=== PATIENT | female | born 1945 | race Hispanic/Latino ===

== ENCOUNTER → 2017-09-29 | Outpatient (CLI) | payer MEDICARE ==
[~2017-09-29] MED LIST: ADV500 IH; ALBU8.5H8 IH; ALEN70TA47 PO; AUD IH; ESOM40VI2 IV; FERROUS GLUCON325 M1 PO; HYDR12.530 PO; LEVO25TA54 PO; ROPI1TAB11 PO; SPIR25TA4 PO; TRAM50TA4 PO; [UNRECOGNIZED DRUG - OTHER]
== END ==
LOC: RAH 13:16
PROVIDERS: ATTEND Family Medicine
DX: Z12.31 Encounter for screening mammogram for malignant neoplasm of breast (principal)
CPT/HCPCS: 77067

== ENCOUNTER → 2022-07-23 | Outpatient (CLI) | payer MEDICARE ==
[~2022-07-23] MED LIST changes: -ALEN70TA47 PO; +ALEN70TA80 PO; +BUPIVACAINE/EPI/PF 0.25% 10ML VIAL IJ SCH; -ROPI1TAB11 PO; +ROPI1TAB13 PO; -SPIR25TA4 PO; +SPIR25TA6 PO
== END | disposition home or self-care (01) ==
LOC: RAH 08:35
PROVIDERS: ATTEND Family Medicine
DX: Z12.31 Encounter for screening mammogram for malignant neoplasm of breast (principal)
CPT/HCPCS: 77067; J3490

== ENCOUNTER 2024-10-16 17:05 | Inpatient (IN) | payer MEDICARE ==
[~2024-10-16] VITALS: Ht 172.7 cm; Wt 103.2 kg
[~2024-10-16 17:05] MED LIST changes: -BUPIVACAINE/EPI/PF 0.25% 10ML VIAL IJ SCH; -ROPI1TAB13 PO; +ROPI1TAB46 PO
[2024-10-16 18:22] LABS: BASOPHILS # (AUTO) 0.01 K/uL (0.00-0.20); BASOPHILS % (AUTO) 0.1 % (0.0-5.0); HEMATOCRIT 33.8 % (36-48); LYMPHOCYTES # (AUTO) 0.2 K/uL (1.0-4.8); LYMPHOCYTES % (AUTO) 2.3 % (21.0-51.0); MEAN CORPUSCULAR HEMOGLOBIN 22.9 pg (27.0-33.0); MEAN CORPUSCULAR HGB CONC 28.7 g/dL (32.0-36.0); MEAN CORPUSCULAR VOLUME 79.7 fL (79-99); MONOCYTES # (AUTO) 0.3 K/uL (0.1-1.0); MONOCYTES % (AUTO) 2.4 % (3.0-13.0); NEUTROPHILS # (AUTO) 9.9 K/uL (1.8-7.7); NEUTROPHILS % (AUTO) 93.3 % (40.0-77.0); NUCLEATED RED BLOOD CELLS 0.4 % (0.0-0.19); PLATELET COUNT (AUTO) 409 K/uL (130-400); RED BLOOD CELL COUNT(AUTO) 4.24 MIL/uL (4.00-5.50); RED CELL DISTRIBUTION WIDTH 19.9 % (11.0-15.5); WHITE BLOOD COUNT (AUTO) 10.6 K/uL (4.8-10.8)
[2024-10-16 18:36] LABS: CREATININE 1.3 mg/dL (0.5-1.0); POTASSIUM 4.1 mmol/L (3.5-5.1)
[2024-10-16 18:38] LABS: ALBUMIN 3.2 g/dL (3.5-5.0); BILIRUBIN,DIRECT 0.1 mg/dL (0.0-0.3); BILIRUBIN,TOTAL 0.3 mg/dL (0.2-1.0); TOTAL PROTEIN, SERUM 6.8 g/dL (6.0-8.3)
[2024-10-16] MEDS: IpraTROPium/alBUTERol SULFATE 3 ML SOLUTION IH ONE ×3 (18:38→23:39)
--- NOTE | 2024-10-16 18:41 | EKG ---
[facility] Test Date: 2024-10-16 Test Time: 18:39:53 Pat Name: MORRIS LANGSTON Department: [facility] Room: 426 Gender: F Visual Manager: [id number] : 1945 Requested By: KARLO LESLIE Order Number: [id number] Reading MD: Wilberto Self Measurements Intervals [place] Rate: 97 P: 55 MO: 130 QRS: 14 QRSD: 95 T: 59 QT: 335 QTc: 421 Interpretive Statements Sinus rhythm Atrial premature complexes Probable left atrial enlargement Compared to ECG 01/04/2016 06:05:59 Atrial premature complex(es) now present Electronically Signed On 10-17-2024 13:10:07 CDT by Wilberto Self Please click the below link to view image of tracing.
[2024-10-16 18:49] VITALS: PULSE 108; PULSE 89; RESP 22; RESP 24; O2SAT 99
--- NOTE | 2024-10-16 18:49 | ERN ---
ED Note History of Present Illness Stated Complaint: SOB,SHAKING Chief Complaint: Shortness of Breath Time Seen by MD: 17:06 Dictation: 79-year-old female presenting to the emergency department with shortness of breath over the past few weeks worsening today. Patient has a history of COPD and asthma has been seen multiple times in the clinic setting had subjective fever last week placed on steroids and nebulized treatments which have not been working. Allergies: Coded Allergies: No Known Drug Allergies (Unverified Allergy, Unknown, 07/24/22) Home Meds Reported Medications Prednisone (Prednisone) 20 Mg Tablet, 1 TAB PO DAILY for 5 Days, #5 TAB 0 Refills 10/17/24 Alendronate Sodium (Alendronate Sodium) 70 Mg Tablet, 1 TAB PO QWEEK for 28 Days, #4 TAB 0 Refills in the morning, at least 30 minutes before the first food, beverage, or medication of the day 10/16/24 Albuterol Sulfate (Ventolin Hfa) 90 Mcg Hfa.aer.ad, 2 PUFF IH Q4HPRN PRN for wheezing for 30 Days, #18 GM 0 Refills 10/16/24 Fluticasone/Umeclidin/Vilanter (Trelegy Ellipta 100-62.5-25) 100-62.5 Blst.w.dev, 1 PUFF IH DAILY for 30 Days, #1 EACH 0 Refills 10/16/24 Isosorbide Mononitrate (Isosorbide Mononitrate ER) 30 Mg Tab.er.24h, 1 TAB PO DAILY for 30 Days, #30 TAB 0 Refills 10/16/24 Losartan Potassium (Losartan Potassium) 25 Mg Tablet, 1 TAB PO DAILY for 30 Days, #30 TAB 0 Refills 10/16/24 Spironolactone (Spironolactone) 25 Mg Tablet, 1 TAB PO DAILY for 30 Days, #30 TAB 0 Refills 10/16/24 Fluticasone/Salmeterol (ADVAIR 500-50 DISKUS) 14 Inh/Disk Inh, 1 INH IH BID, INHALER 01/04/16 Albuterol Sulfate (Albuterol Sulfate) 2.5 Mg/0.5 Ml Vial.neb, 2.5 MG IH every 6 hours, INH 01/04/16 Hydrochlorothiazide (Hydrochlorothiazide) 12.5 Mg Capsule, 12.5 MG PO DAILY, CAP 01/04/16 Spironolactone (Spironolactone) 25 Mg Tablet, 12.5 MG PO DAILY, TAB 01/04/16 Tramadol Hcl (Tramadol HCl) 50 Mg Tablet, 50 MG PO every 8 hours, TAB 01/04/16 [methylp] No Conflict Check 01/04/16 Ferrous Gluconate (Ferrous Gluconate) 325 Mg Tablet, 325 MG PO TID, TAB 01/04/16 Esomeprazole Sodium (Esomeprazole Sodium) 40 Mg Vial, 40 MG IV DAILY, VIAL 01/04/16 Ropinirole HCl (Ropinirole HCl) 1 Mg Tablet, 1 MG PO as needed PRN for as instructed 01/04/16 Levothyroxine Sodium (Levothyroxine Sodium) 25 Mcg Tablet, 25 MCG PO DAILY, TAB 01/04/16 Alendronate Sodium (Alendronate Sodium) 70 Mg Tablet, 70 MG PO weekly, TAB 01/04/16 Albuterol Sulfate (Proair Hfa) 8.5 Gm Hfa.aer.ad, 8.5 GM IH every 6 hours 01/04/16 Past Medical History Past Medical History: Asthma, COPD, Hypertension, Hypothyroid, Renal Disese Surgical History: Other Surgical History Other: OVARIAN SX Review of System Dictation Constitutional: Per HPI Eyes: Negative for injury, pain,redness, and discharge ENT: Negative for injury,pain or swelling Cardiovascular: Negative for chest pain, palpitations, and edema Respiratory: Per HPI Abdomen/GI: Negative for abdominal pain, nausea, vomiting, diarrhea, and constipation Back: Negative for injury and pain : Negative for injury, bleeding and discharge MS/Extremity: Negative for injury and deformity Skin: Negative for rash, and discoloration Neuro: Negative for headache, weakness, numbness, tingling, and seizure Psych: Negative for suicide ideation, homicidal ideation, and hallucinations Initial Vital Sign VS Vital Signs Date Time Temp Pulse Resp B/P (MAP) Pulse Ox O2 Delivery O2 Flow Rate FiO2 10/16/24 17:52 98.4 95 24 147/70 95 Room Air 0 10/16/24 18:49 32 Physical Exam Dictation General: awake, alert, NAD Head/Face: Normocephalic, atraumatic Eyes: PERRL, EOMI, vision at baseline ENT: oral cavity clear, TMs clear, no signs of infection Neck: Trachea midline, supple, no nuchal rigidity Cardiovascular: RRR, normal S1/S2, No MRGs, no JVD Respiratory: Mild tachypnea with diminished bilateral breath sounds and expiratory wheezing scattered throughout lung mosley Abdomen: Soft, non-tender, non-distended, normal bowel sounds, no guarding or rebound. Skin: Warm, dry, normal turgor, no rash MS/Extremity: Pulses equal, no cyanosis, neurovascular intact, FROM Neuro: COAx4, GCS 15, strength 5/5, CN 2-12 intact, normal cerebellar exam, normal gait, Psych: Normal behavior, mood, and affect normal Results (Laboratory/Radiology) Laboratory/Radiology Laboratory Tests Test 10/16/24 18:14 10/16/24 19:42 10/16/24 21:21 10/16/24 21:54 White Blood Count 10.6 K/uL (4.8-10.8) Red Blood Count 4.24 MIL/uL (4.00-5.50) Hemoglobin 9.7 g/dL (12.0-16.0) L Hematocrit 33.8 % (36-48) L Mean Corpuscular Volume 79.7 fL (79-99) Mean Corpuscular Hemoglobin 22.9 pg (27.0-33.0) L Mean Corpuscular Hemoglobin Concent 28.7 g/dL (32.0-36.0) L Red Cell Distribution Width 19.9 % (11.0-15.5) H Platelet Count 409 K/uL (130-400) H Mean Platelet Volume 8.6 fL (7.5-10.5) Immature Granulocyte % (Auto) 1.9 % (0-1) H Neutrophils (%) (Auto) 93.3 % (40.0-77.0) H Lymphocytes (%) (Auto) 2.3 % (21.0-51.0) L Monocytes (%) (Auto) 2.4 % (3.0-13.0) L Eosinophils (%) (Auto) 0.0 % (0.0-8.0) Basophils (%) (Auto) 0.1 % (0.0-5.0) Neutrophils # (Auto) 9.9 K/uL (1.8-7.7) H Lymphocytes # (Auto) 0.2 K/uL (1.0-4.8) L Monocytes # (Auto) 0.3 K/uL (0.1-1.0) Eosinophils # (Auto) 0.00 K/uL (0.00-0.70) Basophils # (Auto) 0.01 K/uL (0.00-0.20) Absolute Immature Granulocyte (auto 0.20 K/uL (0-1) Nucleated Red Blood Cells 0.4 % (0.0-0.19) H White Cell Morphology Comment See comments Red Blood Cell Morphology See comments D-Dimer Quantitative (PE/DVT) 1403 ng/mL (0-500) *H Sodium Level 139 mmol/L (136-145) Potassium Level 4.1 mmol/L (3.5-5.1) Chloride Level 105 mmol/L (101-111) Carbon Dioxide Level 25 mmol/L (21-32) Blood Urea Nitrogen 29 mg/dL (7-18) H Creatinine 1.3 mg/dL (0.5-1.0) H Glomerular Filtration Rate Calc 42 mL/min (>90) Random Glucose 291 mg/dL (70-105) H Lactic Acid Level 3.4 mmol/L (0.8-2.5) H Total Calcium 8.2 mg/dL (8.5-10.1) L Total Bilirubin 0.3 mg/dL (0.2-1.0) Direct Bilirubin 0.1 mg/dL (0.0-0.3) Aspartate Amino Transf (AST/SGOT) 12 U/L (10-37) Alanine Aminotransferase (ALT/SGPT) 22 U/L (12-78) Alkaline Phosphatase 76 U/L (50-136) Total Creatine Kinase 37 U/L (21-232) Troponin I High Sensitivity 10 ng/L (4-50) B-Type Natriuretic Peptide 115 pg/mL (0-100) H Total Protein 6.8 g/dL (6.0-8.3) Albumin 3.2 g/dL (3.5-5.0) L Influenza Type A Antigen Negative For Type A Influenza Type B Antigen Negative For Type B SARS-CoV-2 Antigen (Rapid) PRESUMPTIVE NEGATIVE Whole Blood Glucose 149 MG/DL (70-110) H Blood Gas Specimen Type Arterial Arterial Blood pH 7.425 (7.350-7.450) Arterial Blood Partial Pressure CO2 35 mmHg (32-45) Arterial Blood Partial Pressure O2 107.0 mmHg (83.0-108.0) Arterial Blood HCO3 22.3 mmol/L (21.0-28.0) Arterial Blood Oxygen Saturation 98.0 % (94.0-98.0) Arterial Blood Base Excess -1.4 mmol/L (-2.0-3.0) Blood Gas Temperature 37.0 CELSIUS (35.5-37.0) Blood Gas Flow-by 3.00 L/min (0.00-15.00) Blood Gas Vent Mode 3L NC HF (ROOM AIR) FiO2 32.0 % Blood Gas Specimen Comment RR ZULEMARN Test 10/16/24 21:58 10/17/24 04:46 10/17/24 05:26 10/17/24 05:30 Lactic Acid Level 2.4 mmol/L (0.8-2.5) Urine Color LIGHT-YELLOW (YELLOW) Urine Appearance CLEAR (CLEAR) Urine pH 5.5 (5.0-8.0) Urine Specific [place] 1.026 (1.001-1.031) Urine Protein 20 mg/dL (NEGATIVE) H Urine Glucose (UA) 70 mg/dL (NEGATIVE) H Urine Ketones NEGATIVE mg/dL (NEGATIVE) Urine Occult Blood NEGATIVE (NEGATIVE) Urine Nitrate NEGATIVE (NEGATIVE) Urine Bilirubin NEGATIVE mg/dL (NEGATIVE) Urine Urobilinogen 0.2 mg/dL (0.2-1.0) Urine Leukocyte Esterase NEGATIVE [place]/uL Urine RBC 0-1 /HPF (0-1) Urine WBC 0-1 /HPF (0-1) Urine Squamous Epithelial Cells RARE /HPF (0-2) Urine Bacteria None /HPF (None Seen) White Blood Count 8.3 K/uL (4.8-10.8) Red Blood Count 3.81 MIL/uL (4.00-5.50) L Hemoglobin 8.5 g/dL (12.0-16.0) L Hematocrit 29.4 % (36-48) L Mean Corpuscular Volume 77.2 fL (79-99) L Mean Corpuscular Hemoglobin 22.3 pg (27.0-33.0) L Mean Corpuscular Hemoglobin Concent 28.9 g/dL (32.0-36.0) L Red Cell Distribution Width 19.5 % (11.0-15.5) H Platelet Count 387 K/uL (130-400) Mean Platelet Volume 9.3 fL (7.5-10.5) Nucleated Red Blood Cells 0.2 % (0.0-0.19) H Sodium Level 143 mmol/L (136-145) Potassium Level 4.4 mmol/L (3.5-5.1) Chloride Level 110 mmol/L (101-111) Carbon Dioxide Level 26 mmol/L (21-32) Blood Urea Nitrogen 26 mg/dL (7-18) H Creatinine 1.1 mg/dL (0.5-1.0) H Glomerular Filtration Rate Calc 52 mL/min (>90) Random Glucose 150 mg/dL (70-105) H Total Calcium 8.4 mg/dL (8.5-10.1) L Phosphorus Level 3.5 mg/dL (2.5-4.9) Magnesium Level 1.90 mg/dL (1.80-2.40) Thyroid Stimulating Hormone (TSH) 0.25 uIU/mL (0.36-3.74) L Whole Blood Glucose 136 MG/DL (70-110) H Test 10/17/24 11:39 Whole Blood Glucose 150 MG/DL (70-110) H Labs Reviewed?: Yes ED Course ED Course Orders Procedure Category Date Status Time 12 Lead Ekg Tracing- EKG 10/16/24 Resulted Technical 18:03 B-Type Natriuretic LAB 10/16/24 Complete Peptide 18:03 Basic Metabolic Panel LAB 10/16/24 Complete 18:03 Blood Cult CANDE 10/16/24 In Process 18:03 Cbc With Differential LAB 10/16/24 Complete 18:03 Creatine Kinase, Total LAB 10/16/24 Complete 18:03 Hepatic Function Panel LAB 10/16/24 Complete 18:03 Lactic Acid LAB 10/16/24 Complete 18:03 Troponin I High LAB 10/16/24 Complete Sensitivity 18:03 Chest 1vw RAD 10/16/24 Resulted 18:03 Influenza Type A & B, LAB 10/16/24 Complete Rapid 18:03 Covid19 (Sars Antigen LAB 10/16/24 Complete Rapid) 18:03 Ceftriaxone 2gm Vial PHA 10/16/24 Complete (Rocephin 2gm Inj) 18:30 Ipratropium/Albuterol PHA 10/16/24 Complete Neb (Duoneb) 18:30 Ipratropium/Albuterol PHA 10/16/24 Complete Neb (Duoneb) 18:30 Methylprednisolone PHA 10/16/24 Complete Succ 40mg (Solu-Medro 18:30 Insulin Regular, PHA 10/16/24 Complete Human 3ml (Humulin R 20:30 Admit Orders ADM 10/16/24 Transmitted 20:20 Doxycycline 100mg+Ns PHA 10/16/24 In Process 250ml (Doxycycline 20:30 Vital Signs Every 4 CPOE 10/16/24 Transmitted Hours 20:35 Activity: Br W/Brp CPOE 10/16/24 Transmitted With Assist 20:35 Heart Healthy Diet DIET 10/17/24 Transmitted Breakfast O2 Order RT 10/16/24 Transmitted 20:35 Ipratropium/Albuterol PHA 10/17/24 In Process Neb (Duoneb) 00:00 Cbc Without LAB 10/17/24 Complete Differential 04:00 Basic Metabolic Panel LAB 10/17/24 Complete 04:00 Magnesium LAB 10/17/24 Complete 04:00 Phosphorus LAB 10/17/24 Complete 04:00 Thyroid Stimulating LAB 10/17/24 Complete Hormone 04:00 Enoxaparin Sodium 40 PHA 10/17/24 In Process Mg/0.4 Ml (Lovenox) 09:00 Acetaminophen 325 Tab PHA 10/16/24 In Process (Tylenol 325mg Tab 21:00 Acetaminophen 650mg PHA 10/16/24 In Process Supp (Tylenol 650mg 21:00 Lactulose 20 Gm/30 Ml PHA 10/16/24 In Process Udcup (Constulose 21:00 Docusate Sodium 100 PHA 10/16/24 In Process Mg Cap (Colace 100mg 21:00 Temazepam 15 Mg Cap PHA 10/16/24 In Process (Restoril 15 Mg Cap) 21:00 Ondansetron 4mg Inj PHA 10/16/24 In Process (Zofran 4mg Inj) 21:00 Hydralazine 20mg Inj PHA 10/16/24 In Process (Apresoline 20mg In 21:00 Telemetry Monitoring CPOE 10/16/24 Transmitted 20:35 Initiate FRANCISCO 10/16/24 In Process Hyperglycemia Protoco 20:35 Insulin Regular, PHA 10/16/24 In Process Human 3ml (Humulin R 21:00 Arterial Blood Gas RT 10/16/24 Transmitted 21:21 D-Dimer LAB 10/16/24 Complete 21:21 Lactic Acid (Removed) LAB 10/16/24 Complete 21:30 Ct Chest W/O Contrast CT 10/16/24 Resulted 21:26 Arterial Blood Gas LAB 10/16/24 Complete 21:54 Nm Pulmonary/Lung Vq NM 10/16/24 Logged Scan 22:30 Us Venous Doppler US 10/16/24 Resulted Bilateral 22:30 Ipratropium/Albuterol PHA 10/16/24 Complete Neb (Duoneb) 22:43 Famotidine 20mg Vial PHA 10/17/24 In Process (Pepcid 20mg Vial) 09:00 Is Q1h; Deep Breathng CPOE 10/17/24 Transmitted Exerc.Q2 03:56 Is Initial RT 10/17/24 Transmitted 03:56 Methylprednisolone PHA 10/17/24 In Process Succ 125mg (Solu-Medr 04:00 Strict I&O CPOE 10/17/24 Transmitted 03:56 Daily Fluid Intake CPOE 10/17/24 Transmitted Restriction 03:56 Furosemide 40mg Vial PHA 10/17/24 In Process (Lasix 40mg Vial) 09:00 Respiratory Cult CANDE 10/17/24 Logged W/Gram Stain 03:56 Echo 2-D Complete ECHO 10/17/24 Resulted 03:56 Pulmonology Consult CONPHYSVC 10/17/24 Transmitted 08:00 Initiate Hypoglycemia FRANCISCO 10/17/24 In Process Protocol 03:56 Dextrose 50%-Water PHA 10/17/24 In Process (D50w) 04:00 Glucagon 1mg Kit PHA 10/17/24 In Process (Glucagon 1mg Kit) 04:00 Initiate Hypokalemia CPOE 10/17/24 Transmitted Po Half 03:56 Potassium Chloride PHA 10/17/24 In Process 10meq/100ml ([place] 04:00 Potassium Chl 10% PHA 10/17/24 In Process Elixir 20meq (Kcl 10% 04:00 Potassium Chloride PHA 10/17/24 In Process 20meq Er (K-Dur/Klor- 04:00 Notify Physician If CPOE 10/17/24 Transmitted There Is 03:56 Notify Md On The Next CPOE 10/17/24 Transmitted 03:56 Notify Md On The CPOE 10/17/24 Transmitted Next(Cont.) 03:56 Magnesium 2gm Premix PHA 10/17/24 In Process 50ml (Magnesium 2gm 04:00 Guaifenesin-Dm PHA 10/17/24 In Process 200/20mg 10ml 04:00 Ceftriaxone 2gm Vial PHA 10/17/24 In Process (Rocephin 2gm Inj) 09:00 Urinalysis Profile LAB 10/17/24 Complete 04:17 *Nursing CPOE 10/17/24 Transmitted Communication: 04:17 Isosorbide [place] 30mg PHA 10/17/24 In Process Sr Tab (Imdur 30mg 09:00 Losartan 25 Mg Tablet PHA 10/17/24 In Process (Cozaar 25mg Tab) 15:00 Spironolactone 25mg PHA 10/17/24 In Process (Aldactone 25mg) 15:00 Home Medication (Home PHA 10/17/24 In Process Medication) 09:00 Sodium Chloride 3% PHA 10/17/24 Complete Inh (Sodium Chloride 06:04 Sodium Chloride 3% PHA 10/17/24 Complete Inh (Sodium Chloride 10:18 Cbc With Differential LAB 10/18/24 Verified 04:00 Basic Metabolic Panel LAB 10/18/24 Verified 04:00 Iron Panel With %Sat LAB 10/18/24 Verified 04:00 Triiodothyronine Total LAB 10/18/24 Verified 04:00 Free T3 LAB 10/18/24 Verified 04:00 T4 Free LAB 10/18/24 Verified 04:00 T4 (Thyroxine) LAB 10/18/24 Verified 04:00 Current Medications Medications (Trade) Dose Ordered Sig/Tom Route PRN Reason Start Time Stop Time Status Last Admin Dose Admin Albuterol (DUOneb) 1 udvial ONCE ONCE IH 10/16/24 18:30 10/16/24 18:31 DC 10/16/24 18:39 Albuterol (DUOneb) 1 udvial STK-MED ONCE IH 10/16/24 18:30 10/16/24 18:30 DC Ceftriaxone Sodium (Rocephin 2gm Inj) 2 gm ONCE ONCE IVPB 10/16/24 18:30 10/16/24 18:31 DC 10/16/24 19:35 Methylprednisolone Sodium Succinate (Solu-medROL 40MG) 80 mg ONCE ONCE IVP 10/16/24 18:30 10/16/24 18:32 DC 10/16/24 19:35 Vital Signs Date Time Temp Pulse Resp B/P (MAP) Pulse Ox O2 Delivery O2 Flow Rate FiO2 10/17/24 12:14 72 16 N/Cannula Oximizer Hi LPM 1.0 24 10/17/24 12:09 72 18 10/17/24 11:59 97.9 64 18 149/66 97 Nasal Cannula 2.0 24 10/17/24 07:30 97.7 79 18 142/75 98 Nasal Cannula 2.0 24 10/17/24 06:27 67 18 N/Cannula Oximizer Hi LPM 1.0 24 10/17/24 06:24 67 18 10/17/24 04:00 97.5 59 20 146/75 100 Room Air 10/16/24 23:49 Nasal Cannula* 1 24 10/16/24 23:40 58 22 10/16/24 23:10 97.7 59 20 156/80 98 Nasal Cannula 1.0 10/16/24 22:19 98.1 81 18 158/72 100 Aerosol Mask+ 1 24 10/16/24 22:07 20 N/Cannula Oximizer Hi LPM 3.0 32 10/16/24 20:17 98.2 78 18 142/64 100 Nasal Cannula* 3.0 N/A 10/16/24 18:59 97.5 88 22 106/71 99 Room Air* 0 21 10/16/24 18:49 89 22 Nasal Cannula 3.0 32 10/16/24 18:49 108 24 10/16/24 17:52 98.4 95 24 147/70 95 Room Air 0 Despite aggressive therapy with steroids and more nebulizer treatments patient is still feels uncomfortable still needs a nasal cannula for oxygenation and still does not feel like she is at baseline. A repeat exam shows no air movement in her right lower lobe. Chest x-ray is positive for fluid in hyper vascularization. I discussed the patient with the hospitalist and they have agreed to admit her. Medical Decision Making MDM MDM: Differential diagnosis: Respiratory distress, COPD exacerbation Rationale: Tests considered and ordered secondary to shared decision making include: labs, ECG and radiology Risk of complication and/or morbidity or mortality of patient management: None Medications-Per medication reconciliation Need for hospitalization: Patient does meet criteria for hospitalization. Need for emergency major/minor surgery: No There are no social concerns with this patient. I independently interpreted the test that were performed, results were reviewed by me and considered findings on radiology if ordered. Medical management and examination interpretation discussions were had by me w ith other qualified healthcare professionals as indicated for the patient's care. Patient handed off at shift change pending re-evaluation of laboratory values will likely require admission. Critical Care Note Comment(s) Total critical care time was 33 minutes. Excluding time for procedures. Management of critically ill patient with concern for acute decompensation. Management included interpretation of laboratory values and imaging, hemodynamics, time for consultation with consultants and admitting physician. DX & DISP Disposition: Inpatient Departure Impression: Primary Impression: Acute respiratory distress Additional Impression: Acute exacerbation of COPD with asthma Condition: Stable Referrals: SUSAN LORENZO MD (PCP) KARLO LESLIE MD Oct 16, 2024 18:49 KITTY CAMACHO MD Oct 16, 2024 20:20
[2024-10-16 19:04] LABS: B-TYPE NATRIURETIC PEPTIDE 115 pg/mL (0-100)
--- NOTE | 2024-10-16 19:06 | HMCIMG ---
INDICATION: sob TECHNIQUE: CHEST 1VW COMPARISON: 11/10/2012 FINDINGS AND IMPRESSION: Mild bilateral airspace consolidation suggesting vascular congestion/edema versus pneumonia. Mild cardiomegaly Degenerative changes of the spine. The visualized upper abdomen appears unremarkable.
[2024-10-16] MEDS: Solu-medROL 40MG VIAL IVP ONE (19:35)
[2024-10-16] MEDS: CEFTRIAXONE 2GM VIAL IVPB ONE (19:35)
[2024-10-16 20:14] LABS: COVID19 (SARS ANTIGEN RAPID) PRESUMPTIVE NEGATIVE (NEGATIVE)
[2024-10-16 20:15] LABS: INFLUENZA TYPE A Negative For Type A (NEGATIVE); INFLUENZA TYPE B Negative For Type B (NEGATIVE)
--- NOTE | 2024-10-16 20:23 | HP ---
[facility] HISTORY AND PHYSICAL Date of Service: Oct 16, 2024 Time of Service: 20:23 PCP: Sy Castillo Attending/supervising physicians: Dr. Sauer and Dr. Hsieh HISTORY OF PRESENT ILLNESS: Ms. Palafox is a 79-year-old female with a history of tobacco dependent, COPD, asthma, hypertension, hypothyroidism, and renal disease who presented to [facility] for evaluation of shortness of breath over the past few weeks worsening today. The patient reported that she has been seen multiple times in the clinic setting for subjective fever last week. The patient was placed on steroids and nebulized treatments with no improvement which prompted the ED visit. In ED the patient was administered Solu-Medrol 80 mg IV, DuoNeb treatments, and Rocephin2 g. ED provider requested patient be admitted to the [facility] hospitalist team with the diagnosis of acute respiratory distress and acute exacerbation of COPD with asthma. Labs reviewed. Troponin negative. ABGs WNL, PO2 107, on 3 L. influenza and COVID are negative. BNP 115. D-dimer a 1403. CT chest without contrast: There are mild interstitial fibrosis. Bilateral renal cysts with the largest on the right measuring 9.8 cm. No evidence of pulmonary nodules or effusions. I went to assess the patient at bedside. Breathing was even, unlabored, in no distress. RN reports that patient is very exacerbated with exertion. Son at bedside reports that the patient takes trilogy in a.m. and was started on nebulizer treatments also. The son at bedside reported that the patient's PCP started her on spironolactone daily after an x-ray results, then increased spironolactone to b.i.d. after the 2nd x-ray was done. The son at bedside reports that patient has never been referred to a complex case manager. The son reports that the patient snores but has not noticed any sleep apnea. I informed the son and patient of labs, diagnostics, and plan of care. They verbalized understanding and are in agreement with the plan. Plan and assessment are listed below. REVIEW OF SYSTEMS 12-ROS reviewed with patient. All pertinent positives are mentioned above. Otherwise negative, noncontributory, or non-pertinent. PAST MEDICAL HISTORY: As mentioned above PAST SURGICAL HISTORY: Ovarian surgery PAST SOCIAL HISTORY: + Tobacco abuse. Denied alcohol, illicit drug use FAMILY HISTORY: Obesity Coded Allergies: No Known Drug Allergies (Unverified Allergy, Unknown, 07/24/22) PHYSICAL EXAM GENERAL APPEARANCE: The patient is awake, alert, and oriented, in no acute cardiopulmonary distress. NEUROLOGICAL: Cranial nerves II-XII grossly intact. Motor is 5/5 in bilateral upper and lower extremities proximal to distal. No sensory deficits. HEENT: Face is symmetric. Pupils are equal and reactive. Extraocular movements are intact. NECK: Supple. No JVD. No thyromegaly. No submental, submandibular, pre-/postauricular, occipital or supraclavicular lymphadenopathy. CHEST: Normal chest expansion. No Telemetry. LUNGS: Absence of any rales or wheezing. + Crackles. CARDIOVASCULAR: Regular. S1 and S2 normal. No appreciable rubs, murmurs or gallops. Crackles. ABDOMEN: Obese. Obese. Soft, nontender, and nondistended. There is no rebound, voluntary guarding, or rigidity. : Deferred. No Hendrix. EXTREMITIES: Non-edematous and not cyanotic. No clubbing. Good capillary refill. SKIN: No skin breakdown. Vital Sign (Last 24 Hours) 10/16/24 20:17 Temp 98.2 Pulse 78 Resp 18 B/P (MAP) 142/64 Pulse Ox 100 O2 Delivery Nasal Cannula* O2 Flow Rate 3.0 FiO2 N/A LABS: Laboratory: Test 10/16/24 19:42 10/16/24 18:14 Range/Units Influenza Type A Antigen Negative For Type A NEGATIVE Influenza Type B Antigen Negative For Type B NEGATIVE SARS-CoV-2 Antigen (Rapid) PRESUMPTIVE NEGATIVE NEGATIVE White Blood Count 10.6 4.8-10.8 K/uL Red Blood Count 4.24 4.00-5.50 MIL/uL Hemoglobin 9.7 L 12.0-16.0 g/dL Hematocrit 33.8 L 36-48 % Mean Corpuscular Volume 79.7 79-99 fL Mean Corpuscular Hemoglobin 22.9 L 27.0-33.0 pg Mean Corpuscular Hemoglobin Concent 28.7 L 32.0-36.0 g/dL Red Cell Distribution Width 19.9 H 11.0-15.5 % Platelet Count 409 H 130-400 K/uL Mean Platelet Volume 8.6 7.5-10.5 fL Immature Granulocyte % (Auto) 1.9 H 0-1 % Neutrophils (%) (Auto) 93.3 H 40.0-77.0 % Lymphocytes (%) (Auto) 2.3 L 21.0-51.0 % Monocytes (%) (Auto) 2.4 L 3.0-13.0 % Eosinophils (%) (Auto) 0.0 0.0-8.0 % Basophils (%) (Auto) 0.1 0.0-5.0 % Neutrophils # (Auto) 9.9 H 1.8-7.7 K/uL Lymphocytes # (Auto) 0.2 L 1.0-4.8 K/uL Monocytes # (Auto) 0.3 0.1-1.0 K/uL Eosinophils # (Auto) 0.00 0.00-0.70 K/uL Basophils # (Auto) 0.01 0.00-0.20 K/uL Absolute Immature Granulocyte (auto 0.20 0-1 K/uL Nucleated Red Blood Cells 0.4 H 0.0-0.19 % White Cell Morphology Comment See comments Red Blood Cell Morphology See comments Sodium Level 139 136-145 mmol/L Potassium Level 4.1 3.5-5.1 mmol/L Chloride Level 105 101-111 mmol/L Carbon Dioxide Level 25 21-32 mmol/L Blood Urea Nitrogen 29 H 7-18 mg/dL Creatinine 1.3 H 0.5-1.0 mg/dL Glomerular Filtration Rate Calc 42 >90 mL/min Random Glucose 291 H 70-105 mg/dL Lactic Acid Level 3.4 H 0.8-2.5 mmol/L Total Calcium 8.2 L 8.5-10.1 mg/dL Total Bilirubin 0.3 0.2-1.0 mg/dL Direct Bilirubin 0.1 0.0-0.3 mg/dL Aspartate Amino Transf (AST/SGOT) 12 10-37 U/L Alanine Aminotransferase (ALT/SGPT) 22 12-78 U/L Alkaline Phosphatase 76 50-136 U/L Total Creatine Kinase 37 21-232 U/L Troponin I High Sensitivity 10 4-50 ng/L B-Type Natriuretic Peptide 115 H 0-100 pg/mL Total Protein 6.8 6.0-8.3 g/dL Albumin 3.2 L 3.5-5.0 g/dL DIAGNOSTICS / RADIOLOGY: [ ] ASSESSMENT: Acute respiratory distress, POA, requiring oxygen supplementation Mild interstitial fibrosis, per CT on 10/16/2024 COPD exacerbation, POA Fluid overload, POA Bilateral renal cysts with the largest on the right measuring 9.8 cm. Lactic acidosis Anemia of chronic disease Thrombocytosis Acute on chronic renal failure, GFR 42 Diabetes mellitus with hyperglycemia Hypoalbuminemia Morbid obesity, BMI 42 Chronic problem list: Asthma, COPD, hypertension, hypothyroidism, renal insufficiency, ovarian surgery PLAN: -Admit to Medical floor with continuous telemetry monitoring -Monitor respiratory status closely. -Continue oxygen therapy as needed. Titrate oxygen prn to keep Spo2>/+=92%. -Albuterol and Atrovent scheduled. -RT to provide IS and education on use. -Robitussin DM as needed cough. -Solu-Medrol IV daily. -Start antibiotic therapy: Rocephin IV and doxycycline IV -obtain UA. -Consult pulmonology. Please refer patient to complex case manager for follow up up after discharge. -Pending V/Q scan and bilateral venous Doppler. -Obtain sputum culture. -Lasix 40 mg IV daily. -Fluid restrictions a 1200 mL. -Strict I&Os. -Echo in a.m.. -PRN medications for: Pain management, fever, hypertension, N/V, constipation. -Glucometer checks AC & HS needed with insulin regular sliding scale coverage as needed. -Blood pressure checks every 4 hours and as needed. -Reconcile home medication: Trilogy Ellipta, isosorbide mononitrate, losartan, spironolactone. - Monitor renal and liver function. -Monitor electrolytes and replace PRN -AM labs: CBC, BMP, mag, phos, TSH, A1C. -GI and DVT prophylaxis: Pepcid and Lovenox ADVANCED CARE PLANNING 1. Which of the following were discussed? Hospice Care - No Therapeutic options - Yes Advance Directives - Yes Other discussions - 2. Discussed with who? Patient 3. Voluntary nature of this service was explained to the patient? Yes 4. Amount of time spent - ___ over 35 minute ____ 5. Reviewed by Physician? (if this service was performed by NPP) Yes ATTESTATION BY PHYSICIAN I have seen and examined the patient. I reviewed the documentation, medical decision making, and treatment plan as noted by the mid-level provider above. I agree with the findings and plan of care. JARRED PATTERSON [employer] Oct 16, 2024 20:23
[2024-10-16] MEDS ORDERED: acetaMINOPHEN 650 MG SUPPOSITORY RC PRN (21:00)
[2024-10-16] MEDS: INSULIN humuLIN R 100 UNIT/ML 3ML SQ SCH (21:00)
[2024-10-16] MEDS ORDERED: TEMAZepam 15 MG CAPSULE PO PRN (21:00)
[2024-10-16] MEDS ORDERED: doCUSate SODIUM 100 MG CAP PO PRN (21:00)
[2024-10-16] MEDS ORDERED: ondanSETRON 4MG INJ IVP PRN (21:00)
[2024-10-16] MEDS ORDERED: LACTULOSE 20 GM/30 ML UDCUP PO PRN (21:00)
[2024-10-16] MEDS: INSULIN humuLIN R 100 UNIT/ML 3ML SQ ONE (21:22)
--- NOTE | 2024-10-16 21:27 | NUR ---
LEONARDO EXPERIMENTAL WELDER AT BEDSIDE
[2024-10-16] MEDS: DOXYCYCLINE 100MG+NS 250ML 250 ML IV SCH (21:41)
[2024-10-16 21:56] LABS: ABG BASE EXCESS -1.4 mmol/L (-2.0-3.0); ABG HCO3 22.3 mmol/L (21.0-28.0); ABG PCO2 35 mmHg (32-45); ABG PH 7.425 (7.350-7.450); DEVICE COMMENT RR ZULEMARN; VENT MODE, BG 3L NC HF (ROOM AIR)
[2024-10-16 22:07] VITALS: RESP 20; O2SAT 100
[2024-10-16] MEDS ORDERED: LOSA25TA41 PO (22:07)
[2024-10-16] MEDS ORDERED: ALBU18HF7 IH (22:07)
[2024-10-16] MEDS ORDERED: ALEN70TA80 PO (22:07)
[2024-10-16] MEDS ORDERED: ISOS30TA92 PO (22:07)
[2024-10-16] MEDS ORDERED: FLUT1BLS3 IH (22:07)
[2024-10-16] MEDS ORDERED: SPIR25TA6 PO (22:07)
--- NOTE | 2024-10-16 22:18 | HMCIMG ---
CT CHEST W/O CONTRAST HISTORY: Acute respiratory distress COMPARISON: None TECHNIQUE: Multiple sequential axial images of the chest were obtained from the thoracic inlet through upper abdomen. Patient was not given contrast through intravenous route. FINDINGS: There are mild interstitial fibrosis. There is no evidence of pulmonary nodule or parenchymal disease. No pleural effusion or pericardial effusion is seen. There is no evidence of pneumothorax. There are normal size mediastinal and hilar lymph nodes. The heart is not enlarged. Degenerative changes of the thoracolumbar spine are present. There is no evidence of adrenal nodule. There are bilateral renal cysts with the largest on the right measuring 9.8 cm. IMPRESSION: 1. No evidence of pulmonary nodule or effusion is seen. CT was performed with one or more following dose reduction techniques: automated exposure control, adjustment of the mA and kv according to patient's size, or use of a iterative reconstruction technique.
--- NOTE | 2024-10-16 22:59 | NUR ---
REPORT GIVEN TO NURSE MARTINEZ
[2024-10-16 23:10] VITALS: BP 156/80; PULSE 59; RESP 20; TEMP 97.7
[2024-10-16] MEDS: IpraTROPium/alBUTERol SULFATE 3 ML SOLUTION IH SCH (23:39)
[2024-10-16 23:40] VITALS: PULSE 58; RESP 22
[2024-10-17] VITALS (13 sets, daily range): BP systolic 123–149; BP diastolic 65–84; PULSE 54–95; RESP 16–20; TEMP 97.5–98.6; O2SAT 95–100
[2024-10-17] MEDS ORDERED: PoTASSium chloRIDE 20MEQ ER 20 MEQ ERTAB PO PRN (04:00)
[2024-10-17] MEDS ORDERED: PoTASSium chloRIDE 10MEQ/100ML 100 ML IV PRN (04:00)
[2024-10-17] MEDS ORDERED: guaiFENesin-DM 200/20MG 10ML PO PRN (04:00)
[2024-10-17] MEDS ORDERED: MAGNESIUM 2GM PREMIX 50ML 50 ML IV PRN (04:00)
[2024-10-17] MEDS ORDERED: DEXTROSE 50%-WATER 50 ML DISP.SYRIN IV PRN (04:00)
[2024-10-17] MEDS ORDERED: GLUCAGON 1MG KIT 1 MG ML IM PRN (04:00)
[2024-10-17] MEDS: Solu-medROL 125MG VIAL IVP SCH (04:41)
[2024-10-17 05:55] LABS: HEMATOCRIT 29.4 % (36-48); MEAN CORPUSCULAR HEMOGLOBIN 22.3 pg (27.0-33.0); MEAN CORPUSCULAR HGB CONC 28.9 g/dL (32.0-36.0); MEAN CORPUSCULAR VOLUME 77.2 fL (79-99); NUCLEATED RED BLOOD CELLS 0.2 % (0.0-0.19); RED BLOOD CELL COUNT(AUTO) 3.81 MIL/uL (4.00-5.50); RED CELL DISTRIBUTION WIDTH 19.5 % (11.0-15.5); WHITE BLOOD COUNT (AUTO) 8.3 K/uL (4.8-10.8)
[2024-10-17] MEDS: SODIUM CHLORIDE 3% FOR INHALATION 4 ML/AMP VIAL.NEB IH ONE ×3 (06:24→18:28)
[2024-10-17 07:11] LABS: CREATININE 1.1 mg/dL (0.5-1.0); MAGNESIUM 1.9 mg/dL (1.80-2.40); PHOSPHORUS 3.5 mg/dL (2.5-4.9); POTASSIUM 4.4 mmol/L (3.5-5.1); THYROID STIMULATING HORMONE 0.25 uIU/mL (0.36-3.74)
[2024-10-17 08:30] LABS: ADD UA MICROSCOPIC YES; APPEARANCE,URINE CLEAR (CLEAR); BILIRUBIN,URINE NEGATIVE (NEGATIVE); COLOR,URINE LIGHT-YELLOW (YELLOW); GLUCOSE, URINE (UA) 70 mg/dL (NEGATIVE); KETONES,URINE NEGATIVE (NEGATIVE); LEUKOCYTE ESTERASE ,URINE NEGATIVE Leu/uL (NEGATIVE); NITRATE,URINE NEGATIVE (NEGATIVE); OCCULT BLOOD,URINE NEGATIVE (NEGATIVE); PH,URINE 5.5 (5.0-8.0); PROTEIN,URINE 20 mg/dL (NEGATIVE); UROBILINOGEN,URINE 0.2 mg/dL (0.2-1.0)
[2024-10-17 08:33] LABS: MUCUS,URINE RARE LPF (None Seen); RBC,URINE 0-1 /HPF (0-1); SQUAMOUS EPITHELIAL CELL,UR RARE /HPF (0-2); WBC,URINE 0-1 /HPF (0-1)
[2024-10-17] MEDS: Fluticasone/Umeclidin/Vilanter (Trelegy Ellipta 100-62.5-25MCG) IH SCH (09:00)
--- NOTE | 2024-10-17 09:11 | HMCIMG ---
US VENOUS DOPPLER BILATERAL INDICATION: Swelling. ELEVATED D-DIMER TECHNIQUE: US VENOUS DOPPLER BILATERAL Real-time venous Doppler ultrasound was performed using B mode, color flow and spectral analysis. FINDINGS: The visualized greater saphenous junction, common femoral, deep femoral, superficial femoral, popliteal and posterior tibial veins demonstrate normal compressibility and flow. No DVT is identified. IMPRESSION: No evidence of DVT in the visualized bilateral extremities.
[2024-10-17] MEDS: FAMOTIDINE 20MG VIAL IV SCH (10:29)
[2024-10-17] MEDS: ISOSORBIDE MONO 30MG SR TAB PO SCH (10:29)
[2024-10-17] MEDS: furoSEMIDE 40MG VIAL IV SCH (10:30)
[2024-10-17] MEDS ORDERED: PRED20TA3 PO (12:38)
[2024-10-17] MEDS: ENOXAPARIN SODIUM 40 MG/0.4 ML SYRINGE SQ SCH (12:38)
--- NOTE | 2024-10-17 13:02 | HMCSR ---
APPROVED REPORT EXAM: Two-dimensional and M-mode echocardiogram with Doppler and color Doppler. INDICATION ICD: Fluid overload, SOB 2D Dimensions RVDd3.0 cmLVEF(%)63.0 (>50%)LVED Vol(simp.)126.0 mL IVSd0.9 (0.7-1.1cm)FS(%)34 %LVES Vol(simp.)39.0 mL LVDd4.3 (3.8-5.6cm)Ao Root(2D)3.0 (2.0-3.7cm)LVEF(%, simp.)69 % PWd0.9 (0.7-1.1cm)LVOT diam2.0 (1.8-2.4cm)LA ESV INDEX (BP)37.44 mL/m2 LVDs2.9 (2.5-4.0cm)IVC diam1.8 cm Deformation Strain Apical 4-17.9 % Apical 2-21.4 % Apical 3-17.8 % Global Strain-19.0 % M-Mode Dimensions EPSS0.8 cm LA (MM)3.8 (1.6-4.0cm) Ao Root(MM)3.4 (2.0-3.7cm) Aortic Valve AoV Vmax1.7 m/Brittni Peak GR12.2 mmHgLVOT Vmax1.7 m/s AoV VTI0.4 mAo Mean GR6.0 mmHgLVOT VTI0.32 m JAHAIRA (VMAX)2.75 cm2AVA (VTI) 2.7 cm2 Mitral Valve MV E Vmax77.8 cm/sDECEL Ysab996 ms MV A Vmax91.8 cm/sP 1/2 T62 ms E/A ratio0.8MVA (PHT)3.5 cm2 TDI E/E' Raugkz35.3E/E' [id number] Medial E' Peak V5.87 cm/sLateral E' Peak V7.70 cm/s Left Ventricle The left ventricle is normal size. There is normal LV segmental wall motion. There is normal left segun tricular wall thickness. LVEF is 60-65%. Indeterminate diastolic dysfunction. Right Ventricle The right ventricle is normal size. The right ventricular systolic function is normal. Atria The left atrium is mildly dilated. The right atrium size is normal. Aortic Valve Aortic valve is not well visualized but no significant valvular abnormalities noted. No aortic regurg itation is present. There is no aortic valvular stenosis. Mitral Valve The mitral valve is normal in structure. There is trace mitral regurgitation. There is no mitral valv e stenosis. Tricuspid Valve The tricuspid valve is normal in structure. There is trivial tricuspid valve regurgitation noted. Pulmonic Valve Pulmonic valve is not well visualized. There is no pulmonic valvular regurgitation. Great Vessels The aortic root is normal in size. The IVC is normal in size and collapses >50% with inspiration. Pericardium There is no pericardial effusion. Other Information Quality : Fair Technically limited study due to body habitus. Conclusion The left ventricle is normal size. LVEF is 60-65% with normal LV segmental wall motion. Indeterminate diastolic dysfunction. The right ventricular systolic function is normal. The left atrium is mildly dilated. No hemodynamically significant valvular abnormalities. There is no pericardial effusion.
--- NOTE | 2024-10-17 13:10 | PN ---
[facility] PROGRESS NOTE Date of Service: Oct 17, 2024 Time of Service: 12:54 SUBJECTIVE: Ms. Palafox is a 79-year-old female with a history of tobacco dependent, COPD, asthma, hypertension, hypothyroidism, and renal disease who [place] [facility] [place] evaluation of shortness of breath over the past few weeks worsening today. The patient reported that she has been seen multiple times in the clinic setting for subjective fever last week. The patient was placed on steroids and nebulized treatments with no improvement which prompted the ED visit. In ED the patient was administered Solu-Medrol 80 mg IV, DuoNeb treatments, and Rocephin2 g. ED provider requested patient be admitted to the [facility] hospitalist team with the diagnosis of acute respiratory distress and acute exacerbation of COPD with asthma. Labs reviewed. Troponin negative. ABGs WNL, PO2 107, on 3 L. influenza and COVID are negative. BNP 115. D-dimer a 1403. CT chest without contrast: There are mild interstitial fibrosis. Bilateral renal cysts with the largest on the right measuring 9.8 cm. No evidence of pulmonary nodules or effusions. 10/17/24 the patient is seen and examined today morning, with her family at the bedside. She stated that her breathing is better today she and she saturating 98% on1 L of oxygen via nasal cannula. We will try to wean her off. Vitals are stable. She is complaining of productive cough and we will get the sputum culture. Pulmonology consult pending. V/Q scan pending. 2D echo results pending. Her WBC went down. Her hemoglobin dropped down to 8.5 from 9.7, MCV 77.2. We will order iron panel studies. TSH 0.25 And we will hold her antithyroid medications at the moment. We will get T3 and T4 levels. Chest x- ray showed vascular congestion, edema versus pneumonia, mild cardiomegaly. Venous Doppler negative for DVT. REVIEW OF SYSTEMS CONSTITUTIONAL: Denies fevers, chills, or night sweats. No unintentional weight loss reported. NEUROLOGICAL: Denies headache, amaurosis fugax, motor weakness, sensory deficit, vertigo/spinning sensation, gait abnormalities, or tremors. ENT: No hearing loss, otalgia, otorrhea, rhinitis, rhinorrhea, hoarseness, or sore throat. CARDIOVASCULAR: Denies any exertional angina, dyspnea on exertion, orthopnea, paroxysmal nocturnal dyspnea, palpitations, life-threatening arrhythmias, claudication. Complains of chest discomfort PULMONARY: Positive for shortness of breath, cough, phlegm/sputum. Denies hemoptysis, pleuritic chest pain. SLEEP: Denies morning headaches, daytime somnolence or napping. Denies difficulty falling asleep, staying asleep, waking from sleep. Denies knowledge of snoring. GASTROINTESTINAL: Denies any type of dysphagia to either liquids or solids. Denies nausea, vomiting, pyrosis, early satiety, abdominal pain, diarrhea, constipation, or changes in stool consistency or caliber. Denies coffee-ground emesis, hematemesis, hematochezia, or melanotic stools. GENITOURINARY: Denies frequency, urgency, nocturia, hematuria or incontinence (Storage/Irritative symptoms.) Low urinary stream, straining to void, urinary intermittency or hesitancy, splitting of the voiding stream, terminal dribbling. ENDOCRINOLOGIC: Denies polyuria, polydipsia, polyphagia or heat/cold intolerances. HEMATOLOGIC: Denies thrombophilia/previous clots, or coagulopathy/bleeding disorders. ONCOLOGIC: Denies personal history of malignancy. DERMATOLOGIC: Denies rashes or pruritus. PSYCHIATRIC: Denies any suicidal or homicidal ideation. Denies hallucinations. PHYSICAL EXAM GENERAL APPEARANCE: The patient is awake, alert, and oriented, in no acute cardiopulmonary distress. NEUROLOGICAL: Cranial nerves II-XII grossly intact. Motor is 5/5 in bilateral upper and lower extremities proximal to distal. No sensory deficits. HEENT: Face is symmetric. Pupils are equal and reactive. Extraocular movements are intact. NECK: Supple. No JVD. No thyromegaly. No submental, submandibular, pre- /postauricular, occipital or supraclavicular lymphadenopathy. CHEST: Normal chest expansion. No Telemetry. LUNGS: Absence of any rales or wheezing. + Crackles. CARDIOVASCULAR: Regular. S1 and S2 normal. No appreciable rubs, murmurs or gallops. Crackles. ABDOMEN: Obese. Obese. Soft, nontender, and nondistended. There is no rebound, voluntary guarding, or rigidity. : Deferred. No Hendrix. EXTREMITIES: Positive for bilateral pitting pedal edema. not cyanotic. No clubbing. Good capillary refill. SKIN: No skin breakdown. Vital Signs (last 8hr) Date Time Temp Pulse Resp B/P (MAP) Pulse Ox O2 Delivery O2 Flow Rate FiO2 10/17/24 12:14 72 16 N/Cannula Oximizer Hi LPM 1.0 10/17/24 12:09 72 18 10/17/24 11:59 97.9 64 18 149/66 97 Nasal Cannula 2.0 10/17/24 07:30 97.7 79 18 142/75 98 Nasal Cannula 2.0 10/17/24 06:27 67 18 N/Cannula Oximizer Hi LPM 1.0 24 10/17/24 06:24 67 18 LABS: Laboratory: Test 10/17/24 11:39 10/17/24 05:26 10/17/24 04:46 10/16/24 21:58 Range/Units Whole Blood Glucose 150 H 70-110 MG/DL White Blood Count 8.3 4.8-10.8 K/uL Red Blood Count 3.81 L 4.00-5.50 MIL/uL Hemoglobin 8.5 L 12.0-16.0 g/dL Hematocrit 29.4 L 36-48 % Mean Corpuscular Volume 77.2 L 79-99 fL Mean Corpuscular Hemoglobin 22.3 L 27.0-33.0 pg Mean Corpuscular Hemoglobin Concent 28.9 L 32.0-36.0 g/dL Red Cell Distribution Width 19.5 H 11.0-15.5 % Platelet Count 387 130-400 K/uL Mean Platelet Volume 9.3 7.5-10.5 fL Nucleated Red Blood Cells 0.2 H 0.0-0.19 % Sodium Level 143 136-145 mmol/L Potassium Level 4.4 3.5-5.1 mmol/L Chloride Level 110 101-111 mmol/L Carbon Dioxide Level 26 21-32 mmol/L Blood Urea Nitrogen 26 H 7-18 mg/dL Creatinine 1.1 H 0.5-1.0 mg/dL Glomerular Filtration Rate Calc 52 >90 mL/min Random Glucose 150 H 70-105 mg/dL Total Calcium 8.4 L 8.5-10.1 mg/dL Phosphorus Level 3.5 2.5-4.9 mg/dL Magnesium Level 1.90 1.80-2.40 mg/dL Thyroid Stimulating Hormone (TSH) 0.25 L 0.36-3.74 uIU/mL Urine Color LIGHT-YELLOW YELLOW Urine Appearance CLEAR CLEAR Urine pH 5.5 5.0-8.0 Urine Specific [place] 1.026 1.001-1.031 Urine Protein 20 H NEGATIVE mg/dL Urine Glucose (UA) 70 H NEGATIVE mg/dL Urine Ketones NEGATIVE NEGATIVE mg/dL Urine Occult Blood NEGATIVE NEGATIVE Urine Nitrate NEGATIVE NEGATIVE Urine Bilirubin NEGATIVE NEGATIVE mg/dL Urine Urobilinogen 0.2 0.2-1.0 mg/dL Urine Leukocyte Esterase NEGATIVE NEGATIVE Adrian/uL Urine RBC 0-1 0-1 /HPF Urine WBC 0-1 0-1 /HPF Urine Squamous Epithelial Cells RARE 0-2 /HPF Urine Bacteria None None Seen /HPF Lactic Acid Level 2.4 0.8-2.5 mmol/L Test 10/16/24 21:54 10/16/24 19:42 10/16/24 18:14 Range/Units Blood Gas Specimen Type Arterial Arterial Blood pH 7.425 7.350-7.450 Arterial Blood Partial Pressure CO2 35 32-45 mmHg Arterial Blood Partial Pressure O2 107.0 83.0-108.0 mmHg Arterial Blood HCO3 22.3 21.0-28.0 mmol/L Arterial Blood Oxygen Saturation 98.0 94.0-98.0 % Arterial Blood Base Excess -1.4 -2.0-3.0 mmol/L Blood Gas Temperature 37.0 35.5-37.0 CELSIUS Blood Gas Flow-by 3.00 0.00-15.00 L/min Blood Gas Vent Mode 3L NC HF ROOM AIR FiO2 32.0 % Blood Gas Specimen Comment [facility] Influ[facility] Type A Antigen Negative For Type A NEGATIVE Influenza Type B Antigen Negative For Type B NEGATIVE SARS-CoV-2 Antigen (Rapid) PRESUMPTIVE NEGATIVE NEGATIVE Immature Granulocyte % (Auto) 1.9 H 0-1 % Neutrophils (%) (Auto) 93.3 H 40.0-77.0 % Lymphocytes (%) (Auto) 2.3 L 21.0-51.0 % Monocytes (%) (Auto) 2.4 L 3.0-13.0 % Eosinophils (%) (Auto) 0.0 0.0-8.0 % Basophils (%) (Auto) 0.1 0.0-5.0 % Neutrophils # (Auto) 9.9 H 1.8-7.7 K/uL Lymphocytes # (Auto) 0.2 L 1.0-4.8 K/uL Monocytes # (Auto) 0.3 0.1-1.0 K/uL Eosinophils # (Auto) 0.00 0.00-0.70 K/uL Basophils # (Auto) 0.01 0.00-0.20 K/uL Absolute Immature Granulocyte (auto 0.20 0-1 K/uL White Cell Morphology Comment See comments Red Blood Cell Morphology See comments D-Dimer Quantitative (PE/DVT) 1403 *H 0-500 ng/mL Total Bilirubin 0.3 0.2-1.0 mg/dL Direct Bilirubin 0.1 0.0-0.3 mg/dL Aspartate Amino Transf (AST/SGOT) 12 10-37 U/L Alanine Aminotransferase (ALT/SGPT) 22 12-78 U/L Alkaline Phosphatase 76 50-136 U/L Total Creatine Kinase 37 21-232 U/L Troponin I High Sensitivity 10 4-50 ng/L B-Type Natriuretic Peptide 115 H 0-100 pg/mL Total Protein 6.8 6.0-8.3 g/dL Albumin 3.2 L 3.5-5.0 g/dL Current Medications Medications (Trade) Dose Ordered Sig/Tom Route PRN Reason Start Time Stop Time Status Last Admin Dose Admin Acetaminophen (TYLenol 325MG TAB) 650 mg Q6H PRN PO FEVER/MILD PAIN LEVEL 1-3 10/16/24 21:00 11/15/24 20:59 Acetaminophen (TYLenol 650MG SUPPOSITORY) 650 mg Q6H PRN RC FEVER / MILD PAIN 1-3 IF NPO 10/16/24 21:00 11/15/24 20:59 Albuterol (DUOneb) 1 udvial [id number] IH 10/17/24 00:00 11/16/24 00:00 10/17/24 12:08 1 UDVIAL Ceftriaxone Sodium (Rocephin 2gm Inj) 2 gm Q24H IVPB 10/17/24 09:00 10/27/24 08:59 Dextrose (D50w) 50 ml AD PRN IV HYPOGLYCEMIA PROTOCOL 10/17/24 04:00 11/16/24 03:59 Docusate Sodium (COLace 100MG CAP) 100 mg BID PRN PO c 10/16/24 21:00 11/15/24 20:59 Doxycycline Hyclate 250 ml @ 125 mls/hr Q12H IV 10/16/24 20:30 10/26/24 20:29 10/17/24 10:29 125 MLS/HR Enoxaparin Sodium (Lovenox) 40 mg DAILY SQ 10/17/24 09:00 11/16/24 08:59 10/17/24 12:38 40 MG Famotidine (Pepcid 20mg Vial) 20 mg DAILY IV 10/17/24 09:00 11/16/24 08:59 10/17/24 10:29 20 MG Furosemide (LASix 40MG VIAL) 40 mg DAILY IV 10/17/24 09:00 11/16/24 08:59 10/17/24 10:30 40 MG Glucagon (Glucagon 1mg Kit) 1 mg AD PRN IM HYPOGLYCEMIA PROTOCOL 10/17/24 04:00 11/16/24 03:59 Guaifenesin/ Dextromethorphan (RobiTUSSin DM 200/20MG 10ML) 15 ml Q6H PRN PO COUGH 10/17/24 04:00 11/16/24 03:59 Home Med (Home Medication) DAILY IH 10/17/24 09:00 11/16/24 08:59 Hydralazine HCl (APRESOLine 20MG INJ) 10 mg Q6H PRN IV SBP GREATER THAN 160 10/16/24 21:00 11/15/24 20:59 Insulin Human Regular (humuLIN R 100 UNIT/ML 3ML) INSULIN SLIDING SCAL... ACHS SQ 10/16/24 21:00 11/15/24 20:59 Isosorbide Mononitrate (Imdur 30mg Sr) 30 mg DAILY PO 10/17/24 09:00 11/16/24 08:59 10/17/24 10:29 30 MG Lactulose (Constulose 20gm/ 30ml Udcup) 20 gm Q6H PRN PO CONSTIPATION 10/16/24 21:00 11/15/24 20:59 Losartan Potassium (CozAAR 25MG TAB) 25 mg DAILY15 PO 10/17/24 15:00 11/16/24 14:59 Magnesium Sulfate 50 ml @ 0 mls/hr PROTOCOL PRN IV MAGNESIUM PROTOCOL 10/17/24 04:00 11/16/24 03:59 Methylprednisolone Sodium Succinate (Solu-medROL 125MG) 60 mg Q6H IVP 10/17/24 04:00 11/16/24 03:59 10/17/24 12:38 60 MG Ondansetron HCl (zoFRAN 4MG INJ) 4 mg Q6H PRN IVP NAUSEA/VOMITING 10/16/24 21:00 11/15/24 20:59 Potassium Chloride 100 ml @ 100 mls/hr AD PRN IV POTASSIUM PROTOCOL 10/17/24 04:00 11/16/24 03:59 Potassium Chloride (K-Dur/Klor-Con 20meq) 10 meq AD PRN PO POTASSIUM PROTOCOL 10/17/24 04:00 11/16/24 03:59 Potassium Chloride (KCl 10% Elixir 20meq/15ml) 10 meq AD PRN PO POTASSIUM PROTOCOL 10/17/24 04:00 11/16/24 03:59 Spironolactone (Aldactone 25mg) 25 mg DAILY15 PO 10/17/24 15:00 11/16/24 14:59 Temazepam (restORIL 15 MG CAP) 15 mg HS PRN PO INSOMNIA/SLEEP 10/16/24 21:00 11/15/24 20:59 DIAGNOSTICS / RADIOLOGY: [address] [address] IMAGING REPORT Signed PATIENT: MORRIS PALAFOX MR#: [id number] : 1945 SEX: F AGE: 79 LOCATION: 4DH ORDER 31 STATUS: ADM IN [facility] REPORT#: [id number] SERVICE 29 REASON: ELEVATED D-DIMER ORDERING PHYSICIAN: JARRED PATTERSON PROCEDURE: VENOUS BRITTNI - US VENOUS DOPPLER BILATERAL US VENOUS DOPPLER BILATERAL INDICATION: Swelling. ELEVATED D-DIMER TECHNIQUE: US VENOUS DOPPLER BILATERAL Real-time venous Doppler ultrasound was performed using B mode, color flow and spectral analysis. FINDINGS: The visualized greater saphenous junction, common femoral, deep femoral, superficial femoral, popliteal and posterior tibial veins demonstrate normal compressibility and flow. No DVT is identified. IMPRESSION: No evidence of DVT in the visualized bilateral extremities. DICTATED BY: LUIS F PASCAL MD DATE: 10/17/24907 ELECTRONICALLY SIGNED BY: LUIS F PASCAL MD DATE: 10/17/2462 [facility] [address] [place] [address] IMAGING REPORT Signed PATIENT: MORRIS PALAFOX MR#: [id number] : 1945 SEX: F AGE: 79 LOCATION: EDHIP ORDER 35 STATUS: ADM IN REPORT#: [id number] SERVICE 25 REASON: acute respiratory distress ORDERING PHYSICIAN: JARRED PATTERSON PROCEDURE: CHEST WO - CT CHEST W/O CONTRAST CT CHEST W/O CONTRAST HISTORY: Acute respiratory distress COMPARISON: None TECHNIQUE: Multiple sequential axial images of the chest were obtained from the thoracic inlet through upper abdomen. Patient was not given contrast through intravenous route. FINDINGS: There are mild interstitial fibrosis. There is no evidence of pulmonary nodule or parenchymal disease. No pleural effusion or pericardial effusion is seen. There is no evidence of pneumothorax. There are normal size mediastinal and hilar lymph nodes. The heart is not enlarged. Degenerative changes of the thoracolumbar spine are present. There is no evidence of adrenal nodule. There are bilateral renal cysts with the largest on the right measuring 9.8 cm. IMPRESSION: 1. No evidence of pulmonary nodule or effusion is seen. CT was performed with one or more following dose reduction techniques: automated exposure control, adjustment of the mA and kv according to patient's size, or use of a iterative reconstruction technique. DICTATED BY: YONI HERNANDEZ MD DATE: 10/16/242211 ELECTRONICALLY SIGNED BY: YONI HERNANDEZ MD DATE: 10/16/24 7336 [facility] [address] [place] [address] IMAGING REPORT Signed PATIENT: MORRIS PALAFOX MR#: [id number] : 1945 SEX: F AGE: 79 LOCATION: ED ORDER 03 STATUS: REG ER REPORT#: [id number] SERVICE 02 REASON: sob ORDERING PHYSICIAN: KARLO LESLIE MD PROCEDURE: CXR1VW - CHEST 1VW INDICATION: sob TECHNIQUE: CHEST 1VW COMPARISON: 11/10/2012 FINDINGS AND IMPRESSION: Mild bilateral airspace consolidation suggesting vascular congestion/edema versus pneumonia. Mild cardiomegaly Degenerative changes of the spine. The visualized upper abdomen appears unremarkable. DICTATED BY: LUIS F PASCAL MD DATE: 10/16/241902 ELECTRONICALLY SIGNED BY: LUIS F PASCAL MD DATE: 10/16/241905 ASSESSMENT: Acute respiratory distress, POA, requiring oxygen supplementation Mild interstitial fibrosis, per CT on 10/16/2024 COPD exacerbation, POA Fluid overload, POA Bilateral renal cysts with the largest on the right measuring 9.8 cm. Lactic acidosis Anemia of chronic disease Thrombocytosis Acute on chronic renal failure, GFR 42 Diabetes mellitus with hyperglycemia Hypoalbuminemia Morbid obesity, BMI 42 Chronic problem list: Asthma, COPD, hypertension, hypothyroidism, renal insufficiency, ovarian surgery PLAN: Continue to monitor the patient on Medical floor with continuous telemetry monitoring Acute respiratory distress, POA, requiring oxygen supplementation Mild interstitial fibrosis, per CT on 10/16/2024 COPD exacerbation, POA Continue Monitor respiratory status closely. Continue oxygen therapy as needed. Titrate oxygen prn to keep Spo2>/+=92%. Continue Albuterol and Atrovent scheduled. -RT to provide IS and education on use. Pending sputum culture Continue Robitussin DM as needed cough. Continue Solu-Medrol IV q.6 H daily. Continue Rocephin IV and doxycycline IV Urine analysis is negative for UTI and shows elevated urine protein 20 and urine glucose 70 Pulmonology consult pending Fluid overload, POA Continue Lasix 40 mg IV daily. 2D echo results pending Acute on chronic renal failure, GFR 42 BUN went down from 29 to 26 and creatinine down from 1.3 to 1.1 Pending V/Q scan. Fluid restrictions a 1200 mL. Strict I&Os. Anemia of chronic disease POA Her hemoglobin dropped down to 8.5 from 9.7 We will obtain iron panel studies Diabetes mellitus with hyperglycemia Glucometer checks AC & HS needed with insulin regular sliding scale coverage as needed. Hypothyroidism TSH level is 0.25 And we will obtain T3-T4 levels Hold levothyroxine -Reconcile home medication: Trilogy Ellipta, isosorbide mononitrate, losartan, spironolactone. -GI and DVT prophylaxis: Pepcid and Lovenox -PRN medications for: Pain management, fever, hypertension, N/V, constipation. ATTESTATION BY PHYSICIAN I have seen and examined the patient. I reviewed the documentation, medical decision making, and treatment plan as noted by the resident provider above. I agree with the findings and plan of care. Eddi Hsieh MD, KRUPALI P MD Oct 17, 2024 13:10
--- NOTE | 2024-10-17 14:25 | CONS ---
[facility] CONSULTATION NOTE Date Patient Seen: Oct 17, 2024 Time of Visit: 14:24 Supervising Physician: Dr. Brea Estes Reason for Consultation: COPD Exacerbation Primary Care Physician: [ ] Outpatient Specialists: [ ] Inpatient Consults: [ ] PROBLEM LIST: Acute respiratory distress, POA, requiring oxygen supplementation Mild interstitial fibrosis, per CT on 10/16/2024 COPD exacerbation, POA Fluid overload, POA Bilateral renal cysts with the largest on the right measuring 9.8 cm. Lactic acidosis Anemia of chronic disease Thrombocytosis Acute on chronic renal failure, GFR 42 Diabetes mellitus with hyperglycemia Hypoalbuminemia Morbid obesity, BMI 42 Chronic problem list: Asthma, COPD, hypertension, hypothyroidism, renal insufficiency, ovarian surgery HPI: Patient was a 79-year-old female with a past medical history significant for Chronic obstructive pulmonary disease, asthma, hypertension, who was admitted at [facility] with the hospitalist team for shortness of breath worsening over the past few weeks. On evaluation patient appears to be having an exacerbation of Chronic obstructive pulmonary disease, she has not extensive history of tobacco use. Patient currently on Rocephin and doxycycline, on approximately 2 L nasal cannula at the time of my visit, patient does not use home O2. Patient also states that she does not have a eyeglass assembler either. She continues on nebulizer treatments and at this time Solu-Medrol 60 q.6 hours. Patient appears to be doing well overall, we will decrease Solu-Medrol dose to 40 mg b.i.d. at this time, continue with supplemental O2 and antibiotic treatment. Discussion was held with the patient regarding a visit at [facility] following discharge to establish as a patient with a eyeglass assembler as well as the possibility of a 6 minute walk upon discharge for evaluation of home O2. PAST MEDICAL HX: see above PAST SURGICAL HX: noncontributory SOCIAL HISTORY: No tobacco, ETOH, or illicit drug use Coded Allergies: No Known Drug Allergies (Unverified Allergy, Unknown, 07/24/22) REVIEW OF SYSTEMS: 12 point ROS reviewed with patient. Pertinent positives mentioned above. Otherwise negative. PHYSICAL EXAM: GENERAL: alert, weak, awake oriented x 3 HEENT: EOMI, Sclera non icteric, moist mucosa NECK: Supple, no JVD, trachea midline LUNGS: Clear breath sounds bilaterally. No wheezes HEART: Regular rate and rhythm. Normal S1 and S2, without murmurs ABD: Abdomen soft, nontender. Bowel sounds present EXT: No clubbing cyanosis or edema NEURO: Alert and oriented to person, follows commands Vital Signs (last 8hr) Date Time Temp Pulse Resp B/P (MAP) Pulse Ox O2 Delivery O2 Flow Rate FiO2 10/17/24 12:14 72 16 N/Cannula Oximizer Hi LPM 1.0 24 10/17/24 12:09 72 18 10/17/24 11:59 97.9 64 18 149/66 97 Nasal Cannula 2.0 10/17/24 07:30 97.7 79 18 142/75 98 Nasal Cannula 2.0 10/17/24 06:27 67 18 N/Cannula Oximizer Hi LPM 1.0 24 LABS: Hematology Labs: Test 10/17/24 05:26 10/16/24 18:14 Range/Units White Blood Count 8.3 4.8-10.8 K/uL Red Blood Count 3.81 L 4.00-5.50 MIL/uL Hemoglobin 8.5 L 12.0-16.0 g/dL Hematocrit 29.4 L 36-48 % Mean Corpuscular Volume 77.2 L 79-99 fL Mean Corpuscular Hemoglobin 22.3 L 27.0-33.0 pg Mean Corpuscular Hemoglobin Concent 28.9 L 32.0-36.0 g/dL Red Cell Distribution Width 19.5 H 11.0-15.5 % Platelet Count 387 130-400 K/uL Mean Platelet Volume 9.3 7.5-10.5 fL Nucleated Red Blood Cells 0.2 H 0.0-0.19 % Immature Granulocyte % (Auto) 1.9 H 0-1 % Neutrophils (%) (Auto) 93.3 H 40.0-77.0 % Lymphocytes (%) (Auto) 2.3 L 21.0-51.0 % Monocytes (%) (Auto) 2.4 L 3.0-13.0 % Eosinophils (%) (Auto) 0.0 0.0-8.0 % Basophils (%) (Auto) 0.1 0.0-5.0 % Neutrophils # (Auto) 9.9 H 1.8-7.7 K/uL Lymphocytes # (Auto) 0.2 L 1.0-4.8 K/uL Monocytes # (Auto) 0.3 0.1-1.0 K/uL Eosinophils # (Auto) 0.00 0.00-0.70 K/uL Basophils # (Auto) 0.01 0.00-0.20 K/uL Absolute Immature Granulocyte (auto 0.20 0-1 K/uL White Cell Morphology Comment See comments Red Blood Cell Morphology See comments Chemistry Labs: Test 10/17/24 11:39 10/17/24 05:26 10/16/24 21:58 10/16/24 18:14 Range/Units Whole Blood Glucose 150 H 70-110 MG/DL Sodium Level 143 136-145 mmol/L Potassium Level 4.4 3.5-5.1 mmol/L Chloride Level 110 101-111 mmol/L Carbon Dioxide Level 26 21-32 mmol/L Blood Urea Nitrogen 26 H 7-18 mg/dL Creatinine 1.1 H 0.5-1.0 mg/dL Glomerular Filtration Rate Calc 52 >90 mL/min Random Glucose 150 H 70-105 mg/dL Total Calcium 8.4 L 8.5-10.1 mg/dL Phosphorus Level 3.5 2.5-4.9 mg/dL Magnesium Level 1.90 1.80-2.40 mg/dL Thyroid Stimulating Hormone (TSH) 0.25 L 0.36-3.74 uIU/mL Lactic Acid Level 2.4 0.8-2.5 mmol/L Total Bilirubin 0.3 0.2-1.0 mg/dL Direct Bilirubin 0.1 0.0-0.3 mg/dL Aspartate Amino Transf (AST/SGOT) 12 10-37 U/L Alanine Aminotransferase (ALT/SGPT) 22 12-78 U/L Alkaline Phosphatase 76 50-136 U/L Total Creatine Kinase 37 21-232 U/L Troponin I High Sensitivity 10 4-50 ng/L B-Type Natriuretic Peptide 115 H 0-100 pg/mL Total Protein 6.8 6.0-8.3 g/dL Albumin 3.2 L 3.5-5.0 g/dL Coagulation Labs: Test 10/16/24 18:14 Range/Units D-Dimer Quantitative (PE/DVT) 1403 *H 0-500 ng/mL DIAGNOSTICS / RADIOLOGY RESULTS: [ ] PLAN NEURO: Minimize central acting medications as possible. Maintain fall precautions, adequate lighting during the day PULMONARY: Supplemental 02 as needed. Maintain aspiration precautions at all times CARDIOVASCULAR: Follow hemodynamics. Vital signs per facility protocol GI & NUTRITION: Continue with nutritional support. Continue stool softeners and laxatives as needed. KIDNEYS & ELECTROLYTES: Strict monitoring of intake, output and overall fluid balance. Avoid nephrotoxic medications to the extent possible. Medications to be dosed according to renal function. Monitor electrolytes and replace as needed ENDOCRINE: Maintain blood glucose between 100-180 at all times. Hypoglycemia protocol in place INFECTIOUS DISEASE: Trend temperature, WBC and procalcitonin level Follow cultures, deescalate antibiotics as soon as possible. Panculture if new onset fever ONCOLOGY/HEMATOLOGY/COAGULATION: Monitor for s/s of bleeding Monitor hemoglobin, coagulation studies as needed SKIN: Pressure ulcer prevention per facility protocol Specialty mattress ORTHO/REHAB: Continue PT/OT Prophylaxis: Continue GI and DVT prophylaxis Code Status: Full Resuscitation Disposition: TBD Other: Total patient care time exceeds 35 minutes excluding all procedures. ADRIENNE DRAKE Oct 17, 2024 14:25
[2024-10-17] MEDS: CEFTRIAXONE 2GM VIAL IVPB SCH (14:44)
[2024-10-17] MEDS: SPIRONOLACTONE 25 MG TAB PO SCH (14:44)
[2024-10-17] MEDS: LoSARTan 25 MG TABLET PO SCH (14:44)
--- NOTE | 2024-10-17 16:02 | NUR ---
RAD NUCLEAR MEDICINE PATIENT WAS ASSESSED AND PATIENT IN UNABLE TO LAY FLAT FOR AN HOUR FOR VQ SCAN.
--- NOTE | 2024-10-17 17:23 | NUR ---
REFUSING INSULIN PT STATES THAT SHE IS NOT DIABETIC AND IS REFUSING INSULIN SLIDING SCALE AT THIS TIME. PT STATES THAT SHE WILL NOT TAKE INSULIN UNLESS SHE IS DIABETIC. AT [address] DIALLO OF THE PATIENT'S NONCOMPLIANCE. I RECEIVED AN ORDER TO CHECK A1C TOMMOROW AM.
--- NOTE | 2024-10-17 21:14 | NUR ---
NOTE Patient blood glucose 222. Refused insulin states she follows up with primary Dr. Castillo and she is not diabetic. Educated on side effects of solumedrol medication and dangers of hyperglycemia, verbalized understanding and continued to refuse insulin. Call light within reach. Denies shortness of breath.
[2024-10-18] VITALS (13 sets, daily range): BP systolic 113–154; BP diastolic 51–80; PULSE 62–106; RESP 16–22; TEMP 97.6–98.4; O2SAT 95–99
[2024-10-18 08:18] LABS: BASOPHILS # (AUTO) 0.01 K/uL (0.00-0.20); BASOPHILS % (AUTO) 0.1 % (0.0-5.0); HEMATOCRIT 30.2 % (36-48); LYMPHOCYTES # (AUTO) 0.2 K/uL (1.0-4.8); LYMPHOCYTES % (AUTO) 2.4 % (21.0-51.0); MEAN CORPUSCULAR HEMOGLOBIN 22.6 pg (27.0-33.0); MEAN CORPUSCULAR HGB CONC 29.5 g/dL (32.0-36.0); MEAN CORPUSCULAR VOLUME 76.6 fL (79-99); MONOCYTES # (AUTO) 0.5 K/uL (0.1-1.0); MONOCYTES % (AUTO) 4.4 % (3.0-13.0); NEUTROPHILS # (AUTO) 9.2 K/uL (1.8-7.7); NEUTROPHILS % (AUTO) 91.1 % (40.0-77.0); NUCLEATED RED BLOOD CELLS 0.6 % (0.0-0.19); PLATELET COUNT (AUTO) 366 K/uL (130-400); RED BLOOD CELL COUNT(AUTO) 3.94 MIL/uL (4.00-5.50); RED CELL DISTRIBUTION WIDTH 19.9 % (11.0-15.5); WHITE BLOOD COUNT (AUTO) 10.1 K/uL (4.8-10.8)
[2024-10-18 08:27] LABS: HEMOGLOBIN A1C 5.9 % (4.0-6.0)
[2024-10-18 08:36] LABS: % IRON SATURATION 3.8 % (22-44)
[2024-10-18 08:45] LABS: CREATININE 1.3 mg/dL (0.5-1.0); POTASSIUM 3.4 mmol/L (3.5-5.1); T4 (THYROXINE) 8.2 ug/dL (4.7-13.3)
[2024-10-18] MEDS: Solu-medROL 40MG VIAL IVP SCH (08:59)
--- NOTE | 2024-10-18 10:03 | NUR ---
DCP: Home met with pt and son Júnior Palafox [phone] at bedside. Pt currently lives on her own and her sons come in to check in on her. Pt does not report any home health, or provider services. Pt has a walker and cane at home to help her move around. Pt states that she is able to complete ADLs independently. PCP is Dr. Sy Castillo and uses [facility] on [place] for any RX needs. At [place] pt will return home and son will assist with transportation. Addendum: 10/18/24 at 1007 by ADORE CALHOUN SS Amended: Links added.
[2024-10-18] MEDS: PoTASSium chloRIDE 10MEQ SR 10 MEQ/TAB TAB.SR.24H PO PRN (11:13)
--- NOTE | 2024-10-18 13:06 | PN ---
[facility] PROGRESS NOTE Date Patient Seen: Oct 18, 2024 Time of Visit: 13:04 Supervising Physician: Dr. John Sellers Primary Care Physician: [ ] Outpatient Specialists: [ ] Inpatient Consults: [ ] PROBLEM LIST: Acute respiratory distress, POA, requiring oxygen supplementation Mild interstitial fibrosis, per CT on 10/16/2024 COPD exacerbation, POA Fluid overload, POA Bilateral renal cysts with the largest on the right measuring 9.8 cm. Lactic acidosis Anemia of chronic disease Thrombocytosis Acute on chronic renal failure, GFR 42 Diabetes mellitus with hyperglycemia Hypoalbuminemia Morbid obesity, BMI 42 Chronic problem list: Asthma, COPD, hypertension, hypothyroidism, renal insufficiency, ovarian surgery INTERVAL HISTORY: Patient evaluated at bedside today, she is currently on room air, family was present for the evaluation. She continues on Rocephin and doxycycline, white count today is 10.1. Patient continues on a decreased dose of Solu-Medrol at 40 mg b.i.d.. I have advised nursing staff that we would like to see a 6 minute walk performed today to determine the patient's home O2 requirements. She is likely to require home O2 even if she fails the 6 minute walk, advised that if she fails family can seek home O2 evaluation as outpatient with the PCP or pulmonology clinic. Patient advised to follow up with [facility] following discharge. Disposition per primary. REVIEW OF SYSTEMS: 12 point ROS reviewed with patient. Pertinent positives mentioned above. Otherwise negative. PHYSICAL EXAM: GENERAL: alert, weak, awake oriented x 3 HEENT: EOMI, Sclera non icteric, moist mucosa NECK: Supple, no JVD, trachea midline LUNGS: Clear breath sounds bilaterally. No wheezes HEART: Regular rate and rhythm. Normal S1 and S2, without murmurs ABD: Abdomen soft, nontender. Bowel sounds present EXT: No clubbing cyanosis or edema NEURO: Alert and oriented to person, follows commands Vital Signs (last 8hr) Date Time Temp Pulse Resp B/P (MAP) Pulse Ox O2 Delivery O2 Flow Rate FiO2 10/18/24 11:35 97.9 86 20 154/80 96 Room Air 21 10/18/24 11:10 62 18 10/18/24 07:35 97.9 84 20 131/55 96 Room Air 21 10/18/24 07:01 84 18 N/A Room Air 21 10/18/24 06:32 83 16 N/Cannula Oximizer Hi LPM 1.0 24 10/18/24 06:31 83 18 LABS: Hematology Labs: Test 10/18/24 08:10 10/16/24 18:14 Range/Units White Blood Count 10.1 4.8-10.8 K/uL Red Blood Count 3.94 L 4.00-5.50 MIL/uL Hemoglobin 8.9 L 12.0-16.0 g/dL Hematocrit 30.2 L 36-48 % Mean Corpuscular Volume 76.6 L 79-99 fL Mean Corpuscular Hemoglobin 22.6 L 27.0-33.0 pg Mean Corpuscular Hemoglobin Concent 29.5 L 32.0-36.0 g/dL Red Cell Distribution Width 19.9 H 11.0-15.5 % Platelet Count 366 130-400 K/uL Mean Platelet Volume 8.9 7.5-10.5 fL Immature Granulocyte % (Auto) 2.0 H 0-1 % Neutrophils (%) (Auto) 91.1 H 40.0-77.0 % Lymphocytes (%) (Auto) 2.4 L 21.0-51.0 % Monocytes (%) (Auto) 4.4 3.0-13.0 % Eosinophils (%) (Auto) 0.0 0.0-8.0 % Basophils (%) (Auto) 0.1 0.0-5.0 % Neutrophils # (Auto) 9.2 H 1.8-7.7 K/uL Lymphocytes # (Auto) 0.2 L 1.0-4.8 K/uL Monocytes # (Auto) 0.5 0.1-1.0 K/uL Eosinophils # (Auto) 0.00 0.00-0.70 K/uL Basophils # (Auto) 0.01 0.00-0.20 K/uL Absolute Immature Granulocyte (auto 0.20 0-1 K/uL Nucleated Red Blood Cells 0.6 H 0.0-0.19 % White Cell Morphology Comment See comments Red Blood Cell Morphology See comments Chemistry Labs: Test 10/18/24 11:44 10/18/24 08:10 10/17/24 05:26 10/16/24 21:58 Range/Units Whole Blood Glucose 183 H 70-110 MG/DL Sodium Level 143 136-145 mmol/L Potassium Level 3.4 L 3.5-5.1 mmol/L Chloride Level 107 101-111 mmol/L Carbon Dioxide Level 25 21-32 mmol/L Blood Urea Nitrogen 33 H 7-18 mg/dL Creatinine 1.3 H 0.5-1.0 mg/dL Glomerular Filtration Rate Calc 42 >90 mL/min Random Glucose 172 H 70-105 mg/dL Hemoglobin A1c 5.9 4.0-6.0 % Estimated Average Glucose (eAG) 123 70-126 mg/dL Total Calcium 8.4 L 8.5-10.1 mg/dL Iron Level 14 L 50-170 mcg/dL Total Iron Binding Capacity 362 250-450 mcg/dL Percent Iron Saturation 3.8 L 22-44 % Free Thyroxine (T4) Direct 1.21 0.76-1.46 ng/dL Thyroxine (T4) 8.2 4.7-13.3 ug/dL Free Triiodothyronine (T3) pg/mL 1.15 L 2.18-3.98 pg/mL Phosphorus Level 3.5 2.5-4.9 mg/dL Magnesium Level 1.90 1.80-2.40 mg/dL Thyroid Stimulating Hormone (TSH) 0.25 L 0.36-3.74 uIU/mL Lactic Acid Level 2.4 0.8-2.5 mmol/L Test 10/16/24 18:14 Range/Units Total Bilirubin 0.3 0.2-1.0 mg/dL Direct Bilirubin 0.1 0.0-0.3 mg/dL Aspartate Amino Transf (AST/SGOT) 12 10-37 U/L Alanine Aminotransferase (ALT/SGPT) 22 12-78 U/L Alkaline Phosphatase 76 50-136 U/L Total Creatine Kinase 37 21-232 U/L Troponin I High Sensitivity 10 4-50 ng/L B-Type Natriuretic Peptide 115 H 0-100 pg/mL Total Protein 6.8 6.0-8.3 g/dL Albumin 3.2 L 3.5-5.0 g/dL Coagulation Labs: Test 10/16/24 18:14 Range/Units D-Dimer Quantitative (PE/DVT) 1403 *H 0-500 ng/mL DIAGNOSTICS / RADIOLOGY RESULTS: [ ] PLAN NEURO: Minimize central acting medications as possible. Maintain fall precautions, adequate lighting during the day PULMONARY: Supplemental 02 as needed. Maintain aspiration precautions at all times CARDIOVASCULAR: Follow hemodynamics. Vital signs per facility protocol GI & NUTRITION: Continue with nutritional support. Continue stool softeners and laxatives as needed. KIDNEYS & ELECTROLYTES: Strict monitoring of intake, output and overall fluid balance. Avoid nephrotoxic medications to the extent possible. Medications to be dosed according to renal function. Monitor electrolytes and replace as needed ENDOCRINE: Maintain blood glucose between 100-180 at all times. Hypoglycemia protocol in place INFECTIOUS DISEASE: Trend temperature, WBC and procalcitonin level Follow cultures, deescalate antibiotics as soon as possible. Panculture if new onset fever ONCOLOGY/HEMATOLOGY/COAGULATION: Monitor for s/s of bleeding Monitor hemoglobin, coagulation studies as needed SKIN: Pressure ulcer prevention per facility protocol Specialty mattress ORTHO/REHAB: Continue PT/OT Prophylaxis: Continue GI and DVT prophylaxis Code Status: Full Resuscitation Disposition: TBD Other: Total patient care time exceeds 35 minutes excluding all procedures. ADRIENNE DRAKE Oct 18, 2024 13:06
--- NOTE | 2024-10-18 13:36 | PN ---
[facility] PROGRESS NOTE Date of Service: Oct 18, 2024 Time of Service: 13:24 SUBJECTIVE: Ms. Palafox is a 79-year-old female with a history of tobacco dependent, COPD, asthma, hypertension, hypothyroidism, and renal disease who presented to [facility] ED for evaluation of shortness of breath over the past few weeks worsening today. The patient reported that she has been seen multiple times in the clinic setting for subjective fever last week. The patient was placed on steroids and nebulized treatments with no improvement which prompted the ED visit. In ED the patient was administered Solu-Medrol 80 mg IV, DuoNeb treatments, and Rocephin2 g. ED provider requested patient be admitted to the [facility] hospitalist team with the diagnosis of acute respiratory distress and acute exacerbation of COPD with asthma. Labs reviewed. Troponin negative. ABGs WNL, PO2 107, on 3 L. influenza and COVID are negative. BNP 115. D-dimer a 1403. CT chest without contrast: There are mild interstitial fibrosis. Bilateral renal cysts with the largest on the right measuring 9.8 cm. No evidence of pulmonary nodules or effusions. 10/17/24 the patient is seen and examined today morning, with her family at the bedside. She stated that her breathing is better today she and she saturating 98% on1 L of oxygen via nasal cannula. We will try to wean her off. Vitals are stable. She is complaining of productive cough and we will get the sputum culture. Pulmonology consult pending. V/Q scan pending. 2D echo results pending. Her WBC went down. Her hemoglobin dropped down to 8.5 from 9.7, MCV 77.2. We will order iron panel studies. TSH 0.25 And we will hold her antithyroid medications at the moment. We will get T3 and T4 levels. Chest x- ray showed vascular congestion, edema versus pneumonia, mild cardiomegaly. Venous Doppler negative for DVT. 10/18/24 patient seen and examined today. Her vitals are stable. She is saturating well with 96% on room air. She denies shortness of breath at the moment. Sputum Gram stain showed 2+ Gram-negative rods and pending culture results. Continue Rocephin and Solu-Medrol 40. Potassium is 3.4 And replaced with p.o. potassium chloride. BUN went up 26 to 33and creatinine went up from 1.1 to 1.3 today. Iron panel studies show iron 14, TIBC 362 and % saturation 3.8% she has suggestive of iron deficiency anemia. Check stool occult blood and we will order IV iron sucrose. Free T3 1.15. 2D echo showed EF 60-65% and indeterminate diastolic dysfunction. Consult PT OT for ambulation REVIEW OF SYSTEMS CONSTITUTIONAL: Denies fevers, chills, or night sweats. No unintentional weight loss reported. NEUROLOGICAL: Denies headache, amaurosis fugax, motor weakness, sensory deficit , vertigo/spinning sensation, gait abnormalities, or tremors. ENT: No hearing loss, otalgia, otorrhea, rhinitis, rhinorrhea, hoarseness, or sore throat. CARDIOVASCULAR: Denies any exertional angina, dyspnea on exertion, orthopnea, paroxysmal nocturnal dyspnea, palpitations, life-threatening arrhythmias, claudication. Complains of chest discomfort PULMONARY: Improving shortness of breath, cough, phlegm/sputum. Denies hemoptysis, pleuritic chest pain. SLEEP: Denies morning headaches, daytime somnolence or napping. Denies difficulty falling asleep, staying asleep, waking from sleep. Denies knowledge of snoring. GASTROINTESTINAL: Denies any type of dysphagia to either liquids or solids. Denies nausea, vomiting, pyrosis, early satiety, abdominal pain, diarrhea, constipation, or changes in stool consistency or caliber. Denies coffee-ground emesis, hematemesis, hematochezia, or melanotic stools. GENITOURINARY: Denies frequency, urgency, nocturia, hematuria or incontinence (Storage/Irritative symptoms.) Low urinary stream, straining to void, urinary intermittency or hesitancy, splitting of the voiding stream, terminal dribbling. ENDOCRINOLOGIC: Denies polyuria, polydipsia, polyphagia or heat/cold intolerances. HEMATOLOGIC: Denies thrombophilia/previous clots, or coagulopathy/bleeding disorders. ONCOLOGIC: Denies personal history of malignancy. DERMATOLOGIC: Denies rashes or pruritus. PSYCHIATRIC: Denies any suicidal or homicidal ideation. Denies hallucinations. PHYSICAL EXAM GENERAL APPEARANCE: The patient is awake, alert, and oriented, in no acute cardiopulmonary distress. NEUROLOGICAL: Cranial nerves II-XII grossly intact. Motor is 5/5 in bilateral upper and lower extremities proximal to distal. No sensory deficits. HEENT: Face is symmetric. Pupils are equal and reactive. Extraocular movements are intact. NECK: Supple. No JVD. No thyromegaly. No submental, submandibular, pre- /postauricular, occipital or supraclavicular lymphadenopathy. CHEST: Normal chest expansion. No Telemetry. LUNGS: Positive for bilateral wheezing. CARDIOVASCULAR: Regular. S1 and S2 normal. No appreciable rubs, murmurs or g allops. Crackles. ABDOMEN: Obese. Obese. Soft, nontender, and nondistended. There is no rebound, voluntary guarding, or rigidity. : Deferred. No Hendrix. EXTREMITIES: Improving bilateral pitting pedal edema. not cyanotic. No clubbing. Good capillary refill. SKIN: No skin breakdown. Vital Signs (last 8hr) Date Time Temp Pulse Resp B/P (MAP) Pulse Ox O2 Delivery O2 Flow Rate FiO2 10/18/24 11:35 97.9 86 20 154/80 96 Room Air 21 10/18/24 11:10 62 18 10/18/24 07:35 97.9 84 20 131/55 96 Room Air 21 10/18/24 07:01 84 18 N/A Room Air 21 10/18/24 06:32 83 16 N/Cannula Oximizer Hi LPM 1.0 24 10/18/24 06:31 83 18 LABS: Laboratory: Test 10/18/24 11:44 10/18/24 08:10 10/17/24 05:26 10/17/24 04:46 Range/Units Whole Blood Glucose 183 H 70-110 MG/DL White Blood Count 10.1 4.8-10.8 K/uL Red Blood Count 3.94 L 4.00-5.50 MIL/uL Hemoglobin 8.9 L 12.0-16.0 g/dL Hematocrit 30.2 L 36-48 % Mean Corpuscular Volume 76.6 L 79-99 fL Mean Corpuscular Hemoglobin 22.6 L 27.0-33.0 pg Mean Corpuscular Hemoglobin Concent 29.5 L 32.0-36.0 g/dL Red Cell Distribution Width 19.9 H 11.0-15.5 % Platelet Count 366 130-400 K/uL Mean Platelet Volume 8.9 7.5-10.5 fL Immature Granulocyte % (Auto) 2.0 H 0-1 % Neutrophils (%) (Auto) 91.1 H 40.0-77.0 % Lymphocytes (%) (Auto) 2.4 L 21.0-51.0 % Monocytes (%) (Auto) 4.4 3.0-13.0 % Eosinophils (%) (Auto) 0.0 0.0-8.0 % Basophils (%) (Auto) 0.1 0.0-5.0 % Neutrophils # (Auto) 9.2 H 1.8-7.7 K/uL Lymphocytes # (Auto) 0.2 L 1.0-4.8 K/uL Monocytes # (Auto) 0.5 0.1-1.0 K/uL Eosinophils # (Auto) 0.00 0.00-0.70 K/uL Basophils # (Auto) 0.01 0.00-0.20 K/uL Absolute Immature Granulocyte (auto 0.20 0-1 K/uL Nucleated Red Blood Cells 0.6 H 0.0-0.19 % Sodium Level 143 136-145 mmol/L Potassium Level 3.4 L 3.5-5.1 mmol/L Chloride Level 107 101-111 mmol/L Carbon Dioxide Level 25 21-32 mmol/L Blood Urea Nitrogen 33 H 7-18 mg/dL Creatinine 1.3 H 0.5-1.0 mg/dL Glomerular Filtration Rate Calc 42 >90 mL/min Random Glucose 172 H 70-105 mg/dL Hemoglobin A1c 5.9 4.0-6.0 % Estimated Average Glucose (eAG) 123 70-126 mg/dL Total Calcium 8.4 L 8.5-10.1 mg/dL Iron Level 14 L 50-170 mcg/dL Total Iron Binding Capacity 362 250-450 mcg/dL Percent Iron Saturation 3.8 L 22-44 % Free Thyroxine (T4) Direct 1.21 0.76-1.46 ng/dL Thyroxine (T4) 8.2 4.7-13.3 ug/dL Free Triiodothyronine (T3) pg/mL 1.15 L 2.18-3.98 pg/mL Phosphorus Level 3.5 2.5-4.9 mg/dL Magnesium Level 1.90 1.80-2.40 mg/dL Thyroid Stimulating Hormone (TSH) 0.25 L 0.36-3.74 uIU/mL Urine Color LIGHT-YELLOW YELLOW Urine Appearance CLEAR CLEAR Urine pH 5.5 5.0-8.0 Urine Specific [place] 1.026 1.001-1.031 Urine Protein 20 H NEGATIVE mg/dL Urine Glucose (UA) 70 H NEGATIVE mg/dL Urine Ketones NEGATIVE NEGATIVE mg/dL Urine Occult Blood NEGATIVE NEGATIVE Urine Nitrate NEGATIVE NEGATIVE Urine Bilirubin NEGATIVE NEGATIVE mg/dL Urine Urobilinogen 0.2 0.2-1.0 mg/dL Urine Leukocyte Esterase NEGATIVE NEGATIVE Adrian/uL Urine RBC 0-1 0-1 /HPF Urine WBC 0-1 0-1 /HPF Urine Squamous Epithelial Cells RARE 0-2 /HPF Urine Bacteria None None Seen /HPF Test 10/16/24 21:58 10/16/24 21:54 10/16/24 19:42 10/16/24 18:14 Range/Units Lactic Acid Level 2.4 0.8-2.5 mmol/L Blood Gas Specimen Type Arterial Arterial Blood pH 7.425 7.350-7.450 Arterial Blood Partial Pressure CO2 35 32-45 mmHg Arterial Blood Partial Pressure O2 107.0 83.0-108.0 mmHg Arterial Blood HCO3 22.3 21.0-28.0 mmol/L Arterial Blood Oxygen Saturation 98.0 94.0-98.0 % Arterial Blood Base Excess -1.4 -2.0-3.0 mmol/L Blood Gas Temperature 37.0 35.5-37.0 CELSIUS Blood Gas Flow-by 3.00 0.00-15.00 L/min Blood Gas Vent Mode 3L NC HF ROOM AIR FiO2 32.0 % Blood Gas Specimen Comment RR ZULEMARN Influenza Type A Antigen Negative For Type A NEGATIVE Influenza Type B Antigen Negative For Type B NEGATIVE SARS-CoV-2 Antigen (Rapid) PRESUMPTIVE NEGATIVE NEGATIVE White Cell Morphology Comment See comments Red Blood Cell Morphology See comments D-Dimer Quantitative (PE/DVT) 1403 *H 0-500 ng/mL Total Bilirubin 0.3 0.2-1.0 mg/dL Direct Bilirubin 0.1 0.0-0.3 mg/dL Aspartate Amino Transf (AST/SGOT) 12 10-37 U/L Alanine Aminotransferase (ALT/SGPT) 22 12-78 U/L Alkaline Phosphatase 76 50-136 U/L Total Creatine Kinase 37 21-232 U/L Troponin I High Sensitivity 10 4-50 ng/L B-Type Natriuretic Peptide 115 H 0-100 pg/mL Total Protein 6.8 6.0-8.3 g/dL Albumin 3.2 L 3.5-5.0 g/dL Current Medications Medications (Trade) Dose Ordered Sig/Tom Route PRN Reason Start Time Stop Time Status Last Admin Dose Admin Acetaminophen (TYLenol 325MG TAB) 650 mg Q6H PRN PO FEVER/MILD PAIN LEVEL 1-3 10/16/24 21:00 11/15/24 20:59 Acetaminophen (TYLenol 650MG SUPPOSITORY) 650 mg Q6H PRN RC FEVER / MILD PAIN 1-3 IF NPO 10/16/24 21:00 11/15/24 20:59 Albuterol (DUOneb) 1 udvial [id number] IH 10/17/24 00:00 11/16/24 00:00 10/18/24 11:10 1 UDVIAL Ceftriaxone Sodium (Rocephin 2gm Inj) 2 gm Q24H IVPB 10/17/24 09:00 10/27/24 08:59 10/18/24 09:00 2 GM Dextrose (D50w) 50 ml AD PRN IV HYPOGLYCEMIA PROTOCOL 10/17/24 04:00 11/16/24 03:59 Docusate Sodium (COLace 100MG CAP) 100 mg BID PRN PO c 10/16/24 21:00 11/15/24 20:59 Doxycycline Hyclate 250 ml @ 125 mls/hr Q12H IV 10/16/24 20:30 10/26/24 20:29 10/18/24 08:57 125 MLS/HR Enoxaparin Sodium (Lovenox) 40 mg DAILY SQ 10/17/24 09:00 11/16/24 08:59 10/18/24 09:00 40 MG Famotidine (Pepcid 20mg Vial) 20 mg DAILY IV 10/17/24 09:00 11/16/24 08:59 10/18/24 08:58 20 MG Furosemide (LASix 40MG VIAL) 40 mg DAILY IV 10/17/24 09:00 11/16/24 08:59 10/18/24 08:59 40 MG Glucagon (Glucagon 1mg Kit) 1 mg AD PRN IM HYPOGLYCEMIA PROTOCOL 10/17/24 04:00 11/16/24 03:59 Guaifenesin/ Dextromethorphan (RobiTUSSin DM 200/20MG 10ML) 15 ml Q6H PRN PO COUGH 10/17/24 04:00 11/16/24 03:59 Home Med (Home Medication) DAILY IH 10/17/24 09:00 11/16/24 08:59 10/18/24 08:58 1 EACH Hydralazine HCl (APRESOLine 20MG INJ) 10 mg Q6H PRN IV SBP GREATER THAN 160 10/16/24 21:00 11/15/24 20:59 Insulin Human Regular (humuLIN R 100 UNIT/ML 3ML) INSULIN SLIDING SCAL... ACHS SQ 10/16/24 21:00 11/15/24 20:59 Isosorbide Mononitrate (Imdur 30mg Sr) 30 mg DAILY PO 10/17/24 09:00 11/16/24 08:59 10/18/24 08:59 30 MG Lactulose (Constulose 20gm/ 30ml Udcup) 20 gm Q6H PRN PO CONSTIPATION 10/16/24 21:00 11/15/24 20:59 Losartan Potassium (CozAAR 25MG TAB) 25 mg DAILY15 PO 10/17/24 15:00 11/16/24 14:59 10/17/24 14:44 25 MG Magnesium Sulfate 50 ml @ 0 mls/hr PROTOCOL PRN IV MAGNESIUM PROTOCOL 10/17/24 04:00 11/16/24 03:59 Methylprednisolone Sodium Succinate (Solu-medROL 40MG) 40 mg BID IVP 10/18/24 09:00 11/17/24 08:59 10/18/24 08:59 40 MG Methylprednisolone Sodium Succinate (Solu-medROL 125MG) 60 mg Q6H IVP 10/17/24 04:00 10/17/24 23:51 DC 10/17/24 21:03 60 MG Ondansetron HCl (zoFRAN 4MG INJ) 4 mg Q6H PRN IVP NAUSEA/VOMITING 10/16/24 21:00 11/15/24 20:59 Potassium Chloride 100 ml @ 100 mls/hr AD PRN IV POTASSIUM PROTOCOL 10/17/24 04:00 11/16/24 03:59 Potassium Chloride (K-Dur 10meq Sr Tab) 10 meq AD PRN PO POTASSIUM PROTOCOL 10/18/24 08:30 11/16/24 03:59 10/18/24 11:13 10 MEQ Potassium Chloride (K-Dur/Klor-Con 20meq) 10 meq AD PRN PO POTASSIUM PROTOCOL 10/17/24 04:00 10/18/24 08:13 DC Potassium Chloride (KCl 10% Elixir 20meq/15ml) 10 meq AD PRN PO POTASSIUM PROTOCOL 10/17/24 04:00 11/16/24 03:59 Spironolactone (Aldactone 25mg) 25 mg DAILY15 PO 10/17/24 15:00 11/16/24 14:59 10/17/24 14:44 25 MG Temazepam (restORIL 15 MG CAP) 15 mg HS PRN PO INSOMNIA/SLEEP 10/16/24 21:00 11/15/24 20:59 DIAGNOSTICS / RADIOLOGY: [address] [address] IMAGING REPORT Signed PATIENT: MORRIS PALAFOX MR#: [id number] : 1945 SEX: F AGE: 79 LOCATION: 4D ORDER 0 STATUS: ADM IN REPORT#: [id number] SERVICE REASON: fluid overload, sob ORDERING PHYSICIAN: JARRED PATTERSON PROCEDURE: ECHO CMP - ECHO 2-D COMPLETE APPROVED REPORT EXAM: Two-dimensional and M-mode echocardiogram with Doppler and color Doppler. INDICATION ICD: Fluid overload, SOB 2D Dimensions RVDd 3.0 cm LVEF(%) 63.0 (>50%) LVED Vol(simp.) 126.0 mL IVSd 0.9 (0.7-1.1cm) FS(%) 34 % LVES Vol(simp.) 39.0 mL LVDd 4.3 (3.8-5.6cm) Ao Root(2D) 3.0 (2.0-3.7cm) LVEF(%, simp.) 69 % PWd 0.9 (0.7-1.1cm) LVOT diam 2.0 (1.8-2.4cm) LA ESV INDEX (BP) 37.44 mL/m2 LVDs 2.9 (2.5-4.0cm) IVC diam 1.8 cm Deformation Strain Apical 4 -17.9 % Apical 2 -21.4 % Apical 3 -17.8 % Global Strain -19.0 % M-Mode Dimensions EPSS 0.8 cm LA (MM) 3.8 (1.6-4.0cm) Ao Root(MM) 3.4 (2.0-3.7cm) Aortic Valve AoV Vmax 1.7 m/s Ao Peak GR 12.2 mmHg LVOT Vmax 1.7 m/s AoV VTI 0.4 m Ao Mean GR 6.0 mmHg LVOT VTI 0.32 m JAHAIRA (VMAX) 2.75 cm2 JAHAIRA (VTI) 2.7 cm2 Mitral Valve MV E Vmax 77.8 cm/s DECEL Time 320 ms MV A Vmax 91.8 cm/s P 1/2 T 62 ms E/A ratio 0.8 MVA (PHT) 3.5 cm2 TDI E/E' Medial 13.3 E/E' Lateral 10.1 Medial E' Peak V 5.87 cm/s Lateral E' Peak V 7.70 cm/s Left Ventricle The left ventricle is normal size. There is normal LV segmental wall motion. There is normal left ventricular wall thickness. LVEF is 60-65%. Indeterminate diastolic dysfunction. Right Ventricle The right ventricle is normal size. The right ventricular systolic function is normal. Atria The left atrium is mildly dilated. The right atrium size is normal. Aortic Valve Aortic valve is not well visualized but no significant valvular abnormalities noted. No aortic regurgitation is present. There is no aortic valvular stenosis. Mitral Valve The mitral valve is normal in structure. There is trace mitral regurgitation. There is no mitral valve stenosis. Tricuspid Valve The tricuspid valve is normal in structure. There is trivial tricuspid valve regurgitation noted. Pulmonic Valve Pulmonic valve is not well visualized. There is no pulmonic valvular regurgitation. Great Vessels The aortic root is normal in size. The IVC is normal in size and collapses >50% with inspiration. Pericardium There is no pericardial effusion. Other Information Quality : Fair Technically limited study due to body habitus. Conclusion The left ventricle is normal size. LVEF is 60-65% with normal LV segmental wall motion. Indeterminate diastolic dysfunction. The right ventricular systolic function is normal. The left atrium is mildly dilated. No hemodynamically significant valvular abnormalities. There is no pericardial effusion. DICTATED BY: CATHERINE RIOS MD DATE: 10/17/24930 ELECTRONICALLY SIGNED BY: CATHERINE RIOS MD DATE: 10/17/[address] [facility] [address] [place] [address] [id number] IMAGING REPORT Signed PATIENT: MORRIS PALAFOX MR#: [id number] : 1945 SEX: F AGE: 79 LOCATION: EDHIP ORDER 35 STATUS: ADM IN REPORT#: [id number] SERVICE 25 REASON: acute respiratory distress ORDERING PHYSICIAN: JARRED PATTERSON CLERICAL OFFICE WORKER PROCEDURE: CHEST WO - CT CHEST W/O CONTRAST CT CHEST W/O CONTRAST HISTORY: Acute respiratory distress COMPARISON: None TECHNIQUE: Multiple sequential axial images of the chest were obtained from the thoracic inlet through upper abdomen. Patient was not given contrast through intravenous route. FINDINGS: There are mild interstitial fibrosis. There is no evidence of pulmonary nodule or parenchymal disease. No pleural effusion or pericardial effusion is seen. There is no evidence of pneumothorax. There are normal size mediastinal and hilar lymph nodes. The heart is not enlarged. Degenerative changes of the thoracolumbar spine are present. There is no evidence of adrenal nodule. There are bilateral renal cysts with the largest on the right measuring 9.8 cm. IMPRESSION: 1. No evidence of pulmonary nodule or effusion is seen. CT was performed with one or more following dose reduction techniques: automated exposure control, adjustment of the mA and kv according to patient's size, or use of a iterative reconstruction technique. DICTATED BY: YONI HERNANDEZ MD DATE: 10/16/242211 ELECTRONICALLY SIGNED BY: YONI HERNANDEZ MD DATE: 10/16/244 [facility] [address] [place] [address] [id number] IMAGING REPORT Signed PATIENT: MORRIS PALAFOX MR#: [id number] : 1945 SEX: F AGE: 79 LOCATION: EDH ORDER 03 STATUS: REG ER REPORT#: [id number] SERVICE 02 REASON: sob ORDERING PHYSICIAN: KARLO LESLIE MD PROCEDURE: CXR1VW - CHEST 1VW INDICATION: sob TECHNIQUE: CHEST 1VW COMPARISON: 11/10/2012 FINDINGS AND IMPRESSION: Mild bilateral airspace consolidation suggesting vascular congestion/edema versus pneumonia. Mild cardiomegaly Degenerative changes of the spine. The visualized upper abdomen appears unremarkable. DICTATED BY: LUIS F PASCAL MD DATE: 10/16/241902 ELECTRONICALLY SIGNED BY: LUIS F PASCAL MD DATE: 10/16/241905 ASSESSMENT: Acute respiratory distress, POA, requiring oxygen supplementation Mild interstitial fibrosis, per CT on 10/16/2024 COPD exacerbation, POA Fluid overload, POA Bilateral renal cysts with the largest on the right measuring 9.8 cm. Lactic acidosis Anemia of chronic disease Thrombocytosis Acute on chronic renal failure, GFR 42 Diabetes mellitus with hyperglycemia Hypoalbuminemia Morbid obesity, BMI 42 Chronic problem list: Asthma, COPD, hypertension, hypothyroidism, renal insufficiency, ovarian surgery PLAN: Continue to monitor the patient on Medical floor with continuous telemetry monitoring Acute respiratory distress, POA, requiring oxygen supplementation Mild interstitial fibrosis, per CT on 10/16/2024 COPD exacerbation, POA Continue Monitor respiratory status closely. Continue oxygen therapy as needed. Titrate oxygen prn to keep Spo2>/+=92%. Continue Albuterol and Atrovent scheduled. -RT to provide IS and education on use. Sputum g stain showed 2+ g negative rods. Pending sputum culture Continue Robitussin DM as needed cough. Solu-Medrol IV switched from 60 q.6 H to 40 mg b.i.d. Continue Rocephin IV and doxycycline IV Urine analysis is negative for UTI and shows elevated urine protein 20 and urine glucose 70 Pulmonology consult appreciated and recommended 6 minute walk evaluate requirement of home O2 before discharge. Fluid overload, POA Continue Lasix 40 mg IV daily. 2D echo showed EF 60-65% and indeterminate diastolic dysfunction Acute on chronic renal failure, GFR 42 BUN went up from 26 to 33 and creatinine up from 1.1 to 1.3 Fluid restrictions a 1200 mL. Strict I&Os. Anemia of chronic disease POA Her hemoglobin up from 8.5 to 8.9 Iron studies showed iron 14, TIBC 362, saturation 3.8%. We will obtain occult stool test. We will start her on IV iron sucrose Diabetes mellitus with hyperglycemia Glucometer checks AC & HS needed with insulin regular sliding scale coverage as needed. Hypothyroidism TSH level is 0.25 And free T3 1.15, free T4 1.21 Hold levothyroxine -GI and DVT prophylaxis: Pepcid and Lovenox -PRN medications for: Pain management, fever, hypertension, N/V, constipation. ATTESTATION BY PHYSICIAN I have seen and examined the patient. I reviewed the documentation, medical decision making, and treatment plan as noted by the resident provider above. I agree with the findings and plan of care. Eddi Hsieh MD, KRUPALI P MD Oct 18, 2024 13:36
[2024-10-18] MEDS ORDERED: LACTULOSE 20 GM/30 ML UDCUP PO PRN (14:00)
[2024-10-18] MEDS ORDERED: IRON sUCROse COMPLEX 100 MG/5 ML VIAL IV SCH (14:00)
[2024-10-18] MEDS ORDERED: LACTULOSE 20 GM/30 ML UDCUP PO SCH (14:00)
[2024-10-18] MEDS: IRON sUCROse COMPLEX 100 MG/5 ML VIAL IV ONE (14:50)
[2024-10-18] MEDS: LACTULOSE 20 GM/30 ML UDCUP PO ONE (14:50)
--- NOTE | 2024-10-18 15:45 | NUR ---
Order received and patient seen. Patient noted with drop in oxygen to 86% and HR up to the 120's with ambulation. Patient was visibly SOB after ambulation. Informed jamaica Davis's nurse. Patient may benefit from 6MWT. PT team to follow. Addendum: 10/18/24 at 1617 by CHRIS HUMPHREY PT Amended: Links added.
--- NOTE | 2024-10-18 16:00 | NUR ---
SPEECH TRIGGER COMPLETED / ACUTE RESPIRATORY DISTRESS Pt IS A 79 Y.O. FEMALE ADMITTED SECONDARY TO ACUTE RESPIRATORY DISTRESS. Pt HAS A PAST MEDICAL HISTORY SIGNIFICANT FOR TOBACCO DEPENDENT, COPD, ASTHMA, HTN, HYPOTHYROIDISM, AND RENAL DISEASE. Pt CURRENTLY ON HEART HEALTHY DIET (REGULAR TEXTURE AND THIN LIQUIDS). PER NURSE TREADWELL, Pt TOLERATING DIET WITH NO OVERT S/S OF ASPIRATION. PLEASE REQUEST SPEECH THERAPY SERVICES FOR SKILLED BEDSIDE SWALLOW EVALUATION IF Pt PRESENTS WITH +S/S OF ASPIRATION SUCH COUGH RESPONSE, THROAT CLEAR, OR WET VOCAL QUALITY DURING ORAL INTAKE. ALL QUESTIONS ANSWERED AT THIS TIME. Addendum: 10/18/[address] CLARENCE ANDRADE Amended: Links added.
[2024-10-19] VITALS (16 sets, daily range): BP systolic 120–164; BP diastolic 62–80; PULSE 50–152; RESP 18–24; TEMP 97.8–98.7; O2SAT 87–99
[2024-10-19 06:23] LABS: BASOPHILS # (AUTO) 0.01 K/uL (0.00-0.20); BASOPHILS % (AUTO) 0.1 % (0.0-5.0); IMMATURE GRANULOCYTE ABSOLUTE 0.44 K/uL (0-1); LYMPHOCYTES # (AUTO) 0.2 K/uL (1.0-4.8); LYMPHOCYTES % (AUTO) 2.4 % (21.0-51.0); MEAN CORPUSCULAR HEMOGLOBIN 22.9 pg (27.0-33.0); MONOCYTES # (AUTO) 0.4 K/uL (0.1-1.0); MONOCYTES % (AUTO) 4.3 % (3.0-13.0); NEUTROPHILS # (AUTO) 8.7 K/uL (1.8-7.7); NEUTROPHILS % (AUTO) 88.7 % (40.0-77.0); NUCLEATED RED BLOOD CELLS 0.9 % (0.0-0.19); PLATELET COUNT (AUTO) 385 K/uL (130-400); RED BLOOD CELL COUNT(AUTO) 3.67 MIL/uL (4.00-5.50); RED CELL DISTRIBUTION WIDTH 20.3 % (11.0-15.5); WHITE BLOOD COUNT (AUTO) 9.8 K/uL (4.8-10.8)
[2024-10-19 06:35] LABS: CREATININE 1.3 mg/dL (0.5-1.0); POTASSIUM 4.1 mmol/L (3.5-5.1)
[2024-10-19 07:17] LABS: B-TYPE NATRIURETIC PEPTIDE 53 pg/mL (0-100)
--- NOTE | 2024-10-19 08:42 | NUR ---
DCP: home with [facility] [phone] Per Amarilis [phone] at [facility] has been ordered to be delivered this morning. OOH DNR pending hospice MD lopez. Pt will need ambulance transport home at [place]. DC Pending DME delivery. Addendum: 10/19/24 at 1101 by ADORE CALHOUN SS PLEASE DISREGARD NOTE. WRONG PT
[2024-10-19] MEDS: IRON sUCROse COMPLEX 100 MG/5 ML VIAL IV ONE (11:42)
--- NOTE | 2024-10-19 14:09 | PN ---
[facility] PROGRESS NOTE Date of Service: Oct 19, 2024 Time of Service: 13:58 SUBJECTIVE: Ms. Palafox is a 79-year-old female with a history of tobacco dependent, COPD, asthma, hypertension, hypothyroidism, and renal disease who presented to [facility] ED for evaluation of shortness of breath over the past few weeks worsening today. The patient reported that she has been seen multiple times in the clinic setting for subjective fever last week. The patient was placed on steroids and nebulized treatments with no improvement which prompted the ED visit. In ED the patient was administered Solu-Medrol 80 mg IV, DuoNeb treatments, and Rocephin2 g. ED provider requested patient be admitted to the [facility] hospitalist team with the diagnosis of acute respiratory distress and acute exacerbation of COPD with asthma. Labs reviewed. Troponin negative. ABGs WNL, PO2 107, on 3 L. influenza and COVID are negative. BNP 115. D-dimer a 1403. CT chest without contrast: There are mild interstitial fibrosis. Bilateral renal cysts with the largest on the right measuring 9.8 cm. No evidence of pulmonary nodules or effusions. 10/17/24 the patient is seen and examined today morning, with her family at the bedside. She stated that her breathing is better today she and she saturating 98% on1 L of oxygen via nasal cannula. We will try to wean her off. Vitals are stable. She is complaining of productive cough and we will get the sputum culture. Pulmonology consult pending. V/Q scan pending. 2D echo results pending. Her WBC went down. Her hemoglobin dropped down to 8.5 from 9.7, MCV 77.2. We will order iron panel studies. TSH 0.25 And we will hold her antithyroid medications at the moment. We will get T3 and T4 levels. Chest x- ray showed vascular congestion, edema versus pneumonia, mild cardiomegaly. Venous Doppler negative for DVT. 10/18/24 patient seen and examined today. Her vitals are stable. She is saturating well with 96% on room air. She denies shortness of breath at the moment. Sputum Gram stain showed 2+ Gram-negative rods and pending culture results. Continue Rocephin and Solu-Medrol 40. Potassium is 3.4 And replaced with p.o. potassium chloride. BUN went up 26 to 33and creatinine went up from 1.1 to 1.3 today. Iron panel studies show iron 14, TIBC 362 and % saturation 3.8% she has suggestive of iron deficiency anemia. Check stool occult blood and we will order IV iron sucrose. Free T3 1.15. 2D echo showed EF 60-65% and indeterminate diastolic dysfunction. Consult PT OT for ambulation 10/19/24 patient is seen and evaluated today. She is seen sitting comfortably in chair with ongoing nebulizer treatment. Patient had a failed 6 minute walk today, her oxygen saturation dropped down to 85% and her heart rate went up to 150s. She will require home oxygen on discharge. We will consult case management for arranging home O2 requirement. Continue Rocephin and doxycycline IV. On examination bilateral wheezing are present. Respiratory culture showed 3+ Gram-negative rods and identification and sensitivity to follow. Hemoglobin 8.4 and we will continue with IV Venofer. BUN went up 33 to 42and creatinine stable at 1.3. REVIEW OF SYSTEMS CONSTITUTIONAL: Denies fevers, chills, or night sweats. No unintentional weight loss reported. NEUROLOGICAL: Denies headache, amaurosis fugax, motor weakness, sensory deficit, vertigo/spinning sensation, gait abnormalities, or tremors. ENT: No hearing loss, otalgia, otorrhea, rhinitis, rhinorrhea, hoarseness, or sore throat. CARDIOVASCULAR: Denies any exertional angina, dyspnea on exertion, orthopnea, paroxysmal nocturnal dyspnea, palpitations, life-threatening arrhythmias, claudication. Complains of chest discomfort PULMONARY: Improving shortness of breath, cough, phlegm/sputum. Denies hemoptysis, pleuritic chest pain. SLEEP: Denies morning headaches, daytime somnolence or napping. Denies difficulty falling asleep, staying asleep, waking from sleep. Denies knowledge of snoring. GASTROINTESTINAL: Denies any type of dysphagia to either liquids or solids. Denies nausea, vomiting, pyrosis, early satiety, abdominal pain, diarrhea, constipation, or changes in stool consistency or caliber. Denies coffee-ground emesis, hematemesis, hematochezia, or melanotic stools. GENITOURINARY: Denies frequency, urgency, nocturia, hematuria or incontinence (Storage/Irritative symptoms.) Low urinary stream, straining to void, urinary intermittency or hesitancy, splitting of the voiding stream, terminal dribbling. ENDOCRINOLOGIC: Denies polyuria, polydipsia, polyphagia or heat/cold into lerances. HEMATOLOGIC: Denies thrombophilia/previous clots, or coagulopathy/bleeding disorders. ONCOLOGIC: Denies personal history of malignancy. DERMATOLOGIC: Denies rashes or pruritus. PSYCHIATRIC: Denies any suicidal or homicidal ideation. Denies hallucinations. PHYSICAL EXAM GENERAL APPEARANCE: The patient is awake, alert, and oriented, in no acute cardiopulmonary distress. NEUROLOGICAL: Cranial nerves II-XII grossly intact. Motor is 5/5 in bilateral upper and lower extremities proximal to distal. No sensory deficits. HEENT: Face is symmetric. Pupils are equal and reactive. Extraocular movements are intact. NECK: Supple. No JVD. No thyromegaly. No submental, submandibular, pre- /postauricular, occipital or supraclavicular lymphadenopathy. CHEST: Normal chest expansion. No Telemetry. LUNGS: Positive for bilateral wheezing. CARDIOVASCULAR: Regular. S1 and S2 normal. No appreciable rubs, murmurs or gallops. Crackles. ABDOMEN: Obese. Obese. Soft, nontender, and nondistended. There is no rebound, voluntary guarding, or rigidity. : Deferred. No Hendrix. EXTREMITIES: Improving bilateral pitting pedal edema. not cyanotic. No clubbing. Good capillary refill. SKIN: No skin breakdown. Vital Signs (last 8hr) Date Time Temp Pulse Resp B/P (MAP) Pulse Ox O2 Delivery O2 Flow Rate FiO2 10/19/24 11:40 98.1 50 20 133/80 96 Nasal Cannula 2.0 24 10/19/24 11:01 91 18 10/19/24 10:20 88 18 21 152 24 21 135 22 28 10/19/24 09:00 96 Nasal Cannula* 1 24 10/19/24 07:40 97.9 82 18 128/74 95 Nasal Cannula 1.0 10/19/24 06:43 79 18 N/Cannula Low lpm 1.0 10/19/24 06:40 79 18 LABS: Laboratory: Test 10/19/24 11:17 10/19/24 05:49 10/18/24 08:10 Range/Units Whole Blood Glucose 151 H 70-110 MG/DL White Blood Count 9.8 4.8-10.8 K/uL Red Blood Count 3.67 L 4.00-5.50 MIL/uL Hemoglobin 8.4 L 12.0-16.0 g/dL Hematocrit 29.0 L 36-48 % Mean Corpuscular Volume 79.0 79-99 fL Mean Corpuscular Hemoglobin 22.9 L 27.0-33.0 pg Mean Corpuscular Hemoglobin Concent 29.0 L 32.0-36.0 g/dL Red Cell Distribution Width 20.3 H 11.0-15.5 % Platelet Count 385 130-400 K/uL Mean Platelet Volume 9.4 7.5-10.5 fL Immature Granulocyte % (Auto) 4.5 H 0-1 % Neutrophils (%) (Auto) 88.7 H 40.0-77.0 % Lymphocytes (%) (Auto) 2.4 L 21.0-51.0 % Monocytes (%) (Auto) 4.3 3.0-13.0 % Eosinophils (%) (Auto) 0.0 0.0-8.0 % Basophils (%) (Auto) 0.1 0.0-5.0 % Neutrophils # (Auto) 8.7 H 1.8-7.7 K/uL Lymphocytes # (Auto) 0.2 L 1.0-4.8 K/uL Monocytes # (Auto) 0.4 0.1-1.0 K/uL Eosinophils # (Auto) 0.00 0.00-0.70 K/uL Basophils # (Auto) 0.01 0.00-0.20 K/uL Absolute Immature Granulocyte (auto 0.44 0-1 K/uL Nucleated Red Blood Cells 0.9 H 0.0-0.19 % Sodium Level 147 H 136-145 mmol/L Potassium Level 4.1 3.5-5.1 mmol/L Chloride Level 111 101-111 mmol/L Carbon Dioxide Level 28 21-32 mmol/L Blood Urea Nitrogen 42 H 7-18 mg/dL Creatinine 1.3 H 0.5-1.0 mg/dL Glomerular Filtration Rate Calc 42 >90 mL/min Random Glucose 162 H 70-105 mg/dL Total Calcium 8.1 L 8.5-10.1 mg/dL B-Type Natriuretic Peptide 53 0-100 pg/mL Hemoglobin A1c 5.9 4.0-6.0 % Estimated Average Glucose (eAG) 123 70-126 mg/dL Iron Level 14 L 50-170 mcg/dL Total Iron Binding Capacity 362 250-450 mcg/dL Percent Iron Saturation 3.8 L 22-44 % Free Thyroxine (T4) Direct 1.21 0.76-1.46 ng/dL Thyroxine (T4) 8.2 4.7-13.3 ug/dL Free Triiodothyronine (T3) pg/mL 1.15 L 2.18-3.98 pg/mL Total Triiodothyronine 45 L 71-180 ng/dL Current Medications Medications (Trade) Dose Ordered Sig/Tom Route PRN Reason Start Time Stop Time Status Last Admin Dose Admin Acetaminophen (TYLenol 325MG TAB) 650 mg Q6H PRN PO FEVER/MILD PAIN LEVEL 1-3 10/16/24 21:00 11/15/24 20:59 Acetaminophen (TYLenol 650MG SUPPOSITORY) 650 mg Q6H PRN RC FEVER / MILD PAIN 1-3 IF NPO 10/16/24 21:00 11/15/24 20:59 Albuterol (DUOneb) 1 udvial [id number] IH 10/17/24 00:00 11/16/24 00:00 10/19/24 11:01 1 UDVIAL Ceftriaxone Sodium (Rocephin 2gm Inj) 2 gm Q24H IVPB 10/17/24 09:00 10/27/24 08:59 10/19/24 10:14 2 GM Dextrose (D50w) 50 ml AD PRN IV HYPOGLYCEMIA PROTOCOL 10/17/24 04:00 11/16/24 03:59 Docusate Sodium (COLace 100MG CAP) 100 mg BID PRN PO c 10/16/24 21:00 11/15/24 20:59 Doxycycline Hyclate 250 ml @ 125 mls/hr Q12H IV 10/16/24 20:30 10/26/24 20:29 10/19/24 10:14 125 MLS/HR Enoxaparin Sodium (Lovenox) 40 mg DAILY SQ 10/17/24 09:00 11/16/24 08:59 10/19/24 10:15 40 MG Famotidine (Pepcid 20mg Vial) 20 mg DAILY IV 10/17/24 09:00 11/16/24 08:59 10/19/24 10:15 20 MG Furosemide (LASix 40MG VIAL) 40 mg DAILY IV 10/17/24 09:00 11/16/24 08:59 10/19/24 10:15 40 MG Glucagon (Glucagon 1mg Kit) 1 mg AD PRN IM HYPOGLYCEMIA PROTOCOL 10/17/24 04:00 11/16/24 03:59 Guaifenesin/ Dextromethorphan (RobiTUSSin DM 200/20MG 10ML) 15 ml Q6H PRN PO COUGH 10/17/24 04:00 11/16/24 03:59 Home Med (Home Medication) DAILY IH 10/17/24 09:00 11/16/24 08:59 10/19/24 10:16 1 EACH Hydralazine HCl (APRESOLine 20MG INJ) 10 mg Q6H PRN IV SBP GREATER THAN 160 10/16/24 21:00 11/15/24 20:59 Insulin Human Regular (humuLIN R 100 UNIT/ML 3ML) INSULIN SLIDING SCAL... ACHS SQ 10/16/24 21:00 11/15/24 20:59 Iron Sucrose (VenoFER) 200 mg ONCE IV 10/18/24 14:00 10/18/24 13:43 DC Isosorbide Mononitrate (Imdur 30mg Sr) 30 mg DAILY PO 10/17/24 09:00 11/16/24 08:59 10/19/24 10:14 30 MG Lactulose (Constulose 20gm/ 30ml Udcup) 20 gm BID PRN PO CONSTIPATION 10/18/24 14:00 11/17/24 13:59 Lactulose (Constulose 20gm/ 30ml Udcup) 20 gm ONCE PO 10/18/24 14:00 10/18/24 13:43 DC Lactulose (Constulose 20gm/ 30ml Udcup) 20 gm Q6H PRN PO CONSTIPATION 10/16/24 21:00 10/18/24 13:44 DC Losartan Potassium (CozAAR 25MG TAB) 25 mg DAILY15 PO 10/17/24 15:00 11/16/24 14:59 10/18/24 14:50 25 MG Magnesium Sulfate 50 ml @ 0 mls/hr PROTOCOL PRN IV MAGNESIUM PROTOCOL 10/17/24 04:00 11/16/24 03:59 Methylprednisolone Sodium Succinate (Solu-medROL 40MG) 40 mg BID IVP 4/21/25 09:00 11/17/24 08:59 10/19/24 10:15 40 MG Methylprednisolone Sodium Succinate (Solu-medROL 125MG) 60 mg Q6H IVP 10/17/24 04:00 10/17/24 23:51 DC 10/17/24 21:03 60 MG Ondansetron HCl (zoFRAN 4MG INJ) 4 mg Q6H PRN IVP NAUSEA/VOMITING 10/16/24 21:00 11/15/24 20:59 Potassium Chloride 100 ml @ 100 mls/hr AD PRN IV POTASSIUM PROTOCOL 10/17/24 04:00 11/16/24 03:59 Potassium Chloride (K-Dur 10meq Sr Tab) 10 meq AD PRN PO POTASSIUM PROTOCOL 10/18/24 08:30 11/16/24 03:59 10/18/24 11:13 10 MEQ Potassium Chloride (K-Dur/Klor-Con 20meq) 10 meq AD PRN PO POTASSIUM PROTOCOL 10/17/24 04:00 10/18/24 08:13 DC Potassium Chloride (KCl 10% Elixir 20meq/15ml) 10 meq AD PRN PO POTASSIUM PROTOCOL 10/17/24 04:00 11/16/24 03:59 Spironolactone (Aldactone 25mg) 25 mg DAILY15 PO 10/17/24 15:00 11/16/24 14:59 10/18/24 14:50 25 MG Temazepam (restORIL 15 MG CAP) 15 mg HS PRN PO INSOMNIA/SLEEP 10/16/24 21:00 11/15/24 20:59 DIAGNOSTICS / RADIOLOGY: [place] [address] IMAGING REPORT Signed PATIENT: MORRIS PALAFOX MR#: [id number] : 1945 SEX: F AGE: 79 LOCATION: 4DH ORDER 0 STATUS: ADM IN REPORT#: [id number] SERVICE 5 REASON: fluid overload, sob ORDERING PHYSICIAN: JARRED PATTERSON PROCEDURE: ECHO CMP - ECHO 2-D COMPLETE APPROVED REPORT EXAM: Two-dimensional and M-mode echocardiogram with Doppler and color Doppler. INDICATION ICD: Fluid overload, SOB 2D Dimensions RVDd 3.0 cm LVEF(%) 63.0 (>50%) LVED Vol(simp.) 126.0 mL IVSd 0.9 (0.7-1.1cm) FS(%) 34 % LVES Vol(simp.) 39.0 mL LVDd 4.3 (3.8-5.6cm) Ao Root(2D) 3.0 (2.0-3.7cm) LVEF(%, simp.) 69 % PWd 0.9 (0.7-1.1cm) LVOT diam 2.0 (1.8-2.4cm) LA ESV INDEX (BP) 37.44 mL/m2 LVDs 2.9 (2.5-4.0cm) IVC diam 1.8 cm Deformation Strain Apical 4 -17.9 % Apical 2 -21.4 % Apical 3 -17.8 % Global Strain -19.0 % M-Mode Dimensions EPSS 0.8 cm LA (MM) 3.8 (1.6-4.0cm) Ao Root(MM) 3.4 (2.0-3.7cm) Aortic Valve AoV Vmax 1.7 m/s Ao Peak GR 12.2 mmHg LVOT Vmax 1.7 m/s AoV VTI 0.4 m Ao Mean GR 6.0 mmHg LVOT VTI 0.32 m JAHAIRA (VMAX) 2.75 cm2 JAHAIRA (VTI) 2.7 cm2 Mitral Valve MV E Vmax 77.8 cm/s DECEL Time 320 ms MV A Vmax 91.8 cm/s P 1/2 T 62 ms E/A ratio 0.8 MVA (PHT) 3.5 cm2 TDI E/E' Medial 13.3 E/E' Lateral 10.1 Medial E' Peak V 5.87 cm/s Lateral E' Peak V 7.70 cm/s Left Ventricle The left ventricle is normal size. There is normal LV segmental wall motion. There is normal left ventricular wall thickness. LVEF is 60-65%. Indeterminate diastolic dysfunction. Right Ventricle The right ventricle is normal size. The right ventricular systolic function is normal. Atria The left atrium is mildly dilated. The right atrium size is normal. Aortic Valve Aortic valve is not well visualized but no significant valvular abnormalities noted. No aortic regurgitation is present. There is no aortic valvular stenosis. Mitral Valve The mitral valve is normal in structure. There is trace mitral regurgitation. There is no mitral valve stenosis. Tricuspid Valve The tricuspid valve is normal in structure. There is trivial tricuspid valve regurgitation noted. Pulmonic Valve Pulmonic valve is not well visualized. There is no pulmonic valvular regurgitation. Great Vessels The aortic root is normal in size. The IVC is normal in size and collapses >50% with inspiration. Pericardium There is no pericardial effusion. Other Information Quality : Fair Technically limited study due to body habitus. Conclusion The left ventricle is normal size. LVEF is 60-65% with normal LV segmental wall motion. Indeterminate diastolic dysfunction. The right ventricular systolic function is normal. The left atrium is mildly dilated. No hemodynamically significant valvular abnormalities. There is no pericardial effusion. DICTATED BY: CATHERINE RIOS MD DATE: 10/17/24930 ELECTRONICALLY SIGNED BY: CATHERINE RIOS MD DATE: 10/17/[address] [address] IMAGING REPORT Signed PATIENT: MORRIS PALAFOX MR#: [id number] : 1945 SEX: F AGE: 79 LOCATION: [facility] ORDER 31 [facility]: [facility]#: [id number] SERVICE 29 REASON: ELEVATED D-DIMER ORDERING PHYSICIAN: JARRED PATTERSON PROCEDURE: VENOUS BRITTNI - US VENOUS DOPPLER BILATERAL US VENOUS DOPPLER BILATERAL INDICATION: Swelling. ELEVATED D-DIMER TECHNIQUE: US VENOUS DOPPLER BILATERAL Real-time venous Doppler ultrasound was performed using B mode, color flow and spectral analysis. FINDINGS: The visualized greater saphenous junction, common femoral, deep femoral, superficial femoral, popliteal and posterior tibial veins demonstrate normal compressibility and flow. No DVT is identified. IMPRESSION: No evidence of DVT in the visualized bilateral extremities. DICTATED BY: LUIS F PASCAL MD DATE: 04/20/25 0908 ELECTRONICALLY SIGNED BY: LUIS F PASCAL MD DATE: 10/17/24 09 [facility] [address] [place] [id number] IMAGING REPORT Signed PATIENT: MORRIS PALAFOX MR#: [id number] : 1945 SEX: F AGE: 79 [facility] STATUS: ADM IN REPORT#: [id number] SERVICE 25 REASON: acute respiratory distress ORDERING PHYSICIAN: JARRED PATTERSON PROCEDURE: CHEST WO - CT CHEST W/O CONTRAST CT CHEST W/O CONTRAST HISTORY: Acute respiratory distress COMPARISON: None TECHNIQUE: Multiple sequential axial images of the chest were obtained from the thoracic inlet through upper abdomen. Patient was not given contrast through intravenous route. FINDINGS: There are mild interstitial fibrosis. There is no evidence of pulmonary nodule or parenchymal disease. No pleural effusion or pericardial effusion is seen. There is no evidence of pneumothorax. There are normal size mediastinal and hilar lymph nodes. The heart is not enlarged. Degenerative changes of the thoracolumbar spine are present. There is no evidence of adrenal nodule. There are bilateral renal cysts with the largest on the right measuring 9.8 cm. IMPRESSION: 1. No evidence of pulmonary nodule or effusion is seen. CT was performed with one or more following dose reduction techniques: automated exposure control, adjustment of the mA and kv according to patient's size, or use of a iterative reconstruction technique. DICTATED BY: YONI HERNANDEZ MD DATE: 10/16/242211 ELECTRONICALLY SIGNED BY: YONI HERNANDEZ MD DATE: 10/16/245 [facility] [address] [place] [id number] IMAGING REPORT Signed PATIENT: MORRIS PALAFOX MR#: [id number] : 1945 SEX: F AGE: 79 LOCATION: ED ORDER 1801 STATUS: REG ER REPORT#: [id number] SERVICE 02 REASON: sob ORDERING PHYSICIAN: KARLO LESLIE MD PROCEDURE: CXR1VW - CHEST 1VW INDICATION: sob TECHNIQUE: CHEST 1VW COMPARISON: 11/10/2012 FINDINGS AND IMPRESSION: Mild bilateral airspace consolidation suggesting vascular congestion/edema versus pneumonia. Mild cardiomegaly Degenerative changes of the spine. The visualized upper abdomen appears unremarkable. DICTATED BY: LUIS F PASCAL MD DATE: 10/16/241902 ELECTRONICALLY SIGNED BY: LUIS F PASCAL MD DATE: 10/16/241905 ASSESSMENT: Acute respiratory failure POA, requiring oxygen supplementation Possible gram negative pneumonia POA Mild interstitial fibrosis, per CT on 10/16/2024 COPD exacerbation, POA Fluid overload, POA Bilateral renal cysts with the largest on the right measuring 9.8 cm. Lactic acidosis Anemia of chronic disease Thrombocytosis Acute on chronic renal failure, GFR 42 Diabetes mellitus with hyperglycemia Hypoalbuminemia Morbid obesity, BMI 42 Chronic problem list: Asthma, COPD, hypertension, hypothyroidism, renal insufficiency, ovarian surgery PLAN: Continue to monitor the patient on Medical floor with continuous telemetry monitoring Acute respiratory failure POA, requiring oxygen supplementation Mild interstitial fibrosis, per CT on 10/16/2024 COPD exacerbation, POA Possible gram negative pneumonia POA Continue Monitor respiratory status closely. Continue oxygen therapy as needed. Titrate oxygen prn to keep Spo2>/+=92%. Continue Albuterol and Atrovent scheduled. -RT to provide IS and education on use. Sputum g stain showed 2+ g negative rods. Respiratory culture showed 3+ Gram- negative rods and identification and sensitivity to follow Continue Robitussin DM as needed cough. We will switch her Solu-Medrol 40 mg b.i.d. to prednisone 40 mg once a day Continue Rocephin IV and doxycycline IV Urine analysis is negative for UTI and shows elevated urine protein 20 and urine glucose 70 Pulmonology consult appreciated and recommended outpatient follow up after1 week of discharge She failed 6 minute walk test and her saturation dropped down to 86% and heart rate went up to 150s. She will require home O2 on discharge. Case management consulted for arranging home O2 requirement Fluid overload, POA Continue Lasix 40 mg IV daily. 2D echo showed EF 60-65% and indeterminate diastolic dysfunction Acute on chronic renal failure, GFR 42 BUN went up from 33 to 42 and creatinine stable at 1.3 Fluid restrictions a 1200 mL. Strict I&Os. Anemia of chronic disease POA Her hemoglobin down from 8.9 to 8.4 Iron studies showed iron 14, TIBC 362, saturation 3.8%. We will obtain occult stool test. We will give her 2nd dose of IV iron sucrose today Diabetes mellitus with hyperglycemia Glucometer checks AC & HS needed with insulin regular sliding scale coverage as needed. Hypothyroidism TSH level is 0.25 And free T3 1.15, free T4 1.21 Hold levothyroxine -GI and DVT prophylaxis: Pepcid and Lovenox -PRN medications for: Pain management, fever, hypertension, N/V, constipation. ATTESTATION BY PHYSICIAN I have seen and examined the patient. I reviewed the documentation, medical decision making, and treatment plan as noted by the resident provider above. I agree with the findings and plan of care. Ata Navarrete MD, KRUPALI P MD Oct 19, 2024 14:08
--- NOTE | 2024-10-19 15:17 | PN ---
[facility] PROGRESS NOTE Date Patient Seen: Oct 19, 2024 Time of Visit: 15:17 Supervising Physician: Dr. John Sellers Primary Care Physician: [ ] Outpatient Specialists: [ ] Inpatient Consults: [ ] PROBLEM LIST: Acute respiratory distress, POA, requiring oxygen supplementation CAP, gram negative rods on culture Mild interstitial fibrosis, per CT on 10/16/2024 COPD exacerbation, POA Fluid overload, POA Bilateral renal cysts with the largest on the right measuring 9.8 cm. Lactic acidosis Anemia of chronic disease Thrombocytosis Acute on chronic renal failure, GFR 42 Diabetes mellitus with hyperglycemia Hypoalbuminemia Morbid obesity, BMI 42 Chronic problem list: Asthma, COPD, hypertension, hypothyroidism, renal insufficiency, ovarian surgery INTERVAL HISTORY: Patient evaluated at bedside today, currently on 1 L nasal cannula. She continues on Rocephin and doxycycline for community-acquired pneumonia Chronic obstructive pulmonary disease exacerbation, cultures are pending final susceptibilities at this time. Patient currently on Solu-Medrol 40 b.i.d., white count today is nine point date. Patient has home hospice arranged with pending O2 delivery at this time. Once final cultures are resulted patient was cleared from a pulmonary perspective to discharge with the appropriate p.o. medication to complete antibiotic regimen. Follow up with [facility] in 3-4 weeks for chest x-ray to ensure resolution. Disposition per primary. We will continue to follow the patient while she was admitted on the med floor. REVIEW OF SYSTEMS: 12 point ROS reviewed with patient. Pertinent positives mentioned above. Otherwise negative. PHYSICAL EXAM: GENERAL: alert, weak, awake oriented x 3 HEENT: EOMI, Sclera non icteric, moist mucosa NECK: Supple, no JVD, trachea midline LUNGS: Clear breath sounds bilaterally. No wheezes HEART: Regular rate and rhythm. Normal S1 and S2, without murmurs ABD: Abdomen soft, nontender. Bowel sounds present EXT: No clubbing cyanosis or edema NEURO: Alert and oriented to person, follows commands Vital Signs (last 8hr) Date Time Temp Pulse Resp B/P (MAP) Pulse Ox O2 Delivery O2 Flow Rate FiO2 10/19/24 11:40 98.1 50 20 133/80 96 Nasal Cannula 2.0 24 10/19/24 11:01 91 18 10/19/24 10:20 88 18 21 152 24 21 135 22 28 10/19/24 09:00 96 Nasal Cannula* 1 24 10/19/24 07:40 97.9 82 18 128/74 95 Nasal Cannula 1.0 22 LABS: Hematology Labs: Test 10/19/24 05:49 Range/Units White Blood Count 9.8 4.8-10.8 K/uL Red Blood Count 3.67 L 4.00-5.50 MIL/uL Hemoglobin 8.4 L 12.0-16.0 g/dL Hematocrit 29.0 L 36-48 % Mean Corpuscular Volume 79.0 79-99 fL Mean Corpuscular Hemoglobin 22.9 L 27.0-33.0 pg Mean Corpuscular Hemoglobin Concent 29.0 L 32.0-36.0 g/dL Red Cell Distribution Width 20.3 H 11.0-15.5 % Platelet Count 385 130-400 K/uL Mean Platelet Volume 9.4 7.5-10.5 fL Immature Granulocyte % (Auto) 4.5 H 0-1 % Neutrophils (%) (Auto) 88.7 H 40.0-77.0 % Lymphocytes (%) (Auto) 2.4 L 21.0-51.0 % Monocytes (%) (Auto) 4.3 3.0-13.0 % Eosinophils (%) (Auto) 0.0 0.0-8.0 % Basophils (%) (Auto) 0.1 0.0-5.0 % Neutrophils # (Auto) 8.7 H 1.8-7.7 K/uL Lymphocytes # (Auto) 0.2 L 1.0-4.8 K/uL Monocytes # (Auto) 0.4 0.1-1.0 K/uL Eosinophils # (Auto) 0.00 0.00-0.70 K/uL Basophils # (Auto) 0.01 0.00-0.20 K/uL Absolute Immature Granulocyte (auto 0.44 0-1 K/uL Nucleated Red Blood Cells 0.9 H 0.0-0.19 % Chemistry Labs: Test 10/19/24 11:17 10/19/24 05:49 10/18/24 08:10 Range/Units Whole Blood Glucose 151 H 70-110 MG/DL Sodium Level 147 H 136-145 mmol/L Potassium Level 4.1 3.5-5.1 mmol/L Chloride Level 111 101-111 mmol/L Carbon Dioxide Level 28 21-32 mmol/L Blood Urea Nitrogen 42 H 7-18 mg/dL Creatinine 1.3 H 0.5-1.0 mg/dL Glomerular Filtration Rate Calc 42 >90 mL/min Random Glucose 162 H 70-105 mg/dL Total Calcium 8.1 L 8.5-10.1 mg/dL B-Type Natriuretic Peptide 53 0-100 pg/mL Hemoglobin A1c 5.9 4.0-6.0 % Estimated Average Glucose (eAG) 123 70-126 mg/dL Iron Level 14 L 50-170 mcg/dL Total Iron Binding Capacity 362 250-450 mcg/dL Percent Iron Saturation 3.8 L 22-44 % Free Thyroxine (T4) Direct 1.21 0.76-1.46 ng/dL Thyroxine (T4) 8.2 4.7-13.3 ug/dL Free Triiodothyronine (T3) pg/mL 1.15 L 2.18-3.98 pg/mL Total Triiodothyronine 45 L 71-180 ng/dL DIAGNOSTICS / RADIOLOGY RESULTS: [ ] PLAN NEURO: Minimize central acting medications as possible. Maintain fall precautions, adequate lighting during the day PULMONARY: Supplemental 02 as needed. Maintain aspiration precautions at all times CARDIOVASCULAR: Follow hemodynamics. Vital signs per facility protocol GI & NUTRITION: Continue with nutritional support. Continue stool softeners and laxatives as needed. KIDNEYS & ELECTROLYTES: Strict monitoring of intake, output and overall fluid balance. Avoid nephrotoxic medications to the extent possible. Medications to be dosed according to renal function. Monitor electrolytes and replace as needed ENDOCRINE: Maintain blood glucose between 100-180 at all times. Hypoglycemia protocol in place INFECTIOUS DISEASE: Trend temperature, WBC and procalcitonin level Follow cultures, deescalate antibiotics as soon as possible. Panculture if new onset fever ONCOLOGY/HEMATOLOGY/COAGULATION: Monitor for s/s of bleeding Monitor hemoglobin, coagulation studies as needed SKIN: Pressure ulcer prevention per facility protocol Specialty mattress ORTHO/REHAB: Continue PT/OT Prophylaxis: Continue GI and DVT prophylaxis Code Status: Full Resuscitation Disposition: TBD Other: Total patient care time exceeds 35 minutes excluding all procedures. ADRIENNE DRAKE Oct 19, 2024 15:17
--- NOTE | 2024-10-19 16:29 | NUR ---
DC PLAN VISITED WITH PATIENT. WENT OVER DC PLAN WITH PATIENT AND SON. OFFERED SNF DECLINED SAID WOULD PREFER TO GO HOME FAMILY WILL BE HELPING PATIENT ON DC. [place] SIGNED FOR ANY IN NETWORK 02 [employer]ME COMPANY CONFIRMED ADDRESS AND GOOD NUMBER FOR DELIVERY OF DME. Addendum: 10/19/24 at 1635 by FAB DELUNA RN CM Amended: Links added.
[2024-10-20] VITALS (31 sets, daily range): BP systolic 76–160; BP diastolic 41–92; PULSE 60–129; RESP 20–42; TEMP 97.5–98.4; O2SAT 91–100
[2024-10-20] MEDS: hydrALAZine 20MG/ML VIAL IV PRN (00:26)
[2024-10-20 05:04] LABS: BASOPHILS # (AUTO) 0.02 K/uL (0.00-0.20); BASOPHILS % (AUTO) 0.2 % (0.0-5.0); HEMATOCRIT 29.1 % (36-48); IMMATURE GRANULOCYTE ABSOLUTE 0.76 K/uL (0-1); LYMPHOCYTES # (AUTO) 0.3 K/uL (1.0-4.8); LYMPHOCYTES % (AUTO) 2.6 % (21.0-51.0); MEAN CORPUSCULAR HEMOGLOBIN 22.6 pg (27.0-33.0); MEAN CORPUSCULAR HGB CONC 28.9 g/dL (32.0-36.0); MEAN CORPUSCULAR VOLUME 78.4 fL (79-99); MONOCYTES # (AUTO) 0.5 K/uL (0.1-1.0); MONOCYTES % (AUTO) 4.2 % (3.0-13.0); NEUTROPHILS % (AUTO) 86.4 % (40.0-77.0); NUCLEATED RED BLOOD CELLS 1.3 % (0.0-0.19); PLATELET COUNT (AUTO) 361 K/uL (130-400); RED BLOOD CELL COUNT(AUTO) 3.71 MIL/uL (4.00-5.50); WHITE BLOOD COUNT (AUTO) 11.6 K/uL (4.8-10.8)
[2024-10-20 05:15] LABS: CREATININE 1.4 mg/dL (0.5-1.0); POTASSIUM 4.1 mmol/L (3.5-5.1)
[2024-10-20] MEDS: predniSONE 20 MG TABLET PO SCH (08:43)
--- NOTE | 2024-10-20 09:32 | NUR ---
DC PLAN VISITED WITH PATIENT. PATIENT HAVING LOW 02 AND HIGH HEART RATE. MED ADJ BEING DONE. CM DID OFFER SNF FOR 02, MED ADJ, AND THERAPY. PATIENT DECLINED SAID WANTS TO GO HOME. SON SAID THEY HAVE HELP FOR HER ON DC. [employer] SIGNED FOR ANY IN NETWORK. PACKET SENT TO [facility]. PENDING SCRIPT FOR ADRIENNE TO SIGN. Addendum: 10/20/24 at 0936 by FAB DELUNA RN CM Amended: Links added.
[2024-10-20] MEDS: IRON sUCROse COMPLEX 100 MG/5 ML VIAL IV ONE (13:25)
--- NOTE | 2024-10-20 14:40 | PN ---
[facility] PROGRESS NOTE Date of Service: Oct 20, 2024 Time of Service: 14:30 SUBJECTIVE: Ms. Palafox is a 79-year-old female with a history of tobacco dependent, COPD, asthma, hypertension, hypothyroidism, and renal disease who presented to [facility] ED for evaluation of shortness of breath over the past few weeks worsening today. The patient reported that she has been seen multiple times in the clinic setting for subjective fever last week. The patient was placed on steroids and nebulized treatments with no improvement which prompted the ED visit. In ED the patient was administered Solu-Medrol 80 mg IV, DuoNeb treatments, and Rocephin2 g. ED provider requested patient be admitted to the [facility] hospitalist team with the diagnosis of acute respiratory distress and acute exacerbation of COPD with asthma. Labs reviewed. Troponin negative. ABGs WNL, PO2 107, on 3 L. influenza and COVID are negative. BNP 115. D-dimer a 1403. CT chest without contrast: There are mild interstitial fibrosis. Bilateral renal cysts with the largest on the right measuring 9.8 cm. No evidence of pulmonary nodules or effusions. 10/17/24 the patient is seen and examined today morning, with her family at the bedside. She stated that her breathing is better today she and she saturating 98% on1 L of oxygen via nasal cannula. We will try to wean her off. Vitals are stable. She is complaining of productive cough and we will get the sputum culture. Pulmonology consult pending. V/Q scan pending. 2D echo results pending. Her WBC went down. Her hemoglobin dropped down to 8.5 from 9.7, MCV 77.2. We will order iron panel studies. TSH 0.25 And we will hold her antithyroid medications at the moment. We will get T3 and T4 levels. Chest x- ray showed vascular congestion, edema versus pneumonia, mild cardiomegaly. Venous Doppler negative for DVT. 10/18/24 patient seen and examined today. Her vitals are stable. She is saturating well with 96% on room air. She denies shortness of breath at the moment. Sputum Gram stain showed 2+ Gram-negative rods and pending culture results. Continue Rocephin and Solu-Medrol 40. Potassium is 3.4 And replaced with p.o. potassium chloride. BUN went up 26 to 33and creatinine went up from 1.1 to 1.3 today. Iron panel studies show iron 14, TIBC 362 and % saturation 3.8% she has suggestive of iron deficiency anemia. Check stool occult blood and we will order IV iron sucrose. Free T3 1.15. 2D echo showed EF 60-65% and indeterminate diastolic dysfunction. Consult PT OT for ambulation 10/19/24 patient is seen and evaluated today. She is seen sitting comfortably in chair with ongoing nebulizer treatment. Patient had a failed 6 minute walk today, her oxygen saturation dropped down to 85% and her heart rate went up to 150s. She will require home oxygen on discharge. We will consult case management for arranging home O2 requirement. Continue Rocephin and doxycycline IV. On examination bilateral wheezing are present. Respiratory culture showed 3+ Gram-negative rods and identification and sensitivity to follow. Hemoglobin 8.4 and we will continue with IV Venofer. BUN went up 33 to 42and creatinine stable at 1.3. 10/20/24 the patient is seen and examined today with her son at the bedside. She states her breathing is better, bilateral lower extremity edema has improved today. However her respiratory culture is positive for ESBL which is sensitive to IV Zosyn and meropenem. Infectious Disease consulted and recommended IV Zosyn for 10 days at [facility]. We will let the case management know regarding the plan. Her WBC went up from 9.8 to 11.6 today REVIEW OF SYSTEMS CONSTITUTIONAL: Denies fevers, chills, or night sweats. No unintentional weight loss reported. NEUROLOGICAL: Denies headache, amaurosis fugax, motor weakness, sensory deficit, vertigo/spinning sensation, gait abnormalities, or tremors. ENT: No hearing loss, otalgia, otorrhea, rhinitis, rhinorrhea, hoarseness, or sore throat. CARDIOVASCULAR: Denies any exertional angina, dyspnea on exertion, orthopnea, paroxysmal nocturnal dyspnea, palpitations, life-threatening arrhythmias, claudication. Complains of chest discomfort PULMONARY: Improving shortness of breath, cough, phlegm/sputum. Denies hemoptysis, pleuritic chest pain. SLEEP: Denies morning headaches, daytime somnolence or napping. Denies difficulty falling asleep, staying asleep, waking from sleep. Denies knowledge of snoring. GASTROINTESTINAL: Denies any type of dysphagia to either liquids or solids. Denies nausea, vomiting, pyrosis, early satiety, abdominal pain, diarrhea, constipation, or changes in stool consistency or caliber. Denies coffee-ground emesis, hematemesis, hematochezia, or melanotic stools. GENITOURINARY: Denies frequency, urgency, nocturia, hematuria or incontinence (Storage/Irritative symptoms.) Low urinary stream, straining to void, urinary intermittency or hesitancy, splitting of the voiding stream, terminal dribbling. ENDOCRINOLOGIC: Denies polyuria, polydipsia, polyphagia or heat/cold intolerances. HEMATOLOGIC: Denies thrombophilia/previous clots, or coagulopathy/bleeding disorders. ONCOLOGIC: Denies personal history of malignancy. DERMATOLOGIC: Denies rashes or pruritus. PSYCHIATRIC: Denies any suicidal or homicidal ideation. Denies hallucinations. PHYSICAL EXAM GENERAL APPEARANCE: The patient is awake, alert, and oriented, in no acute c ardiopulmonary distress. NEUROLOGICAL: Cranial nerves II-XII grossly intact. Motor is 5/5 in bilateral upper and lower extremities proximal to distal. No sensory deficits. HEENT: Face is symmetric. Pupils are equal and reactive. Extraocular movements are intact. NECK: Supple. No JVD. No thyromegaly. No submental, submandibular, pre- /postauricular, occipital or supraclavicular lymphadenopathy. CHEST: Normal chest expansion. No Telemetry. LUNGS: No wheezing no crackles or rales CARDIOVASCULAR: Regular. S1 and S2 normal. No appreciable rubs, murmurs or gallops. Crackles. ABDOMEN: Obese. Obese. Soft, nontender, and nondistended. There is no rebound, voluntary guarding, or rigidity. : Deferred. No Hendrix. EXTREMITIES: Improving bilateral pitting pedal edema. not cyanotic. No clubbing. Good capillary refill. SKIN: No skin breakdown. Vital Signs (last 8hr) Date Time Temp Pulse Resp B/P (MAP) Pulse Ox O2 Delivery O2 Flow Rate FiO2 10/20/24 11:21 98.1 60 20 118/59 97 Nasal Cannula 2.0 24 10/20/24 11:10 85 20 10/20/24 08:10 97.9 84 20 121/76 99 Room Air 21 10/20/24 06:36 80 20 N/Cannula Low lpm 2.0 28 10/20/24 06:34 80 20 LABS: Laboratory: Test 10/20/24 10:44 10/20/24 04:22 10/19/24 05:49 Range/Units Whole Blood Glucose 170 H 70-110 MG/DL Bedside Glucose Comment Notified Nurse White Blood Count 11.6 H 4.8-10.8 K/uL Red Blood Count 3.71 L 4.00-5.50 MIL/uL Hemoglobin 8.4 L 12.0-16.0 g/dL Hematocrit 29.1 L 36-48 % Mean Corpuscular Volume 78.4 L 79-99 fL Mean Corpuscular Hemoglobin 22.6 L 27.0-33.0 pg Mean Corpuscular Hemoglobin Concent 28.9 L 32.0-36.0 g/dL Red Cell Distribution Width 20.0 H 11.0-15.5 % Platelet Count 361 130-400 K/uL Mean Platelet Volume 9.4 7.5-10.5 fL Immature Granulocyte % (Auto) 6.6 H 0-1 % Neutrophils (%) (Auto) 86.4 H 40.0-77.0 % Lymphocytes (%) (Auto) 2.6 L 21.0-51.0 % Monocytes (%) (Auto) 4.2 3.0-13.0 % Eosinophils (%) (Auto) 0.0 0.0-8.0 % Basophils (%) (Auto) 0.2 0.0-5.0 % Neutrophils # (Auto) 10.0 H 1.8-7.7 K/uL Lymphocytes # (Auto) 0.3 L 1.0-4.8 K/uL Monocytes # (Auto) 0.5 0.1-1.0 K/uL Eosinophils # (Auto) 0.00 0.00-0.70 K/uL Basophils # (Auto) 0.02 0.00-0.20 K/uL Absolute Immature Granulocyte (auto 0.76 0-1 K/uL Nucleated Red Blood Cells 1.3 H 0.0-0.19 % Sodium Level 143 136-145 mmol/L Potassium Level 4.1 3.5-5.1 mmol/L Chloride Level 110 101-111 mmol/L Carbon Dioxide Level 27 21-32 mmol/L Blood Urea Nitrogen 43 H 7-18 mg/dL Creatinine 1.4 H 0.5-1.0 mg/dL Glomerular Filtration Rate Calc 39 >90 mL/min Random Glucose 164 H 70-105 mg/dL Total Calcium 8.3 L 8.5-10.1 mg/dL B-Type Natriuretic Peptide 53 0-100 pg/mL Current Medications Medications (Trade) Dose Ordered Sig/Tom Route PRN Reason Start Time Stop Time Status Last Admin Dose Admin Acetaminophen (TYLenol 325MG TAB) 650 mg Q6H PRN PO FEVER/MILD PAIN LEVEL 1-3 10/16/24 21:00 11/15/24 20:59 Acetaminophen (TYLenol 650MG SUPPOSITORY) 650 mg Q6H PRN RC FEVER / MILD PAIN 1-3 IF NPO 10/16/24 21:00 11/15/24 20:59 Albuterol (DUOneb) 1 udvial [id number] IH 10/17/24 00:00 11/16/24 00:00 10/20/24 11:10 1 UDVIAL Ceftriaxone Sodium (Rocephin 2gm Inj) 2 gm Q24H IVPB 10/17/24 09:00 10/20/24 12:28 DC 10/20/24 08:44 2 GM Dextrose (D50w) 50 ml AD PRN IV HYPOGLYCEMIA PROTOCOL 10/17/24 04:00 11/16/24 03:59 Docusate Sodium (COLace 100MG CAP) 100 mg BID PRN PO c 10/16/24 21:00 11/15/24 20:59 Doxycycline Hyclate 250 ml @ 125 mls/hr Q12H IV 10/16/24 20:30 10/20/24 12:28 DC 10/20/24 08:44 125 MLS/HR Enoxaparin Sodium (Lovenox) 40 mg DAILY SQ 10/17/24 09:00 11/16/24 08:59 10/20/24 08:44 40 MG Famotidine (Pepcid 20mg Vial) 20 mg DAILY IV 10/17/24 09:00 11/16/24 08:59 10/20/24 08:43 20 MG Furosemide (LASix 40MG VIAL) 40 mg DAILY IV 10/17/24 09:00 11/16/24 08:59 10/20/24 08:43 40 MG Glucagon (Glucagon 1mg Kit) 1 mg AD PRN IM HYPOGLYCEMIA PROTOCOL 10/17/24 04:00 11/16/24 03:59 Guaifenesin/ Dextromethorphan (RobiTUSSin DM 200/20MG 10ML) 15 ml Q6H PRN PO COUGH 10/17/24 04:00 11/16/24 03:59 Home Med (Home Medication) DAILY IH 10/17/24 09:00 11/16/24 08:59 10/20/24 08:49 1 EACH Hydralazine HCl (APRESOLine 20MG INJ) 10 mg Q6H PRN IV SBP GREATER THAN 160 10/16/24 21:00 11/15/24 20:59 10/20/24 00:26 10 MG Insulin Human Regular (humuLIN R 100 UNIT/ML 3ML) INSULIN SLIDING SCAL... ACHS SQ 10/16/24 21:00 11/15/24 20:59 Iron Sucrose (VenoFER) 200 mg ONCE IV 10/18/24 14:00 10/18/24 13:43 DC Isosorbide Mononitrate (Imdur 30mg Sr) 30 mg DAILY PO 10/17/24 09:00 11/16/24 08:59 10/20/24 08:42 30 MG Lactulose (Constulose 20gm/ 30ml Udcup) 20 gm BID PRN PO CONSTIPATION 10/18/24 14:00 11/17/24 13:59 Lactulose (Constulose 20gm/ 30ml Udcup) 20 gm ONCE PO 10/18/24 14:00 10/18/24 13:43 DC Lactulose (Constulose 20gm/ 30ml Udcup) 20 gm Q6H PRN PO CONSTIPATION 10/16/24 21:00 10/18/24 13:44 DC Losartan Potassium (CozAAR 25MG TAB) 25 mg DAILY15 PO 10/17/24 15:00 11/16/24 14:59 10/19/24 15:52 25 MG Magnesium Sulfate 50 ml @ 0 mls/hr PROTOCOL PRN IV MAGNESIUM PROTOCOL 10/17/24 04:00 11/16/24 03:59 Methylprednisolone Sodium Succinate (Solu-medROL 40MG) 40 mg BID IVP 10/18/24 09:00 10/19/24 23:00 DC 10/19/24 21:05 40 MG Methylprednisolone Sodium Succinate (Solu-medROL 125MG) 60 mg Q6H IVP 10/17/24 04:00 10/17/24 23:51 DC 10/17/24 21:03 60 MG Ondansetron HCl (zoFRAN 4MG INJ) 4 mg Q6H PRN IVP NAUSEA/VOMITING 10/16/24 21:00 11/15/24 20:59 Piperacillin Sod/ Tazobactam Sod (Zosyn 3.375gm+NS 50ml) 3.375 gm Q8H IV 10/20/24 12:30 10/30/24 12:29 Potassium Chloride 100 ml @ 100 mls/hr AD PRN IV POTASSIUM PROTOCOL 10/17/24 04:00 11/16/24 03:59 Potassium Chloride (K-Dur 10meq Sr Tab) 10 meq AD PRN PO POTASSIUM PROTOCOL 10/18/24 08:30 11/16/24 03:59 10/18/24 11:13 10 MEQ Potassium Chloride (K-Dur/Klor-Con 20meq) 10 meq AD PRN PO POTASSIUM PROTOCOL 10/17/24 04:00 10/18/24 08:13 DC Potassium Chloride (KCl 10% Elixir 20meq/15ml) 10 meq AD PRN PO POTASSIUM PROTOCOL 10/17/24 04:00 11/16/24 03:59 Prednisone (deltaSONE/ oraSONE 20MG TAB) 40 mg DAILY PO 10/20/24 09:00 11/19/24 08:59 10/20/24 08:43 40 MG Spironolactone (Aldactone 25mg) 25 mg DAILY15 PO 10/17/24 15:00 11/16/24 14:59 10/19/24 15:52 25 MG Temazepam (restORIL 15 MG CAP) 15 mg HS PRN PO INSOMNIA/SLEEP 10/16/24 21:00 11/15/24 20:59 DIAGNOSTICS / RADIOLOGY: [place] [address] [address] IMAGING REPORT Signed PATIENT: MORRIS PALAFOX MR#: [id number] : 1945 SEX: F AGE: 79 LOCATION: 4DH ORDER 042 STATUS: ADM IN REPORT#: [id number] SERVICE 0356 REASON: fluid overload, sob ORDERING PHYSICIAN: JARRED PATTERSON PROCEDURE: ECHO CMP - ECHO 2-D COMPLETE APPROVED REPORT EXAM: Two-dimensional and M-mode echocardiogram with Doppler and color Doppler. INDICATION ICD: Fluid overload, SOB 2D Dimensions RVDd 3.0 cm LVEF(%) 63.0 (>50%) LVED Vol(simp.) 126.0 mL IVSd 0.9 (0.7-1.1cm) FS(%) 34 % LVES Vol(simp.) 39.0 mL LVDd 4.3 (3.8-5.6cm) Ao Root(2D) 3.0 (2.0-3.7cm) LVEF(%, simp.) 69 % PWd 0.9 (0.7-1.1cm) LVOT diam 2.0 (1.8-2.4cm) LA ESV INDEX (BP) 37.44 mL/m2 LVDs 2.9 (2.5-4.0cm) IVC diam 1.8 cm Deformation Strain Apical 4 -17.9 % Apical 2 -21.4 % Apical 3 -17.8 % Global Strain -19.0 % M-Mode Dimensions EPSS 0.8 cm LA (MM) 3.8 (1.6-4.0cm) Ao Root(MM) 3.4 (2.0-3.7cm) Aortic Valve AoV Vmax 1.7 m/s Ao Peak GR 12.2 mmHg LVOT Vmax 1.7 m/s AoV VTI 0.4 m Ao Mean GR 6.0 mmHg LVOT VTI 0.32 m JAHAIRA (VMAX) 2.75 cm2 JAHAIRA (VTI) 2.7 cm2 Mitral Valve MV E Vmax 77.8 cm/s DECEL Time 320 ms MV A Vmax 91.8 cm/s P 1/2 T 62 ms E/A ratio 0.8 MVA (PHT) 3.5 cm2 TDI E/E' Medial 13.3 E/E' Lateral 10.1 Medial E' Peak V 5.87 cm/s Lateral E' Peak V 7.70 cm/s Left Ventricle The left ventricle is normal size. There is normal LV segmental wall motion. There is normal left ventricular wall thickness. LVEF is 60-65%. Indeterminate diastolic dysfunction. Right Ventricle The right ventricle is normal size. The right ventricular systolic function is normal. Atria The left atrium is mildly dilated. The right atrium size is normal. Aortic Valve Aortic valve is not well visualized but no significant valvular abnormalities noted. No aortic regurgitation is present. There is no aortic valvular stenosis. Mitral Valve The mitral valve is normal in structure. There is trace mitral regurgitation. There is no mitral valve stenosis. Tricuspid Valve The tricuspid valve is normal in structure. There is trivial tricuspid valve regurgitation noted. Pulmonic Valve Pulmonic valve is not well visualized. There is no pulmonic valvular regurgitation. Great Vessels The aortic root is normal in size. The IVC is normal in size and collapses >50% with inspiration. Pericardium There is no pericardial effusion. Other Information Quality : Fair Technically limited study due to body habitus. Conclusion The left ventricle is normal size. LVEF is 60-65% with normal LV segmental wall motion. Indeterminate diastolic dysfunction. The right ventricular systolic function is normal. The left atrium is mildly dilated. No hemodynamically significant valvular abnormalities. There is no pericardial effusion. DICTATED BY: CATHERINE RIOS MD DATE: 10/17/24 0931 ELECTRONICALLY SIGNED BY: CATHERINE RIOS MD DATE: 10/17/24 1302 [place] [id number] [address] IMAGING REPORT Signed PATIENT: MORRIS PALAFOX MR#: [id number] : 1945 SEX: F AGE: 79 LOCATION: EDH ORDER 03 STATUS: REG ER REPORT#: [id number] SERVICE 02 REASON: sob ORDERING PHYSICIAN: KARLO LESLIE MD PROCEDURE: CXR1VW - CHEST 1VW INDICATION: sob TECHNIQUE: CHEST 1VW COMPARISON: 11/10/2012 FINDINGS AND IMPRESSION: Mild bilateral airspace consolidation suggesting vascular congestion/edema versus pneumonia. Mild cardiomegaly Degenerative changes of the spine. The visualized upper abdomen appears unremarkable. DICTATED BY: LUIS F PASCAL MD DATE: 10/16/241902 ELECTRONICALLY SIGNED BY: LUIS F PASCAL MD DATE: 10/16/241905 [place] [address] [place] [id number] IMAGING REPORT Signed PATIENT: MORRIS PALAFOX MR#: [id number] : 1945 SEX: F AGE: 79 LOCATION: EDHIP ORDER 35 STATUS: ADM IN REPORT#: [id number] SERVICE 25 REASON: acute respiratory distress ORDERING PHYSICIAN: JARRED PATTERSON PROCEDURE: CHEST WO - CT CHEST W/O CONTRAST CT CHEST W/O CONTRAST HISTORY: Acute respiratory distress COMPARISON: None TECHNIQUE: Multiple sequential axial images of the chest were obtained from the thoracic inlet through upper abdomen. Patient was not given contrast through intravenous route. FINDINGS: There are mild interstitial fibrosis. There is no evidence of pulmonary nodule or parenchymal disease. No pleural effusion or pericardial effusion is seen. There is no evidence of pneumothorax. There are normal size mediastinal and hilar lymph nodes. The heart is not enlarged. Degenerative changes of the thoracolumbar spine are present. There is no evidence of adrenal nodule. There are bilateral renal cysts with the largest on the right measuring 9.8 cm. IMPRESSION: 1. No evidence of pulmonary nodule or effusion is seen. CT was performed with one or more following dose reduction techniques: automated exposure control, adjustment of the mA and kv according to patient's size, or use of a iterative reconstruction technique. DICTATED BY: YONI HERNANDEZ MD DATE: 10/16/242211 ELECTRONICALLY SIGNED BY: YONI HERNANDEZ MD DATE: 10/16/242217 ASSESSMENT: Acute respiratory failure POA, requiring oxygen supplementation Pneumonia due to ESBL producing organism POA Mild interstitial fibrosis, per CT on 10/16/2024 COPD exacerbation, POA Fluid overload, POA Bilateral renal cysts with the largest on the right measuring 9.8 cm. Lactic acidosis Anemia of chronic disease Thrombocytosis Acute on chronic renal failure, GFR 42 Diabetes mellitus with hyperglycemia Hypoalbuminemia Morbid obesity, BMI 42 Chronic problem list: Asthma, COPD, hypertension, hypothyroidism, renal insufficiency, ovarian surgery PLAN: Continue to monitor the patient on Medical floor with continuous telemetry monitoring Acute respiratory failure POA, requiring oxygen supplementation Mild interstitial fibrosis, per CT on 10/16/2024 COPD exacerbation, POA Pneumonia due to ESBL producing organism POA Continue Monitor respiratory status closely. Continue oxygen therapy as needed. Titrate oxygen prn to keep Spo2>/+=92%. Continue Albuterol and Atrovent scheduled. -RT to provide IS and education on use. Sputum g stain showed 2+ g negative rods. Respiratory culture showed 3+ Gram- negative rods, ESBL sensitive to IV Zosyn and meropenem ID consult appreciated and recommended IV Zosyn for 10 days add [facility]. Case management will work on insurance approval. Continue Robitussin DM as needed cough. Continue prednisone 40 mg once a day Disontinue Rocephin IV and doxycycline IV Urine analysis is negative for UTI and shows elevated urine protein 20 and urine glucose 70 Pulmonology consult appreciated and recommended outpatient follow up after 1 week of discharge Patient we will get home oxygen on discharge Fluid overload, POA Continue Lasix 40 mg IV daily. 2D echo showed EF 60-65% and indeterminate diastolic dysfunction Acute on chronic renal failure, GFR 42 BUN went up from 42 to 43 and creatinine went up from 1.3 To 1.4 Fluid restrictions a 1200 mL. Strict I&Os. Anemia of chronic disease POA Her hemoglobin stable at 8.4 Iron studies showed iron 14, TIBC 362, saturation 3.8%. We will obtain occult stool test. We will give her 3rd dose of IV iron sucrose today Diabetes mellitus with hyperglycemia Glucometer checks AC & HS needed with insulin regular sliding scale coverage as needed. Hypothyroidism TSH level is 0.25 And free T3 1.15, free T4 1.21 Hold levothyroxine -GI and DVT prophylaxis: Pepcid and Lovenox -PRN medications for: Pain management, fever, hypertension, N/V, constipation. ATTESTATION BY PHYSICIAN I have seen and examined the patient. I reviewed the documentation, medical decision making, and treatment plan as noted by the resident provider above. I agree with the findings and plan of care. Ata Navarrete MD, KRUPALI P MD Oct 20, 2024 14:39
[2024-10-20 15:19] LABS: INR 1.08 (0.85-1.15); PROTHROMBIN TIME 11.4 SEC (9.6-11.6)
[2024-10-20 15:20] LABS: PARTIAL THROMBOPLASTIN TIME 43.9 SEC (26.3-35.5)
[2024-10-20] MEDS: ZOSYN 3.375GM +NS 50ML IV SCH (16:19)
[2024-10-20] MEDS: acetaMINOPHEN 325 MG TAB PO PRN (16:23)
--- NOTE | 2024-10-20 19:31 | NUR ---
PAged hospitalists, pending call back. patient hr sustaining in 120's 130's per telemetry. Denies chest pain, complains of shortness of breath
[2024-10-20 20:05] LABS: ABG BASE EXCESS -3.6 mmol/L (-2.0-3.0); ABG HCO3 21.5 mmol/L (21.0-28.0); ABG OXYGEN SATURATION 99.2 % (94.0-98.0); ABG PCO2 39 mmHg (32-45); ABG PH 7.358 (7.350-7.450); CARBON MONOXIDE 0.3 % (0.5-1.5); DEVICE COMMENT NRB; HHb 0.8; PO2, ARTERIAL BG 240.4 mmHg (83.0-108.0); VENT MODE, BG LR (ROOM AIR)
[2024-10-20] MEDS: 0.9% NACL 500ML IV.SOLN 500 ML IV ONE (20:13)
--- NOTE | 2024-10-20 20:30 | HMCIMG ---
CHEST 1VW HISTORY: Shortness of breath COMPARISON: 10/16/2024 FINDINGS: A frontal projection of the chest was obtained. Mild bilateral pulmonary infiltrates are seen may be related to mild pulmonary vascular congestion with possible superimposed pneumonitis. The heart is borderline enlarged. Degenerative changes are seen. No evidence of aortic calcification is seen. IMPRESSION: 1. Mild bilateral pulmonary infiltrates are seen may be related to mild pulmonary vascular congestion with possible superimposed pneumonitis.
[2024-10-20 20:45] LABS: BASOPHILS # (AUTO) 0.04 K/uL (0.00-0.20); BASOPHILS % (AUTO) 0.2 % (0.0-5.0); EOSINOPHILS # (AUTO) 0.23 K/uL (0.00-0.70); EOSINOPHILS % (AUTO) 1.2 % (0.0-8.0); HEMATOCRIT 36.6 % (36-48); IMMATURE GRANULOCYTE ABSOLUTE 0.49 K/uL (0-1); LYMPHOCYTES # (AUTO) 0.3 K/uL (1.0-4.8); LYMPHOCYTES % (AUTO) 1.6 % (21.0-51.0); MEAN CORPUSCULAR HEMOGLOBIN 23.1 pg (27.0-33.0); MEAN CORPUSCULAR HGB CONC 29.2 g/dL (32.0-36.0); MEAN CORPUSCULAR VOLUME 78.9 fL (79-99); MONOCYTES # (AUTO) 0.5 K/uL (0.1-1.0); MONOCYTES % (AUTO) 2.5 % (3.0-13.0); NEUTROPHILS # (AUTO) 17.2 K/uL (1.8-7.7); NEUTROPHILS % (AUTO) 91.9 % (40.0-77.0); PLATELET COUNT (AUTO) 387 K/uL (130-400); RED BLOOD CELL COUNT(AUTO) 4.64 MIL/uL (4.00-5.50); RED CELL DISTRIBUTION WIDTH 20.8 % (11.0-15.5); WHITE BLOOD COUNT (AUTO) 18.7 K/uL (4.8-10.8)
[2024-10-20 20:55] LABS: CREATININE 1.9 mg/dL (0.5-1.0); POTASSIUM 3.7 mmol/L (3.5-5.1)
[2024-10-20 21:00] LABS: ALBUMIN 3.4 g/dL (3.5-5.0); BILIRUBIN,TOTAL 0.5 mg/dL (0.2-1.0); TOTAL PROTEIN, SERUM 6.8 g/dL (6.0-8.3)
--- NOTE | 2024-10-20 21:00 | NUR ---
at 1915 tele called for patient that she is sinus tachycardia sustaining in the 130's. Went to assess patient, and she was sitting on the chair tachypneic with the use of abdominal muscle. VS was checked she was hyoptensive 90/57.Hospitalists [facility] [employer] motel manager was notified and came and assess patient. She then decided to upgrade patient to icu. Son on the bedside was informed about situation and agreed to transfer patient to icu. Maribeth HANNAH from ICU was given report and all questions were answered. Patient was then transferred to ICU in room 208.
[2024-10-20 21:03] LABS: B-TYPE NATRIURETIC PEPTIDE 118 pg/mL (0-100)
--- NOTE | 2024-10-20 22:03 | CONS ---
INFECTIOUS DISEASE CONSULTATION NOTE DATE OF SERVICE: 10/20/2024 REQUESTING PHYSICIAN: Ata Navarrete MD REASON FOR CONSULTATION: Pneumonia and antibiotic management. HISTORY OF PRESENT ILLNESS: A 79-year-old female with history of chronic tobacco use, COPD, obesity, and hypertension, presented to the hospital with cough, shortness of breath, and subjective fever. The patient was found to have hypoxic respiratory failure and pneumonia and was admitted. The patient's sputum culture came back positive for E. coli (ESBL). The patient was initially started on ceftriaxone. The patient has been placed on oxygen. The patient also on bronchodilator. The patient has a history of chronic tobacco use up until the day she was admitted. No dysuria, hematuria, or increased urinary frequency. PAST MEDICAL HISTORY: * COPD. * Obesity. * Hypertension. * Chronic tobacco use. * Hypothyroidism. * Chronic kidney disease. PAST SURGICAL HISTORY: ____. ALLERGIES: No known drug allergies. CURRENT MEDICATIONS: Reviewed. SOCIAL HISTORY: Lives alone, . The patient smokes. FAMILY HISTORY: Noncontributory. REVIEW OF SYSTEMS: CONSTITUTIONAL: No fever or chills. No weight loss or night sweat. EYES: No eye pain. No photophobia or diplopia. HENT: No sore throat. No rhinorrhea or earache. NECK: No neck pain or neck swelling. RESPIRATORY: Positive for cough and shortness of breath. CARDIOVASCULAR: No chest pain, palpitation, or orthopnea. GASTROINTESTINAL: Denied nausea, vomiting or abdominal pain. GENITOURINARY: No dysuria, urgency or urinary frequency. CENTRAL NERVOUS SYSTEM: No headache, dyspnea or slurred speech. PSYCHIATRIC: No depression. No suicidal ideation. MUSCULOSKELETAL: No joint pain or joint swelling. PHYSICAL EXAMINATION: GENERAL: Elderly female, awake. VITAL SIGNS: Temperature 98.1, pulse 60, respiratory rate 20, BP 118/59. EYES: No icterus. Pupils equal and reactive. HENT: No oral thrush seen. Moist oral mucosa. NECK: Supple. No JVD or thyromegaly. LUNGS: No crackles. No rhonchi. CARDIOVASCULAR: S1 and S2, regular. No murmur heard. ABDOMEN: Obese, soft, nontender. Bowel sound is present. CENTRAL NERVOUS SYSTEM: Awake, alert, oriented x 3. No focal deficits. SKIN: No rashes, no itchiness. LYMPHATIC: No peripheral lymphadenopathy. BACK: No deformity. No pressure ulcer. MUSCULOSKELETAL: No joint swelling, erythema or tenderness. LABORATORY DATA: Sodium 143, potassium 4.1, BUN 43, creatinine 1.4. WBC 11.6, hemoglobin 8.4, platelet 361. Urinalysis negative. Influenza antigen negative. Sputum culture positive for E. coli (ESBL). Blood culture negative for 3 days. RADIOLOGY: A 2D echocardiogram shows EF of 60-65%. CT chest shows no evidence of pulmonary nodules. ASSESSMENT: A 79-year-old female admitted with cough and shortness of breath. Current problems include: * Pneumonia with E. coli. * COPD exacerbation. * Infection with multidrug resistant organism. * Hypothyroidism. * Obesity. * Chronic tobacco use. PLAN: * Discontinue ceftriaxone. * Discontinue doxycycline. * Continue bronchodilator. * We will start the patient on Zosyn. * Continue Synthroid. * Continue antiemetics. * Continue nutritional support. * Continue oxygen. * The patient will be followed up closely. Thank you for allowing me to participate in the care of this patient. TID: [id number] RECEIPT: [id number]
--- NOTE | 2024-10-20 22:39 | PN ---
[facility] PROGRESS NOTE Date Patient Seen: Oct 20, 2024 Time of Visit: 22:37 Supervising Physician: MANUEL SOLANO MD Primary Care Physician: [ ] Outpatient Specialists: [ ] Inpatient Consults: [ ] PROBLEM LIST: Acute respiratory distress, POA, requiring oxygen supplementation CAP, gram negative rods on culture Mild interstitial fibrosis, per CT on 10/16/2024 COPD exacerbation, POA Fluid overload, POA Bilateral renal cysts with the largest on the right measuring 9.8 cm. Lactic acidosis Anemia of chronic disease Thrombocytosis Acute on chronic renal failure, GFR 42 Diabetes mellitus with hyperglycemia Hypoalbuminemia Morbid obesity, BMI 42 Chronic problem list: Asthma, COPD, hypertension, hypothyroidism, renal insufficiency, ovarian surgery INTERVAL HISTORY: 10/20/2024 Failed 6 minute walk Remains on O2 Still has cough and congestion complains of fatigue and weakness has positive ESBL in the sputum cultures no fevers, no nausea and no vomiting good appetite REVIEW OF SYSTEMS: 12 point ROS reviewed with patient. Pertinent positives mentioned above. Otherwise negative. PHYSICAL EXAM: GENERAL: alert, weak, awake oriented x 3 HEENT: EOMI, Sclera non icteric, moist mucosa NECK: Supple, no JVD, trachea midline LUNGS: Clear breath sounds bilaterally. No wheezes HEART: Regular rate and rhythm. Normal S1 and S2, without murmurs ABD: Abdomen soft, nontender. Bowel sounds present EXT: No clubbing cyanosis or edema NEURO: Alert and oriented to person, follows commands Vital Signs (last 8hr) Date Time Temp Pulse Resp B/P (MAP) Pulse Ox O2 Delivery O2 Flow Rate FiO2 10/20/24 21:24 129 32 40 10/20/24 19:55 104/67 10/20/24 19:30 98.2 126 28 90/57 98 Nasal Cannula 3.0 10/20/24 18:45 83 21 N/Cannula Low lpm 2.0 28 10/20/24 18:43 83 21 10/20/24 16:00 97.5 102 20 160/82 95 Nasal Cannula 2.0 24 LABS: Hematology Labs: Test 10/20/24 20:22 Range/Units White Blood Count 18.7 #H 4.8-10.8 K/uL Red Blood Count 4.64 # 4.00-5.50 MIL/uL Hemoglobin 10.7 #L 12.0-16.0 g/dL Hematocrit 36.6 # 36-48 % Mean Corpuscular Volume 78.9 L 79-99 fL Mean Corpuscular Hemoglobin 23.1 L 27.0-33.0 pg Mean Corpuscular Hemoglobin Concent 29.2 L 32.0-36.0 g/dL Red Cell Distribution Width 20.8 H 11.0-15.5 % Platelet Count 387 130-400 K/uL Mean Platelet Volume 9.3 7.5-10.5 fL Immature Granulocyte % (Auto) 2.6 H 0-1 % Neutrophils (%) (Auto) 91.9 H 40.0-77.0 % Lymphocytes (%) (Auto) 1.6 L 21.0-51.0 % Monocytes (%) (Auto) 2.5 L 3.0-13.0 % Eosinophils (%) (Auto) 1.2 0.0-8.0 % Basophils (%) (Auto) 0.2 0.0-5.0 % Neutrophils # (Auto) 17.2 H 1.8-7.7 K/uL Lymphocytes # (Auto) 0.3 L 1.0-4.8 K/uL Monocytes # (Auto) 0.5 0.1-1.0 K/uL Eosinophils # (Auto) 0.23 0.00-0.70 K/uL Basophils # (Auto) 0.04 0.00-0.20 K/uL Absolute Immature Granulocyte (auto 0.49 0-1 K/uL Nucleated Red Blood Cells 2.0 H 0.0-0.19 % Chemistry Labs: Test 10/20/24 22:31 10/20/24 20:22 10/20/24 15:59 Range/Units Whole Blood Glucose 137 H 70-110 MG/DL Sodium Level 142 136-145 mmol/L Potassium Level 3.7 3.5-5.1 mmol/L Chloride Level 106 101-111 mmol/L Carbon Dioxide Level 25 21-32 mmol/L Blood Urea Nitrogen 50 H 7-18 mg/dL Creatinine 1.9 H 0.5-1.0 mg/dL Glomerular Filtration Rate Calc 27 >90 mL/min Random Glucose 136 H 70-105 mg/dL Total Calcium 9.0 8.5-10.1 mg/dL Total Bilirubin 0.5 0.2-1.0 mg/dL Aspartate Amino Transf (AST/SGOT) 59 H 10-37 U/L Alanine Aminotransferase (ALT/SGPT) 44 12-78 U/L Alkaline Phosphatase 76 50-136 U/L B-Type Natriuretic Peptide 118 H 0-100 pg/mL Total Protein 6.8 6.0-8.3 g/dL Albumin 3.4 L 3.5-5.0 g/dL Bedside Glucose Comment Notified Nurse Coagulation Labs: Test 10/20/24 15:00 Range/Units Prothrombin Time 11.4 9.6-11.6 SEC Prothromb Time International Ratio 1.08 0.85-1.15 Activated Partial Thromboplast Time 43.9 H 26.3-35.5 SEC DIAGNOSTICS / RADIOLOGY RESULTS: [ ] PLAN continue IS consult I&D for antibiotics case management for home O2 IV antibiotics NEURO: Minimize central acting medications as possible. Maintain fall precautions, adequate lighting during the day PULMONARY: Supplemental 02 as needed. Maintain aspiration precautions at all times CARDIOVASCULAR: Follow hemodynamics. Vital signs per facility protocol GI & NUTRITION: Continue with nutritional support. Continue stool softeners and laxatives as needed. KIDNEYS & ELECTROLYTES: Strict monitoring of intake, output and overall fluid balance. Avoid nephrotoxic medications to the extent possible. Medications to be dosed according to renal function. Monitor electrolytes and replace as needed ENDOCRINE: Maintain blood glucose between 100-180 at all times. Hypoglycemia protocol in place INFECTIOUS DISEASE: Trend temperature, WBC and procalcitonin level Follow cultures, deescalate antibiotics as soon as possible. Panculture if new onset fever ONCOLOGY/HEMATOLOGY/COAGULATION: Monitor for s/s of bleeding Monitor hemoglobin, coagulation studies as needed SKIN: Pressure ulcer prevention per facility protocol Specialty mattress ORTHO/REHAB: Continue PT/OT Prophylaxis: Continue GI and DVT prophylaxis Code Status: Full Resuscitation Disposition: TBD Other: Total patient care time exceeds 35 minutes excluding all procedures. I personally scribed for MANUEL SOLANO MD ([email or web address]) on 10/20/24 at 22:39. Electronically submitted by Curt Rivas ([email or web address]). MANUEL SOLANO MD Oct 20, 2024 22:39
--- NOTE | 2024-10-20 23:16 | NUR ---
Spoke to Malissa CHRISTY from critical care. Provider stated to place patient on bipap and titrate based on ABG results. Provider wants first abg right now. Addendum: 10/20/24 at 2334 by CATHERINE WONG RN RN Spoke to Malissa again and informed her of patient being hypotensive. Provider ordered levophed drip, 500 ns bolus. Informed provider of patient ddimer levels and patient not tolerating v/q scan due to her not being able to lie flat. No heparin on board. Provider ordered 5000 units subq BID. Addendum: 10/20/24 at 2343 by CATHERINE WONG RN RN Correction no heparin since patient is on lovenox as per provider.
[2024-10-20 23:43] LABS: ABG BASE EXCESS -1.7 mmol/L (-2.0-3.0); ABG HCO3 23.5 mmol/L (21.0-28.0); ABG OXYGEN SATURATION 96.9 % (94.0-98.0); ABG PCO2 42 mmHg (32-45); ABG PH 7.369 (7.350-7.450); CARBON MONOXIDE 0.2 % (0.5-1.5); DEVICE COMMENT LR; HHb 3.1; PO2, ARTERIAL BG 99.9 mmHg (83.0-108.0); VENT MODE, BG BIPAP14-5 (ROOM AIR)
[2024-10-21] VITALS (111 sets, daily range): BP systolic 104–153; BP diastolic 32–105; PULSE 75–114; RESP 14–70; TEMP 98–98.9; O2SAT 95–99
[2024-10-21] MEDS: NOREPINEPHRIN 4MG/NS 250ML 250 ML IV PRN (00:16)
[2024-10-21 04:21] LABS: BASOPHILS # (AUTO) 0.06 K/uL (0.00-0.20); BASOPHILS % (AUTO) 0.2 % (0.0-5.0); EOSINOPHILS # (AUTO) 0.01 K/uL (0.00-0.70); IMMATURE GRANULOCYTE ABSOLUTE 1.23 K/uL (0-1); LYMPHOCYTES # (AUTO) 1.2 K/uL (1.0-4.8); LYMPHOCYTES % (AUTO) 4.3 % (21.0-51.0); MEAN CORPUSCULAR HEMOGLOBIN 23.2 pg (27.0-33.0); MEAN CORPUSCULAR HGB CONC 29.7 g/dL (32.0-36.0); MEAN CORPUSCULAR VOLUME 78.1 fL (79-99); MONOCYTES # (AUTO) 0.8 K/uL (0.1-1.0); MONOCYTES % (AUTO) 2.7 % (3.0-13.0); NEUTROPHILS # (AUTO) 24.8 K/uL (1.8-7.7); NEUTROPHILS % (AUTO) 88.4 % (40.0-77.0); NUCLEATED RED BLOOD CELLS 2.6 % (0.0-0.19); PLATELET COUNT (AUTO) 327 K/uL (130-400); RED BLOOD CELL COUNT(AUTO) 3.97 MIL/uL (4.00-5.50); RED CELL DISTRIBUTION WIDTH 20.6 % (11.0-15.5); WHITE BLOOD COUNT (AUTO) 28.1 K/uL (4.8-10.8)
[2024-10-21 04:35] LABS: CREATININE 2.1 mg/dL (0.5-1.0); POTASSIUM 4.8 mmol/L (3.5-5.1)
[2024-10-21 05:03] LABS: B-TYPE NATRIURETIC PEPTIDE 110 pg/mL (0-100)
--- NOTE | 2024-10-21 07:47 | NUR ---
DC PLAN CM RECEIVED TRIGGER FOR [facility]. ATTEMPTED TO GET CONSENT PATIENT DECLINED WANTED SON IN ROOM TO DISCUSS. CM FOLLOWED UP SEVERAL TIMES. SON IN ROOM AFTER 5PM. CM RECEIVED CONSENT. PATIENT PENDING MID LINE. CM LET NURSE KNOW THAT WILL SEND REFERRAL IN THE MORNING TO HAVE COMPLETE PACKET. CM ARRIVED THIS MORNING BEFORE [facility] WOULD OPEN TO SEND PACKET. PATIENT MOVED TO 208 DUE TO HEART RATE AND SOB. Addendum: 10/21/24 at 0801 by FAB DELUNA RN CM Amended: Links added.
--- NOTE | 2024-10-21 11:45 | PN ---
INFECTIOUS DISEASE PROGRESS NOTE Date of Service: Oct 21, 2024 SUBJECTIVE: This is a 79-year-old female patient who was transferred to the ICU last night for acute hypoxic respiratory distress requiring BiPAP support. During visit this morning patient had just been switched to a non-rebreather mask. Patient is awake, alert and oriented x3. Patient is also started on vasopressor support. No reports of nausea or vomiting. The sputum culture results is positive for ESBL, E coli and patient has been started on Zosyn IV every 8 hours. WBC elevated at 28.1 but remains afebrile with a temperature of 99.0 and the steroids has been changed to p.o.. PHYSICAL EXAM EYES: Anicteric. Pupils equal and reactive. HENT: No oral thrush seen, moist Oral mucosa. NECK: Supple, no JVD or thyromegaly. LUNGS: Good air entry. Diminished breath sounds. Oxygen support. CARDIOVASCULAR: S1, S2 regular. No murmur heard. ABDOMEN: Soft, non tender, bowel sounds present, no organomegaly CENTRAL NERVOUS SYSTEM: Awake, alert, oriented x 3. SKIN: No rashes, no swelling. LYMPHATICS: No peripheral lymphadenopathy. MUSCULOSKELETAL: No joint swelling, erythema or tenderness. EXTREMITIES: No cyanosis or clubbing. BACK: No deformity, no pressure ulcer. GENITOURINARY: No dysuria or hematuria. Vital Sign (Last 12 Hours) 10/20/24 10/20/24 10/20/24 10/21/24 23:29 23:45 23:59 00:14 Pulse 110 102 100 111 Resp 23 35 35 21 B/P (MAP) 91/42 (58) 137/74 (95) 149/92 (111) 145/52 (83) Pulse Ox 95 98 93 94 10/21/24 10/21/24 10/21/24 10/21/24 00:29 00:44 00:59 01:14 Pulse 97 101 97 105 Resp 19 23 20 22 B/P (MAP) 124/65 (84) 138/62 (87) 127/65 (85) 124/57 (79) Pulse Ox 97 96 96 96 10/21/24 10/21/24 10/21/24 10/21/24 01:29 01:44 01:59 02:03 Pulse 104 101 95 101 Resp 29 18 18 18 B/P (MAP) 126/60 (82) 126/58 (80) 127/61 (83) Pulse Ox 97 97 96 FiO2 40 10/21/2425 10/21/24 10/21/24 02:14 02:29 02:44 02:59 Pulse 102 94 99 95 Resp 18 17 16 14 B/P (MAP) 128/55 (79) 122/75 (91) 137/62 (87) 135/65 (88) Pulse Ox 97 96 97 91 10/21/24 10/21/24 10/21/24 10/21/24 03:14 03:29 03:44 03:59 Pulse 93 90 96 87 Resp 23 17 24 28 B/P (MAP) 119/59 (79) 135/72 (93) 124/58 (80) 117/46 (69) Pulse Ox 94 95 98 91 10/21/24 10/21/24 10/21/24 10/21/24 04:00 04:14 04:29 04:44 Temp 98.1 Pulse 86 88 82 Resp 20 17 18 B/P (MAP) 118/49 (72) 127/72 (90) 122/55 (77) Pulse Ox 96 100 91 25 25 10/21/25 10/21/24 04:59 05:14 05:29 05:44 Pulse 81 82 78 81 Resp 18 23 22 20 B/P (MAP) 124/75 (91) 114/67 (83) 112/54 (73) 106/63 (77) Pulse Ox 100 99 92 97 10/21/24 10/21/24 10/21/24 10/21/24 05:59 06:14 06:22 06:24 Pulse 79 79 87 82 Resp 20 22 18 21 B/P (MAP) 121/56 (77) 120/76 (91) Pulse Ox 90 96 FiO2 40 10/21/24 10/21/24 10/21/24 10/21/24 06:29 06:45 06:59 07:00 Pulse 75 80 79 76 Resp 17 22 20 23 B/P (MAP) 115/58 (77) 125/58 Pulse Ox 100 91 90 87 O2 Delivery BIPAP BIPAP BIPAP FiO2 40 40 40 10/21/24 10/21/2425 10/21/24 07:14 07:15 07:29 07:30 Pulse 77 79 77 81 Resp 33 24 B/P (MAP) 127/65 123/57 Pulse Ox 92 86 85 93 O2 Delivery BIPAP BIPAP BIPAP BIPAP FiO2 40 40 40 40 10/21/24 10/21/24 10/21/24 10/21/24 07:44 07:45 07:59 08:00 Temp 99.0 Pulse 75 78 82 82 Resp 33 34 21 19 B/P (MAP) 130/60 109/66 Pulse Ox 88 86 99 98 O2 Delivery BIPAP BIPAP BIPAP BIPAP FiO2 40 40 40 40 10/21/24 10/21/24 10/21/24 10/21/24 08:14 08:15 08:29 08:30 Pulse 79 79 82 79 Resp 23 22 22 B/P (MAP) 118/63 121/62 Pulse Ox 92 93 95 98 O2 Delivery BIPAP BIPAP BIPAP BIPAP FiO2 40 40 40 40 10/21/24 10/21/24 10/21/24 10/21/24 08:44 08:45 08:59 09:00 Pulse 88 86 85 79 Resp 19 23 30 19 B/P (MAP) 124/66 121/58 Pulse Ox 96 94 96 97 O2 Delivery BIPAP BIPAP Nonrebreathing Mask O2 Flow Rate 15.0 FiO2 40 40 Intake & Output (last 24hrs) 10/20/24 10/20/24 10/21/24 15:00 23:00 07:00 Intake Total 535.0 ml 131.6 ml Balance 535.0 ml 131.6 ml LABS: Laboratory: Test 10/21/24 03:50 10/20/24 23:41 10/20/24 22:31 10/20/24 20:22 Range/Units White Blood Count 28.1 #H 4.8-10.8 K/uL Red Blood Count 3.97 L 4.00-5.50 MIL/uL Hemoglobin 9.2 L 12.0-16.0 g/dL Hematocrit 31.0 L 36-48 % Mean Corpuscular Volume 78.1 L 79-99 fL Mean Corpuscular Hemoglobin 23.2 L 27.0-33.0 pg Mean Corpuscular Hemoglobin Concent 29.7 L 32.0-36.0 g/dL Red Cell Distribution Width 20.6 H 11.0-15.5 % Platelet Count 327 130-400 K/uL Mean Platelet Volume 9.5 7.5-10.5 fL Immature Granulocyte % (Auto) 4.4 H 0-1 % Neutrophils (%) (Auto) 88.4 H 40.0-77.0 % Lymphocytes (%) (Auto) 4.3 L 21.0-51.0 % Monocytes (%) (Auto) 2.7 L 3.0-13.0 % Eosinophils (%) (Auto) 0.0 0.0-8.0 % Basophils (%) (Auto) 0.2 0.0-5.0 % Neutrophils # (Auto) 24.8 H 1.8-7.7 K/uL Lymphocytes # (Auto) 1.2 1.0-4.8 K/uL Monocytes # (Auto) 0.8 0.1-1.0 K/uL Eosinophils # (Auto) 0.01 0.00-0.70 K/uL Basophils # (Auto) 0.06 0.00-0.20 K/uL Absolute Immature Granulocyte (auto 1.23 H 0-1 K/uL Nucleated Red Blood Cells 2.6 H 0.0-0.19 % Sodium Level 140 136-145 mmol/L Potassium Level 4.8 3.5-5.1 mmol/L Chloride Level 106 101-111 mmol/L Carbon Dioxide Level 24 21-32 mmol/L Blood Urea Nitrogen 52 H 7-18 mg/dL Creatinine 2.1 H 0.5-1.0 mg/dL Glomerular Filtration Rate Calc 24 >90 mL/min Random Glucose 166 H 70-105 mg/dL Total Calcium 8.7 8.5-10.1 mg/dL B-Type Natriuretic Peptide 110 H 0-100 pg/mL Blood Gas Specimen Type Arterial Arterial Blood pH 7.369 7.350-7.450 Arterial Blood Partial Pressure CO2 42 32-45 mmHg Arterial Blood Partial Pressure O2 99.9 83.0-108.0 mmHg Arterial Blood HCO3 23.5 21.0-28.0 mmol/L Arterial Blood Oxygen Saturation 96.9 94.0-98.0 % Arterial Blood Base Excess -1.7 -2.0-3.0 mmol/L Hemoglobin (Blood Gas) 10.8 L 12.0-16.0 g/dL Sodium (Blood Gas) 143 136-145 MMOL/L Bedside Potassium (Blood Gas) 3.7 3.4-4.5 MMOL/L Bedside Chloride (Blood Gas) 107 98-107 MMOL/L Bedside Glucose (Blood Gas) 164 H 65-95 MG/DL Bedside Ionized Calcium (Blood Gas) 1.26 1.15-1.33 MMOL/L Bedside Lactic Acid (Blood Gas) 2.56 H 0.36-0.75 MMOL/L Blood Gas Temperature 37.0 35.5-37.0 CELSIUS Blood Gas Respiration Rate 20.0 min. Blood Gas Vent Mode [id number] ROOM AIR FiO2 40.0 % Blood Gas Specimen Comment LR Whole Blood Glucose 137 H 70-110 MG/DL Total Bilirubin 0.5 0.2-1.0 mg/dL Aspartate Amino Transf (AST/SGOT) 59 H 10-37 U/L Alanine Aminotransferase (ALT/SGPT) 44 12-78 U/L Alkaline Phosphatase 76 50-136 U/L Total Protein 6.8 6.0-8.3 g/dL Albumin 3.4 L 3.5-5.0 g/dL Test 10/20/24 20:04 10/20/24 15:59 10/20/24 15:00 Range/Units Blood Gas Flow-by 15.00 0.00-15.00 L/min Bedside Glucose Comment Notified Nurse Prothrombin Time 11.4 9.6-11.6 SEC Prothromb Time International Ratio 1.08 0.85-1.15 Activated Partial Thromboplast Time 43.9 H 26.3-35.5 SEC DIAGNOSTICS / RADIOLOGY: PATIENT: MORRIS LANGSTON ACCT: [id number] LOC: [facility] U: [id number] AGE/SX: 79/F ROOM: 42 RE10/16/[address]: ERICKSON HUITRON MD : 1945 BED: 1 DIS: STATUS: ADM IN TLOC: SPEC: [id number] WALLY: 10/17/24 STATUS: RES REQ: [id number] RECD: 10/17/[address] [facility] [address]: JARRED PATTERSON SOURCE: SPUTUM ENTR: 10/17/24-[address] [facility] [address]: ERICKSON HUITRON [facility] SUSAN PRESSLEY MD,PATI Haas MD ORDERED: RESP CULTURE --- --------- Procedure Result Freddy Date-Time GRAM STAIN Final 10/18/24-1141 [facility] GRAM STAIN RESULT: MODERATELY FAIR SPECIMEN [ >10SEC's/LPF AND >25 PMN's/LPF ] 2+ GRAM NEGATIVE RODS RESPIRATORY CULTURE Preliminary 10/20/24-0701 MRL EXTENDED SPECTRUM BETA-LACTAMASE ORGANISM IDENTIFIED. CRITICAL RESULT WAS CALLED BY MEERA ROSE ON 10/20/24 AT 0652. CRITICAL VALUES WERE READ BACK AND ACKNOWLEDGED BY DONALD DE LA ROSA ([facility] [place]) COLONY DESCRIPTION: REPORT 1: 3+ GRAM NEGATIVE RODS IDENTIFICATION AND SENSITIVITY TO FOLLOW REPORT 2: STUDIES TO CONTINUE COMMENTS(R): ESBL ESCHERICHIA COLI E COLI M.I.C. RX --------- ---- AMPICILLIN >16 R* AZTREONAM >16 ESBL CEFAZOLIN >16 R* CEFTAZIDIME 16 ESBL CEFTAZIDIME/AVIBACTAM <=8 S CEFTRIAXONE >2 ESBL CIPROFLOXACIN >2 R GENTAMICIN >8 R LEVOFLOXACIN >4 R TOBRAMYCIN 8 R AMPICILLIN/SULBACTAM 16/8 I MEROPENEM <=1 S PIPERACILLIN/TAZOBACTAM <=8 S TRIMETHOPRIM/SUFLAMETHOXAZOLE > R ASSESSMENT: Acute hypoxic respiratory failure requiring BiPAP support. Pneumoniae with E coli infection. Infection with multidrug resistant organism. Leukocytosis. COPD exacerbation. Chronic tobacco use. PLAN: Continue Zosyn. Continue oxygen support. Continue GI prophylaxis. Continue bronchodilators. Place Midline and case management to evaluate for referral to [facility] for outpatient IV antibiotics. Prescription was written. This case was reviewed and discussed with my supervising physician and the above assessment and plan was formulated and agreed upon.. ATTESTATION BY PHYSICIAN I have seen and examined the patient. I reviewed the documentation, medical decision making, and treatment plan as noted by the mid-level provider above. I agree with the findings and plan of care. ATA CARSON MD, [facility] Oct 21, 2024 11:45
--- NOTE | 2024-10-21 14:01 | PN ---
[facility] PROGRESS NOTE Date Patient Seen: Oct 21, 2024 Time of Visit: 14:01 Supervising Physician: Stan Bravo MD Primary Care Physician: Sy Castillo MD Outpatient Specialists: Inpatient Consults:EARL, DR Lopez, DR Cevallos. Attending Dr Sauer PROBLEM LIST: Acute respiratory distress, POA, NIV Bipap Health care associated pneumonia with ESBL Ecoli Mild interstitial fibrosis, per CT on 10/16/2024 COPD exacerbation, POA Fluid overload, POA Bilateral renal cysts with the largest on the right measuring 9.8 cm. Lactic acidosis Anemia of chronic disease Thrombocytosis Acute on chronic renal failure, GFR 42 Diabetes mellitus with hyperglycemia Hypoalbuminemia Morbid obesity, BMI 42 Chronic problem list: Asthma, COPD, hypertension, hypothyroidism, renal insufficiency, ovarian surgery INTERVAL HISTORY: Overnight pt became hypotensive and was given 500 m of ns bolus and started in levophed gtt. Pt now weaning off the levophed at 0.1mcg/kg/min . Blood pressure improving 119/86 and MAP of 97, informed primary nurse to wean levophed for MAP of 65. Pt was placed on bipap and we will try to remove it this PM to see how she tolerates. White count increased to 28. HH stable 9.2/. Platelet 327K. Neutrophils trending down to 88.4, Kidneys took a hit from hypotension and increased XR to 2.1. Holding lasix and Losartan discontinued. We will repeat chest XR im am. REVIEW OF SYSTEMS: 12 point ROS reviewed with patient. Pertinent positives mentioned above. Otherwise negative. PHYSICAL EXAM: GENERAL: alert, weak, awake oriented x 3 HEENT: EOMI, Sclera non icteric, moist mucosa NECK: Supple, no JVD, trachea midline LUNGS: coarse ronchi breath sounds bilaterally. No wheezes HEART: Regular rate and rhythm. Normal S1 and S2, without murmurs ABD: Abdomen soft, nontender. Bowel sounds present EXT: No clubbing cyanosis or edema NEURO: Alert and oriented to person, follows commands Vital Signs (last 8hr) Date Time Temp Pulse Resp B/P (MAP) Pulse Ox O2 Delivery O2 Flow Rate FiO2 10/21/24 12:48 10/21/24 12:20 92 18 100 10/21/24 12:15 99 18 100 10/21/24 12:14 97 21 121/53 (75) 100 10/21/24 12:10 97 20 100 10/21/24 12:05 98 20 100 10/21/24 12:00 102 20 100 10/21/24 12:00 98 Non-Rebreather+ 15 100 10/21/24 11:59 100 20 119/86 (97) 100 10/21/24 11:55 98 22 100 10/21/24 11:50 110 20 100 10/21/24 11:45 108 20 100 10/21/24 11:44 97 21 104/60 (75) 100 10/21/24 11:40 94 20 100 10/21/24 11:35 94 20 100 10/21/24 11:30 111 20 100 10/21/24 11:29 106 20 123/61 (81) 100 10/21/24 11:25 94 20 100 10/21/24 11:20 99 18 100 10/21/24 11:15 114 18 100 10/21/24 11:15 95 21 10/21/24 11:14 109 23 126/48 100 Nonrebreathing Mask 15.0 10/21/24 11:14 109 18 126/48 (74) 100 10/21/24 11:10 101 26 97 10/21/24 11:10 101 19 97 10/21/24 11:00 106 23 100 Nonrebreathing Mask 15.0 10/21/24 10:59 96 19 122/32 (62) 100 10/21/24 10:59 96 23 122/32 100 Nonrebreathing Mask 15.0 10/21/24 10:55 96 17 100 10/21/24 10:45 88 23 100 Nonrebreathing Mask 15.0 10/21/24 10:44 94 23 120/62 (81) 96 10/21/24 10:44 94 23 120/62 96 Nonrebreathing Mask 15.0 10/21/24 10:40 105 17 100 10/21/24 10:30 97 22 100 Nonrebreathing Mask 15.0 10/21/24 10:29 91 20 126/75 (92) 94 10/21/24 10:29 91 24 126/75 94 Nonrebreathing Mask 15.0 10/21/24 10:25 102 20 100 10/21/24 10:15 99 23 100 Nonrebreathing Mask 15.0 10/21/24 10:14 104 23 142/53 (82) 97 10/21/24 10:14 104 20 142/53 97 Nonrebreathing Mask 15.0 10/21/24 10:10 109 20 100 10/21/24 10:00 98 20 100 Nonrebreathing Mask 15.0 10/21/24 09:59 101 22 131/63 (85) 100 10/21/24 09:59 101 25 131/63 100 Nonrebreathing Mask 15.0 10/21/24 09:55 96 22 100 10/21/24 09:45 108 20 100 Nonrebreathing Mask 15.0 10/21/24 09:44 94 16 153/105 99 Nonrebreathing Mask 15.0 10/21/24 09:44 94 16 153/105 (121) 99 10/21/24 09:40 97 22 100 10/21/24 09:30 99 20 100 Nonrebreathing Mask 15.0 10/21/24 09:29 104 22 130/79 (96) 100 10/21/24 09:29 104 20 130/79 100 Nonrebreathing Mask 15.0 10/21/24 09:25 87 22 100 10/21/24 09:15 90 18 100 Nonrebreathing Mask 15.0 10/21/24 09:14 81 22 148/58 (88) 100 10/21/24 09:14 81 20 148/58 100 Nonrebreathing Mask 15.0 10/21/24 09:10 90 22 100 10/21/24 09:00 79 19 97 Nonrebreathing Mask 15.0 10/21/24 09:00 79 19 97 10/21/24 09:00 79 19 97 10/21/24 09:00 79 20 97 Nonrebreathing Mask 15.0 10/21/24 08:59 85 30 121/58 (79) 96 10/21/24 08:59 85 30 121/58 96 Nonrebreathing Mask 15.0 10/21/24 08:59 85 30 121/58 96 10/21/24 08:59 85 18 121/58 (79) 96 10/21/24 08:59 85 30 121/58 96 Nonrebreathing Mask 15.0 10/21/24 08:55 76 24 94 10/21/24 08:45 86 18 94 4/24/25 08:45 86 23 94 BIPAP 40 10/21/24 08:45 86 23 94 10/21/24 08:45 86 23 94 10/21/24 08:44 88 18 124/66 (85) 96 10/21/24 08:44 88 19 124/66 96 BIPAP 40 10/21/24 08:44 88 19 124/66 96 10/21/24 08:30 79 22 98 BIPAP 40 10/21/24 08:30 79 23 98 10/21/24 08:30 79 32 98 10/21/24 08:29 82 23 121/62 (81) 91 10/21/24 08:29 82 34 121/62 91 10/21/24 08:29 82 22 121/62 95 BIPAP 40 10/21/24 08:15 79 23 93 BIPAP 40 10/21/24 08:15 79 23 93 10/21/24 08:15 79 23 93 10/21/24 08:14 79 27 118/63 92 10/21/24 08:14 79 27 118/63 92 BIPAP 40 10/21/24 08:14 79 23 118/63 (81) 92 10/21/24 08:00 82 19 98 10/21/24 08:00 99.0 82 19 98 BIPAP 40 10/21/24 08:00 98 Non-Rebreather+ 15 100 10/21/24 08:00 82 19 98 10/21/24 07:59 82 21 109/66 (80) 99 10/21/24 07:59 82 21 109/66 99 10/21/24 07:59 82 21 109/66 99 BIPAP 40 10/21/24 07:45 78 34 86 BIPAP 40 10/21/24 07:45 78 23 86 10/21/24 07:45 78 34 86 10/21/24 07:44 75 33 130/60 88 10/21/24 07:44 75 23 130/60 (83) 88 10/21/24 07:44 75 33 130/60 88 BIPAP 40 10/21/24 07:30 81 23 93 10/21/24 07:30 81 24 93 BIPAP 40 10/21/24 07:30 81 24 93 10/21/24 07:29 77 33 123/57 85 10/21/24 07:29 77 23 123/57 (79) 92 10/21/24 07:29 77 33 123/57 85 BIPAP 40 10/21/24 07:15 79 23 86 BIPAP 40 10/21/24 07:15 79 23 92 10/21/24 07:15 79 23 86 10/21/24 07:14 77 22 127/65 92 BIPAP 40 10/21/24 07:14 77 22 127/65 92 10/21/24 07:14 77 22 127/65 (85) 92 10/21/24 07:00 76 23 87 10/21/24 07:00 76 23 87 10/21/24 07:00 76 23 87 BIPAP 40 10/21/24 06:59 79 20 125/58 90 10/21/24 06:59 79 20 125/58 90 BIPAP 40 10/21/24 06:59 79 20 125/58 (80) 90 10/21/24 06:45 80 22 91 BIPAP 40 10/21/24 06:45 80 22 91 10/21/24 06:45 80 22 91 10/21/24 06:29 75 17 115/58 (77) 100 10/21/24 06:24 82 21 10/21/24 06:22 87 18 40 10/21/24 06:14 79 22 120/76 (91) 96 LABS: Hematology Labs: Test 10/21/24 03:50 Range/Units White Blood Count 28.1 #H 4.8-10.8 K/uL Red Blood Count 3.97 L 4.00-5.50 MIL/uL Hemoglobin 9.2 L 12.0-16.0 g/dL Hematocrit 31.0 L 36-48 % Mean Corpuscular Volume 78.1 L 79-99 fL Mean Corpuscular Hemoglobin 23.2 L 27.0-33.0 pg Mean Corpuscular Hemoglobin Concent 29.7 L 32.0-36.0 g/dL Red Cell Distribution Width 20.6 H 11.0-15.5 % Platelet Count 327 130-400 K/uL Mean Platelet Volume 9.5 7.5-10.5 fL Immature Granulocyte % (Auto) 4.4 H 0-1 % Neutrophils (%) (Auto) 88.4 H 40.0-77.0 % Lymphocytes (%) (Auto) 4.3 L 21.0-51.0 % Monocytes (%) (Auto) 2.7 L 3.0-13.0 % Eosinophils (%) (Auto) 0.0 0.0-8.0 % Basophils (%) (Auto) 0.2 0.0-5.0 % Neutrophils # (Auto) 24.8 H 1.8-7.7 K/uL Lymphocytes # (Auto) 1.2 1.0-4.8 K/uL Monocytes # (Auto) 0.8 0.1-1.0 K/uL Eosinophils # (Auto) 0.01 0.00-0.70 K/uL Basophils # (Auto) 0.06 0.00-0.20 K/uL Absolute Immature Granulocyte (auto 1.23 H 0-1 K/uL Nucleated Red Blood Cells 2.6 H 0.0-0.19 % Chemistry Labs: Test 10/21/24 03:50 10/20/24 22:31 10/20/24 20:22 10/20/24 15:59 Range/Units Sodium Level 140 136-145 mmol/L Potassium Level 4.8 3.5-5.1 mmol/L Chloride Level 106 101-111 mmol/L Carbon Dioxide Level 24 21-32 mmol/L Blood Urea Nitrogen 52 H 7-18 mg/dL Creatinine 2.1 H 0.5-1.0 mg/dL Glomerular Filtration Rate Calc 24 >90 mL/min Random Glucose 166 H 70-105 mg/dL Total Calcium 8.7 8.5-10.1 mg/dL B-Type Natriuretic Peptide 110 H 0-100 pg/mL Whole Blood Glucose 137 H 70-110 MG/DL Total Bilirubin 0.5 0.2-1.0 mg/dL Aspartate Amino Transf (AST/SGOT) 59 H 10-37 U/L Alanine Aminotransferase (ALT/SGPT) 44 12-78 U/L Alkaline Phosphatase 76 50-136 U/L Total Protein 6.8 6.0-8.3 g/dL Albumin 3.4 L 3.5-5.0 g/dL Bedside Glucose Comment Notified Nurse Coagulation Labs: Test 10/20/24 15:00 Range/Units Prothrombin Time 11.4 9.6-11.6 SEC Prothromb Time International Ratio 1.08 0.85-1.15 Activated Partial Thromboplast Time 43.9 H 26.3-35.5 SEC DIAGNOSTICS / RADIOLOGY RESULTS: [ ]IMAGING REPORT Signed PATIENT: MORRIS LANGSTON MR#: [id number] : 1945 SEX: F AGE: 79 LOCATION: 4DH ORDER 03 STATUS: ADM IN REPORT#: [id number] SERVICE 01 REASON: shortness of breath ORDERING PHYSICIAN: LESA JAIN B[employer]ING CLE[employer]ER PROCEDURE: CXR1VW - CHEST 1VW CHEST 1VW HISTORY: Shortness of breath COMPARISON: 10/16/2024 FINDINGS: A frontal projection of the chest was obtained. Mild bilateral pulmonary infiltrates are seen may be related to mild pulmonary vascular congestion with possible superimposed pneumonitis. The heart is borderline enlarged. Degenerative changes are seen. No evidence of aortic calcification is seen. IMPRESSION: 1. Mild bilateral pulmonary infiltrates are seen may be related to mild pulmonary vascular congestion with possible superimposed pneumonitis. DICTATED BY: YONI HERNANDEZ MD DATE: 10/20/242025 ELECTRONICALLY SIGNED BY: YONI HERNANDEZ MD DATE: 10/20/242029 PLAN renally adjust medication hold lasix hold ARB NEURO: Minimize central acting medications as possible. Fall Precautions. Well lighted room through the day and minimize interruptions through the night to prevent acute delirium. PULMONARY: Supplemental 02 as needed Titrate Fio2 to keep Spo2 > or = 90% DuoNebs and CPT as needed IS hourly while awake for pulmonary hygiene Out of bed to chair as tolerated CARDIOVASCULAR: Follow hemodynamics. Titrate vasopressor to keep MAP >65 or systolic blood pressure >95mmHg DIPS: levophed weaning LINES: piv GI & NUTRITION: Continue nutritional support Aspirations precautions Prokinetic agents and laxatives as needed KIDNEYS & ELECTROLYTES: Strict monitoring of intake and output Daily weights Avoid nephrotoxic agents Monitor electrolytes and replace as needed Goal urine output of 30mL/hr or 0.5mL/kg/hr Urine output: [ ] Fluid Balance: [ ] ENDOCRINE: Maintain blood glucose between 100-180 at all times. Insulin sliding scale for blood glucose management INFECTIOUS DISEASE: Trend temperature. Lowe-culture if febrile. ABX per ID Micro: [ ] E Coli ESBL in the sputum Antibiotics: [ ] Zosyn HEMATOLOGY & COAGULATION: Monitor H&H. Keep Hgb > 7 Transfuse 1 unit of PRBC for Hgb < 7 Transfuse 1 pack of platelets of platelets < 20, 000 Watch for any signs and symptoms of bleeding SKIN: Pressure ulcer prevention per facility protocol Rehab: PT/OT Prophylaxis: GI: Famotidine DVT: Lovenox Code Status: Full Resuscitation Disposition:ICU Other: Total patient care time exceeds 35 minutes excluding all procedures. Case was discussed and seen with my supervising physician. The above plan was formulated and agreed upon. ATTESTATION BY PHYSICIAN I attest that I reviewed and discussed the case with the Physician Box Toe Cutter as well as agree with the Physician Box Toe Cutter's findings, plans of care, and documentation above. Stan Pearson MD, NELLY [facility] Oct 21, 2024 14:01
--- NOTE | 2024-10-21 15:10 | PN ---
[facility] PROGRESS NOTE Date of Service: Oct 21, 2024 Time of Service: 15:03 SUBJECTIVE: Ms. Palafox is a 79-year-old female with a history of tobacco dependent, COPD, asthma, hypertension, hypothyroidism, and renal disease who presented to [facility] for evaluation of shortness of breath over the past few weeks worsening today. The patient reported that she has been seen multiple times in the clinic setting for subjective fever last week. The patient was placed on steroids and nebulized treatments with no improvement which prompted the ED visit. In ED the patient was administered Solu-Medrol 80 mg IV, DuoNeb treatments, and Rocephin2 g. ED provider requested patient be admitted to the [facility] hospitalist team with the diagnosis of acute respiratory distress and acute exacerbation of COPD with asthma. Labs reviewed. Troponin negative. ABGs WNL, PO2 107, on 3 L. influenza and COVID are negative. BNP 115. D-dimer a 1403. CT chest without contrast: There are mild interstitial fibrosis. Bilateral renal cysts with the largest on the right measuring 9.8 cm. No evidence of pulmonary nodules or effusions. 10/17/24 the patient is seen and examined today morning, with her family at the bedside. She stated that her breathing is better today she and she saturating 98% on1 L of oxygen via nasal cannula. We will try to wean her off. Vitals are stable. She is complaining of productive cough and we will get the sputum culture. Pulmonology consult pending. V/Q scan pending. 2D echo results pending. Her WBC went down. Her hemoglobin dropped down to 8.5 from 9.7, MCV 77.2. We will order iron panel studies. TSH 0.25 And we will hold her antithyroid medications at the moment. We will get T3 and T4 levels. Chest x- ray showed vascular congestion, edema versus pneumonia, mild cardiomegaly. Venous Doppler negative for DVT. 10/18/24 patient seen and examined today. Her vitals are stable. She is saturating well with 96% on room air. She denies shortness of breath at the moment. Sputum Gram stain showed 2+ Gram-negative rods and pending culture results. Continue Rocephin and Solu-Medrol 40. Potassium is 3.4 And replaced with p.o. potassium chloride. BUN went up 26 to 33and creatinine went up from 1.1 to 1.3 today. Iron panel studies show iron 14, TIBC 362 and % saturation 3.8% she has suggestive of iron deficiency anemia. Check stool occult blood and we will order IV iron sucrose. Free T3 1.15. 2D echo showed EF 60-65% and indeterminate diastolic dysfunction. Consult PT OT for ambulation 10/19/24 patient is seen and evaluated today. She is seen sitting comfortably in chair with ongoing nebulizer treatment. Patient had a failed 6 minute walk today, her oxygen saturation dropped down to 85% and her heart rate went up to 150s. She will require home oxygen on discharge. We will consult case management for arranging home O2 requirement. Continue Rocephin and doxycycline IV. On examination bilateral wheezing are present. Respiratory culture showed 3+ Gram-negative rods and identification and sensitivity to follow. Hemoglobin 8.4 and we will continue with IV Venofer. BUN went up 33 to 42and creatinine stable at 1.3. 10/20/24 the patient is seen and examined today with her son at the bedside. She states her breathing is better, bilateral lower extremity edema has improved today. However her respiratory culture is positive for ESBL which is sensitive to IV Zosyn and meropenem. Infectious Disease consulted and recommended IV Zosyn for 10 [facility] at [facility]. We will let the case management know regarding the plan. Her WBC went up from 9.8 to 11.6 today 10/21/24 patient is seen and examined today morning. She was transferred to ICU last night because of respiratory failure with hypotension blood pressure of 77/41, tachycardia heart rate in 130s and tachypnea in 30s. She was put on BiPAP last night and today morning she is saturating 96% on15 L non-rebreather mask. Her blood pressure is 121/58. Her WBC went up from 18.7 to 28.1. BUN went up 50 to 52. Creatinine went up from 1.9 to 2.1. I will decrease the dose of Lasix to 20 mg daily. Bedside swallow study ordered. We will consult Nephrology for WIC[facility]. We will continue to monitor the patient closely REVIEW OF SYSTEMS CONSTITUTIONAL: Denies fevers, chills, or night sweats. No unintentional weight loss reported. NEUROLOGICAL: Denies headache, amaurosis fugax, motor weakness, sensory deficit, vertigo/spinning sensation, gait abnormalities, or tremors. ENT: No hearing loss, otalgia, otorrhea, rhinitis, rhinorrhea, hoarseness, or sore throat. CARDIOVASCULAR: Denies any exertional angina, dyspnea on exertion, orthopnea, paroxysmal nocturnal dyspnea, palpitations, life-threatening arrhythmias, claudication. Complains of chest discomfort PULMONARY: shortness of breath, cough, phlegm/sputum. Denies hemoptysis, pleuritic chest pain. SLEEP: Denies morning headaches, daytime somnolence or napping. Denies difficulty falling asleep, staying asleep, waking from sleep. Denies knowledge of snoring. GASTROINTESTINAL: Denies any type of dysphagia to either liquids or solids. Denies nausea, vomiting, pyrosis, early satiety, abdominal pain, diarrhea, constipation, or changes in stool consistency or caliber. Denies coffee-ground emesis, hematemesis, hematochezia, or melanotic stools. GENITOURINARY: Denies frequency, urgency, nocturia, hematuria or incontinence (Storage/Irritative symptoms.) Low urinary stream, straining to void, urinary intermittency or hesitancy, splitting of the voiding stream, terminal dribbling. ENDOCRINOLOGIC: Denies polyuria, polydipsia, polyphagia or heat/cold intolerances. HEMATOLOGIC: Denies thrombophilia/previous clots, or coagulopathy/bleeding disorders. ONCOLOGIC: Denies personal history of malignancy. DERMATOLOGIC: Denies rashes or pruritus. PSYCHIATRIC: Denies any suicidal or homicidal ideation. Denies hallucinations. PHYSICAL EXAM GENERAL APPEARANCE: The patient is awake, alert, and oriented, in no acute cardiopulmonary distress. NEUROLOGICAL: Cranial nerves II-XII grossly intact. Motor is 5/5 in bilateral upper and lower extremities proximal to distal. No sensory deficits. HEENT: Face is symmetric. Pupils are equal and reactive. Extraocular movements are intact. NECK: Supple. No JVD. No thyromegaly. No submental, submandibular, pre- /postauricular, occipital or supraclavicular lymphadenopathy. CHEST: Normal chest expansion. No Telemetry. LUNGS: Bilateral crackles are present CARDIOVASCULAR: Regular. S1 and S2 normal. No appreciable rubs, murmurs or gallops. Crackles. ABDOMEN: Obese. Obese. Soft, nontender, and nondistended. There is no rebound, voluntary guarding, or rigidity. : Deferred. No Hendrix. EXTREMITIES: Improving bilateral pitting pedal edema. not cyanotic. No clubbing. Good capillary refill. SKIN: No skin breakdown. Vital Signs (last 8hr) Date Time Temp Pulse Resp B/P (MAP) Pulse Ox O2 Delivery O2 Flow Rate FiO2 10/21/24 13:30 102 19 100 Nonrebreathing Mask 15.0 10/21/24 13:29 94 21 108/54 100 Nonrebreathing Mask 15.0 10/21/24 13:15 93 18 130/54 100 Nonrebreathing Mask 15.0 10/21/24 13:00 103 23 100 Nonrebreathing Mask 15.0 10/21/24 12:59 104 22 117/60 100 Nonrebreathing Mask 15.0 10/21/24 12:48 10/21/24 12:45 113 28 100 Nonrebreathing Mask 15.0 10/21/24 12:44 104 22 114/55 100 Nonrebreathing Mask 15.0 10/21/24 12:30 100 17 125/68 100 Nonrebreathing Mask 15.0 10/21/24 12:20 92 18 100 10/21/24 12:15 99 18 100 Nonrebreathing Mask 15.0 10/21/24 12:15 99 18 100 10/21/24 12:14 97 22 121/53 100 Nonrebreathing Mask 15.0 10/21/24 12:14 97 21 121/53 (75) 100 10/21/24 12:10 97 20 100 10/21/24 12:05 98 20 100 10/21/24 12:00 102 20 100 10/21/24 12:00 102 22 100 Nonrebreathing Mask 15.0 10/21/24 12:00 98 Non-Rebreather+ 15 100 10/21/24 11:59 100 24 119/86 100 Nonrebreathing Mask 15.0 10/21/24 11:59 100 20 119/86 (97) 100 10/21/24 11:55 98 22 100 10/21/24 11:50 110 20 100 10/21/24 11:45 108 20 100 10/21/24 11:45 108 22 100 Nonrebreathing Mask 15.0 10/21/24 11:44 97 21 104/60 (75) 100 10/21/24 11:44 97 21 104/60 100 Nonrebreathing Mask 15.0 10/21/24 11:40 94 20 100 10/21/24 11:35 94 20 100 10/21/24 11:30 111 22 100 Nonrebreathing Mask 15.0 10/21/24 11:30 111 20 100 10/21/24 11:29 106 20 123/61 (81) 100 10/21/24 11:29 106 22 123/61 100 Nonrebreathing Mask 15.0 10/21/24 11:25 94 20 100 10/21/24 11:20 99 18 100 10/21/24 11:15 114 18 100 10/21/24 11:15 95 21 10/21/24 11:15 114 18 100 Nonrebreathing Mask 15.0 10/21/24 11:14 109 23 126/48 100 Nonrebreathing Mask 15.0 10/21/24 11:14 109 18 126/48 (74) 100 10/21/24 11:14 109 36 126/48 100 Nonrebreathing Mask 15.0 10/21/24 11:10 101 26 97 10/21/24 11:10 101 19 97 10/21/24 11:00 106 23 100 Nonrebreathing Mask 15.0 10/21/24 11:00 106 29 100 Nonrebreathing Mask 15.0 10/21/24 10:59 96 19 122/32 (62) 100 10/21/24 10:59 96 23 122/32 100 Nonrebreathing Mask 15.0 10/21/24 10:55 96 17 100 10/21/24 10:45 88 23 100 Nonrebreathing Mask 15.0 10/21/24 10:44 94 23 120/62 (81) 96 10/21/24 10:44 94 23 120/62 96 Nonrebreathing Mask 15.0 10/21/24 10:40 105 17 100 10/21/24 10:30 97 22 100 Nonrebreathing Mask 15.0 10/21/24 10:29 91 20 126/75 (92) 94 10/21/24 10:29 91 24 126/75 94 Nonrebreathing Mask 15.0 10/21/24 10:25 102 20 100 10/21/24 10:15 99 23 100 Nonrebreathing Mask 15.0 10/21/24 10:14 104 23 142/53 (82) 97 10/21/24 10:14 104 20 142/53 97 Nonrebreathing Mask 15.0 10/21/24 10:10 109 20 100 10/21/24 10:00 98 20 100 Nonrebreathing Mask 15.0 10/21/24 09:59 101 22 131/63 (85) 100 10/21/24 09:59 101 25 131/63 100 Nonrebreathing Mask 15.0 10/21/24 09:55 96 22 100 10/21/24 09:45 108 20 100 Nonrebreathing Mask 15.0 10/21/24 09:44 94 16 153/105 99 Nonrebreathing Mask 15.0 10/21/24 09:44 94 16 153/105 (121) 99 10/21/24 09:40 97 22 100 10/21/24 09:30 99 20 100 Nonrebreathing Mask 15.0 10/21/24 09:29 104 22 130/79 (96) 100 10/21/24 09:29 104 20 130/79 100 Nonrebreathing Mask 15.0 10/21/24 09:25 87 22 100 10/21/24 09:15 90 18 100 Nonrebreathing Mask 15.0 10/21/24 09:14 81 22 148/58 (88) 100 10/21/24 09:14 81 20 148/58 100 Nonrebreathing Mask 15.0 10/21/24 09:10 90 22 100 10/21/24 09:00 79 19 97 Nonrebreathing Mask 15.0 10/21/24 09:00 79 19 97 10/21/24 09:00 79 19 97 10/21/24 09:00 79 20 97 Nonrebreathing Mask 15.0 10/21/24 08:59 85 30 121/58 (79) 96 10/21/24 08:59 85 30 121/58 96 Nonrebreathing Mask 15.0 10/21/24 08:59 85 30 121/58 96 10/21/24 08:59 85 18 121/58 (79) 96 10/21/24 08:59 85 30 121/58 96 Nonrebreathing Mask 15.0 10/21/24 08:55 76 24 94 10/21/24 08:45 86 18 94 10/21/24 08:45 86 23 94 BIPAP 40 10/21/24 08:45 86 23 94 10/21/24 08:45 86 23 94 10/21/24 08:44 88 18 124/66 (85) 96 10/21/24 08:44 88 19 124/66 96 BIPAP 40 10/21/24 08:44 88 19 124/66 96 10/21/24 08:30 79 22 98 BIPAP 40 10/21/24 08:30 79 23 98 10/21/24 08:30 79 32 98 10/21/24 08:29 82 23 121/62 (81) 91 10/21/24 08:29 82 34 121/62 91 10/21/24 08:29 82 22 121/62 95 BIPAP 40 10/21/24 08:15 79 23 93 BIPAP 40 10/21/24 08:15 79 23 93 10/21/24 08:15 79 23 93 10/21/24 08:14 79 27 118/63 92 10/21/24 08:14 79 27 118/63 92 BIPAP 40 10/21/24 08:14 79 23 118/63 (81) 92 10/21/24 08:00 82 19 98 10/21/24 08:00 99.0 82 19 98 BIPAP 40 10/21/24 08:00 98 Non-Rebreather+ 15 100 10/21/24 08:00 82 19 98 10/21/24 07:59 82 21 109/66 (80) 99 10/21/24 07:59 82 21 109/66 99 10/21/24 07:59 82 21 109/66 99 BIPAP 40 10/21/24 07:45 78 34 86 BIPAP 40 10/21/24 07:45 78 23 86 10/21/24 07:45 78 34 86 10/21/24 07:44 75 33 130/60 88 10/21/24 07:44 75 23 130/60 (83) 88 10/21/24 07:44 75 33 130/60 88 BIPAP 40 10/21/24 07:30 81 23 93 10/21/24 07:30 81 24 93 BIPAP 40 10/21/24 07:30 81 24 93 10/21/24 07:29 77 33 123/57 85 10/21/24 07:29 77 23 123/57 (79) 92 10/21/24 07:29 77 33 123/57 85 BIPAP 40 10/21/24 07:15 79 23 86 BIPAP 40 10/21/24 07:15 79 23 92 10/21/24 07:15 79 23 86 10/21/24 07:14 77 22 127/65 92 BIPAP 40 10/21/24 07:14 77 22 127/65 92 10/21/24 07:14 77 22 127/65 (85) 92 LABS: Laboratory: Test 10/21/24 14:55 10/21/24 03:50 10/20/24 23:41 10/20/24 20:22 Range/Units Whole Blood Glucose 130 H 70-110 MG/DL White Blood Count 28.1 #H 4.8-10.8 K/uL Red Blood Count 3.97 L 4.00-5.50 MIL/uL Hemoglobin 9.2 L 12.0-16.0 g/dL Hematocrit 31.0 L 36-48 % Mean Corpuscular Volume 78.1 L 79-99 fL Mean Corpuscular Hemoglobin 23.2 L 27.0-33.0 pg Mean Corpuscular Hemoglobin Concent 29.7 L 32.0-36.0 g/dL Red Cell Distribution Width 20.6 H 11.0-15.5 % Platelet Count 327 130-400 K/uL Mean Platelet Volume 9.5 7.5-10.5 fL Immature Granulocyte % (Auto) 4.4 H 0-1 % Neutrophils (%) (Auto) 88.4 H 40.0-77.0 % Lymphocytes (%) (Auto) 4.3 L 21.0-51.0 % Monocytes (%) (Auto) 2.7 L 3.0-13.0 % Eosinophils (%) (Auto) 0.0 0.0-8.0 % Basophils (%) (Auto) 0.2 0.0-5.0 % Neutrophils # (Auto) 24.8 H 1.8-7.7 K/uL Lymphocytes # (Auto) 1.2 1.0-4.8 K/uL Monocytes # (Auto) 0.8 0.1-1.0 K/uL Eosinophils # (Auto) 0.01 0.00-0.70 K/uL Basophils # (Auto) 0.06 0.00-0.20 K/uL Absolute Immature Granulocyte (auto 1.23 H 0-1 K/uL Nucleated Red Blood Cells 2.6 H 0.0-0.19 % Sodium Level 140 136-145 mmol/L Potassium Level 4.8 3.5-5.1 mmol/L Chloride Level 106 101-111 mmol/L Carbon Dioxide Level 24 21-32 mmol/L Blood Urea Nitrogen 52 H 7-18 mg/dL Creatinine 2.1 H 0.5-1.0 mg/dL Glomerular Filtration Rate Calc 24 >90 mL/min Random Glucose 166 H 70-105 mg/dL Total Calcium 8.7 8.5-10.1 mg/dL B-Type Natriuretic Peptide 110 H 0-100 pg/mL Blood Gas Specimen Type Arterial Arterial Blood pH 7.369 7.350-7.450 Arterial Blood Partial Pressure CO2 42 32-45 mmHg Arterial Blood Partial Pressure O2 99.9 83.0-108.0 mmHg Arterial Blood HCO3 23.5 21.0-28.0 mmol/L Arterial Blood Oxygen Saturation 96.9 94.0-98.0 % Arterial Blood Base Excess -1.7 -2.0-3.0 mmol/L Hemoglobin (Blood Gas) 10.8 L 12.0-16.0 g/dL Sodium (Blood Gas) 143 136-145 MMOL/L Bedside Potassium (Blood Gas) 3.7 3.4-4.5 MMOL/L Bedside Chloride (Blood Gas) 107 98-107 MMOL/L Bedside Glucose (Blood Gas) 164 H 65-95 MG/DL Bedside Ionized Calcium (Blood Gas) 1.26 1.15-1.33 MMOL/L Bedside Lactic Acid (Blood Gas) 2.56 H 0.36-0.75 MMOL/L Blood Gas Temperature 37.0 35.5-37.0 CELSIUS Blood Gas Respiration Rate 20.0 min. Blood Gas Vent Mode [id number] ROOM AIR FiO2 40.0 % Blood Gas Specimen Comment LR Total Bilirubin 0.5 0.2-1.0 mg/dL Aspartate Amino Transf (AST/SGOT) 59 H 10-37 U/L Alanine Aminotransferase (ALT/SGPT) 44 12-78 U/L Alkaline Phosphatase 76 50-136 U/L Total Protein 6.8 6.0-8.3 g/dL Albumin 3.4 L 3.5-5.0 g/dL Test 10/20/24 20:04 10/20/24 15:59 10/20/24 15:00 Range/Units Blood Gas Flow-by 15.00 0.00-15.00 L/min Bedside Glucose Comment Notified Nurse Prothrombin Time 11.4 9.6-11.6 SEC Prothromb Time International Ratio 1.08 0.85-1.15 Activated Partial Thromboplast Time 43.9 H 26.3-35.5 SEC Current Medications Medications (Trade) Dose Ordered Sig/Tom Route PRN Reason Start Time Stop Time Status Last Admin Dose Admin Acetaminophen (TYLenol 325MG TAB) 650 mg Q6H PRN PO FEVER/MILD PAIN LEVEL 1-3 10/16/24 21:00 11/15/24 20:59 10/20/24 16:23 650 MG Acetaminophen (TYLenol 650MG SUPPOSITORY) 650 mg Q6H PRN RC FEVER / MILD PAIN 1-3 IF NPO 10/16/24 21:00 11/15/24 20:59 Albuterol (DUOneb) 1 udvial [id number] IH 10/17/24 00:00 11/16/24 00:00 10/21/24 11:15 1 UDVIAL Ceftriaxone Sodium (Rocephin 2gm Inj) 2 gm Q24H IVPB 10/17/24 09:00 10/20/24 12:28 DC 10/20/24 08:44 2 GM Dextrose (D50w) 50 ml AD PRN IV HYPOGLYCEMIA PROTOCOL 10/17/24 04:00 11/16/24 03:59 Docusate Sodium (COLace 100MG CAP) 100 mg BID PRN PO c 10/16/24 21:00 11/15/24 20:59 Doxycycline Hyclate 250 ml @ 125 mls/hr Q12H IV 10/16/24 20:30 10/20/24 12:28 DC 10/20/24 08:44 125 MLS/HR Enoxaparin Sodium (Lovenox) 40 mg DAILY SQ 10/17/24 09:00 11/16/24 08:59 10/21/24 09:18 40 MG Famotidine (Pepcid 20mg Vial) 20 mg DAILY IV 10/17/24 09:00 11/16/24 08:59 10/21/24 09:17 20 MG Furosemide (LASix 40MG VIAL) 40 mg DAILY IV 10/17/24 09:00 11/16/24 08:59 10/21/24 09:17 40 MG Glucagon (Glucagon 1mg Kit) 1 mg AD PRN IM HYPOGLYCEMIA PROTOCOL 10/17/24 04:00 11/16/24 03:59 Guaifenesin/ Dextromethorphan (RobiTUSSin DM 200/20MG 10ML) 15 ml Q6H PRN PO COUGH 10/17/24 04:00 11/16/24 03:59 Home Med (Home Medication) DAILY IH 10/17/24 09:00 11/16/24 08:59 10/20/24 08:49 1 EACH Hydralazine HCl (APRESOLine 20MG INJ) 10 mg Q6H PRN IV SBP GREATER THAN 160 10/16/24 21:00 11/15/24 20:59 10/20/24 00:26 10 MG Insulin Human Regular (humuLIN R 100 UNIT/ML 3ML) INSULIN SLIDING SCAL... ACHS SQ 10/16/24 21:00 11/15/24 20:59 Iron Sucrose (VenoFER) 200 mg ONCE IV 10/18/24 14:00 10/18/24 13:43 DC Isosorbide Mononitrate (Imdur 30mg Sr) 30 mg DAILY PO 10/17/24 09:00 11/16/24 08:59 10/20/24 08:42 30 MG Lactulose (Constulose 20gm/ 30ml Udcup) 20 gm BID PRN PO CONSTIPATION 10/18/24 14:00 11/17/24 13:59 Lactulose (Constulose 20gm/ 30ml Udcup) 20 gm ONCE PO 10/18/24 14:00 10/18/24 13:43 DC Lactulose (Constulose 20gm/ 30ml Udcup) 20 gm Q6H PRN PO CONSTIPATION 10/16/24 21:00 10/18/24 13:44 DC Losartan Potassium (CozAAR 25MG TAB) 25 mg DAILY15 PO 10/17/24 15:00 10/21/24 14:02 DC 10/20/24 16:19 25 MG Magnesium Sulfate 50 ml @ 0 mls/hr PROTOCOL PRN IV MAGNESIUM PROTOCOL 10/17/24 04:00 11/16/24 03:59 Methylprednisolone Sodium Succinate (Solu-medROL 40MG) 40 mg BID IVP 10/18/24 09:00 10/19/24 23:00 DC 10/19/24 21:05 40 MG Methylprednisolone Sodium Succinate (Solu-medROL 125MG) 60 mg Q6H IVP 10/17/24 04:00 10/17/24 23:51 DC 10/17/24 21:03 60 MG Norepinephrine 250 ml @ 0 mls/hr AD PRN IV DIRECTED 10/21/24 00:00 11/20/24 00:00 10/21/24 00:16 30 MLS/HR Ondansetron HCl (zoFRAN 4MG INJ) 4 mg Q6H PRN IVP NAUSEA/VOMITING 10/16/24 21:00 11/15/24 20:59 Piperacillin Sod/ Tazobactam Sod (Zosyn 3.375gm+NS 50ml) 3.375 gm Q12H IV 10/22/24 00:30 10/30/24 12:29 Piperacillin Sod/ Tazobactam Sod (Zosyn 3.375gm+NS 50ml) 3.375 gm Q8H IV 10/20/24 12:30 10/21/24 14:02 DC 10/21/24 04:56 3.375 GM Potassium Chloride 100 ml @ 100 mls/hr AD PRN IV POTASSIUM PROTOCOL 10/17/24 04:00 11/16/24 03:59 Potassium Chloride (K-Dur 10meq Sr Tab) 10 meq AD PRN PO POTASSIUM PROTOCOL 10/18/24 08:30 11/16/24 03:59 10/18/24 11:13 10 MEQ Potassium Chloride (K-Dur/Klor-Con 20meq) 10 meq AD PRN PO POTASSIUM PROTOCOL 10/17/24 04:00 10/18/24 08:13 DC Potassium Chloride (KCl 10% Elixir 20meq/15ml) 10 meq AD PRN PO POTASSIUM PROTOCOL 10/17/24 04:00 11/16/24 03:59 Prednisone (deltaSONE/ oraSONE 20MG TAB) 40 mg DAILY PO 10/20/24 09:00 11/19/24 08:59 10/20/24 08:43 40 MG Spironolactone (Aldactone 25mg) 25 mg DAILY15 PO 10/17/24 15:00 10/21/24 14:02 DC 10/20/24 16:19 25 MG Temazepam (restORIL 15 MG CAP) 15 mg HS PRN PO INSOMNIA/SLEEP 10/16/24 21:00 11/15/24 20:59 DIAGNOSTICS / RADIOLOGY: [facility] [address] [place] [address] IMAGING REPORT Signed PATIENT: MORRIS PALAOFX MR#: [id number] : 1945 SEX: F AGE: 79 LOCATION: 4DH ORDER 03 STATUS: ADM IN REPORT#: [id number] SERVICE 01 REASON: shortness of breath ORDERING PHYSICIAN: LESA [employer] FINANCE MANAGER PROCEDURE: CXR1VW - CHEST 1VW CHEST 1VW HISTORY: Shortness of breath COMPARISON: 10/16/2024 FINDINGS: A frontal projection of the chest was obtained. Mild bilateral pulmonary infiltrates are seen may be related to mild pulmonary vascular congestion with possible superimposed pneumonitis. The heart is borderline enlarged. Degenerative changes are seen. No evidence of aortic calcification is seen. IMPRESSION: 1. Mild bilateral pulmonary infiltrates are seen may be related to mild pulmonary vascular congestion with possible superimposed pneumonitis. DICTATED BY: YONI HERNANDEZ MD DATE: 10/20/242025 ELECTRONICALLY SIGNED BY: YONI HERNANDEZ MD DATE: 10/20/242029 ASSESSMENT: Sepsis secondary to pneumonia Acute respiratory failure POA, requiring oxygen supplementation Pneumonia due to ESBL producing organism POA Mild interstitial fibrosis, per CT on 10/16/2024 COPD exacerbation, POA Fluid overload, POA Bilateral renal cysts with the largest on the right measuring 9.8 cm. Lactic acidosis Anemia of chronic disease Thrombocytosis Acute on chronic renal failure, GFR 42 Diabetes mellitus with hyperglycemia Hypoalbuminemia Morbid obesity, BMI 42 Chronic problem list: Asthma, COPD, hypertension, hypothyroidism, renal insufficiency, ovarian surgery PLAN: Continue to monitor the patient on Medical floor with continuous telemetry monitoring Sepsis secondary to pneumonia Acute respiratory failure POA, requiring oxygen supplementation Mild interstitial fibrosis, per CT on 10/16/2024 COPD exacerbation, POA Pneumonia due to ESBL producing organism POA We will obtain blood culture. Continue Monitor respiratory status closely. Continue oxygen therapy as needed. Titrate oxygen prn to keep Spo2>/+=92%. Continue Albuterol and Atrovent scheduled. -RT to provide IS and education on use. Sputum g stain showed 2+ g negative rods. Respiratory culture showed 3+ Gram- negative rods, ESBL sensitive to IV Zosyn and meropenem ID consult appreciated and recommended IV Zosyn for 10 [facility]. Case management will work on insurance approval. Continue Robitussin DM as needed cough. Continue prednisone 40 mg once a day Urine analysis is negative for UTI and shows elevated urine protein 20 and urine glucose 70 Pulmonology consult appreciated and recommended outpatient follow up after 1 week of discharge Patient will get home oxygen on discharge We will obtain bedside swallow study. Fluid overload, POA Decrease the dose of Lasix to 20 mg IV daily 2D echo showed EF 60-65% and indeterminate diastolic dysfunction Acute on chronic renal failure, GFR 42 BUN went up from 50 to 52 and creatinine went up from 1.9 To 2.1 Fluid restrictions a 1200 mL. Strict I&Os. We will consult Nephrology for further evaluation Anemia of chronic disease POA Her hemoglobin stable at 8.4 Iron studies showed iron 14, TIBC 362, saturation 3.8%. We will obtain occult stool test. We will give her 3rd dose of IV iron sucrose today Diabetes mellitus with hyperglycemia Glucometer checks AC & HS needed with insulin regular sliding scale coverage as needed. Hypothyroidism TSH level is 0.25 And free T3 1.15, free T4 1.21 Hold levothyroxine -GI and DVT prophylaxis: Pepcid and Lovenox -PRN medications for: Pain management, fever, hypertension, N/V, constipation. ATTESTATION BY PHYSICIAN I have seen and examined the patient. I reviewed the documentation, medical decision making, and treatment plan as noted by the resident provider above. I agree with the findings and plan of care. Ata Navarrete MD, KRUPALI P MD Oct 21, 2024 15:10
--- NOTE | 2024-10-21 15:24 | NUR ---
SPEECH NOTE: COVER SEAMER coordinated with nurse Darrell and Delaney. Orders to evaluate patient's swallowing received; however, will be placed on hold until patient is no longer on nonrebreather (15LO2) and tolerating regular nasal cannula or room air. All questions answered. Addendum: 10/21/[address] [facility] ANDR[facility] Amended: Links added.
[2024-10-21 23:17] LABS: APPEARANCE,URINE CLEAR (CLEAR); BILIRUBIN,URINE NEGATIVE (NEGATIVE); COLOR,URINE LIGHT-YELLOW (YELLOW); GLUCOSE, URINE (UA) NEGATIVE (NEGATIVE); KETONES,URINE NEGATIVE (NEGATIVE); LEUKOCYTE ESTERASE ,URINE NEGATIVE Leu/uL (NEGATIVE); NITRATE,URINE NEGATIVE (NEGATIVE); OCCULT BLOOD,URINE SMALL (NEGATIVE); PROTEIN,URINE NEGATIVE (NEGATIVE); UROBILINOGEN,URINE 0.2 mg/dL (0.2-1.0)
[2024-10-21 23:19] LABS: CHLORIDE,URINE RANDOM 115 mmol/L (110-250); POTASSIUM,URINE RANDOM 19 mmol/L (25-125); SODIUM,URINE RANDOM 113 mmol/l (40-220)
[2024-10-21 23:23] LABS: ADD UA MICROSCOPIC YES
[2024-10-21 23:33] LABS: BACTERIA,URINE RARE /HPF (None Seen); MUCUS,URINE RARE LPF (None Seen); RBC,URINE 0-1 /HPF (0-1); SQUAMOUS EPITHELIAL CELL,UR RARE /HPF (0-2); WBC,URINE 0-1 /HPF (0-1)
[2024-10-21] MEDS: ZOSYN 3.375GM +NS 50ML IV SCH (23:55)
[2024-10-22] VITALS (28 sets, daily range): BP systolic 106–138; BP diastolic 45–78; PULSE 68–108; RESP 17–33; TEMP 97.6–98.7; O2SAT 98–99
--- NOTE | 2024-10-22 00:45 | CONS ---
REASON FOR CONSULTATION: Renal failure. HISTORY OF PRESENT ILLNESS: This lady has multiple medical problems, underlying COPD, asthma, hypertension, hypothyroidism, and underlying CKD. The patient is admitted for shortness of breath. The patient has interstitial fibrosis detected by CT scan, as well as bilateral renal cysts, which are quite large. The patient now is admitted and found to have a rising BUN and creatinine. The patient also has underlying leukocytosis, which is worsening. The patient is on broad-spectrum antibiotics. The patient has multiple other comorbidities. PAST MEDICAL HISTORY: As above with significant for underlying COPD, asthma, hypertension, hypothyroidism, CKD, previous smoking and now renal cyst detected. PAST SURGICAL HISTORY: Ovarian surgery. SOCIAL HISTORY: Smoking present. No alcohol or drug abuse. FAMILY HISTORY: Unremarkable for present contacts. ALLERGIES: No allergies reported. REVIEW OF SYSTEMS: CONSTITUTIONAL: The patient has subjective fever. No chills or rigors. HEENT: With no headache, oral ulcer, sore throat, or difficulty swallowing. RESPIRATORY: Has shortness of breath. The patient has cough and has interstitial fibrosis on CT scan. CARDIOVASCULAR: Has shortness of breath. No chest pain. GASTROINTESTINAL: Negative for nausea, vomiting, or diarrhea. GENITOURINARY: Negative for dysuria or hematuria. ENDOCRINE: No polyuria, polydipsia, polyphagia. PSYCHIATRIC: Review is negative for anxiety, depression, or hallucinations. MUSCULOSKELETAL: With no joint swelling, redness, or inflammation. DERMATOLOGIC: No rashes, pruritus, or skin lesion. NEUROLOGIC: No seizures or syncope. Other systemic review is unchanged and unremarkable. PHYSICAL EXAMINATION: GENERAL: Pale, no other distress or deformities, lying in bed, obese. VITAL SIGNS: Blood pressure is 108/54, pulse 94, respiratory rate 21. HEENT: Head is atraumatic, normocephalic. Pupils are round and active. Sclerae are anicteric. Conjunctivae not pale. Oral mucosa is not dry. NECK: Supple. No masses or bruits. Thyroid is palpable. Neck has no bruits. CHEST: Shows equal thoracic movement. Percussion note being resonant in all areas. CARDIAC: Regular rhythm. No rub, no S3 or S4. No parasternal heave. Apical breath is not localized. ABDOMEN: With no guarding, tenderness. Bowel sounds are normoactive. No free fluid. EXTREMITIES: With edema and no cyanosis, clubbing. BACK: No tenderness or back deformities. LYMPHATIC: With no lymph node swelling in the neck or axillary area. NEUROLOGIC: The patient is awake, alert, nonfocal. No cranial nerve palsies. LABORATORY DATA: Labs have been reviewed. White cell count worsened to 28,000, hemoglobin 9.2. Creatinine worsened ____, BUN of 42. The electrolytes are reviewed and the patient has urine showing mild proteinuria. Serologies including influenza and COVID were negative initially. The patient has shown sputum culture positive for ESBL. DIAGNOSTIC STUDIES: We have reviewed the imaging studies personally with x-ray chest showing bilateral pulmonary infiltrates with echocardiogram showing ejection fraction is 60-65%. Labs, x-rays were personally reviewed and interpreted. All the imaging studies are reviewed. A 2D echo has been reviewed and CT chest was reviewed with ____ fibrosis. PROBLEMS: This patient has, * Acute renal failure. * Underlying chronic kidney disease, possible. * Sepsis. * Pneumonia. * Underlying obesity, COPD, hypertension, smoking before, hypothyroidism, and other comorbidities. The patient is critically ill. The patient is quite sick, obese. Multiple other comorbidities are present. PLAN: At this time, * The patient is started on Zosyn. * Doses to be adjusted. * Urinalysis. * Renal ultrasound to see the kidney size. * Urine electrolytes. * Intake, output, weight, and overall status to be monitored. * IV Dilaudid can be used for pain 0.5 q.6 h. * CBC and CMP again. * We have discussed with other team physicians. * We have reviewed the previous x-rays, labs, and imaging studies personally. * We had reviewed the previous record, external records in detail. * Contrast should be avoided. Intake, output, weight will be monitored. Overall, condition remained guarded. Blood pressure to be monitored. The patient's condition is guarded and critical in ICU with respiratory distress with hypoxemic respiratory failure. Thank you for this patient. TID: [id number] RECEIPT: [id number]
[2024-10-22 04:11] LABS: BASOPHILS # (AUTO) 0.03 K/uL (0.00-0.20); BASOPHILS % (AUTO) 0.2 % (0.0-5.0); EOSINOPHILS # (AUTO) 0.08 K/uL (0.00-0.70); EOSINOPHILS % (AUTO) 0.4 % (0.0-8.0); HEMATOCRIT 29.5 % (36-48); IMMATURE GRANULOCYTE ABSOLUTE 0.47 K/uL (0-1); LYMPHOCYTES # (AUTO) 0.6 K/uL (1.0-4.8); LYMPHOCYTES % (AUTO) 3.1 % (21.0-51.0); MEAN CORPUSCULAR HEMOGLOBIN 22.9 pg (27.0-33.0); MEAN CORPUSCULAR HGB CONC 29.8 g/dL (32.0-36.0); MEAN CORPUSCULAR VOLUME 76.6 fL (79-99); MONOCYTES # (AUTO) 0.4 K/uL (0.1-1.0); MONOCYTES % (AUTO) 2.1 % (3.0-13.0); NEUTROPHILS # (AUTO) 18.2 K/uL (1.8-7.7); NEUTROPHILS % (AUTO) 91.8 % (40.0-77.0); NUCLEATED RED BLOOD CELLS 0.3 % (0.0-0.19); PLATELET COUNT (AUTO) 251 K/uL (130-400); RED BLOOD CELL COUNT(AUTO) 3.85 MIL/uL (4.00-5.50); RED CELL DISTRIBUTION WIDTH 21.2 % (11.0-15.5); WHITE BLOOD COUNT (AUTO) 19.8 K/uL (4.8-10.8)
[2024-10-22 04:38] LABS: % IRON SATURATION 12.5 % (22-44); ALBUMIN 2.3 g/dL (3.5-5.0); BILIRUBIN,TOTAL 0.7 mg/dL (0.2-1.0); CREATININE 1.8 mg/dL (0.5-1.0); MAGNESIUM 1.9 mg/dL (1.80-2.40); PHOSPHORUS 4.2 mg/dL (2.5-4.9); POTASSIUM 3.8 mmol/L (3.5-5.1); THYROID STIMULATING HORMONE 0.4 uIU/mL (0.36-3.74); TOTAL PROTEIN, SERUM 5.6 g/dL (6.0-8.3); URIC ACID 7.7 mg/dL (2.6-7.2)
--- NOTE | 2024-10-22 07:23 | EKG ---
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
[2024-10-22] MEDS ORDERED: furoSEMIDE 20MG VIAL IV SCH (09:00)
[2024-10-22] MEDS: miDODRine HCL 5 MG TABLET PO SCH (09:20)
[2024-10-22] MEDS: Vitamin B Complex/Vit C/Folic Acid PO SCH (09:20)
--- NOTE | 2024-10-22 09:39 | PN ---
[facility] PROGRESS NOTE Date Patient Seen: Oct 22, 2024 Time of Visit: 09:39 Supervising Physician:Stan Bravo MD Primary Care Physician: Sy Castillo MD Outpatient Specialists: Inpatient Consults:EARL, DR Lopez, DR Cevallos. Attending Dr Sauer PROBLEM LIST: Acute hypoxic respiratory failure POA, resolving Health care associated pneumonia with ESBL Ecoli Mild interstitial fibrosis, per CT on 10/16/2024 COPD exacerbation, POA Fluid overload, POA Bilateral renal cysts with the largest on the right measuring 9.8 cm. Lactic acidosis Anemia of chronic disease Thrombocytosis Acute on chronic renal failure, GFR 42 Diabetes mellitus with hyperglycemia Hypoalbuminemia Morbid obesity, BMI 42 Chronic problem list: Asthma, COPD, hypertension, hypothyroidism, renal insufficiency, ovarian surgery INTERVAL HISTORY: No major overnight events. Patient is off Levophed. She is hemodynamically stable with a blood pressure of 127/78 heart rate in the 80s saturating 99% with 3 L via nasal cannula and afebrile. Daily weight 100.7 kg same as yesterday. WBCs trending down 19.8 today down from 28.1. H&H is stable 8.8/29.5 decreasing slightly. Platelet count is normal. WBCs sodium 147 carbon dioxide 28 BUN 52 creatinine 1.8 GFR of 29 improving. Iron panel low. Lactic acid normalized 1.4. CRP 214.40. On Solu-Medrol 40 mg IV push daily. Chest x-ray with improvement from yesterday stable exam, consistent with a ammonia no pneumothorax. REVIEW OF SYSTEMS: General: No malaise or fever. Neurological: No fainting episodes or seizures. HEENT: No nasal congestion or nasal secretion. Respiratory: No cough, shortness of breath, or wheezing Cardiac: No chest pain or palpitations. Gastrointestinal: No vomiting or diarrhea. Genitourinary: No dysuria hematuria. Skin: No rashes or lesions. Hematological: No bruises or bleeding. Musculoskeletal: No joint pains or arthralgias. Psychiatric: No depression or panic attacks. PHYSICAL EXAM: GENERAL: alert, weak, awake oriented x 3 HEENT: EOMI, Sclera non icteric, moist mucosa NECK: Supple, no JVD, trachea midline LUNGS: Decreased breath sounds bilaterally. No wheezes HEART: Regular rate and rhythm. Normal S1 and S2, without murmurs ABD: Abdomen soft, nontender. Bowel sounds present EXT: No clubbing cyanosis or edema NEURO: Alert and oriented to person, follows commands Vital Signs (last 8hr) Date Time Temp Pulse Resp B/P (MAP) Pulse Ox O2 Delivery O2 Flow Rate FiO2 10/22/24 07:15 86 21 N/Cannula Low lpm 2.0 28 10/22/24 06:54 83 21 10/22/24 05:00 88 21 106/57 99 10/22/24 04:00 98 Nasal Cannula* 4 36 10/22/24 04:00 98.8 96 24 118/48 100 10/22/24 03:10 103 21 40 10/22/24 03:00 96 17 118/48 98 10/22/24 02:00 102 21 126/56 98 LABS: Hematology Labs: Test 10/22/24 03:50 Range/Units White Blood Count 19.8 #H 4.8-10.8 K/uL Red Blood Count 3.85 L 4.00-5.50 MIL/uL Hemoglobin 8.8 L 12.0-16.0 g/dL Hematocrit 29.5 L 36-48 % Mean Corpuscular Volume 76.6 L 79-99 fL Mean Corpuscular Hemoglobin 22.9 L 27.0-33.0 pg Mean Corpuscular Hemoglobin Concent 29.8 L 32.0-36.0 g/dL Red Cell Distribution Width 21.2 H 11.0-15.5 % Platelet Count 251 130-400 K/uL Mean Platelet Volume 9.2 7.5-10.5 fL Immature Granulocyte % (Auto) 2.4 H 0-1 % Neutrophils (%) (Auto) 91.8 H 40.0-77.0 % Lymphocytes (%) (Auto) 3.1 L 21.0-51.0 % Monocytes (%) (Auto) 2.1 L 3.0-13.0 % Eosinophils (%) (Auto) 0.4 0.0-8.0 % Basophils (%) (Auto) 0.2 0.0-5.0 % Neutrophils # (Auto) 18.2 H 1.8-7.7 K/uL Lymphocytes # (Auto) 0.6 L 1.0-4.8 K/uL Monocytes # (Auto) 0.4 0.1-1.0 K/uL Eosinophils # (Auto) 0.08 0.00-0.70 K/uL Basophils # (Auto) 0.03 0.00-0.20 K/uL Absolute Immature Granulocyte (auto 0.47 0-1 K/uL Nucleated Red Blood Cells 0.3 H 0.0-0.19 % Chemistry Labs: Test 10/22/24 03:50 10/21/24 21:11 10/21/24 03:50 10/20/24 15:59 Range/Units Sodium Level 147 H 136-145 mmol/L Potassium Level 3.8 3.5-5.1 mmol/L Chloride Level 110 101-111 mmol/L Carbon Dioxide Level 28 21-32 mmol/L Blood Urea Nitrogen 52 H 7-18 mg/dL Creatinine 1.8 H 0.5-1.0 mg/dL Glomerular Filtration Rate Calc 29 >90 mL/min Random Glucose 123 H 70-105 mg/dL Uric Acid 7.7 H 2.6-7.2 mg/dL Total Calcium 8.9 8.5-10.1 mg/dL Phosphorus Level 4.2 2.5-4.9 mg/dL Magnesium Level 1.90 1.80-2.40 mg/dL Iron Level 27 #L 50-170 mcg/dL Total Iron Binding Capacity 215 L 250-450 mcg/dL Percent Iron Saturation 12.5 L 22-44 % Ferritin 875 H 15-150 ng/mL Total Bilirubin 0.7 0.2-1.0 mg/dL Aspartate Amino Transf (AST/SGOT) 26 10-37 U/L Alanine Aminotransferase (ALT/SGPT) 32 12-78 U/L Alkaline Phosphatase 61 50-136 U/L Total Protein 5.6 L 6.0-8.3 g/dL Albumin 2.3 L 3.5-5.0 g/dL Thyroid Stimulating Hormone (TSH) 0.40 # 0.36-3.74 uIU/mL Whole Blood Glucose 131 H 70-110 MG/DL B-Type Natriuretic Peptide 110 H 0-100 pg/mL Bedside Glucose Comment Notified Nurse Coagulation Labs: Test 10/20/24 15:00 Range/Units Prothrombin Time 11.4 9.6-11.6 SEC Prothromb Time International Ratio 1.08 0.85-1.15 Activated Partial Thromboplast Time 43.9 H 26.3-35.5 SEC DIAGNOSTICS / RADIOLOGY RESULTS: [ ] Signed PATIENT: MORRIS LANGSTON MR#: [id number] : 1945 SEX: F AGE: 79 LOCATION: 2BH ORDER 2300 STATUS: ADM IN REPORT#: [id number] SERVICE 0600 REASON: to r/o aspiration pneumonia ORDERING PHYSICIAN: IMANI ALDRIDGE MD PROCEDURE: CXR1VW - CHEST 1VW Exam Type: CHEST 1VW Clinical Information: to r/o aspiration pneumonia Comparison: None Findings: Pulmonary pattern is as before. No worrisome interval changes have taken place. Impression: Stable exam. DICTATED BY: CARLA GONZALEZ MD DATE: 10/22/24939 ELECTRONICALLY SIGNED BY: CARLA GONZALEZ MD DATE: 10/22/24941 PLAN renally adjust medication hold ARB continue steroids and wean as tolerated. Continue Abx per ID continue bronchodilators Monitor Procalcitonin monitor daily weights, conside diuretics if s/s of hypervolemia for now we can hold due to WICHO NEURO: Minimize central acting medications as possible. Fall Precautions. Well lighted room through the day and minimize interruptions through the night to prevent acute delirium. PULMONARY: Supplemental 02 as needed Titrate Fio2 to keep Spo2 > or = 90% DuoNebs and CPT as needed IS hourly while awake for pulmonary hygiene Out of bed to chair as tolerated CARDIOVASCULAR: Follow hemodynamics. Titrate vasopressor to keep MAP >65 or systolic blood pressure >95mmHg DIPS: levophed off LINES: piv GI & NUTRITION: Continue nutritional support Aspirations precautions Prokinetic agents and laxatives as needed KIDNEYS & ELECTROLYTES: Strict monitoring of intake and output Daily weights Avoid nephrotoxic agents Monitor electrolytes and replace as needed Goal urine output of 30mL/hr or 0.5mL/kg/hr Urine output: [ ] Fluid Balance: [ ] ENDOCRINE: Maintain blood glucose between 100-180 at all times. Insulin sliding scale for blood glucose management INFECTIOUS DISEASE: Trend temperature. Lowe-culture if febrile. ABX per ID Micro: [ ] E Coli ESBL in the sputum Antibiotics: [ ] Zosyn HEMATOLOGY & COAGULATION: Monitor H&H. Keep Hgb > 7 Transfuse 1 unit of PRBC for Hgb < 7 Transfuse 1 pack of platelets of platelets < 20, 000 Watch for any signs and symptoms of bleeding SKIN: Pressure ulcer prevention per facility protocol Rehab: PT/OT Prophylaxis: GI: Famotidine DVT: Lovenox Code Status: Full Resuscitation Disposition: stable to downgrade to medical surgical Other: Total patient care time exceeds 35 minutes excluding all procedures. Case was discussed and seen with my supervising physician. The above plan was formulated and agreed upon. ATTESTATION BY PHYSICIAN I attest that I reviewed and discussed the case with the Physician [employer] Production Team Member as well as agree with the Physician [employer] Production Team Member's findings, plans of care, and documentation above. Stan Pearson MD, [facility] Oct 22, 2024 09:39
--- NOTE | 2024-10-22 09:42 | HMCIMG ---
Exam Type: CHEST 1VW Clinical Information: to r/o aspiration pneumonia Comparison: None Findings: Pulmonary pattern is as before. No worrisome interval changes have taken place. Impression: Stable exam.
[2024-10-22] MEDS: SPIRONOLACTONE 25 MG TAB PO SCH (11:35)
--- NOTE | 2024-10-22 12:49 | NUR ---
cm note spoke to Kim at [facility] and states pt is approved for iv antibiotics. apppt: 10/23/24 at 10am. pt can keep appointment for 10am if discharges over the weekend.
--- NOTE | 2024-10-22 13:41 | PN ---
INFECTIOUS DISEASE PROGRESS NOTE Date of Service: Oct 22, 2024 SUBJECTIVE: This is a 79-year-old female patient who was seen and examined at bedside in room 208. Patient is awake, alert and oriented x3. Patient is sitting up on the recliner and is now on oxygen via nasal cannula at 3 L/min. Patient has been downgraded to medical-surgical and pending bed availability. No fever, temperature is 97.5 and a WBC of 19.8 which trended down from 28.1 yesterday. We will continue on Zosyn IV. No other issues reported by nursing. PHYSICAL EXAM EYES: Anicteric. Pupils equal and reactive. HENT: No oral thrush seen, moist Oral mucosa. NECK: Supple, no JVD or thyromegaly. LUNGS: Good air entry. Shortness of breaths. Diminished breath sounds. Oxygen support. CARDIOVASCULAR: S1, S2 regular. No murmur heard. ABDOMEN: Soft, non tender, bowel sounds present, no organomegaly. CENTRAL NERVOUS SYSTEM: Awake, alert, oriented x 3. SKIN: No rashes, no swelling. LYMPHATICS: No peripheral lymphadenopathy. MUSCULOSKELETAL: No joint swelling, erythema or tenderness. EXTREMITIES: No cyanosis or clubbing. BACK: No deformity, no pressure ulcer. GENITOURINARY: No dysuria or hematuria. Vital Sign (Last 12 Hours) 10/22/24 10/22/24 10/22/24 10/22/24 02:00 03:00 03:10 04:00 Temp 98.8 Pulse 102 96 103 96 Resp 21 17 21 24 B/P (MAP) 126/56 118/48 118/48 Pulse Ox 98 98 100 FiO2 40 10/22/24 10/22/24 10/22/24 10/22/24 04:00 05:00 06:54 07:04 Temp 98.1 Pulse 88 83 83 Resp 21 21 27 B/P (MAP) 106/57 118/51 Pulse Ox 98 99 96 O2 Delivery Nasal Cannula* Nasal Cannula O2 Flow Rate 4 3.0 FiO2 36 10/22/24 10/22/24 10/22/24 10/22/24 07:15 07:30 07:45 08:45 Pulse 86 87 86 Resp 21 19 21 B/P (MAP) 118/58 121/46 Pulse Ox 98 95 97 O2 Delivery N/Cannula Low lpm Nasal Cannula* Nasal Cannula Nasal Cannula O2 Flow Rate 2.0 3 3.0 3.0 FiO2 28 32 10/22/24 10/22/24 10/22/24 10/22/24 09:44 10:44 11:00 11:15 Temp 97.5 Pulse 91 80 83 88 Resp 33 27 21 22 B/P (MAP) 138/67 132/70 Pulse Ox 92 95 95 94 O2 Delivery Nasal Cannula Nasal Cannula Nasal Cannula Nasal Cannula O2 Flow Rate 3.0 3.0 3.0 3.0 10/22/24 10/22/24 11:44 11:54 Pulse 83 80 Resp 26 21 B/P (MAP) 127/78 Pulse Ox 99 O2 Delivery Nasal Cannula O2 Flow Rate 3.0 LABS: Laboratory: Test 10/22/24 09:35 10/22/24 03:50 10/21/24 23:01 10/21/24 21:11 Range/Units Erythrocyte Sedimentation Rate 37 H 0-30 MM/HR Lactic Acid Level 1.4 0.8-2.5 mmol/L Phosphorus Level 4.0 2.5-4.9 mg/dL C-Reactive Protein, Quantitative 214.40 H 0.5-3.0 mg/L Procalcitonin 20.87 H 0.05-0.5 ng/mL White Blood Count 19.8 #H 4.8-10.8 K/uL Red Blood Count 3.85 L 4.00-5.50 MIL/uL Hemoglobin 8.8 L 12.0-16.0 g/dL Hematocrit 29.5 L 36-48 % Mean Corpuscular Volume 76.6 L 79-99 fL Mean Corpuscular Hemoglobin 22.9 L 27.0-33.0 pg Mean Corpuscular Hemoglobin Concent 29.8 L 32.0-36.0 g/dL Red Cell Distribution Width 21.2 H 11.0-15.5 % Platelet Count 251 130-400 K/uL Mean Platelet Volume 9.2 7.5-10.5 fL Immature Granulocyte % (Auto) 2.4 H 0-1 % Neutrophils (%) (Auto) 91.8 H 40.0-77.0 % Lymphocytes (%) (Auto) 3.1 L 21.0-51.0 % Monocytes (%) (Auto) 2.1 L 3.0-13.0 % Eosinophils (%) (Auto) 0.4 0.0-8.0 % Basophils (%) (Auto) 0.2 0.0-5.0 % Neutrophils # (Auto) 18.2 H 1.8-7.7 K/uL Lymphocytes # (Auto) 0.6 L 1.0-4.8 K/uL Monocytes # (Auto) 0.4 0.1-1.0 K/uL Eosinophils # (Auto) 0.08 0.00-0.70 K/uL Basophils # (Auto) 0.03 0.00-0.20 K/uL Absolute Immature Granulocyte (auto 0.47 0-1 K/uL Nucleated Red Blood Cells 0.3 H 0.0-0.19 % Sodium Level 147 H 136-145 mmol/L Potassium Level 3.8 3.5-5.1 mmol/L Chloride Level 110 101-111 mmol/L Carbon Dioxide Level 28 21-32 mmol/L Blood Urea Nitrogen 52 H 7-18 mg/dL Creatinine 1.8 H 0.5-1.0 mg/dL Glomerular Filtration Rate Calc 29 >90 mL/min Random Glucose 123 H 70-105 mg/dL Uric Acid 7.7 H 2.6-7.2 mg/dL Total Calcium 8.9 8.5-10.1 mg/dL Magnesium Level 1.90 1.80-2.40 mg/dL Iron Level 27 #L 50-170 mcg/dL Total Iron Binding Capacity 215 L 250-450 mcg/dL Percent Iron Saturation 12.5 L 22-44 % Ferritin 875 H 15-150 ng/mL Total Bilirubin 0.7 0.2-1.0 mg/dL Aspartate Amino Transf (AST/SGOT) 26 10-37 U/L Alanine Aminotransferase (ALT/SGPT) 32 12-78 U/L Alkaline Phosphatase 61 50-136 U/L Total Protein 5.6 L 6.0-8.3 g/dL Albumin 2.3 L 3.5-5.0 g/dL Thyroid Stimulating Hormone (TSH) 0.40 # 0.36-3.74 uIU/mL Urine Color LIGHT-YELLOW YELLOW Urine Appearance CLEAR CLEAR Urine pH 5.0 5.0-8.0 Urine Specific [place] 1.012 1.001-1.031 Urine Protein NEGATIVE NEGATIVE mg/dL Urine Glucose (UA) NEGATIVE NEGATIVE mg/dL Urine Ketones NEGATIVE NEGATIVE mg/dL Urine Occult Blood SMALL H NEGATIVE Urine Nitrate NEGATIVE NEGATIVE Urine Bilirubin NEGATIVE NEGATIVE mg/dL Urine Urobilinogen 0.2 0.2-1.0 mg/dL Urine Leukocyte Esterase NEGATIVE NEGATIVE Adrian/uL Urine RBC 0-1 0-1 /HPF Urine WBC 0-1 0-1 /HPF Urine Squamous Epithelial Cells RARE 0-2 /HPF Urine Bacteria RARE None Seen /HPF Urine Random Creatinine 43.60 30-135 mg/dL Urine Random Sodium 113 40-220 mmol/l Urine Random Potassium 19 L 25-125 mmol/L Urine Random Chloride 115 110-250 mmol/L Whole Blood Glucose 131 H 70-110 MG/DL Test 10/21/24 03:50 10/20/24 23:41 10/20/24 20:04 10/20/24 15:59 Range/Units B-Type Natriuretic Peptide 110 H 0-100 pg/mL Blood Gas Specimen Type Arterial Arterial Blood pH 7.369 7.350-7.450 Arterial Blood Partial Pressure CO2 42 32-45 mmHg Arterial Blood Partial Pressure O2 99.9 83.0-108.0 mmHg Arterial Blood HCO3 23.5 21.0-28.0 mmol/L Arterial Blood Oxygen Saturation 96.9 94.0-98.0 % Arterial Blood Base Excess -1.7 -2.0-3.0 mmol/L Hemoglobin (Blood Gas) 10.8 L 12.0-16.0 g/dL Sodium (Blood Gas) 143 136-145 MMOL/L Bedside Potassium (Blood Gas) 3.7 3.4-4.5 MMOL/L Bedside Chloride (Blood Gas) 107 98-107 MMOL/L Bedside Glucose (Blood Gas) 164 H 65-95 MG/DL Bedside Ionized Calcium (Blood Gas) 1.26 1.15-1.33 MMOL/L Bedside Lactic Acid (Blood Gas) 2.56 H 0.36-0.75 MMOL/L Blood Gas Temperature 37.0 35.5-37.0 CELSIUS Blood Gas Respiration Rate 20.0 min. Blood Gas Vent Mode [id number] ROOM AIR FiO2 40.0 % Blood Gas Specimen Comment LR Blood Gas Flow-by 15.00 0.00-15.00 L/min Bedside Glucose Comment Notified Nurse Test 10/20/24 15:00 Range/Units Prothrombin Time 11.4 9.6-11.6 SEC Prothromb Time International Ratio 1.08 0.85-1.15 Activated Partial Thromboplast Time 43.9 H 26.3-35.5 SEC ASSESSMENT: Acute hypoxic respiratory failure requiring oxygen support. Pneumonia with E coli infection. Infection with multidrug resistant organism. Leukocytosis. COPD exacerbation. Chronic tobacco use. PLAN: Continue Zosyn. Continue oxygen support. Continue GI prophylaxis. Continue bronchodilators. Patient has been referred to [facility] for outpatient IV antibiotics. Prescription was written. This case was reviewed and discussed with my supervising physician and the above assessment and plan was formulated and agreed upon.. ATTESTATION BY PHYSICIAN I have seen and examined the patient. I reviewed the documentation, medical decision making, and treatment plan as noted by the mid-level provider above. I agree with the findings and plan of care. ATA CARSON MD, [facility]TA [facility] Oct 22, 2024 13:41
--- NOTE | 2024-10-22 14:30 | NUR ---
BEDSIDE SWALLOW EVAL COMPLETED. No s/s of aspiration. Recommend regular solids, thin liquids and pills whole with liquids as tolerated. TREATING ENGINEER reviewed results and recommendations with patient and nurse Marylou. TREATING ENGINEER educated patient/family on risks and consequences of aspiration. Speech therapy not warranted at this time. All questions answered. Addendum: 10/22/[address] [facility]ARENCE ANDRADE Amended: Links added.
--- NOTE | 2024-10-22 16:03 | PN ---
[facility] PROGRESS NOTE Date of Service: Oct 22, 2024 Time of Service: 15:56 SUBJECTIVE: Ms. Palafox is a 79-year-old female with a history of tobacco dependent, COPD, asthma, hypertension, hypothyroidism, and renal disease who presented to [facility] for evaluation of shortness of breath over the past few weeks worsening today. The patient reported that she has been seen multiple times in the clinic setting for subjective fever last week. The patient was placed on steroids and nebulized treatments with no improvement which prompted the ED visit. In ED the patient was administered Solu-Medrol 80 mg IV, DuoNeb treatments, and Rocephin2 g. ED provider requested patient be admitted to the [facility] hospitalist team with the diagnosis of acute respiratory distress and acute exacerbation of COPD with asthma. Labs reviewed. Troponin negative. ABGs WNL, PO2 107, on 3 L. influenza and COVID are negative. BNP 115. D-dimer a 1403. CT chest without contrast: There are mild interstitial fibrosis. Bilateral renal cysts with the largest on the right measuring 9.8 cm. No evidence of pulmonary nodules or effusions. 10/17/24 the patient is seen and examined today morning, with her family at the bedside. She stated that her breathing is better today she and she saturating 98% on1 L of oxygen via nasal cannula. We will try to wean her off. Vitals are stable. She is complaining of productive cough and we will get the sputum culture. Pulmonology consult pending. V/Q scan pending. 2D echo results pending. Her WBC went down. Her hemoglobin dropped down to 8.5 from 9.7, MCV 77.2. We will order iron panel studies. TSH 0.25 And we will hold her antithyroid medications at the moment. We will get T3 and T4 levels. Chest x- ray showed vascular congestion, edema versus pneumonia, mild cardiomegaly. Venous Doppler negative for DVT. 10/18/24 patient seen and examined today. Her vitals are stable. She is saturating well with 96% on room air. She denies shortness of breath at the moment. Sputum Gram stain showed 2+ Gram-negative rods and pending culture results. Continue Rocephin and Solu-Medrol 40. Potassium is 3.4 And replaced with p.o. potassium chloride. BUN went up 26 to 33and creatinine went up from 1.1 to 1.3 today. Iron panel studies show iron 14, TIBC 362 and % saturation 3.8% she has suggestive of iron deficiency anemia. Check stool occult blood and we will order IV iron sucrose. Free T3 1.15. 2D echo showed EF 60-65% and indeterminate diastolic dysfunction. Consult PT OT for ambulation 10/19/24 patient is seen and evaluated today. She is seen sitting comfortably in chair with ongoing nebulizer treatment. Patient had a failed 6 minute walk today, her oxygen saturation dropped down to 85% and her heart rate went up to 150s. She will require home oxygen on discharge. We will consult case management for arranging home O2 requirement. Continue Rocephin and doxycycline IV. On examination bilateral wheezing are present. Respiratory culture showed 3+ Gram-negative rods and identification and sensitivity to follow. Hemoglobin 8.4 and we will continue with IV Venofer. BUN went up 33 to 42and creatinine stable at 1.3. 10/20/24 the patient is seen and examined today with her son at the bedside. She states her breathing is better, bilateral lower extremity edema has improved today. However her respiratory culture is positive for ESBL which is sensitive to IV Zosyn and meropenem. Infectious Disease consulted and recommended IV Zosyn for 10 days at [facility]. We will let the case management know regarding the plan. Her WBC went up from 9.8 to 11.6 today 10/21/24 patient is seen and examined today morning. She was transferred to ICU last night because of respiratory failure with hypotension blood pressure of 77/41, tachycardia heart rate in 130s and tachypnea in 30s. She was put on BiPAP last night and today morning she is saturating 96% on15 L non-rebreather mask. Her blood pressure is 121/58. Her WBC went up from 18.7 to 28.1. BUN went up 50 to 52. Creatinine went up from 1.9 to 2.1. I will decrease the dose of Lasix to 20 mg daily. Bedside swallow study ordered. We will consult Nephrology for [facility]. We will continue to monitor the patient closely 10/22/24 patient seen and examined today morning. She says her breathing is better and she is saturating 99% on2 L O2 via nasal cannula. Blood pressure 106/57. WBC came down to 19.8 from 28.1. FENA is 3.2%. Nephrology is already on the board and we will follow their recommendations. We will switch her p.o. steroids to IV steroids. We will repeat blood culture. REVIEW OF SYSTEMS CONSTITUTIONAL: Denies fevers, chills, or night sweats. No unintentional weight loss reported. NEUROLOGICAL: Denies headache, amaurosis fugax, motor weakness, sensory deficit, vertigo/spinning sensation, gait abnormalities, or tremors. ENT: No hearing loss, otalgia, otorrhea, rhinitis, rhinorrhea, hoarseness, or sore throat. PULMONARY: shortness of breath, cough, phlegm/sputum. Denies hemoptysis, pleuritic chest pain. SLEEP: Denies morning headaches, daytime somnolence or napping. Denies difficulty falling asleep, staying asleep, waking from sleep. Denies knowledge of snoring. GASTROINTESTINAL: Denies any type of dysphagia to either liquids or solids. Denies nausea, vomiting, pyrosis, early satiety, abdominal pain, diarrhea, constipation, or changes in stool consistency or caliber. Denies coffee-ground emesis, hematemesis, hematochezia, or melanotic stools. GENITOURINARY: Denies frequency, urgency, nocturia, hematuria or incontinence (Storage/Irritative symptoms.) Low urinary stream, straining to void, urinary i ntermittency or hesitancy, splitting of the voiding stream, terminal dribbling. ENDOCRINOLOGIC: Denies polyuria, polydipsia, polyphagia or heat/cold intolerances. HEMATOLOGIC: Denies thrombophilia/previous clots, or coagulopathy/bleeding disorders. ONCOLOGIC: Denies personal history of malignancy. DERMATOLOGIC: Denies rashes or pruritus. PSYCHIATRIC: Denies any suicidal or homicidal ideation. Denies hallucinations. PHYSICAL EXAM GENERAL APPEARANCE: The patient is awake, alert, and oriented, in no acute cardiopulmonary distress. HEENT: Face is symmetric. Pupils are equal and reactive. Extraocular movements are intact. NECK: Supple. No JVD. No thyromegaly. No submental, submandibular, pre- /postauricular, occipital or supraclavicular lymphadenopathy. CHEST: Normal chest expansion. No Telemetry. LUNGS: Bilateral crackles are present CARDIOVASCULAR: Regular. S1 and S2 normal. No appreciable rubs, murmurs or gallops. Crackles. ABDOMEN: Obese. Obese. Soft, nontender, and nondistended. There is no rebound, voluntary guarding, or rigidity. EXTREMITIES: Improving bilateral pitting pedal edema. not cyanotic. No clubbing. Good capillary refill. SKIN: No skin breakdown. Vital Signs (last 8hr) Date Time Temp Pulse Resp B/P (MAP) Pulse Ox O2 Delivery O2 Flow Rate FiO2 10/22/24 14:30 98.1 82 18 121/45 99 Nasal Cannula 3.0 10/22/24 12:00 98 Nasal Cannula* 3 32 10/22/24 11:54 80 21 10/22/24 11:44 83 26 127/78 99 Nasal Cannula 3.0 10/22/24 11:15 97.5 88 22 94 Nasal Cannula 3.0 10/22/24 11:00 83 21 95 Nasal Cannula 3.0 10/22/24 10:44 80 27 132/70 95 Nasal Cannula 3.0 10/22/24 09:44 91 33 138/67 92 Nasal Cannula 3.0 10/22/24 08:45 86 21 121/46 97 Nasal Cannula 3.0 LABS: Laboratory: Test 10/22/24 15:42 10/22/24 09:35 10/22/24 03:50 10/21/24 23:01 Range/Units Whole Blood Glucose 201 #H 70-110 MG/DL Erythrocyte Sedimentation Rate 37 H 0-30 MM/HR Lactic Acid Level 1.4 0.8-2.5 mmol/L Phosphorus Level 4.0 2.5-4.9 mg/dL C-Reactive Protein, Quantitative 214.40 H 0.5-3.0 mg/L Procalcitonin 20.87 H 0.05-0.5 ng/mL White Blood Count 19.8 #H 4.8-10.8 K/uL Red Blood Count 3.85 L 4.00-5.50 MIL/uL Hemoglobin 8.8 L 12.0-16.0 g/dL Hematocrit 29.5 L 36-48 % Mean Corpuscular Volume 76.6 L 79-99 fL Mean Corpuscular Hemoglobin 22.9 L 27.0-33.0 pg Mean Corpuscular Hemoglobin Concent 29.8 L 32.0-36.0 g/dL Red Cell Distribution Width 21.2 H 11.0-15.5 % Platelet Count 251 130-400 K/uL Mean Platelet Volume 9.2 7.5-10.5 fL Immature Granulocyte % (Auto) 2.4 H 0-1 % Neutrophils (%) (Auto) 91.8 H 40.0-77.0 % Lymphocytes (%) (Auto) 3.1 L 21.0-51.0 % Monocytes (%) (Auto) 2.1 L 3.0-13.0 % Eosinophils (%) (Auto) 0.4 0.0-8.0 % Basophils (%) (Auto) 0.2 0.0-5.0 % Neutrophils # (Auto) 18.2 H 1.8-7.7 K/uL Lymphocytes # (Auto) 0.6 L 1.0-4.8 K/uL Monocytes # (Auto) 0.4 0.1-1.0 K/uL Eosinophils # (Auto) 0.08 0.00-0.70 K/uL Basophils # (Auto) 0.03 0.00-0.20 K/uL Absolute Immature Granulocyte (auto 0.47 0-1 K/uL Nucleated Red Blood Cells 0.3 H 0.0-0.19 % Sodium Level 147 H 136-145 mmol/L Potassium Level 3.8 3.5-5.1 mmol/L Chloride Level 110 101-111 mmol/L Carbon Dioxide Level 28 21-32 mmol/L Blood Urea Nitrogen 52 H 7-18 mg/dL Creatinine 1.8 H 0.5-1.0 mg/dL Glomerular Filtration Rate Calc 29 >90 mL/min Random Glucose 123 H 70-105 mg/dL Uric Acid 7.7 H 2.6-7.2 mg/dL Total Calcium 8.9 8.5-10.1 mg/dL Magnesium Level 1.90 1.80-2.40 mg/dL Iron Level 27 #L 50-170 mcg/dL Total Iron Binding Capacity 215 L 250-450 mcg/dL Percent Iron Saturation 12.5 L 22-44 % Ferritin 875 H 15-150 ng/mL Total Bilirubin 0.7 0.2-1.0 mg/dL Aspartate Amino Transf (AST/SGOT) 26 10-37 U/L Alanine Aminotransferase (ALT/SGPT) 32 12-78 U/L Alkaline Phosphatase 61 50-136 U/L Total Protein 5.6 L 6.0-8.3 g/dL Albumin 2.3 L 3.5-5.0 g/dL Thyroid Stimulating Hormone (TSH) 0.40 # 0.36-3.74 uIU/mL Urine Color LIGHT-YELLOW YELLOW Urine Appearance CLEAR CLEAR Urine pH 5.0 5.0-8.0 Urine Specific [place] 1.012 1.001-1.031 Urine Protein NEGATIVE NEGATIVE mg/dL Urine Glucose (UA) NEGATIVE NEGATIVE mg/dL Urine Ketones NEGATIVE NEGATIVE mg/dL Urine Occult Blood SMALL H NEGATIVE Urine Nitrate NEGATIVE NEGATIVE Urine Bilirubin NEGATIVE NEGATIVE mg/dL Urine Urobilinogen 0.2 0.2-1.0 mg/dL Urine Leukocyte Esterase NEGATIVE NEGATIVE Adrian/uL Urine RBC 0-1 0-1 /HPF Urine WBC 0-1 0-1 /HPF Urine Squamous Epithelial Cells RARE 0-2 /HPF Urine Bacteria RARE None Seen /HPF Urine Random Creatinine 43.60 30-135 mg/dL Urine Random Sodium 113 40-220 mmol/l Urine Random Potassium 19 L 25-125 mmol/L Urine Random Chloride 115 110-250 mmol/L Test 10/21/24 03:50 10/20/24 23:41 10/20/24 20:04 10/20/24 15:59 Range/Units B-Type Natriuretic Peptide 110 H 0-100 pg/mL Blood Gas Specimen Type Arterial Arterial Blood pH 7.369 7.350-7.450 Arterial Blood Partial Pressure CO2 42 32-45 mmHg Arterial Blood Partial Pressure O2 99.9 83.0-108.0 mmHg Arterial Blood HCO3 23.5 21.0-28.0 mmol/L Arterial Blood Oxygen Saturation 96.9 94.0-98.0 % Arterial Blood Base Excess -1.7 -2.0-3.0 mmol/L Hemoglobin (Blood Gas) 10.8 L 12.0-16.0 g/dL Sodium (Blood Gas) 143 136-145 MMOL/L Bedside Potassium (Blood Gas) 3.7 3.4-4.5 MMOL/L Bedside Chloride (Blood Gas) 107 98-107 MMOL/L Bedside Glucose (Blood Gas) 164 H 65-95 MG/DL Bedside Ionized Calcium (Blood Gas) 1.26 1.15-1.33 MMOL/L Bedside Lactic Acid (Blood Gas) 2.56 H 0.36-0.75 MMOL/L Blood Gas Temperature 37.0 35.5-37.0 CELSIUS Blood Gas Respiration Rate 20.0 min. Blood Gas Vent Mode [id number] ROOM AIR FiO2 40.0 % Blood Gas Specimen Comment LR Blood Gas Flow-by 15.00 0.00-15.00 L/min Bedside Glucose Comment Notified Nurse Current Medications Medications (Trade) Dose Ordered Sig/Tom Route PRN Reason Start Time Stop Time Status Last Admin Dose Admin Acetaminophen (TYLenol 325MG TAB) 650 mg Q6H PRN PO FEVER/MILD PAIN LEVEL 1-3 10/16/24 21:00 11/15/24 20:59 10/20/24 16:23 650 MG Acetaminophen (TYLenol 650MG SUPPOSITORY) 650 mg Q6H PRN RC FEVER / MILD PAIN 1-3 IF NPO 10/16/24 21:00 11/15/24 20:59 Albuterol (DUOneb) 1 udvial [id number] IH 10/17/24 00:00 11/16/24 00:00 10/22/24 11:54 1 UDVIAL Ceftriaxone Sodium (Rocephin 2gm Inj) 2 gm Q24H IVPB 10/17/24 09:00 10/20/24 12:28 DC 10/20/24 08:44 2 GM Dextrose (D50w) 50 ml AD PRN IV HYPOGLYCEMIA PROTOCOL 10/17/24 04:00 11/16/24 03:59 Docusate Sodium (COLace 100MG CAP) 100 mg BID PRN PO c 10/16/24 21:00 11/15/24 20:59 Doxycycline Hyclate 250 ml @ 125 mls/hr Q12H IV 10/16/24 20:30 10/20/24 12:28 DC 10/20/24 08:44 125 MLS/HR Enoxaparin Sodium (Lovenox) 40 mg DAILY SQ 10/17/24 09:00 11/16/24 08:59 10/22/24 09:20 40 MG Famotidine (Pepcid 20mg Vial) 20 mg DAILY IV 10/17/24 09:00 11/16/24 08:59 10/22/24 09:20 20 MG Furosemide (LASix 20MG VIAL) 20 mg DAILY IV 10/22/24 09:00 10/21/24 22:13 DC Furosemide (LASix 40MG VIAL) 40 mg DAILY IV 10/17/24 09:00 10/21/24 15:03 DC 10/21/24 09:17 40 MG Glucagon (Glucagon 1mg Kit) 1 mg AD PRN IM HYPOGLYCEMIA PROTOCOL 10/17/24 04:00 11/16/24 03:59 Guaifenesin/ Dextromethorphan (RobiTUSSin DM 200/20MG 10ML) 15 ml Q6H PRN PO COUGH 10/17/24 04:00 11/16/24 03:59 Home Med (Home Medication) DAILY IH 10/17/24 09:00 11/16/24 08:59 10/22/24 11:28 1 EACH Hydralazine HCl (APRESOLine 20MG INJ) 10 mg Q6H PRN IV SBP GREATER THAN 160 10/16/24 21:00 11/15/24 20:59 10/20/24 00:26 10 MG Insulin Human Regular (humuLIN R 100 UNIT/ML 3ML) INSULIN SLIDING SCAL... ACHS SQ 10/16/24 21:00 11/15/24 20:59 Iron Sucrose (VenoFER) 200 mg ONCE IV 10/18/24 14:00 10/18/24 13:43 DC Isosorbide Mononitrate (Imdur 30mg Sr) 30 mg DAILY PO 10/17/24 09:00 11/16/24 08:59 10/20/24 08:42 30 MG Lactulose (Constulose 20gm/ 30ml Udcup) 20 gm BID PRN PO CONSTIPATION 10/18/24 14:00 11/17/24 13:59 Lactulose (Constulose 20gm/ 30ml Udcup) 20 gm ONCE PO 10/18/24 14:00 10/18/24 13:43 DC Lactulose (Constulose 20gm/ 30ml Udcup) 20 gm Q6H PRN PO CONSTIPATION 10/16/24 21:00 10/18/24 13:44 DC Losartan Potassium (CozAAR 25MG TAB) 25 mg DAILY15 PO 10/17/24 15:00 10/21/24 14:02 DC 10/20/24 16:19 25 MG Magnesium Sulfate 50 ml @ 0 mls/hr PROTOCOL PRN IV MAGNESIUM PROTOCOL 10/17/24 04:00 11/16/24 03:59 Methylprednisolone Sodium Succinate (Solu-medROL 40MG) 40 mg BID IVP 10/18/24 09:00 10/19/24 23:00 DC 10/19/24 21:05 40 MG Methylprednisolone Sodium Succinate (Solu-medROL 125MG) 60 mg Q6H IVP 10/17/24 04:00 10/17/24 23:51 DC 10/17/24 21:03 60 MG Midodrine (PROAMatine 5 MG TABLET) 5 mg TID PO 10/22/24 09:00 11/21/24 08:59 10/22/24 14:43 5 MG Norepinephrine 250 ml @ 0 mls/hr AD PRN IV DIRECTED 10/21/24 00:00 11/20/24 00:00 10/21/24 00:16 30 MLS/HR Ondansetron HCl (zoFRAN 4MG INJ) 4 mg Q6H PRN IVP NAUSEA/VOMITING 10/16/24 21:00 11/15/24 20:59 Piperacillin Sod/ Tazobactam Sod (Zosyn 3.375gm+NS 50ml) 3.375 gm Q12H IV 10/22/24 00:30 10/30/24 12:29 10/22/24 11:29 3.375 GM Piperacillin Sod/ Tazobactam Sod (Zosyn 3.375gm+NS 50ml) 3.375 gm Q8H IV 10/20/24 12:30 10/21/24 14:02 DC 10/21/24 04:56 3.375 GM Potassium Chloride 100 ml @ 100 mls/hr AD PRN IV POTASSIUM PROTOCOL 10/17/24 04:00 11/16/24 03:59 Potassium Chloride (K-Dur 10meq Sr Tab) 10 meq AD PRN PO POTASSIUM PROTOCOL 10/18/24 08:30 11/16/24 03:59 10/18/24 11:13 10 MEQ Potassium Chloride (K-Dur/Klor-Con 20meq) 10 meq AD PRN PO POTASSIUM PROTOCOL 10/17/24 04:00 10/18/24 08:13 DC Potassium Chloride (KCl 10% Elixir 20meq/15ml) 10 meq AD PRN PO POTASSIUM PROTOCOL 10/17/24 04:00 11/16/24 03:59 Prednisone (deltaSONE/ oraSONE 20MG TAB) 40 mg DAILY PO 10/20/24 09:00 11/19/24 08:59 10/22/24 09:20 40 MG Spironolactone (Aldactone 25mg) 25 mg DAILY PO 10/22/24 10:00 11/21/24 09:59 10/22/24 11:35 25 MG Spironolactone (Aldactone 25mg) 25 mg DAILY15 PO 10/17/24 15:00 10/21/24 14:02 DC 10/20/24 16:19 25 MG Temazepam (restORIL 15 MG CAP) 15 mg HS PRN PO INSOMNIA/SLEEP 10/16/24 21:00 11/15/24 20:59 Vitamin B Complex/ Vit C/Folic Acid (Nephrovite Tablet) 1 cap DAILY PO 10/22/24 09:00 11/21/24 08:59 10/22/24 09:20 1 [facility] RADIOLOGY: [place] [address] IMAGING REPORT Signed PATIENT: MORRIS PALAFOX MR#: [id number] : 1945 SEX: F AGE: 79 LOCATION: 2B ORDER 2300 STATUS: ADM IN REPORT#: [id number] SERVICE 0600 REASON: to r/o aspiration pneumonia ORDERING PHYSICIAN: IMANI ALDRIDGE MD PROCEDURE: CXR1VW - CHEST 1VW Exam Type: CHEST 1VW Clinical Information: to r/o aspiration pneumonia Comparison: None Findings: Pulmonary pattern is as before. No worrisome interval changes have taken place. Impression: Stable exam. DICTATED BY: CARLA GONZALEZ MD DATE: 10/22/24939 ELECTRONICALLY SIGNED BY: CARLA GONZALEZ MD DATE: 10/22/24941 ASSESSMENT: Sepsis secondary to pneumonia Acute respiratory failure POA, requiring oxygen supplementation Pneumonia due to ESBL producing organism POA Mild interstitial fibrosis, per CT on 10/16/2024 COPD exacerbation, POA Fluid overload, POA Bilateral renal cysts with the largest on the right measuring 9.8 cm. Lactic acidosis Anemia of chronic disease Thrombocytosis Acute on chronic renal failure, GFR 42 Diabetes mellitus with hyperglycemia Hypoalbuminemia Morbid obesity, BMI 42 Chronic problem list: Asthma, COPD, hypertension, hypothyroidism, renal insufficiency, ovarian surgery PLAN: Continue to monitor the patient on Medical floor with continuous telemetry monitoring Sepsis secondary to pneumonia Acute respiratory failure POA, requiring oxygen supplementation Mild interstitial fibrosis, per CT on 10/16/2024 COPD exacerbation, POA Pneumonia due to ESBL producing organism POA We will obtain blood culture. Continue Monitor respiratory status closely. Continue oxygen therapy as needed. Titrate oxygen prn to keep Spo2>/+=92%. Continue Albuterol and Atrovent scheduled. RT to provide IS and education on use. Sputum g stain showed 2+ g negative rods. Respiratory culture showed 3+ Gram- negative rods, ESBL sensitive to IV Zosyn and meropenem ID consult appreciated and recommended IV Zosyn for 10 days add [facility]. Case management will work on insurance approval. Continue Robitussin DM as needed cough. Continue prednisone 40 mg once a day Urine analysis is negative for UTI and shows elevated urine protein 20 and urine glucose 70 Pulmonology consult appreciated and recommended outpatient follow up after 1 week of discharge Patient will get home oxygen on discharge Fluid overload, POA Decrease the dose of Lasix to 20 mg IV daily 2D echo showed EF 60-65% and indeterminate diastolic dysfunction Acute on chronic renal failure, GFR 42 BUN went up from 50 to 52 and creatinine went up from 1.9 To 2.1 Fluid restrictions a 1200 mL. Strict I&Os. We will consult Nephrology for further evaluation Anemia of chronic disease POA Her hemoglobin stable at 8.4 Iron studies showed iron 14, TIBC 362, saturation 3.8%. We will obtain occult stool test. We will give her 3rd dose of IV iron sucrose today Diabetes mellitus with hyperglycemia Glucometer checks AC & HS needed with insulin regular sliding scale coverage as needed. Hypothyroidism TSH level is 0.25 And free T3 1.15, free T4 1.21 Hold levothyroxine -GI and DVT prophylaxis: Pepcid and Lovenox -PRN medications for: Pain management, fever, hypertension, N/V, constipation. ATTESTATION BY PHYSICIAN I have seen and examined the patient. I reviewed the documentation, medical decision making, and treatment plan as noted by the resident provider above. I agree with the findings and plan of care. Eddi Hsieh MD, KRUPALI P MD Oct 22, 2024 16:03
--- NOTE | 2024-10-22 18:28 | EKG ---
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
[2024-10-23] VITALS (15 sets, daily range): BP systolic 111–146; BP diastolic 46–66; PULSE 62–135; RESP 16–30; TEMP 97.8–98.4; O2SAT 87–100
--- NOTE | 2024-10-23 02:17 | CONS ---
HISTORY OF PRESENT ILLNESS: The patient is seen in the ICU. This patient has renal failure and anemia. This patient has ESBL in the sputum. The patient has shortness of breath before. The patient has elevated BUN and creatinine. The patient has leukocytosis. Has been on steroids. No other associated findings. No aggravating or relieving factor. The patient does have underlying other comorbidities as described, underlying COPD, asthma, hypertension, and hypothyroidism. The patient has shortness of breath. The interstitial fibrosis and renal cyst also has been detected, interstitial fibrosis in the lungs. REVIEW OF SYSTEMS: CONSTITUTIONAL: Weakness. No fevers, chills, or rigors. HEENT: With no headache, oral ulcer, sore throat, or difficulty swallowing. RESPIRATORY: Has some cough. No expectoration or hemoptysis. CARDIOVASCULAR: Has shortness of breath. No orthopnea or PND. GASTROINTESTINAL: No nausea, vomiting, diarrhea reported. GENITOURINARY: Negative for dysuria or hematuria. DERMATOLOGICAL: No rashes, pruritus, or skin lesion. ENDOCRINE: No polyuria, polydipsia, or polyphagia. PSYCHIATRIC: Review is negative for anxiety, depression, or hallucinations. PHYSICAL EXAMINATION: GENERAL: Shows pale, no other distress. VITAL SIGNS: Blood pressure is 121/45, pulse 82, respiratory rate is 18, afebrile. HEENT: Head is atraumatic, normocephalic. Pupils are round and reactive. Sclerae are anicteric. Conjunctivae not pale. Oral mucosa is not dry. NECK: Supple. No masses or bruits. Thyroid is palpable. Neck has no bruit. CHEST: Chest shows equal thoracic percussion note being resonant in all areas. CARDIAC: Regular rhythm. No rub, no S3 or S4. No parasternal heave. BACK: No tenderness or back deformities. LYMPHATIC: With no lymph node swelling in neck or axillary area. NEUROLOGIC: Awake, alert, nonfocal. No cranial nerve palsies. No other motor, sensory deficits. LABORATORY DATA: Labs have been reviewed. Hemoglobin is low up to 8.8, hematocrit is 29, white cell count is elevated at 19,000, platelets are 251. Creatinine is elevated at 1.8, BUN of 52. The patient has multiple other comorbidities. White cell count is 12.5. Old records have been reviewed. Sugars are reviewed. IMAGING STUDIES: Personally reviewed. PROBLEMS: Acute on chronic renal failure in a patient who has underlying multiple comorbidities, anemia, low iron saturation. The patient has underlying COPD exacerbation, respiratory failure, sepsis, pneumonia, ESBL infections, renal cyst, diabetes, other comorbidities, and morbid obesity. The patient is quite sick. PLAN: * The patient is on broad-spectrum antibiotics. * The patient will continue on oxygen and as needed BiPAP. Continued followup on antibiotics and steroids. Intake, output, weight will be monitored. Nonsteroidal drugs to be avoided. Dose of medicine to be adjusted. The patient continues on broad-spectrum antibiotics for ESBL infection. Please avoid nonsteroidal drugs. Continue gentle diuresis as needed for fluid overload. Avoid any contrast. Avoid nonsteroidal drugs. IV Dilaudid can be used for pain 0.5 q. 6 hours. Intake, output, weight, and overall status will be monitored. Overall, condition remained critical and guarded. Seen several times. I thank you for this challenging consultation. TID: [id number] RECEIPT: [id number]
[2024-10-23 04:02] LABS: BASOPHILS # (AUTO) 0.01 K/uL (0.00-0.20); BASOPHILS % (AUTO) 0.1 % (0.0-5.0); EOSINOPHILS # (AUTO) 0.01 K/uL (0.00-0.70); EOSINOPHILS % (AUTO) 0.1 % (0.0-8.0); HEMATOCRIT 26.4 % (36-48); IMMATURE GRANULOCYTE ABSOLUTE 0.41 K/uL (0-1); LYMPHOCYTES # (AUTO) 0.4 K/uL (1.0-4.8); LYMPHOCYTES % (AUTO) 2.6 % (21.0-51.0); MEAN CORPUSCULAR HEMOGLOBIN 22.7 pg (27.0-33.0); MEAN CORPUSCULAR HGB CONC 29.2 g/dL (32.0-36.0); MEAN CORPUSCULAR VOLUME 77.9 fL (79-99); MONOCYTES # (AUTO) 0.4 K/uL (0.1-1.0); MONOCYTES % (AUTO) 2.4 % (3.0-13.0); NEUTROPHILS % (AUTO) 92.3 % (40.0-77.0); PLATELET COUNT (AUTO) 238 K/uL (130-400); RED BLOOD CELL COUNT(AUTO) 3.39 MIL/uL (4.00-5.50); RED CELL DISTRIBUTION WIDTH 21.1 % (11.0-15.5); WHITE BLOOD COUNT (AUTO) 16.3 K/uL (4.8-10.8)
[2024-10-23 04:22] LABS: CREATININE 1.4 mg/dL (0.5-1.0); MAGNESIUM 2.1 mg/dL (1.80-2.40); POTASSIUM 3.7 mmol/L (3.5-5.1)
[2024-10-23] MEDS: Solu-medROL 40MG VIAL IVP SCH (09:33)
[2024-10-23] MEDS: PoTASSium chl 10% ELIXIR 20MEQ 20 MEQ/15 ML UDCUP PO PRN (09:34)
--- NOTE | 2024-10-23 12:27 | PN ---
[facility] PROGRESS NOTE Date of Service: Oct 23, 2024 Time of Service: 12:18 SUBJECTIVE: Ms. Palafox is a 79-year-old female with a history of tobacco dependent, COPD, asthma, hypertension, hypothyroidism, and renal disease who presented to [facility] ED for evaluation of shortness of breath over the past few weeks worsening today. The patient reported that she has been seen multiple times in the clinic setting for subjective fever last week. The patient was placed on steroids and nebulized treatments with no improvement which prompted the ED visit. In ED the patient was administered Solu-Medrol 80 mg IV, DuoNeb treatments, and Rocephin2 g. ED provider requested patient be admitted to the [facility] hospitalist team with the diagnosis of acute respiratory distress and acute exacerbation of COPD with asthma. Labs reviewed. Troponin negative. ABGs WNL, PO2 107, on 3 L. influenza and COVID are negative. BNP 115. D-dimer a 1403. CT chest without contrast: There are mild interstitial fibrosis. Bilateral renal cysts with the largest on the right measuring 9.8 cm. No evidence of pulmonary nodules or effusions. 10/17/24 the patient is seen and examined today morning, with her family at the bedside. She stated that her breathing is better today she and she saturating 98% on1 L of oxygen via nasal cannula. We will try to wean her off. Vitals are stable. She is complaining of productive cough and we will get the sputum culture. Pulmonology consult pending. V/Q scan pending. 2D echo results pending. Her WBC went down. Her hemoglobin dropped down to 8.5 from 9.7, MCV 77.2. We will order iron panel studies. TSH 0.25 And we will hold her antithyroid medications at the moment. We will get T3 and T4 levels. Chest x- ray showed vascular congestion, edema versus pneumonia, mild cardiomegaly. Venous Doppler negative for DVT. 10/18/24 patient seen and examined today. Her vitals are stable. She is saturating well with 96% on room air. She denies shortness of breath at the moment. Sputum Gram stain showed 2+ Gram-negative rods and pending culture results. Continue Rocephin and Solu-Medrol 40. Potassium is 3.4 And replaced with p.o. potassium chloride. BUN went up 26 to 33and creatinine went up from 1.1 to 1.3 today. Iron panel studies show iron 14, TIBC 362 and % saturation 3.8% she has suggestive of iron deficiency anemia. Check stool occult blood and we will order IV iron sucrose. Free T3 1.15. 2D echo showed EF 60-65% and indeterminate diastolic dysfunction. Consult PT OT for ambulation 10/19/24 patient is seen and evaluated today. She is seen sitting comfortably in chair with ongoing nebulizer treatment. Patient had a failed 6 minute walk today, her oxygen saturation dropped down to 85% and her heart rate went up to 150s. She will require home oxygen on discharge. We will consult case management for arranging home O2 requirement. Continue Rocephin and doxycycline IV. On examination bilateral wheezing are present. Respiratory culture showed 3+ Gram-negative rods and identification and sensitivity to follow. Hemoglobin 8.4 and we will continue with IV Venofer. BUN went up 33 to 42and creatinine stable at 1.3. 10/20/24 the patient is seen and examined today with her son at the bedside. She states her breathing is better, bilateral lower extremity edema has improved today. However her respiratory culture is positive for ESBL which is sensitive to IV Zosyn and meropenem. Infectious Disease consulted and recommended IV Zosyn for [address] [facility]. We will let the case management know regarding the plan. Her WBC went up from 9.8 to 11.6 today 10/21/24 patient is seen and examined today morning. She was transferred to ICU last night because of respiratory failure with hypotension blood pressure of 77/41, tachycardia heart rate in 130s and tachypnea in 30s. She was put on BiPAP last night and today morning she is saturating 96% on15 L non-rebreather mask. Her blood pressure is 121/58. Her WBC went up from 18.7 to 28.1. BUN went up 50 to 52. Creatinine went up from 1.9 to 2.1. I will decrease the dose of Lasix to 20 mg daily. Bedside swallow study ordered. We will consult Nephrology for [facility]. We will continue to monitor the patient closely 10/22/24 patient seen and examined today morning. She says her breathing is better and she is saturating 99% on2 L O2 via nasal cannula. Blood pressure 106/57. WBC came down to 19.8 from 28.1. FENA is 3.2%. Nephrology is already on the board and we will follow their recommendations. We will switch her p.o. steroids to IV steroids. We will repeat blood culture. 10/23/2024. Patient was seen and examined along with RN. Patient family at bedside. She would like to go home still short of breath walked few feet with physical therapy. Patient and patient's family does not want to go to rehab they would like to return home. Home oxygen has been arranged. IV antibiotics on outpatient basis has been arranged by Infectious Disease doctors. Patient will follow-up pulmonology outpatient for sleep study for CPAP. Hemoglobin dropped from 8.8 to 7.7. No source of bleeding has been identified yet stool occult was ordered previously not reported yet we will order again today. Patient has iron-deficiency anemia and received one dose of IV iron on 10/22/2024 we will order one more dose today. REVIEW OF SYSTEMS CONSTITUTIONAL: Denies fevers, chills, or night sweats. No unintentional weight loss reported. NEUROLOGICAL: Denies headache, amaurosis fugax, motor weakness, sensory deficit, vertigo/spinning sensation, gait abnormalities, or tremors. ENT: No hearing loss, otalgia, otorrhea, rhinitis, rhinorrhea, hoarseness, or sore throat. PULMONARY: shortness of breath, cough, phlegm/sputum. Denies hemoptysis, pleuritic chest pain. SLEEP: Denies morning headaches, daytime somnolence or napping. Denies difficulty falling asleep, staying asleep, waking from sleep. Denies knowledge of snoring. GASTROINTESTINAL: Denies any type of dysphagia to either liquids or solids. Denies nausea, vomiting, pyrosis, early satiety, abdominal pain, diarrhea, constipation, or changes in stool consistency or caliber. Denies coffee-ground emesis, hematemesis, hematochezia, or melanotic stools. GENITOURINARY: Denies frequency, urgency, nocturia, hematuria or incontinence (Storage/Irritative symptoms.) Low urinary stream, straining to void, urinary intermittency or hesitancy, splitting of the voiding stream, terminal dribbling. ENDOCRINOLOGIC: Denies polyuria, polydipsia, polyphagia or heat/cold intol erances. HEMATOLOGIC: Denies thrombophilia/previous clots, or coagulopathy/bleeding disorders. ONCOLOGIC: Denies personal history of malignancy. DERMATOLOGIC: Denies rashes or pruritus. PSYCHIATRIC: Denies any suicidal or homicidal ideation. Denies hallucinations. PHYSICAL EXAM GENERAL APPEARANCE: The patient is awake, alert, and oriented, in no acute cardiopulmonary distress. HEENT: Face is symmetric. Pupils are equal and reactive. Extraocular movements are intact. NECK: Supple. No JVD. No thyromegaly. No submental, submandibular, pre- /postauricular, occipital or supraclavicular lymphadenopathy. CHEST: Normal chest expansion. No Telemetry. LUNGS: Bilateral crackles are present CARDIOVASCULAR: Regular. S1 and S2 normal. No appreciable rubs, murmurs or gallops. Crackles. ABDOMEN: Obese. Obese. Soft, nontender, and nondistended. There is no reboun d, voluntary guarding, or rigidity. EXTREMITIES: Improving bilateral pitting pedal edema. not cyanotic. No clubbing. Good capillary refill. SKIN: No skin breakdown. Vital Signs (last 8hr) Date Time Temp Pulse Resp B/P (MAP) Pulse Ox O2 Delivery O2 Flow Rate FiO2 10/23/24 11:35 74 18 N/Cannula Low lpm 2.0 28 10/23/24 11:35 74 18 10/23/24 07:45 98.4 64 18 127/59 100 Nasal Cannula 3.0 10/23/24 07:43 99 Nasal Cannula* 3 32 10/23/24 07:23 64 18 10/23/24 07:22 64 18 N/Cannula Low lpm 2.0 28 10/23/24 05:32 89 24 40 LABS: Laboratory: Test 10/23/24 12:05 10/23/24 03:34 10/22/24 09:35 10/22/24 03:50 Range/Units Whole Blood Glucose 159 #H 70-110 MG/DL White Blood Count 16.3 H 4.8-10.8 K/uL Red Blood Count 3.39 L 4.00-5.50 MIL/uL Hemoglobin 7.7 L 12.0-16.0 g/dL Hematocrit 26.4 L 36-48 % Mean Corpuscular Volume 77.9 L 79-99 fL Mean Corpuscular Hemoglobin 22.7 L 27.0-33.0 pg Mean Corpuscular Hemoglobin Concent 29.2 L 32.0-36.0 g/dL Red Cell Distribution Width 21.1 H 11.0-15.5 % Platelet Count 238 130-400 K/uL Mean Platelet Volume 9.6 7.5-10.5 fL Immature Granulocyte % (Auto) 2.5 H 0-1 % Neutrophils (%) (Auto) 92.3 H 40.0-77.0 % Lymphocytes (%) (Auto) 2.6 L 21.0-51.0 % Monocytes (%) (Auto) 2.4 L 3.0-13.0 % Eosinophils (%) (Auto) 0.1 0.0-8.0 % Basophils (%) (Auto) 0.1 0.0-5.0 % Neutrophils # (Auto) 15.0 H 1.8-7.7 K/uL Lymphocytes # (Auto) 0.4 L 1.0-4.8 K/uL Monocytes # (Auto) 0.4 0.1-1.0 K/uL Eosinophils # (Auto) 0.01 0.00-0.70 K/uL Basophils # (Auto) 0.01 0.00-0.20 K/uL Absolute Immature Granulocyte (auto 0.41 0-1 K/uL Nucleated Red Blood Cells 0.0 0.0-0.19 % Sodium Level 147 H 136-145 mmol/L Potassium Level 3.7 3.5-5.1 mmol/L Chloride Level 110 101-111 mmol/L Carbon Dioxide Level 31 21-32 mmol/L Blood Urea Nitrogen 49 H 7-18 mg/dL Creatinine 1.4 H 0.5-1.0 mg/dL Glomerular Filtration Rate Calc 39 >90 mL/min Random Glucose 88 70-105 mg/dL Total Calcium 8.5 8.5-10.1 mg/dL Magnesium Level 2.10 1.80-2.40 mg/dL Procalcitonin 14.13 H 0.05-0.5 ng/mL Erythrocyte Sedimentation Rate 37 H 0-30 MM/HR Lactic Acid Level 1.4 0.8-2.5 mmol/L Phosphorus Level 4.0 2.5-4.9 mg/dL C-Reactive Protein, Quantitative 214.40 H 0.5-3.0 mg/L Uric Acid 7.7 H 2.6-7.2 mg/dL Iron Level 27 #L 50-170 mcg/dL Total Iron Binding Capacity 215 L 250-450 mcg/dL Percent Iron Saturation 12.5 L 22-44 % Ferritin 875 H 15-150 ng/mL Total Bilirubin 0.7 0.2-1.0 mg/dL Aspartate Amino Transf (AST/SGOT) 26 10-37 U/L Alanine Aminotransferase (ALT/SGPT) 32 12-78 U/L Alkaline Phosphatase 61 50-136 U/L Total Protein 5.6 L 6.0-8.3 g/dL Albumin 2.3 L 3.5-5.0 g/dL Thyroid Stimulating Hormone (TSH) 0.40 # 0.36-3.74 uIU/mL Test 10/21/24 23:01 Range/Units Urine Color LIGHT-YELLOW YELLOW Urine Appearance CLEAR CLEAR Urine pH 5.0 5.0-8.0 Urine Specific [place] 1.012 1.001-1.031 Urine Protein NEGATIVE NEGATIVE mg/dL Urine Glucose (UA) NEGATIVE NEGATIVE mg/dL Urine Ketones NEGATIVE NEGATIVE mg/dL Urine Occult Blood SMALL H NEGATIVE Urine Nitrate NEGATIVE NEGATIVE Urine Bilirubin NEGATIVE NEGATIVE mg/dL Urine Urobilinogen 0.2 0.2-1.0 mg/dL Urine Leukocyte Esterase NEGATIVE NEGATIVE Adrian/uL Urine RBC 0-1 0-1 /HPF Urine WBC 0-1 0-1 /HPF Urine Squamous Epithelial Cells RARE 0-2 /HPF Urine Bacteria RARE None Seen /HPF Urine Random Creatinine 43.60 30-135 mg/dL Urine Random Sodium 113 40-220 mmol/l Urine Random Potassium 19 L 25-125 mmol/L Urine Random Chloride 115 110-250 mmol/L Current Medications Medications (Trade) Dose Ordered Sig/Tom Route PRN Reason Start Time Stop Time Status Last Admin Dose Admin Acetaminophen (TYLenol 325MG TAB) 650 mg Q6H PRN PO FEVER/MILD PAIN LEVEL 1-3 10/16/24 21:00 11/15/24 20:59 10/20/24 16:23 650 MG Acetaminophen (TYLenol 650MG SUPPOSITORY) 650 mg Q6H PRN RC FEVER / MILD PAIN 1-3 IF NPO 10/16/24 21:00 11/15/24 20:59 Albuterol (DUOneb) 1 udvial [id number] IH 10/17/24 00:00 11/16/24 00:00 10/23/24 11:35 1 UDVIAL Ceftriaxone Sodium (Rocephin 2gm Inj) 2 gm Q24H IVPB 10/17/24 09:00 10/20/24 12:28 DC 10/20/24 08:44 2 GM Dextrose (D50w) 50 ml AD PRN IV HYPOGLYCEMIA PROTOCOL 10/17/24 04:00 11/16/24 03:59 Docusate Sodium (COLace 100MG CAP) 100 mg BID PRN PO c 10/16/24 21:00 11/15/24 20:59 Doxycycline Hyclate 250 ml @ 125 mls/hr Q12H IV 10/16/24 20:30 10/20/24 12:28 DC 10/20/24 08:44 125 MLS/HR Enoxaparin Sodium (Lovenox) 40 mg DAILY SQ 10/17/24 09:00 11/16/24 08:59 10/23/24 09:33 40 MG Famotidine (Pepcid 20mg Vial) 20 mg DAILY IV 10/17/24 09:00 11/16/24 08:59 10/23/24 09:34 20 MG Furosemide (LASix 20MG VIAL) 20 mg DAILY IV 10/22/24 09:00 10/21/24 22:13 DC Furosemide (LASix 40MG VIAL) 40 mg DAILY IV 10/17/24 09:00 10/21/24 15:03 DC 10/21/24 09:17 40 MG Glucagon (Glucagon 1mg Kit) 1 mg AD PRN IM HYPOGLYCEMIA PROTOCOL 10/17/24 04:00 11/16/24 03:59 Guaifenesin/ Dextromethorphan (RobiTUSSin DM 200/20MG 10ML) 15 ml Q6H PRN PO COUGH 10/17/24 04:00 11/16/24 03:59 Home Med (Home Medication) DAILY IH 10/17/24 09:00 11/16/24 08:59 10/23/24 09:32 1 EACH Hydralazine HCl (APRESOLine 20MG INJ) 10 mg Q6H PRN IV SBP GREATER THAN 160 10/16/24 21:00 11/15/24 20:59 10/20/24 00:26 10 MG Insulin Human Regular (humuLIN R 100 UNIT/ML 3ML) INSULIN SLIDING SCAL... ACHS SQ 10/16/24 21:00 11/15/24 20:59 10/22/24 20:37 14 UNIT Iron Sucrose (VenoFER) 200 mg ONCE IV 10/18/24 14:00 10/18/24 13:43 DC Isosorbide Mononitrate (Imdur 30mg Sr) 30 mg DAILY PO 10/17/24 09:00 11/16/24 08:59 10/23/24 09:34 30 MG Lactulose (Constulose 20gm/ 30ml Udcup) 20 gm BID PRN PO CONSTIPATION 10/18/24 14:00 11/17/24 13:59 Lactulose (Constulose 20gm/ 30ml Udcup) 20 gm ONCE PO 10/18/24 14:00 10/18/24 13:43 DC Lactulose (Constulose 20gm/ 30ml Udcup) 20 gm Q6H PRN PO CONSTIPATION 10/16/24 21:00 10/18/24 13:44 DC Losartan Potassium (CozAAR 25MG TAB) 25 mg DAILY15 PO 10/17/24 15:00 10/21/24 14:02 DC 10/20/24 16:19 25 MG Magnesium Sulfate 50 ml @ 0 mls/hr PROTOCOL PRN IV MAGNESIUM PROTOCOL 10/17/24 04:00 11/16/24 03:59 Methylprednisolone Sodium Succinate (Solu-medROL 40MG) 40 mg BID IVP 10/18/24 09:00 10/19/24 23:00 DC 10/19/24 21:05 40 MG Methylprednisolone Sodium Succinate (Solu-medROL 40MG) 40 mg DAILY IVP 10/23/24 09:00 11/22/24 08:59 10/23/24 09:33 40 MG Methylprednisolone Sodium Succinate (Solu-medROL 125MG) 60 mg Q6H IVP 10/17/24 04:00 10/17/24 23:51 DC 10/17/24 21:03 60 MG Midodrine (PROAMatine 5 MG TABLET) 5 mg TID PO 10/22/24 09:00 11/21/24 08:59 10/23/24 09:34 5 MG Norepinephrine 250 ml @ 0 mls/hr AD PRN IV DIRECTED 10/21/24 00:00 11/20/24 00:00 10/21/24 00:16 30 MLS/HR Ondansetron HCl (zoFRAN 4MG INJ) 4 mg Q6H PRN IVP NAUSEA/VOMITING 10/16/24 21:00 11/15/24 20:59 Piperacillin Sod/ Tazobactam Sod (Zosyn 3.375gm+NS 50ml) 3.375 gm Q12H IV 10/22/24 00:30 10/30/24 12:29 10/22/24 23:37 3.375 GM Piperacillin Sod/ Tazobactam Sod (Zosyn 3.375gm+NS 50ml) 3.375 gm Q8H IV 10/20/24 12:30 10/21/24 14:02 DC 10/21/24 04:56 3.375 GM Potassium Chloride 100 ml @ 100 mls/hr AD PRN IV POTASSIUM PROTOCOL 10/17/24 04:00 11/16/24 03:59 Potassium Chloride (K-Dur 10meq Sr Tab) 10 meq AD PRN PO POTASSIUM PROTOCOL 10/18/24 08:30 11/16/24 03:59 10/18/24 11:13 10 MEQ Potassium Chloride (K-Dur/Klor-Con 20meq) 10 meq AD PRN PO POTASSIUM PROTOCOL 10/17/24 04:00 10/18/24 08:13 DC Potassium Chloride (KCl 10% Elixir 20meq/15ml) 10 meq AD PRN PO POTASSIUM PROTOCOL 10/17/24 04:00 11/16/24 03:59 10/23/24 09:34 10 MEQ Prednisone (deltaSONE/ oraSONE 20MG TAB) 40 mg DAILY PO 10/20/24 09:00 10/22/24 16:04 DC 10/22/24 09:20 40 MG Spironolactone (Aldactone 25mg) 25 mg DAILY PO 10/22/24 10:00 11/21/24 09:59 10/23/24 09:34 25 MG Spironolactone (Aldactone 25mg) 25 mg DAILY15 PO 10/17/24 15:00 10/21/24 14:02 DC 10/20/24 16:19 25 MG Temazepam (restORIL 15 MG CAP) 15 mg HS PRN PO INSOMNIA/SLEEP 10/16/24 21:00 11/15/24 20:59 Vitamin B Complex/ Vit C/Folic Acid (Nephrovite Tablet) 1 cap DAILY PO 10/22/24 09:00 11/21/24 08:59 10/23/24 09:34 1 CAP DIAGNOSTICS / RADIOLOGY: [ ] ASSESSMENT: Sepsis secondary to pneumonia Septic shock requiring Levophed resolved Acute respiratory failure POA, requiring oxygen supplementation Pneumonia due to ESBL producing organism POA Mild interstitial fibrosis, per CT on 10/16/2024 COPD exacerbation, POA Fluid overload, POA Bilateral renal cysts with the largest on the right measuring 9.8 cm. Lactic acidosis Anemia of chronic disease Thrombocytosis Acute on chronic renal failure, GFR 42 Diabetes mellitus with hyperglycemia Hypoalbuminemia Morbid obesity, BMI 42 Hypotension Chronic problem list: Asthma, COPD, hypertension, hypothyroidism, renal insufficiency, ovarian surgery PLAN: Continue to monitor the patient on Medical floor with continuous telemetry monitoring Sepsis secondary to pneumonia Acute respiratory failure POA, requiring oxygen supplementation Mild interstitial fibrosis, per CT on 10/16/2024 COPD exacerbation, POA Pneumonia due to ESBL producing organism POA Continue Monitor respiratory status closely. Continue oxygen therapy as needed. Titrate oxygen prn to keep Spo2>/+=92%. Continue Albuterol and Atrovent scheduled. RT to provide IS and education on use. Sputum g stain showed 2+ g negative rods. Respiratory culture showed 3+ Gram- negative rods, ESBL sensitive to IV Zosyn and meropenem ID consult appreciated and recommended IV Zosyn for [address] [facility]. Continue Robitussin DM as needed cough. Continue iv Solu-Medrol 40 mg once a day Urine analysis is negative for UTI and shows elevated urine protein 20 and urine glucose 70 Pulmonology consult appreciated and recommended outpatient follow up after 1 week of discharge Patient will get home oxygen on discharge Fluid overload, POA Decrease the dose of Lasix to 20 mg IV daily 2D echo showed EF 60-65% and indeterminate diastolic dysfunction Acute on chronic renal failure, GFR 42 BUN went up from 50 to 52 and creatinine went up from 1.9 To 2.1 Creatinine 1.4 today Strict I&Os. Nephrology on board Anemia of chronic disease POA With iron-deficiency anemia POA Possible acute blood loss anemia follow stool Hemoccult Her hemoglobin stable at 8.4 Iron studies showed iron 14, TIBC 362, saturation 3.8%. We will obtain occult stool test. If positive we will need GI workup including endoscopy. there is a significant drop of hemoglobin for past few days, decreased from 10.7 On to 7.7 on 10/23/ We will give her 4th dose of IV iron sucrose today Follow TSAT tomorrow. Diabetes mellitus with hyperglycemia Glucometer checks AC & HS needed with insulin regular sliding scale coverage as needed. Hypothyroidism TSH level is 0.25 And free T3 1.15, free T4 1.21 resume levothyroxine with 25 mcg. Hypotension Patient had septic shock due to pneumonia requiring IV Levophed for brief interval of time. Currently on midodrine. Continue to monitor blood pressure still on the lower side. Severe Debility: Physical therapy is working with the patient patient refused rehab we will continue to monitor high-risk for readmission due to decreased functional capacity and respiratory status. -GI and DVT prophylaxis: Pepcid and Lovenox -PRN medications for: Pain management, fever, hypertension, N/V, constipation. FARIDA CULVER MD Oct 23, 2024 12:27
--- NOTE | 2024-10-23 14:47 | PN ---
FOLLOWUP PROGRESS NOTE SUBJECTIVE: A 79-year-old female who has had a prolonged hospital course. The patient was initially admitted to the ICU. The patient has been transferred out to a medical floor. The patient with underlying pneumonia. The patient has had acute on chronic renal dysfunction in the hospital. Creatinine has been elevated and she is being seen as a follow-up visit for all of the above. REVIEW OF SYSTEMS: GENERAL: She is feeling weak and tired. HEENT: No change in vision. No change in hearing. No nasal redness. No sore throat. CARDIOVASCULAR: There are no current chest pains or palpitations. PULMONARY: As described above. GASTROINTESTINAL: She is tolerating a diet. MUSCULOSKELETAL: Complains of weakness. PHYSICAL EXAMINATION: VITAL SIGNS: Blood pressure is 127/59, pulse 60s. She is afebrile. GENERAL: She is a chronically ill female, elderly, lying in bed on the medical floor. HEENT: Head is atraumatic. Pupils equal, roving to light. Oropharynx is without exudate. Nares clear. NECK: There is no JVP. There is no thyromegaly or mass. CARDIOVASCULAR: Regular. There is no S3, S4 gallop. LUNGS: Coarse with equal thoracic movement. ABDOMEN: Soft, nondistended and nontender. EXTREMITIES: There is no edema. NEUROLOGICAL: She is awake and alert. LABORATORY DATA: Sodium 147, BUN 49, creatinine 1.4, hemoglobin 7.7, hematocrit 26, white blood cell count 16,000. IMPRESSION: * Acute on chronic renal failure. * Pneumonia. * Electrolyte abnormalities. * Diabetes mellitus. PLAN: The patient's creatinine has improved overnight. The patient has been transferred out of the ICU. The patient with significant hypernatremia. She is encouraged with her free water intake in regard to the serum sodium. The patient does have significant anemia. She will be given a dose of IV iron. We will continue to follow closely. All labs can be repeated in the morning. TID: [id number] RECEIPT: [id number]
--- NOTE | 2024-10-23 15:10 | PN ---
[facility] PROGRESS NOTE Date Patient Seen: Oct 23, 2024 Time of Visit: 15:10 Supervising Physician: Dr. Stan Bravo Primary Care Physician: Sy Castillo MD Outpatient Specialists: Inpatient Consults:EAR[facility], DR Lopez, DR Cevallos. Attending Dr Sauer PROBLEM LIST: Acute hypoxic respiratory failure POA, resolving Health care associated pneumonia with ESBL Ecoli Mild interstitial fibrosis, per CT on 10/16/2024 COPD exacerbation, POA Fluid overload, POA Bilateral renal cysts with the largest on the right measuring 9.8 cm. Lactic acidosis Anemia of chronic disease Thrombocytosis Acute on chronic renal failure, GFR 42 Diabetes mellitus with hyperglycemia Hypoalbuminemia Morbid obesity, BMI 42 Chronic problem list: Asthma, COPD, hypertension, hypothyroidism, renal insufficiency, ovarian surgery INTERVAL HISTORY: Patient evaluated sitting in her chair at bedside, son present for the evaluation. She is currently on 3 L nasal cannula, continues on Solu-Medrol 40 daily at this time. Patient remains on Zosyn, per her son oxygen is set to be delivered today, nursing staff advised she is cleared for discharge once transitioned to p.o. antibiotics. Patient advised to continue follow-up recommendations with [facility], disposition per primary. REVIEW OF SYSTEMS: General: No malaise or fever. Neurological: No fainting episodes or seizures. HEENT: No nasal congestion or nasal secretion. Respiratory: No cough, shortness of breath, or wheezing Cardiac: No chest pain or palpitations. Gastrointestinal: No vomiting or diarrhea. Genitourinary: No dysuria hematuria. Skin: No rashes or lesions. Hematological: No bruises or bleeding. Musculoskeletal: No joint pains or arthralgias. Psychiatric: No depression or panic attacks. PHYSICAL EXAM: GENERAL: alert, weak, awake oriented x 3 HEENT: EOMI, Sclera non icteric, moist mucosa NECK: Supple, no JVD, trachea midline LUNGS: Decreased breath sounds bilaterally. No wheezes HEART: Regular rate and rhythm. Normal S1 and S2, without murmurs ABD: Abdomen soft, nontender. Bowel sounds present EXT: No clubbing cyanosis or edema NEURO: Alert and oriented to person, follows commands Vital Signs (last 8hr) Date Time Temp Pulse Resp B/P (MAP) Pulse Ox O2 Delivery O2 Flow Rate FiO2 10/23/24 14:53 87 20 21 135 30 21 116 24 28 10/23/24 11:35 74 18 N/Cannula Low lpm 2.0 28 10/23/24 11:35 74 18 10/23/24 07:45 98.4 64 18 127/59 100 Nasal Cannula 3.0 10/23/24 07:43 99 Nasal Cannula* 3 32 10/23/24 07:23 64 18 10/23/24 07:22 64 18 N/Cannula Low lpm 2.0 28 LABS: Hematology Labs: Test 10/23/24 03:34 10/22/24 09:35 Range/Units White Blood Count 16.3 H 4.8-10.8 K/uL Red Blood Count 3.39 L 4.00-5.50 MIL/uL Hemoglobin 7.7 L 12.0-16.0 g/dL Hematocrit 26.4 L 36-48 % Mean Corpuscular Volume 77.9 L 79-99 fL Mean Corpuscular Hemoglobin 22.7 L 27.0-33.0 pg Mean Corpuscular Hemoglobin Concent 29.2 L 32.0-36.0 g/dL Red Cell Distribution Width 21.1 H 11.0-15.5 % Platelet Count 238 130-400 K/uL Mean Platelet Volume 9.6 7.5-10.5 fL Immature Granulocyte % (Auto) 2.5 H 0-1 % Neutrophils (%) (Auto) 92.3 H 40.0-77.0 % Lymphocytes (%) (Auto) 2.6 L 21.0-51.0 % Monocytes (%) (Auto) 2.4 L 3.0-13.0 % Eosinophils (%) (Auto) 0.1 0.0-8.0 % Basophils (%) (Auto) 0.1 0.0-5.0 % Neutrophils # (Auto) 15.0 H 1.8-7.7 K/uL Lymphocytes # (Auto) 0.4 L 1.0-4.8 K/uL Monocytes # (Auto) 0.4 0.1-1.0 K/uL Eosinophils # (Auto) 0.01 0.00-0.70 K/uL Basophils # (Auto) 0.01 0.00-0.20 K/uL Absolute Immature Granulocyte (auto 0.41 0-1 K/uL Nucleated Red Blood Cells 0.0 0.0-0.19 % Erythrocyte Sedimentation Rate 37 H 0-30 MM/HR Chemistry Labs: Test 10/23/24 12:05 10/23/24 03:34 10/22/24 09:35 10/22/24 03:50 Range/Units Whole Blood Glucose 159 #H 70-110 MG/DL Sodium Level 147 H 136-145 mmol/L Potassium Level 3.7 3.5-5.1 mmol/L Chloride Level 110 101-111 mmol/L Carbon Dioxide Level 31 21-32 mmol/L Blood Urea Nitrogen 49 H 7-18 mg/dL Creatinine 1.4 H 0.5-1.0 mg/dL Glomerular Filtration Rate Calc 39 >90 mL/min Random Glucose 88 70-105 mg/dL Total Calcium 8.5 8.5-10.1 mg/dL Magnesium Level 2.10 1.80-2.40 mg/dL Procalcitonin 14.13 H 0.05-0.5 ng/mL Lactic Acid Level 1.4 0.8-2.5 mmol/L Phosphorus Level 4.0 2.5-4.9 mg/dL C-Reactive Protein, Quantitative 214.40 H 0.5-3.0 mg/L Uric Acid 7.7 H 2.6-7.2 mg/dL Iron Level 27 #L 50-170 mcg/dL Total Iron Binding Capacity 215 L 250-450 mcg/dL Percent Iron Saturation 12.5 L 22-44 % Ferritin 875 H 15-150 ng/mL Total Bilirubin 0.7 0.2-1.0 mg/dL Aspartate Amino Transf (AST/SGOT) 26 10-37 U/L Alanine Aminotransferase (ALT/SGPT) 32 12-78 U/L Alkaline Phosphatase 61 50-136 U/L Total Protein 5.6 L 6.0-8.3 g/dL Albumin 2.3 L 3.5-5.0 g/dL Thyroid Stimulating Hormone (TSH) 0.40 # 0.36-3.74 uIU/mL DIAGNOSTICS / RADIOLOGY RESULTS: [ ] PLAN continue IS consult I&D for antibiotics case management for home O2 IV antibiotics NEURO: Minimize central acting medications as possible. Maintain fall precautions, adequate lighting during the day PULMONARY: Supplemental 02 as needed. Maintain aspiration precautions at all times CARDIOVASCULAR: Follow hemodynamics. Vital signs per facility protocol GI & NUTRITION: Continue with nutritional support. Continue stool softeners and laxatives as needed. KIDNEYS & ELECTROLYTES: Strict monitoring of intake, output and overall fluid balance. Avoid nephrotoxic medications to the extent possible. Medications to be dosed according to renal function. Monitor electrolytes and replace as needed ENDOCRINE: Maintain blood glucose between 100-180 at all times. Hypoglycemia protocol in place INFECTIOUS DISEASE: Trend temperature, WBC and procalcitonin level Follow cultures, deescalate antibiotics as soon as possible. Panculture if new onset fever ONCOLOGY/HEMATOLOGY/COAGULATION: Monitor for s/s of bleeding Monitor hemoglobin, coagulation studies as needed SKIN: Pressure ulcer prevention per facility protocol Specialty mattress ORTHO/REHAB: Continue PT/OT Prophylaxis: Continue GI and DVT prophylaxis Code Status: Full Resuscitation Disposition: TBD Other: Total patient care time exceeds 35 minutes excluding all procedures. ADRIENNE DRAKE Oct 23, 2024 15:10
[2024-10-23] MEDS ORDERED: IRON sUCROse COMPLEX 300 MG in 0.9% NACL 250ML 250 ML IV ONE (21:00)
[2024-10-23] MEDS: IRON sUCROse COMPLEX 300 MG in 0.9% NACL 250ML 250 ML IV ONE (21:28)
[2024-10-24] VITALS (14 sets, daily range): BP systolic 98–152; BP diastolic 60–71; PULSE 59–90; RESP 18–21; TEMP 97.5–98; O2SAT 93–100
[2024-10-24 04:21] LABS: BASOPHILS # (AUTO) 0.02 K/uL (0.00-0.20); BASOPHILS % (AUTO) 0.2 % (0.0-5.0); HEMATOCRIT 25.5 % (36-48); IMMATURE GRANULOCYTE ABSOLUTE 0.58 K/uL (0-1); LYMPHOCYTES # (AUTO) 0.4 K/uL (1.0-4.8); LYMPHOCYTES % (AUTO) 4.1 % (21.0-51.0); MEAN CORPUSCULAR HEMOGLOBIN 22.7 pg (27.0-33.0); MEAN CORPUSCULAR HGB CONC 28.6 g/dL (32.0-36.0); MEAN CORPUSCULAR VOLUME 79.4 fL (79-99); MONOCYTES # (AUTO) 0.4 K/uL (0.1-1.0); MONOCYTES % (AUTO) 3.9 % (3.0-13.0); NEUTROPHILS # (AUTO) 9.2 K/uL (1.8-7.7); NEUTROPHILS % (AUTO) 86.3 % (40.0-77.0); PLATELET COUNT (AUTO) 221 K/uL (130-400); RED BLOOD CELL COUNT(AUTO) 3.21 MIL/uL (4.00-5.50); RED CELL DISTRIBUTION WIDTH 21.1 % (11.0-15.5); WHITE BLOOD COUNT (AUTO) 10.6 K/uL (4.8-10.8)
[2024-10-24 04:45] LABS: % IRON SATURATION 106.4 % (22-44)
[2024-10-24 04:56] LABS: B-TYPE NATRIURETIC PEPTIDE 85 pg/mL (0-100)
[2024-10-24 04:58] LABS: CREATININE 1.2 mg/dL (0.5-1.0); POTASSIUM 4.4 mmol/L (3.5-5.1)
[2024-10-24] MEDS: levoTHYROxine 25 MCG TABLET PO SCH (06:36)
--- NOTE | 2024-10-24 07:24 | PN ---
INFECTIOUS DISEASE FOLLOWUP NOTE DATE OF SERVICE: 10/23/2024 SUBJECTIVE: The patient is seen and examined at bedside today. The patient has no fever, no chills. No nausea, no vomiting. No abdominal pain. No bleeding tendencies. No palpitations or orthopnea. She remains on oxygen. She is tolerating antibiotic. No dysuria or hematuria. PHYSICAL EXAMINATION: VITAL SIGNS: Temperature 97.2. EYES: No icterus. Pupils are equal and reactive. HENT: No oral thrush seen. Moist oral mucosa. NECK: Supple. No JVD or thyromegaly. LUNGS: Good air entry. No rales. No rhonchi. CARDIOVASCULAR: S1, S2 regular. No murmur heard. ABDOMEN: Obese, soft, nontender. Bowel sound is present. CENTRAL NERVOUS SYSTEM: Awake, alert, oriented x 3. No focal deficits. SKIN: No rashes. No itchiness. LYMPHATIC: No peripheral lymphadenopathy. BACK: No deformity. No pressure ulcer. HEMATOLOGIC: No bleeding or petechial lesions seen. MUSCULOSKELETAL: No joint swelling, erythema, or tenderness. ASSESSMENT: A 79-year-old female admitted with cough and shortness of breath. CURRENT PROBLEMS: Include: * Gram-negative pneumonia. * Hypoxic respiratory failure. * Chronic tobacco use. * COPD exacerbation. * Obesity. * Infection with multidrug-resistant organism. PLAN: * Continue Zosyn. * Continue bronchodilator. * Continue pain management. * Continue oxygen. * Continue DVT prophylaxis. * Monitor electrolytes. * Continue pain management. TID: [id number] RECEIPT: [id number]
--- NOTE | 2024-10-24 12:15 | PN ---
[facility] PROGRESS NOTE Date of Service: Oct 24, 2024 Time of Service: 12:06 SUBJECTIVE: Ms. Palafox is a 79-year-old female with a history of tobacco dependent, COPD, asthma, hypertension, hypothyroidism, and renal disease who presented to [facility] ED for evaluation of shortness of breath over the past few weeks worsening today. The patient reported that she has been seen multiple times in the clinic setting for subjective fever last week. The patient was placed on steroids and nebulized treatments with no improvement which prompted the ED visit. In ED the patient was administered Solu-Medrol 80 mg IV, DuoNeb treatments, and Rocephin2 g. ED provider requested patient be admitted to the [facility] hospitalist team with the diagnosis of acute respiratory distress and acute exacerbation of COPD with asthma. Labs reviewed. Troponin negative. ABGs WNL, PO2 107, on 3 L. influenza and COVID are negative. BNP 115. D-dimer a 1403. CT chest without contrast: There are mild interstitial fibrosis. Bilateral renal cysts with the largest on the right measuring 9.8 cm. No evidence of pulmonary nodules or effusions. 10/17/24 the patient is seen and examined today morning, with her family at the bedside. She stated that her breathing is better today she and she saturating 98% on1 L of oxygen via nasal cannula. We will try to wean her off. Vitals are stable. She is complaining of productive cough and we will get the sputum culture. Pulmonology consult pending. V/Q scan pending. 2D echo results pending. Her WBC went down. Her hemoglobin dropped down to 8.5 from 9.7, MCV 77.2. We will order iron panel studies. TSH 0.25 And we will hold her antithyroid medications at the moment. We will get T3 and T4 levels. Chest x- ray showed vascular congestion, edema versus pneumonia, mild cardiomegaly. Venous Doppler negative for DVT. 10/18/24 patient seen and examined today. Her vitals are stable. She is saturating well with 96% on room air. She denies shortness of breath at the moment. Sputum Gram stain showed 2+ Gram-negative rods and pending culture results. Continue Rocephin and Solu-Medrol 40. Potassium is 3.4 And replaced with p.o. potassium chloride. BUN went up 26 to 33and creatinine went up from 1.1 to 1.3 today. Iron panel studies show iron 14, TIBC 362 and % saturation 3.8% she has suggestive of iron deficiency anemia. Check stool occult blood and we will order IV iron sucrose. Free T3 1.15. 2D echo showed EF 60-65% and indeterminate diastolic dysfunction. Consult PT OT for ambulation 10/19/24 patient is seen and evaluated today. She is seen sitting comfortably in chair with ongoing nebulizer treatment. Patient had a failed 6 minute walk today, her oxygen saturation dropped down to 85% and her heart rate went up to 150s. She will require home oxygen on discharge. We will consult case management for arranging home O2 requirement. Continue Rocephin and doxycycline IV. On examination bilateral wheezing are present. Respiratory culture showed 3+ Gram-negative rods and identification and sensitivity to follow. Hemoglobin 8.4 and we will continue with IV Venofer. BUN went up 33 to 42and creatinine stable at 1.3. 10/20/24 the patient is seen and examined today with her son at the bedside. She states her breathing is better, bilateral lower extremity edema has improved today. However her respiratory culture is positive for ESBL which is sensitive to IV Zosyn and meropenem. Infectious Disease consulted and recommended IV Zosyn for 10 days at [facility]. We will let the case management know regarding the plan. Her WBC went up from 9.8 to 11.6 today 10/21/24 patient is seen and examined today morning. She was transferred to ICU last night because of respiratory failure with hypotension blood pressure of 77/41, tachycardia heart rate in 130s and tachypnea in 30s. She was put on BiPAP last night and today morning she is saturating 96% on15 L non-rebreather mask. Her blood pressure is 121/58. Her WBC went up from 18.7 to 28.1. BUN went up 50 to 52. Creatinine went up from 1.9 to 2.1. I will decrease the dose of Lasix to 20 mg daily. Bedside swallow study ordered. We will consult Nephrology for WICHO. We will continue to monitor the patient closely 10/22/24 patient seen and examined today morning. She says her breathing is better and she is saturating 99% on2 L O2 via nasal cannula. Blood pressure 106/57. WBC came down to 19.8 from 28.1. FENA is 3.2%. Nephrology is already on the board and we will follow their recommendations. We will switch her p.o. steroids to IV steroids. We will repeat blood culture. 10/23/2024. Patient was seen and examined along with RN. Patient family at bedside. She would like to go home still short of breath walked few feet with physical therapy. Patient and patient's family does not want to go to rehab they would like to return home. Home oxygen has been arranged. IV antibiotics on outpatient basis has been arranged by Infectious Disease doctors. Patient will follow-up pulmonology outpatient for sleep study for CPAP. Hemoglobin dropped from 8.8 to 7.7. No source of bleeding has been identified yet stool occult was ordered previously not reported yet we will order again today. Patient has iron-deficiency anemia and received one dose of IV iron on 10/22/2024 we will order one more dose today. 10/24/24 was seen and evaluated today morning with her family at the bedside. Her breathing is better and she is saturating 97% on 3 L O2 via nasal cannula. She denies chest pain, fever or chills. No acute events overnight. Today she is complaining of clear fluid oozing from her left arm and also mild edema. We will obtain left upper extremity Doppler ultrasound. Stool occult blood is positive. Hemoglobin is down from 7.7-7.3. We will consult Gastroenterology for acute GI loss. Hold Lovenox. She also has bilateral pitting pedal edema. REVIEW OF SYSTEMS CONSTITUTIONAL: Denies fevers, chills, or night sweats. No unintentional weight loss reported. NEUROLOGICAL: Denies headache, amaurosis fugax, motor weakness, sensory deficit, vertigo/spinning sensation, gait abnormalities, or tremors. ENT: No hearing loss, otalgia, otorrhea, rhinitis, rhinorrhea, hoarseness, or sore throat. PULMONARY: Improving shortness of breath, cough, phlegm/sputum. Denies hemoptysis, pleuritic chest pain. SLEEP: Denies morning headaches, daytime somnolence or napping. Denies difficulty falling asleep, staying asleep, waking from sleep. Denies knowledge of snoring. GASTROINTESTINAL: Denies any type of dysphagia to either liquids or solids. Denies nausea, vomiting, pyrosis, early satiety, abdominal pain, diarrhea, constipation, or changes in stool consistency or caliber. Denies coffee-ground emesis, hematemesis, hematochezia, or melanotic stools. GENITOURINARY: Denies frequency, urgency, nocturia, hematuria or incontinence (Storage/Irritative symptoms.) Low urinary stream, straining to void, urinary intermittency or hesitancy, splitting of the voiding stream, terminal dribbling. ENDOCRINOLOGIC: Denies polyuria, polydipsia, polyphagia or heat/cold intolerances. HEMATOLOGIC: Denies thrombophilia/previous clots, or coagulopathy/bleeding disorders. ONCOLOGIC: Denies personal history of malignancy. PHYSICAL EXAM GENERAL APPEARANCE: The patient is awake, alert, and oriented, in no acute cardiopulmonary distress. HEENT: Face is symmetric. Pupils are equal and reactive. Extraocular movements are intact. NECK: Supple. No JVD. No thyromegaly. No submental, submandibular, pre-/po stauricular, occipital or supraclavicular lymphadenopathy. CHEST: Normal chest expansion. No Telemetry. LUNGS: Bilateral crackles are present. More on Right side CARDIOVASCULAR: Regular. S1 and S2 normal. No appreciable rubs, murmurs or gallops. Crackles. ABDOMEN: Obese. Obese. Soft, nontender, and nondistended. There is no rebound, voluntary guarding, or rigidity. EXTREMITIES: Positive bilateral pitting pedal edema. not cyanotic. No clubbing . Good capillary refill. SKIN: No skin breakdown. Vital Signs (last 8hr) Date Time Temp Pulse Resp B/P (MAP) Pulse Ox O2 Delivery O2 Flow Rate FiO2 10/24/24 11:43 61 18 N/Cannula Low lpm 2.0 28 10/24/24 11:41 61 18 10/24/24 08:02 97 Nasal Cannula* 2 28 10/24/24 08:00 97.5 66 21 152/60 97 Nasal Cannula 3.0 10/24/24 07:13 60 18 N/Cannula Low lpm 2.0 28 10/24/24 07:10 59 18 LABS: Laboratory: Test 10/24/24 10:43 10/24/24 07:30 10/24/24 03:57 10/23/24 03:34 Range/Units Whole Blood Glucose 113 H 70-110 MG/DL Stool Occult Blood POSITIVE H NEGATIVE White Blood Count 10.6 4.8-10.8 K/uL Red Blood Count 3.21 L 4.00-5.50 MIL/uL Hemoglobin 7.3 L 12.0-16.0 g/dL Hematocrit 25.5 L 36-48 % Mean Corpuscular Volume 79.4 79-99 fL Mean Corpuscular Hemoglobin 22.7 L 27.0-33.0 pg Mean Corpuscular Hemoglobin Concent 28.6 L 32.0-36.0 g/dL Red Cell Distribution Width 21.1 H 11.0-15.5 % Platelet Count 221 130-400 K/uL Mean Platelet Volume 9.7 7.5-10.5 fL Immature Granulocyte % (Auto) 5.5 H 0-1 % Neutrophils (%) (Auto) 86.3 H 40.0-77.0 % Lymphocytes (%) (Auto) 4.1 L 21.0-51.0 % Monocytes (%) (Auto) 3.9 3.0-13.0 % Eosinophils (%) (Auto) 0.0 0.0-8.0 % Basophils (%) (Auto) 0.2 0.0-5.0 % Neutrophils # (Auto) 9.2 H 1.8-7.7 K/uL Lymphocytes # (Auto) 0.4 L 1.0-4.8 K/uL Monocytes # (Auto) 0.4 0.1-1.0 K/uL Eosinophils # (Auto) 0.00 0.00-0.70 K/uL Basophils # (Auto) 0.02 0.00-0.20 K/uL Absolute Immature Granulocyte (auto 0.58 0-1 K/uL Nucleated Red Blood Cells 0.0 0.0-0.19 % White Cell Morphology Comment See comments Red Blood Cell Morphology See comments Sodium Level 142 136-145 mmol/L Potassium Level 4.4 3.5-5.1 mmol/L Chloride Level 108 101-111 mmol/L Carbon Dioxide Level 30 21-32 mmol/L Blood Urea Nitrogen 41 H 7-18 mg/dL Creatinine 1.2 H 0.5-1.0 mg/dL Glomerular Filtration Rate Calc 47 >90 mL/min Random Glucose 94 70-105 mg/dL Total Calcium 8.9 8.5-10.1 mg/dL Iron Level 331 #H 50-170 mcg/dL Total Iron Binding Capacity 311 250-450 mcg/dL Percent Iron Saturation 106.4 H 22-44 % B-Type Natriuretic Peptide 85 0-100 pg/mL Procalcitonin 6.61 H 0.05-0.5 ng/mL Magnesium Level 2.10 1.80-2.40 mg/dL Current Medications Medications (Trade) Dose Ordered Sig/Tom Route PRN Reason Start Time Stop Time Status Last Admin Dose Admin Acetaminophen (TYLenol 325MG TAB) 650 mg Q6H PRN PO FEVER/MILD PAIN LEVEL 1-3 10/16/24 21:00 11/15/24 20:59 10/20/24 16:23 650 MG Acetaminophen (TYLenol 650MG SUPPOSITORY) 650 mg Q6H PRN RC FEVER / MILD PAIN 1-3 IF NPO 10/16/24 21:00 11/15/24 20:59 Albuterol (DUOneb) 1 udvial [id number] IH 10/17/24 00:00 11/16/24 00:00 10/24/24 11:44 1 UDVIAL Ceftriaxone Sodium (Rocephin 2gm Inj) 2 gm Q24H IVPB 10/17/24 09:00 10/20/24 12:28 DC 10/20/24 08:44 2 GM Dextrose (D50w) 50 ml AD PRN IV HYPOGLYCEMIA PROTOCOL 10/17/24 04:00 11/16/24 03:59 Docusate Sodium (COLace 100MG CAP) 100 mg BID PRN PO c 10/16/24 21:00 11/15/24 20:59 Doxycycline Hyclate 250 ml @ 125 mls/hr Q12H IV 10/16/24 20:30 10/20/24 12:28 DC 10/20/24 08:44 125 MLS/HR Enoxaparin Sodium (Lovenox) 40 mg DAILY SQ 10/17/24 09:00 10/24/24 09:38 DC 10/23/24 09:33 40 MG Famotidine (Pepcid 20mg Vial) 20 mg DAILY IV 10/17/24 09:00 11/16/24 08:59 10/24/24 09:32 20 MG Furosemide (LASix 20MG VIAL) 20 mg DAILY IV 10/22/24 09:00 10/21/24 22:13 DC Furosemide (LASix 40MG VIAL) 40 mg DAILY IV 10/17/24 09:00 10/21/24 15:03 DC 10/21/24 09:17 40 MG Glucagon (Glucagon 1mg Kit) 1 mg AD PRN IM HYPOGLYCEMIA PROTOCOL 10/17/24 04:00 11/16/24 03:59 Guaifenesin/ Dextromethorphan (RobiTUSSin DM 200/20MG 10ML) 15 ml Q6H PRN PO COUGH 10/17/24 04:00 11/16/24 03:59 Home Med (Home Medication) DAILY IH 10/17/24 09:00 11/16/24 08:59 10/24/24 09:35 1 EACH Hydralazine HCl (APRESOLine 20MG INJ) 10 mg Q6H PRN IV SBP GREATER THAN 160 10/16/24 21:00 11/15/24 20:59 10/20/24 00:26 10 MG Insulin Human Regular (humuLIN R 100 UNIT/ML 3ML) INSULIN SLIDING SCAL... ACHS SQ 10/16/24 21:00 11/15/24 20:59 10/23/24 21:39 10 UNIT Iron Sucrose (VenoFER) 200 mg ONCE IV 10/18/24 14:00 10/18/24 13:43 DC Isosorbide Mononitrate (Imdur 30mg Sr) 30 mg DAILY PO 10/17/24 09:00 11/16/24 08:59 10/24/24 09:32 30 MG Lactulose (Constulose 20gm/ 30ml Udcup) 20 gm BID PRN PO CONSTIPATION 10/18/24 14:00 11/17/24 13:59 Lactulose (Constulose 20gm/ 30ml Udcup) 20 gm ONCE PO 10/18/24 14:00 10/18/24 13:43 DC Lactulose (Constulose 20gm/ 30ml Udcup) 20 gm Q6H PRN PO CONSTIPATION 10/16/24 21:00 10/18/24 13:44 DC Levothyroxine Sodium (SYNTHroid 25MCG TAB) 25 mcg DAILY@0630 PO 10/24/24 06:30 11/23/24 06:29 10/24/24 06:36 25 MCG Losartan Potassium (CozAAR 25MG TAB) 25 mg DAILY15 PO 10/17/24 15:00 10/21/24 14:02 DC 10/20/24 16:19 25 MG Magnesium Sulfate 50 ml @ 0 mls/hr PROTOCOL PRN IV MAGNESIUM PROTOCOL 10/17/24 04:00 11/16/24 03:59 Methylprednisolone Sodium Succinate (Solu-medROL 40MG) 40 mg BID IVP 10/18/24 09:00 10/19/24 23:00 DC 10/19/24 21:05 40 MG Methylprednisolone Sodium Succinate (Solu-medROL 40MG) 40 mg DAILY IVP 10/23/24 09:00 11/22/24 08:59 10/24/24 09:33 40 MG Methylprednisolone Sodium Succinate (Solu-medROL 125MG) 60 mg Q6H IVP 10/17/24 04:00 10/17/24 23:51 DC 10/17/24 21:03 60 MG Midodrine (PROAMatine 5 MG TABLET) 5 mg TID PO 10/22/24 09:00 11/21/24 08:59 10/24/24 09:32 5 MG Norepinephrine 250 ml @ 0 mls/hr AD PRN IV DIRECTED 10/21/24 00:00 11/20/24 00:00 10/21/24 00:16 30 MLS/HR Ondansetron HCl (zoFRAN 4MG INJ) 4 mg Q6H PRN IVP NAUSEA/VOMITING 10/16/24 21:00 11/15/24 20:59 Piperacillin Sod/ Tazobactam Sod (Zosyn 3.375gm+NS 50ml) 3.375 gm Q12H IV 10/22/24 00:30 10/30/24 12:29 10/24/24 00:38 3.375 GM Piperacillin Sod/ Tazobactam Sod (Zosyn 3.375gm+NS 50ml) 3.375 gm Q8H IV 10/20/24 12:30 10/21/24 14:02 DC 10/21/24 04:56 3.375 GM Potassium Chloride 100 ml @ 100 mls/hr AD PRN IV POTASSIUM PROTOCOL 10/17/24 04:00 11/16/24 03:59 Potassium Chloride (K-Dur 10meq Sr Tab) 10 meq AD PRN PO POTASSIUM PROTOCOL 10/18/24 08:30 11/16/24 03:59 10/18/24 11:13 10 MEQ Potassium Chloride (K-Dur/Klor-Con 20meq) 10 meq AD PRN PO POTASSIUM PROTOCOL 10/17/24 04:00 10/18/24 08:13 DC Potassium Chloride (KCl 10% Elixir 20meq/15ml) 10 meq AD PRN PO POTASSIUM PROTOCOL 10/17/24 04:00 11/16/24 03:59 10/23/24 17:06 10 MEQ Prednisone (deltaSONE/ oraSONE 20MG TAB) 40 mg DAILY PO 10/20/24 09:00 10/22/24 16:04 DC 10/22/24 09:20 40 MG Spironolactone (Aldactone 25mg) 25 mg DAILY PO 10/22/24 10:00 11/21/24 09:59 10/24/24 09:32 25 MG Spironolactone (Aldactone 25mg) 25 mg DAILY15 PO 10/17/24 15:00 10/21/24 14:02 DC 10/20/24 16:19 25 MG Temazepam (restORIL 15 MG CAP) 15 mg HS PRN PO INSOMNIA/SLEEP 10/16/24 21:00 11/15/24 20:59 Vitamin B Complex/ Vit C/Folic Acid (Nephrovite Tablet) 1 cap DAILY PO 10/22/24 09:00 11/21/24 08:59 10/24/24 09:32 1 [facility] RADIOLOGY: [place] [address] IMAGING REPORT Signed PATIENT: MORRIS PALAFOX MR#: [id number] : 1945 SEX: F AGE: 79 LOCATION: 2BH ORDER 2300 STATUS: ADM IN REPORT#: [id number] SERVICE 0600 REASON: to r/o aspiration pneumonia ORDERING PHYSICIAN: IMANI ALDRIDGE MD PROCEDURE: CXR1VW - CHEST 1VW Exam Type: CHEST 1VW Clinical Information: to r/o aspiration pneumonia Comparison: None Findings: Pulmonary pattern is as before. No worrisome interval changes have taken place. Impression: Stable exam. DICTATED BY: CARLA GONZALEZ MD DATE: 10/22/24939 ELECTRONICALLY SIGNED BY: CARLA GONZALEZ MD DATE: 10/22/24941 ASSESSMENT: Acute GI loss anemia Sepsis secondary to pneumonia Septic shock requiring Levophed resolved Acute respiratory failure POA, requiring oxygen supplementation Pneumonia due to ESBL producing organism POA Mild interstitial fibrosis, per CT on 10/16/2024 COPD exacerbation, POA Fluid overload, POA Bilateral renal cysts with the largest on the right measuring 9.8 cm. Lactic acidosis Anemia of chronic disease Thrombocytosis Acute on chronic renal failure, GFR 42 Diabetes mellitus with hyperglycemia Hypoalbuminemia Morbid obesity, BMI 42 Hypotension Chronic problem list: Asthma, COPD, hypertension, hypothyroidism, renal insufficiency, ovarian surgery PLAN: Continue to monitor the patient on Medical floor with continuous telemetry monitoring Acute GI loss anemia Hemoglobin went down from 7.7-7.3 today. Stool occult blood is positive Consultation with GI is requested and we will follow their recommendations. Hold Lovenox Sepsis secondary to pneumonia Acute respiratory failure POA, requiring oxygen supplementation Mild interstitial fibrosis, per CT on 10/16/2024 COPD exacerbation, POA Pneumonia due to ESBL producing organism POA Continue Monitor respiratory status closely. Continue oxygen therapy as needed. Titrate oxygen prn to keep Spo2>/+=92%. Continue Albuterol and Atrovent scheduled. RT to provide IS and education on use. Sputum g stain showed 2+ g negative rods. Respiratory culture showed 3+ Gram- negative rods, ESBL sensitive to IV Zosyn and meropenem ID consult appreciated and recommended IV Zosyn for 10 days at [facility]. Continue Robitussin DM as needed cough. Continue iv Solu-Medrol 40 mg IV once a day Urine analysis is negative for UTI and shows elevated urine protein 20 and urine glucose 70 Pulmonology consult appreciated and recommended outpatient follow up after 1 week of discharge Patient will get home oxygen on discharge Fluid overload, POA Decrease the dose of Lasix to 20 mg IV daily 2D echo showed EF 60-65% and indeterminate diastolic dysfunction Acute on chronic renal failure, GFR 42 BUN went down from 49 to 41 and creatinine went down from 1.4 To 1.2 Strict I&Os. Nephrology on board Anemia of chronic disease POA With iron-deficiency anemia POA Possible acute blood loss anemia follow stool Hemoccult Her hemoglobin dropped down to 7.3 Recent Iron studies showed iron 331, TIBC 311, saturation 106.4 %. Stool occult blood is positive and GI consult requested for further workup Diabetes mellitus with hyperglycemia Glucometer checks AC & HS needed with insulin regular sliding scale coverage as needed. Hypothyroidism TSH level is 0.25 And free T3 1.15, free T4 1.21 Continue levothyroxine with 25 mcg. Hypotension Patient had septic shock due to pneumonia requiring IV Levophed for brief interval of time. Currently on midodrine. Continue to monitor blood pressure still on the lower side. Severe Debility: Physical therapy is working with the patient patient refused rehab we will continue to monitor high-risk for readmission due to decreased functional capacity and respiratory status. -GI and DVT prophylaxis: Pepcid and SCDs -PRN medications for: Pain management, fever, hypertension, N/V, constipation. ATTESTATION BY PHYSICIAN I have seen and examined the patient. I reviewed the documentation, medical decision making, and treatment plan as noted by the resident provider above. I agree with the findings and plan of care. Eddi Hsieh MD, KRUPALI P MD Oct 24, 2024 12:15
--- NOTE | 2024-10-24 14:17 | NUR ---
SPOKE TO PATIEENT AND SPOUSE, CONSENT GIVEN FOR BLOOD TRANSFUSION
--- NOTE | 2024-10-24 14:42 | PN ---
FOLLOWUP PROGRESS NOTE SUBJECTIVE: A 79-year-old female with a history of known chronic renal insufficiency. The patient was initially admitted to the ICU. The patient with underlying pneumonia and volume overload. The patient was started on the diuretics and pulmonary symptoms have somewhat improved. The patient is being seen as a followup visit for all of the above. REVIEW OF SYSTEMS: GENERAL: She is feeling somewhat improved. HEENT: No change in vision. No change in hearing. No nasal discharge. No sore throat. CARDIOVASCULAR: There is no current chest pain or palpitations. PULMONARY: She has chronic shortness of breath. GASTROINTESTINAL: The patient is tolerating a diet. MUSCULOSKELETAL: Complains of weakness. PHYSICAL EXAMINATION: VITAL SIGNS: Blood pressure is 152/60, pulse in the 60s, afebrile. GENERAL: Chronically ill female, lying in bed on the medical floor. HEENT: Head is atraumatic. Pupils are equal, roving to light. Oropharynx is without exudate. Nares clear. NECK: There is no JVP. There is no thyromegaly. No masses. CARDIOVASCULAR: Regular. There is no S3 or S4 gallop. LUNGS: Coarse with equal thoracic movement. ABDOMEN: Soft, nondistended, and nontender. EXTREMITIES: Reveal no clubbing, no cyanosis. NEUROLOGICAL: She is awake. She is alert. LABORATORY DATA: Hemoglobin 7.3, hematocrit 25. Sodium 142, potassium 4.4, BUN 41, creatinine 1.2. IMPRESSION: * Acute on chronic renal failure. * Volume overload. * Diabetes mellitus. * Anemia. PLAN: The patient's creatinine continues to stabilize. The patient continues with the antibiotics for the pneumonia. The patient is also being seen by Cardiology. We will continue to monitor closely. The patient and family at the bedside, multiple questions were all answered. The patient continues with underlying renal dysfunction. The patient continues with the IV antibiotics. The patient's serum sodium is much improved overnight. She does have significant anemia, did receive a dose of IV iron. We will continue to follow closely. The patient with multiple questions, all of which were all answered. TID: [id number] RECEIPT: [id number]
--- NOTE | 2024-10-24 18:46 | HMCIMG ---
US VENOUS DOPPLER UNILATERAL INDICATION: Swelling. EDEMA TECHNIQUE: US VENOUS DOPPLER UNILATERAL Real-time venous Doppler ultrasound was performed using B mode, color flow and spectral analysis. FINDINGS: PICC line is seen in the left basilic vein. Thrombosis in the left cephalic vein. The visualized subclavian, axillary, brachial and basilic veins showed normal flow and color Doppler. IMPRESSION: PICC line is seen in the left basilic vein. Thrombosis in the left cephalic vein.
--- NOTE | 2024-10-24 21:29 | PN ---
[facility] PROGRESS NOTE Date Patient Seen: Oct 24, 2024 Time of Visit: 21:28 Supervising Physician: Dr. Stan Bravo Supervising Physician: Dr. Stan Bravo Primary Care Physician: Sy Castillo MD Outpatient Specialists: Inpatient Consults:EARL, DR Lopez, DR Cevallos. Attending Dr Sauer PROBLEM LIST: Acute hypoxic respiratory failure POA, resolving Health care associated pneumonia with ESBL Ecoli Mild interstitial fibrosis, per CT on 10/16/2024 COPD exacerbation, POA Fluid overload, POA Bilateral renal cysts with the largest on the right measuring 9.8 cm. Lactic acidosis Anemia of chronic disease Thrombocytosis Acute on chronic renal failure, GFR 42 Diabetes mellitus with hyperglycemia Hypoalbuminemia Morbid obesity, BMI 42 Chronic problem list: Asthma, COPD, hypertension, hypothyroidism, renal insufficiency, ovarian surgery INTERVAL HISTORY: Patient evaluated sitting in her chair at bedside, currently on 3 L nasal cannula. Patient was had home O2 delivered, from a pulmonary standpoint patient was cleared for discharge. Family stated that patient has returned with low hemoglobin, suspected GI bleed and positive fecal occult blood test. At this time she is pending a GI evaluation. We will continue to follow the patient for pulmonary Services during the admission on an as-needed basis. REVIEW OF SYSTEMS: General: No malaise or fever. Neurological: No fainting episodes or seizures. HEENT: No nasal congestion or nasal secretion. Respiratory: No cough, shortness of breath, or wheezing Cardiac: No chest pain or palpitations. Gastrointestinal: No vomiting or diarrhea. Genitourinary: No dysuria hematuria. Skin: No rashes or lesions. Hematological: No bruises or bleeding. Musculoskeletal: No joint pains or arthralgias. Psychiatric: No depression or panic attacks. PHYSICAL EXAM: GENERAL: alert, weak, awake oriented x 3 HEENT: EOMI, Sclera non icteric, moist mucosa NECK: Supple, no JVD, trachea midline LUNGS: Decreased breath sounds bilaterally. No wheezes HEART: Regular rate and rhythm. Normal S1 and S2, without murmurs ABD: Abdomen soft, nontender. Bowel sounds present EXT: No clubbing cyanosis or edema NEURO: Alert and oriented to person, follows commands Vital Signs (last 8hr) Date Time Temp Pulse Resp B/P (MAP) Pulse Ox O2 Delivery O2 Flow Rate FiO2 10/24/24 20:39 97.9 63 18 136/67 100 Nasal Cannula 4/27/25 19:19 60 19 10/24/24 19:19 60 18 N/Cannula Low lpm 3.0 32 10/24/24 16:00 97.5 90 19 98/62 100 Nasal Cannula 3.0 LABS: Hematology Labs: Test 10/24/24 03:57 Range/Units White Blood Count 10.6 4.8-10.8 K/uL Red Blood Count 3.21 L 4.00-5.50 MIL/uL Hemoglobin 7.3 L 12.0-16.0 g/dL Hematocrit 25.5 L 36-48 % Mean Corpuscular Volume 79.4 79-99 fL Mean Corpuscular Hemoglobin 22.7 L 27.0-33.0 pg Mean Corpuscular Hemoglobin Concent 28.6 L 32.0-36.0 g/dL Red Cell Distribution Width 21.1 H 11.0-15.5 % Platelet Count 221 130-400 K/uL Mean Platelet Volume 9.7 7.5-10.5 fL Immature Granulocyte % (Auto) 5.5 H 0-1 % Neutrophils (%) (Auto) 86.3 H 40.0-77.0 % Lymphocytes (%) (Auto) 4.1 L 21.0-51.0 % Monocytes (%) (Auto) 3.9 3.0-13.0 % Eosinophils (%) (Auto) 0.0 0.0-8.0 % Basophils (%) (Auto) 0.2 0.0-5.0 % Neutrophils # (Auto) 9.2 H 1.8-7.7 K/uL Lymphocytes # (Auto) 0.4 L 1.0-4.8 K/uL Monocytes # (Auto) 0.4 0.1-1.0 K/uL Eosinophils # (Auto) 0.00 0.00-0.70 K/uL Basophils # (Auto) 0.02 0.00-0.20 K/uL Absolute Immature Granulocyte (auto 0.58 0-1 K/uL Nucleated Red Blood Cells 0.0 0.0-0.19 % White Cell Morphology Comment See comments Red Blood Cell Morphology See comments Chemistry Labs: Test 10/24/24 19:43 10/24/24 03:57 10/23/24 03:34 Range/Units Whole Blood Glucose 217 H 70-110 MG/DL Sodium Level 142 136-145 mmol/L Potassium Level 4.4 3.5-5.1 mmol/L Chloride Level 108 101-111 mmol/L Carbon Dioxide Level 30 21-32 mmol/L Blood Urea Nitrogen 41 H 7-18 mg/dL Creatinine 1.2 H 0.5-1.0 mg/dL Glomerular Filtration Rate Calc 47 >90 mL/min Random Glucose 94 70-105 mg/dL Total Calcium 8.9 8.5-10.1 mg/dL Iron Level 331 #H 50-170 mcg/dL Total Iron Binding Capacity 311 250-450 mcg/dL Percent Iron Saturation 106.4 H 22-44 % B-Type Natriuretic Peptide 85 0-100 pg/mL Procalcitonin 6.61 H 0.05-0.5 ng/mL Magnesium Level 2.10 1.80-2.40 mg/dL DIAGNOSTICS / RADIOLOGY RESULTS: [ ] PLAN continue IS consult I&D for antibiotics case management for home O2 IV antibiotics NEURO: Minimize central acting medications as possible. Maintain fall precautions, adequate lighting during the day PULMONARY: Supplemental 02 as needed. Maintain aspiration precautions at all times CARDIOVASCULAR: Follow hemodynamics. Vital signs per facility protocol GI & NUTRITION: Continue with nutritional support. Continue stool softeners and laxatives as needed. KIDNEYS & ELECTROLYTES: Strict monitoring of intake, output and overall fluid balance. Avoid nephrotoxic medications to the extent possible. Medications to be dosed according to renal function. Monitor electrolytes and replace as needed ENDOCRINE: Maintain blood glucose between 100-180 at all times. Hypoglycemia protocol in place INFECTIOUS DISEASE: Trend temperature, WBC and procalcitonin level Follow cultures, deescalate antibiotics as soon as possible. Panculture if new onset fever ONCOLOGY/HEMATOLOGY/COAGULATION: Monitor for s/s of bleeding Monitor hemoglobin, coagulation studies as needed SKIN: Pressure ulcer prevention per facility protocol Specialty mattress ORTHO/REHAB: Continue PT/OT Prophylaxis: Continue GI and DVT prophylaxis Code Status: Full Resuscitation Disposition: TBD Other: Total patient care time exceeds 35 minutes excluding all procedures. ADRIENNE DRAKE Oct 24, 2024 21:29
[2024-10-25] VITALS (11 sets, daily range): BP systolic 104–162; BP diastolic 45–74; PULSE 53–88; RESP 16–20; TEMP 97.7–98.4; O2SAT 98–100
[2024-10-25 04:35] LABS: BASOPHILS # (AUTO) 0.04 K/uL (0.00-0.20); BASOPHILS % (AUTO) 0.5 % (0.0-5.0); EOSINOPHILS # (AUTO) 0.01 K/uL (0.00-0.70); EOSINOPHILS % (AUTO) 0.1 % (0.0-8.0); HEMATOCRIT 30.4 % (36-48); LYMPHOCYTES # (AUTO) 0.4 K/uL (1.0-4.8); LYMPHOCYTES % (AUTO) 5.1 % (21.0-51.0); MEAN CORPUSCULAR HEMOGLOBIN 24.1 pg (27.0-33.0); MEAN CORPUSCULAR HGB CONC 29.3 g/dL (32.0-36.0); MEAN CORPUSCULAR VOLUME 82.4 fL (79-99); MONOCYTES # (AUTO) 0.5 K/uL (0.1-1.0); MONOCYTES % (AUTO) 5.6 % (3.0-13.0); NEUTROPHILS # (AUTO) 6.4 K/uL (1.8-7.7); NEUTROPHILS % (AUTO) 78.9 % (40.0-77.0); PLATELET COUNT (AUTO) 183 K/uL (130-400); RED BLOOD CELL COUNT(AUTO) 3.69 MIL/uL (4.00-5.50); RED CELL DISTRIBUTION WIDTH 21.7 % (11.0-15.5); WHITE BLOOD COUNT (AUTO) 8.2 K/uL (4.8-10.8)
[2024-10-25 04:55] LABS: CREATININE 1.1 mg/dL (0.5-1.0); POTASSIUM 4.5 mmol/L (3.5-5.1)
--- NOTE | 2024-10-25 07:08 | PN ---
INFECTIOUS DISEASE FOLLOWUP NOTE DATE OF SERVICE: 10/24/2024 SUBJECTIVE: The patient is seen and examined at bedside today. The patient has no fever, no chills. Has some shortness of breath . No sore throat or rhinorrhea. No bleeding tendencies . There is a drop in hemoglobin to 7.3 today. OBJECTIVE: VITAL SIGNS: Temperature 98.2. EYES: No icterus. Pupils are equal and reactive. HENT: No oral thrush seen. Moist oral mucosa. NECK: Supple. No JVD or thyromegaly. LUNGS: Good air entry. No rales. No rhonchi. CARDIOVASCULAR: S1 and S2, regular. No murmur heard. ABDOMEN: Full, soft, nontender. Bowel sounds present. CENTRAL NERVOUS SYSTEM: Awake, alert, oriented x 3. No focal deficits. SKIN: No rashes. No itchiness. LYMPHATIC: No peripheral lymphadenopathy. BACK: No deformity. No pressure ulcer. HEMATOLOGIC: No bleeding or petechial lesions seen. MUSCULOSKELETAL: No joint swelling, erythema or tenderness. ASSESSMENT: A 79-year-old male with multiple problems which include: * Gram-negative pneumonia. * Respiratory failure. * Chronic tobacco use. * Chronic obstructive pulmonary disease exacerbation. * Obesity. * Infection with multidrug-resistant organism. * Debility. PLAN: * Continue nutritional support. * Continue pain management. * Monitor electrolytes. * Continue GI prophylaxis. * Continue antiemetics. * Continue Zosyn * Continue oxygen TID: [id number] RECEIPT: [id number]
--- NOTE | 2024-10-25 08:59 | EKG ---
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
--- NOTE | 2024-10-25 09:11 | PN ---
[facility] PROGRESS NOTE Date Patient Seen: Oct 25, 2024 Time of Visit: 09:11 Supervising Physician: [ ] Supervising Physician: Dr. Stan Bravo Primary Care Physician: Sy Castillo MD Outpatient Specialists: Inpatient Consults:EARL, DR Lopez, DR Cevallos. Attending Dr Sauer PROBLEM LIST: Acute hypoxic respiratory failure POA, resolving Health care associated pneumonia with ESBL Ecoli Mild interstitial fibrosis, per CT on 10/16/2024 COPD exacerbation, POA Fluid overload, POA Bilateral renal cysts with the largest on the right measuring 9.8 cm. Lactic acidosis Anemia of chronic disease Thrombocytosis Acute on chronic renal failure, GFR 42 Diabetes mellitus with hyperglycemia Hypoalbuminemia Morbid obesity, BMI 42 Chronic problem list: Asthma, COPD, hypertension, hypothyroidism, renal insufficiency, ovarian surgery INTERVAL HISTORY: Patient was seen at bedside with multiple family members present, she is currently eating her lunch and tolerating her food well. Patient received 1 unit PRBCs last night, hemoglobin is 8.2 this morning. She remains on 2 L nasal cannula at this time, and patient has home O2 that has already been delivered to however she is now pending GI workup. Hopefully able to receive nuclear medicine bleed scan later this afternoon. We will continue following the patient was long as she is on the med floor. REVIEW OF SYSTEMS: General: No malaise or fever. Neurological: No fainting episodes or seizures. HEENT: No nasal congestion or nasal secretion. Respiratory: No cough, shortness of breath, or wheezing Cardiac: No chest pain or palpitations. Gastrointestinal: No vomiting or diarrhea. Genitourinary: No dysuria hematuria. Skin: No rashes or lesions. Hematological: No bruises or bleeding. Musculoskeletal: No joint pains or arthralgias. Psychiatric: No depression or panic attacks. PHYSICAL EXAM: GENERAL: alert, weak, awake oriented x 3 HEENT: EOMI, Sclera non icteric, moist mucosa NECK: Supple, no JVD, trachea midline LUNGS: Decreased breath sounds bilaterally. No wheezes HEART: Regular rate and rhythm. Normal S1 and S2, without murmurs ABD: Abdomen soft, nontender. Bowel sounds present EXT: No clubbing cyanosis or edema NEURO: Alert and oriented to person, follows commands Vital Signs (last 8hr) Date Time Temp Pulse Resp B/P (MAP) Pulse Ox O2 Delivery O2 Flow Rate FiO2 10/25/24 08:00 97.7 65 18 123/45 98 Nasal Cannula 3.0 10/25/24 06:31 57 18 10/25/24 06:31 57 18 N/Cannula Low lpm 3.0 32 10/25/24 04:32 98.2 88 16 162/70 100 Room Air LABS: Hematology Labs: Test 10/25/24 03:52 10/24/24 03:57 Range/Units White Blood Count 8.2 4.8-10.8 K/uL Red Blood Count 3.69 L 4.00-5.50 MIL/uL Hemoglobin 8.9 #L 12.0-16.0 g/dL Hematocrit 30.4 L 36-48 % Mean Corpuscular Volume 82.4 79-99 fL Mean Corpuscular Hemoglobin 24.1 L 27.0-33.0 pg Mean Corpuscular Hemoglobin Concent 29.3 L 32.0-36.0 g/dL Red Cell Distribution Width 21.7 H 11.0-15.5 % Platelet Count 183 130-400 K/uL Mean Platelet Volume 9.4 7.5-10.5 fL Immature Granulocyte % (Auto) 9.8 H 0-1 % Neutrophils (%) (Auto) 78.9 H 40.0-77.0 % Lymphocytes (%) (Auto) 5.1 L 21.0-51.0 % Monocytes (%) (Auto) 5.6 3.0-13.0 % Eosinophils (%) (Auto) 0.1 0.0-8.0 % Basophils (%) (Auto) 0.5 0.0-5.0 % Neutrophils # (Auto) 6.4 1.8-7.7 K/uL Lymphocytes # (Auto) 0.4 L 1.0-4.8 K/uL Monocytes # (Auto) 0.5 0.1-1.0 K/uL Eosinophils # (Auto) 0.01 0.00-0.70 K/uL Basophils # (Auto) 0.04 0.00-0.20 K/uL Absolute Immature Granulocyte (auto 0.80 0-1 K/uL Nucleated Red Blood Cells 0.0 0.0-0.19 % White Cell Morphology Comment See comments Red Blood Cell Morphology See comments Chemistry Labs: Test 10/25/24 05:13 10/25/24 03:52 10/24/24 03:57 Range/Units Whole Blood Glucose 94 # 70-110 MG/DL Sodium Level 140 136-145 mmol/L Potassium Level 4.5 3.5-5.1 mmol/L Chloride Level 106 101-111 mmol/L Carbon Dioxide Level 30 21-32 mmol/L Blood Urea Nitrogen 36 H 7-18 mg/dL Creatinine 1.1 H 0.5-1.0 mg/dL Glomerular Filtration Rate Calc 52 >90 mL/min Random Glucose 112 H 70-105 mg/dL Total Calcium 8.8 8.5-10.1 mg/dL Iron Level 331 #H 50-170 mcg/dL Total Iron Binding Capacity 311 250-450 mcg/dL Percent Iron Saturation 106.4 H 22-44 % B-Type Natriuretic Peptide 85 0-100 pg/mL Procalcitonin 6.61 H 0.05-0.5 ng/mL DIAGNOSTICS / RADIOLOGY RESULTS: [ ] PLAN continue IS consult I&D for antibiotics case management for home O2 IV antibiotics NEURO: Minimize central acting medications as possible. Maintain fall precautions, adequate lighting during the day PULMONARY: Supplemental 02 as needed. Maintain aspiration precautions at all times CARDIOVASCULAR: Follow hemodynamics. Vital signs per facility protocol GI & NUTRITION: Continue with nutritional support. Continue stool softeners and laxatives as needed. KIDNEYS & ELECTROLYTES: Strict monitoring of intake, output and overall fluid balance. Avoid nephrotoxic medications to the extent possible. Medications to be dosed according to renal function. Monitor electrolytes and replace as needed ENDOCRINE: Maintain blood glucose between 100-180 at all times. Hypoglycemia protocol in place INFECTIOUS DISEASE: Trend temperature, WBC and procalcitonin level Follow cultures, deescalate antibiotics as soon as possible. Panculture if new onset fever ONCOLOGY/HEMATOLOGY/COAGULATION: Monitor for s/s of bleeding Monitor hemoglobin, coagulation studies as needed SKIN: Pressure ulcer prevention per facility protocol Specialty mattress ORTHO/REHAB: Continue PT/OT Prophylaxis: Continue GI and DVT prophylaxis Code Status: Full Resuscitation Disposition: TBD Other: Total patient care time exceeds 35 minutes excluding all procedures. ADRIENNE DRAKE Oct 25, 2024 09:11
--- NOTE | 2024-10-25 09:46 | CONS ---
GASTROENTEROLOGY CONSULTATION NOTE Date of Consultation: Oct 25, 2024 Time of Consultation: 09:45 History of Present Illness: This is a 79-year-old female with past medical history of tobacco use, COPD, asthma, hypertension, hypothyroidism, renal disease who presented due to shortness of breath and subjective fever. She was placed on steroids and nebulizer treatments with no improvement and therefore presented to the ER. She was admitted with acute respiratory distress and acute exacerbation of COPD with asthma. Imaging revealing interstitial fibrosis. We were consulted due to possible GI bleed and anemia. Hemoglobin on admission was 9.7 and trended down yesterday to 7.3. Hemoglobin today was 8.9 after blood transfusion. BUN and creatinine elevated. Review of Systems: CONSTITUTIONAL: No malaise or change in sensation of wellbeing. ENMT: No rhinorrhea, otorrhea, sinus pain, ear ache. CARDIOVASCULAR: No angina, palpitations, orthopnea or paroxysmal dyspnea. RESPIRATORY: No SOB. GASTROINTESTINAL: No abdominal pain, nausea, vomiting, diarrhea, hematemesis, melena or change in the patient's habitual bowel movements consistency/number. GENITOURINARY: No dysuria, hematuria or change in bladder continence. MUSCULOSKELETAL: No new muscle pain or decrease in muscular strength. No new joint swelling, redness or tenderness. SKIN: No new rash. Past Medical History: [ ] Past Surgical History: [ ] Past Social History: [ ] Family History: [ ] Coded Allergies: No Known Drug Allergies (Unverified Allergy, Unknown, 07/24/22) Physical Exam: GEN: Awake, alert, oriented in person, time and place, and in no acute distress. HEENT: No sinus tenderness. Tympanic membranes were not examined. No rhinorrhea. Oral pharyngeal mucosa is pink, moist and within normal limits. Neck is supple with no cervical lymphadenopathy, thyromegaly or JVD. CHEST: Inspection, palpation and percussion of the chest were unremarkable. Lung auscultation revealed normal breath sounds bilaterally. CARDIAC: PMI is within normal limits. Heart sounds are regular. Normal S1, S2. No gallop or murmur. ABD: Soft, non-tender and not distended. No peritoneal signs on palpation. No organomegaly. Normal bowel sounds. EXT: No cyanosis or clubbing. No edema. SKIN: Intact. No rashes. JOINTS: No evidence of synovitis or acute arthritis. NEURO: Alert and oriented to name, place and person. Cranial nerve examination is unremarkable. No focal motor deficits. Normal speech. Gait is normal. Strength is normal. Vital Sign (Last 24 Hours) 10/25/24 10/25/24 06:31 08:00 Temp 97.7 Pulse 65 Resp 18 B/P (MAP) 123/45 Pulse Ox 98 O2 Delivery Nasal Cannula O2 Flow Rate 3.0 FiO2 32 Intake & Output (last 24hrs) 10/24/24 10/24/24 10/25/24 15:00 23:00 07:00 Intake Total 120 ml Balance 120 ml Laboratory: [ ] Laboratory: Test 10/25/24 05:13 10/25/24 03:52 10/24/24 07:30 10/24/24 03:57 Range/Units Whole Blood Glucose 94 # 70-110 MG/DL White Blood Count 8.2 4.8-10.8 K/uL Red Blood Count 3.69 L 4.00-5.50 MIL/uL Hemoglobin 8.9 #L 12.0-16.0 g/dL Hematocrit 30.4 L 36-48 % Mean Corpuscular Volume 82.4 79-99 fL Mean Corpuscular Hemoglobin 24.1 L 27.0-33.0 pg Mean Corpuscular Hemoglobin Concent 29.3 L 32.0-36.0 g/dL Red Cell Distribution Width 21.7 H 11.0-15.5 % Platelet Count 183 130-400 K/uL Mean Platelet Volume 9.4 7.5-10.5 fL Immature Granulocyte % (Auto) 9.8 H 0-1 % Neutrophils (%) (Auto) 78.9 H 40.0-77.0 % Lymphocytes (%) (Auto) 5.1 L 21.0-51.0 % Monocytes (%) (Auto) 5.6 3.0-13.0 % Eosinophils (%) (Auto) 0.1 0.0-8.0 % Basophils (%) (Auto) 0.5 0.0-5.0 % Neutrophils # (Auto) 6.4 1.8-7.7 K/uL Lymphocytes # (Auto) 0.4 L 1.0-4.8 K/uL Monocytes # (Auto) 0.5 0.1-1.0 K/uL Eosinophils # (Auto) 0.01 0.00-0.70 K/uL Basophils # (Auto) 0.04 0.00-0.20 K/uL Absolute Immature Granulocyte (auto 0.80 0-1 K/uL Nucleated Red Blood Cells 0.0 0.0-0.19 % Sodium Level 140 136-145 mmol/L Potassium Level 4.5 3.5-5.1 mmol/L Chloride Level 106 101-111 mmol/L Carbon Dioxide Level 30 21-32 mmol/L Blood Urea Nitrogen 36 H 7-18 mg/dL Creatinine 1.1 H 0.5-1.0 mg/dL Glomerular Filtration Rate Calc 52 >90 mL/min Random Glucose 112 H 70-105 mg/dL Total Calcium 8.8 8.5-10.1 mg/dL Stool Occult Blood POSITIVE H NEGATIVE White Cell Morphology Comment See comments Red Blood Cell Morphology See comments Iron Level 331 #H 50-170 mcg/dL Total Iron Binding Capacity 311 250-450 mcg/dL Percent Iron Saturation 106.4 H 22-44 % B-Type Natriuretic Peptide 85 0-100 pg/mL Procalcitonin 6.61 H 0.05-0.5 ng/mL Current Medications Medications (Trade) Dose Ordered Sig/Tom Route PRN Reason Start Time Stop Time Status Last Admin Dose Admin Acetaminophen (TYLenol 325MG TAB) 650 mg Q6H PRN PO FEVER/MILD PAIN LEVEL 1-3 10/16/24 21:00 11/15/24 20:59 10/20/24 16:23 650 MG Acetaminophen (TYLenol 650MG SUPPOSITORY) 650 mg Q6H PRN RC FEVER / MILD PAIN 1-3 IF NPO 10/16/24 21:00 11/15/24 20:59 Albuterol (DUOneb) 1 udvial [id number] IH 10/17/24 00:00 11/16/24 00:00 10/25/24 06:30 1 UDVIAL Ceftriaxone Sodium (Rocephin 2gm Inj) 2 gm Q24H IVPB 10/17/24 09:00 10/20/24 12:28 DC 10/20/24 08:44 2 GM Dextrose (D50w) 50 ml AD PRN IV HYPOGLYCEMIA PROTOCOL 10/17/24 04:00 11/16/24 03:59 Docusate Sodium (COLace 100MG CAP) 100 mg BID PRN PO c 10/16/24 21:00 11/15/24 20:59 Doxycycline Hyclate 250 ml @ 125 mls/hr Q12H IV 10/16/24 20:30 10/20/24 12:28 DC 10/20/24 08:44 125 MLS/HR Enoxaparin Sodium (Lovenox) 40 mg DAILY SQ 10/17/24 09:00 10/24/24 09:38 DC 10/23/24 09:33 40 MG Famotidine (Pepcid 20mg Vial) 20 mg DAILY IV 10/17/24 09:00 11/16/24 08:59 10/25/24 08:21 20 MG Furosemide (LASix 20MG VIAL) 20 mg DAILY IV 10/22/24 09:00 10/21/24 22:13 DC Furosemide (LASix 40MG VIAL) 40 mg DAILY IV 10/17/24 09:00 10/21/24 15:03 DC 10/21/24 09:17 40 MG Glucagon (Glucagon 1mg Kit) 1 mg AD PRN IM HYPOGLYCEMIA PROTOCOL 10/17/24 04:00 11/16/24 03:59 Guaifenesin/ Dextromethorphan (RobiTUSSin DM 200/20MG 10ML) 15 ml Q6H PRN PO COUGH 10/17/24 04:00 11/16/24 03:59 Home Med (Home Medication) DAILY IH 10/17/24 09:00 11/16/24 08:59 10/25/24 08:22 1 EACH Hydralazine HCl (APRESOLine 20MG INJ) 10 mg Q6H PRN IV SBP GREATER THAN 160 10/16/24 21:00 11/15/24 20:59 10/20/24 00:26 10 MG Insulin Human Regular (humuLIN R 100 UNIT/ML 3ML) INSULIN SLIDING SCAL... ACHS SQ 10/16/24 21:00 11/15/24 20:59 10/24/24 22:35 6 UNIT Iron Sucrose (VenoFER) 200 mg ONCE IV 10/18/24 14:00 10/18/24 13:43 DC Isosorbide Mononitrate (Imdur 30mg Sr) 30 mg DAILY PO 10/17/24 09:00 11/16/24 08:59 10/25/24 08:22 30 MG Lactulose (Constulose 20gm/ 30ml Udcup) 20 gm BID PRN PO CONSTIPATION 10/18/24 14:00 11/17/24 13:59 Lactulose (Constulose 20gm/ 30ml Udcup) 20 gm ONCE PO 10/18/24 14:00 10/18/24 13:43 DC Lactulose (Constulose 20gm/ 30ml Udcup) 20 gm Q6H PRN PO CONSTIPATION 10/16/24 21:00 10/18/24 13:44 DC Levothyroxine Sodium (SYNTHroid 25MCG TAB) 25 mcg DAILY@0630 PO 10/24/24 06:30 11/23/24 06:29 10/25/24 06:37 25 MCG Losartan Potassium (CozAAR 25MG TAB) 25 mg DAILY15 PO 10/17/24 15:00 10/21/24 14:02 DC 10/20/24 16:19 25 MG Magnesium Sulfate 50 ml @ 0 mls/hr PROTOCOL PRN IV MAGNESIUM PROTOCOL 10/17/24 04:00 11/16/24 03:59 Methylprednisolone Sodium Succinate (Solu-medROL 40MG) 40 mg BID IVP 10/18/24 09:00 10/19/24 23:00 DC 10/19/24 21:05 40 MG Methylprednisolone Sodium Succinate (Solu-medROL 40MG) 40 mg DAILY IVP 10/23/24 09:00 11/22/24 08:59 10/25/24 08:21 40 MG Methylprednisolone Sodium Succinate (Solu-medROL 125MG) 60 mg Q6H IVP 10/17/24 04:00 10/17/24 23:51 DC 10/17/24 21:03 60 MG Midodrine (PROAMatine 5 MG TABLET) 5 mg TID PO 10/22/24 09:00 11/21/24 08:59 10/24/24 17:07 5 MG Norepinephrine 250 ml @ 0 mls/hr AD PRN IV DIRECTED 10/21/24 00:00 10/25/24 07:18 DC 10/21/24 00:16 30 MLS/HR Ondansetron HCl (zoFRAN 4MG INJ) 4 mg Q6H PRN IVP NAUSEA/VOMITING 10/16/24 21:00 11/15/24 20:59 Piperacillin Sod/ Tazobactam Sod (Zosyn 3.375gm+NS 50ml) 3.375 gm Q12H IV 10/22/24 00:30 10/30/24 12:29 10/25/24 00:26 3.375 GM Piperacillin Sod/ Tazobactam Sod (Zosyn 3.375gm+NS 50ml) 3.375 gm Q8H IV 10/20/24 12:30 10/21/24 14:02 DC 10/21/24 04:56 3.375 GM Potassium Chloride 100 ml @ 100 mls/hr AD PRN IV POTASSIUM PROTOCOL 10/17/24 04:00 11/16/24 03:59 Potassium Chloride (K-Dur 10meq Sr Tab) 10 meq AD PRN PO POTASSIUM PROTOCOL 10/18/24 08:30 11/16/24 03:59 10/18/24 11:13 10 MEQ Potassium Chloride (K-Dur/Klor-Con 20meq) 10 meq AD PRN PO POTASSIUM PROTOCOL 10/17/24 04:00 10/18/24 08:13 DC Potassium Chloride (KCl 10% Elixir 20meq/15ml) 10 meq AD PRN PO POTASSIUM PROTOCOL 10/17/24 04:00 11/16/24 03:59 10/23/24 17:06 10 MEQ Prednisone (deltaSONE/ oraSONE 20MG TAB) 40 mg DAILY PO 10/20/24 09:00 10/22/24 16:04 DC 10/22/24 09:20 40 MG Spironolactone (Aldactone 25mg) 25 mg DAILY PO 10/22/24 10:00 11/21/24 09:59 10/25/24 08:21 25 MG Spironolactone (Aldactone 25mg) 25 mg DAILY15 PO 10/17/24 15:00 10/21/24 14:02 DC 10/20/24 16:19 25 MG Temazepam (restORIL 15 MG CAP) 15 mg HS PRN PO INSOMNIA/SLEEP 10/16/24 21:00 11/15/24 20:59 Vitamin B Complex/ Vit C/Folic Acid (Nephrovite Tablet) 1 cap DAILY PO 10/22/24 09:00 11/21/24 08:59 10/25/24 08:21 1 CAP Diagnostics / Radiology: [COPY/PASTE HERE IF NO REPORTS PLEASE DELETE SECTION] Assessment: Concern for GI Bleed Acute blood loss anemia WICHO COPD Plan: EGD in am Pending above, will consider colonoscopy HALLIE HINTON CAR BRACER Oct 25, 2024 09:46
--- NOTE | 2024-10-25 11:08 | PN ---
[facility] PROGRESS NOTE Date of Service: Oct 25, 2024 Time of Service: 11:00 SUBJECTIVE: Ms. Palafox is a 79-year-old female with a history of tobacco dependent, COPD, asthma, hypertension, hypothyroidism, and renal disease who presented to [facility] ED for evaluation of shortness of breath over the past few weeks worsening today. The patient reported that she has been seen multiple times in the clinic setting for subjective fever last week. The patient was placed on steroids and nebulized treatments with no improvement which prompted the ED visit. In ED the patient was administered Solu-Medrol 80 mg IV, DuoNeb treatments, and Rocephin2 g. ED provider requested patient be admitted to the [facility] hospitalist team with the diagnosis of acute respiratory distress and acute exacerbation of COPD with asthma. Labs reviewed. Troponin negative. ABGs WNL, PO2 107, on 3 L. influenza and COVID are negative. BNP 115. D-dimer a 1403. CT chest without contrast: There are mild interstitial fibrosis. Bilateral renal cysts with the largest on the right measuring 9.8 cm. No evidence of pulmonary nodules or effusions. 10/17/24 the patient is seen and examined today morning, with her family at the bedside. She stated that her breathing is better today she and she saturating 98% on1 L of oxygen via nasal cannula. We will try to wean her off. Vitals are stable. She is complaining of productive cough and we will get the sputum culture. Pulmonology consult pending. V/Q scan pending. 2D echo results pending. Her WBC went down. Her hemoglobin dropped down to 8.5 from 9.7, MCV 77.2. We will order iron panel studies. TSH 0.25 And we will hold her antithyroid medications at the moment. We will get T3 and T4 levels. Chest x- ray showed vascular congestion, edema versus pneumonia, mild cardiomegaly. Venous Doppler negative for DVT. 10/18/24 patient seen and examined today. Her vitals are stable. She is saturating well with 96% on room air. She denies shortness of breath at the moment. Sputum Gram stain showed 2+ Gram-negative rods and pending culture results. Continue Rocephin and Solu-Medrol 40. Potassium is 3.4 And replaced with p.o. potassium chloride. BUN went up 26 to 33and creatinine went up from 1.1 to 1.3 today. Iron panel studies show iron 14, TIBC 362 and % saturation 3.8% she has suggestive of iron deficiency anemia. Check stool occult blood and we will order IV iron sucrose. Free T3 1.15. 2D echo showed EF 60-65% and indeterminate diastolic dysfunction. Consult PT OT for ambulation 10/19/24 patient is seen and evaluated today. She is seen sitting comfortably in chair with ongoing nebulizer treatment. Patient had a failed 6 minute walk today, her oxygen saturation dropped down to 85% and her heart rate went up to 150s. She will require home oxygen on discharge. We will consult case management for arranging home O2 requirement. Continue Rocephin and doxycycline IV. On examination bilateral wheezing are present. Respiratory culture showed 3+ Gram-negative rods and identification and sensitivity to follow. Hemoglobin 8.4 and we will continue with IV Venofer. BUN went up 33 to 42and creatinine stable at 1.3. 10/20/24 the patient is seen and examined today with her son at the bedside. She states her breathing is better, bilateral lower extremity edema has improved today. However her respiratory culture is positive for ESBL which is sensitive to IV Zosyn and meropenem. Infectious Disease consulted and recommended IV Zosyn for 10 days at [facility]. We will let the case management know regarding the plan. Her WBC went up from 9.8 to 11.6 today 10/21/24 patient is seen and examined today morning. She was transferred to ICU last night because of respiratory failure with hypotension blood pressure of 77/41, tachycardia heart rate in 130s and tachypnea in 30s. She was put on BiPAP last night and today morning she is saturating 96% on15 L non-rebreather mask. Her blood pressure is 121/58. Her WBC went up from 18.7 to 28.1. BUN went up 50 to 52. Creatinine went up from 1.9 to 2.1. I will decrease the dose of Lasix to 20 mg daily. Bedside swallow study ordered. We will consult Nephrology for WICHO. We will continue to monitor the patient closely 10/22/24 patient seen and examined today morning. She says her breathing is better and she is saturating 99% on2 L O2 via nasal cannula. Blood pressure 106/57. WBC came down to 19.8 from 28.1. FENA is 3.2%. Nephrology is already on the board and we will follow their recommendations. We will switch her p.o. steroids to IV steroids. We will repeat blood culture. 10/23/2024. Patient was seen and examined along with RN. Patient family at bedside. She would like to go home still short of breath walked few feet with physical therapy. Patient and patient's family does not want to go to rehab they would like to return home. Home oxygen has been arranged. IV antibiotics on outpatient basis has been arranged by Infectious Disease doctors. Patient will follow-up pulmonology outpatient for sleep study for CPAP. Hemoglobin dropped from 8.8 to 7.7. No source of bleeding has been identified yet stool occult was ordered previously not reported yet we will order again today. Patient has iron-deficiency anemia and received one dose of IV iron on 10/22/2024 we will order one more dose today. 10/24/24 was seen and evaluated today morning with her family at the bedside. Her breathing is better and she is saturating 97% on 3 L O2 via nasal cannula. She denies chest pain, fever or chills. No acute events overnight. Today she is complaining of clear fluid oozing from her left arm and also mild edema. We will obtain left upper extremity Doppler ultrasound. Stool occult blood is positive. Hemoglobin is down from 7.7-7.3. We will consult Gastroenterology for acute GI loss. Hold Lovenox. She also has bilateral pitting pedal edema. 10/25/24 patient was seen and examined today morning with her son at the bedside. No acute events overnight. Her breathing is better and saturating 98% on3 L oxygen via nasal cannula. Cough is getting better. Denies chest pain, fever or chills. She has bilateral pitting pedal edema more on left side than the right. She received 1 unit of PRBCs yesterday. Her hemoglobin went up to 8.9 from 7.3 yesterday. The we will do the nuclear bleeding scan today. REVIEW OF SYSTEMS CONSTITUTIONAL: Denies fevers, chills, or night sweats. No unintentional weight loss reported. NEUROLOGICAL: Denies headache, amaurosis fugax, motor weakness, sensory deficit, vertigo/spinning sensation, gait abnormalities, or tremors. ENT: No hearing loss, otalgia, otorrhea, rhinitis, rhinorrhea, hoarseness, or sore throat. PULMONARY: Improving shortness of breath, cough, phlegm/sputum. Denies hemoptysis, pleuritic chest pain. SLEEP: Denies morning headaches, daytime somnolence or napping. Denies diffi culty falling asleep, staying asleep, waking from sleep. Denies knowledge of snoring. GASTROINTESTINAL: Denies any type of dysphagia to either liquids or solids. Denies nausea, vomiting, pyrosis, early satiety, abdominal pain, diarrhea, constipation, or changes in stool consistency or caliber. Denies coffee-ground emesis, hematemesis, hematochezia, or melanotic stools. GENITOURINARY: Denies frequency, urgency, nocturia, hematuria or incontinence (Storage/Irritative symptoms.) Low urinary stream, straining to void, urinary intermittency or hesitancy, splitting of the voiding stream, terminal dribbling. ENDOCRINOLOGIC: Denies polyuria, polydipsia, polyphagia or heat/cold intolerances. HEMATOLOGIC: Denies thrombophilia/previous clots, or coagulopathy/bleeding disorders. ONCOLOGIC: Denies personal history of malignancy. PHYSICAL EXAM GENERAL APPEARANCE: The patient is awake, alert, and oriented, in no acute cardiopulmonary distress. HEENT: Face is symmetric. Pupils are equal and reactive. Extraocular movements are intact. NECK: Supple. No JVD. No thyromegaly. No submental, submandibular, pre- /postauricular, occipital or supraclavicular lymphadenopathy. CHEST: Normal chest expansion. No Telemetry. LUNGS: Bilateral crackles are present. More on Right side CARDIOVASCULAR: Regular. S1 and S2 normal. No appreciable rubs, murmurs or gallops. Crackles. ABDOMEN: Obese. Obese. Soft, nontender, and nondistended. There is no rebound, voluntary guarding, or rigidity. EXTREMITIES: Positive bilateral pitting pedal edema Lt > Rt. not cyanotic. No clubbing. Good capillary refill. SKIN: No skin breakdown. Vital Signs (last 8hr) Date Time Temp Pulse Resp B/P (MAP) Pulse Ox O2 Delivery O2 Flow Rate FiO2 10/25/24 08:00 97.7 65 18 123/45 98 Nasal Cannula 3.0 10/25/24 06:31 57 18 10/25/24 06:31 57 18 N/Cannula Low lpm 3.0 32 10/25/24 04:32 98.2 88 16 162/70 100 Room Air LABS: Laboratory: Test 10/25/24 05:13 10/25/24 03:52 10/24/24 07:30 10/24/24 03:57 Range/Units Whole Blood Glucose 94 # 70-110 MG/DL White Blood Count 8.2 4.8-10.8 K/uL Red Blood Count 3.69 L 4.00-5.50 MIL/uL Hemoglobin 8.9 #L 12.0-16.0 g/dL Hematocrit 30.4 L 36-48 % Mean Corpuscular Volume 82.4 79-99 fL Mean Corpuscular Hemoglobin 24.1 L 27.0-33.0 pg Mean Corpuscular Hemoglobin Concent 29.3 L 32.0-36.0 g/dL Red Cell Distribution Width 21.7 H 11.0-15.5 % Platelet Count 183 130-400 K/uL Mean Platelet Volume 9.4 7.5-10.5 fL Immature Granulocyte % (Auto) 9.8 H 0-1 % Neutrophils (%) (Auto) 78.9 H 40.0-77.0 % Lymphocytes (%) (Auto) 5.1 L 21.0-51.0 % Monocytes (%) (Auto) 5.6 3.0-13.0 % Eosinophils (%) (Auto) 0.1 0.0-8.0 % Basophils (%) (Auto) 0.5 0.0-5.0 % Neutrophils # (Auto) 6.4 1.8-7.7 K/uL Lymphocytes # (Auto) 0.4 L 1.0-4.8 K/uL Monocytes # (Auto) 0.5 0.1-1.0 K/uL Eosinophils # (Auto) 0.01 0.00-0.70 K/uL Basophils # (Auto) 0.04 0.00-0.20 K/uL Absolute Immature Granulocyte (auto 0.80 0-1 K/uL Nucleated Red Blood Cells 0.0 0.0-0.19 % Sodium Level 140 136-145 mmol/L Potassium Level 4.5 3.5-5.1 mmol/L Chloride Level 106 101-111 mmol/L Carbon Dioxide Level 30 21-32 mmol/L Blood Urea Nitrogen 36 H 7-18 mg/dL Creatinine 1.1 H 0.5-1.0 mg/dL Glomerular Filtration Rate Calc 52 >90 mL/min Random Glucose 112 H 70-105 mg/dL Total Calcium 8.8 8.5-10.1 mg/dL Stool Occult Blood POSITIVE H NEGATIVE White Cell Morphology Comment See comments Red Blood Cell Morphology See comments Iron Level 331 #H 50-170 mcg/dL Total Iron Binding Capacity 311 250-450 mcg/dL Percent Iron Saturation 106.4 H 22-44 % B-Type Natriuretic Peptide 85 0-100 pg/mL Procalcitonin 6.61 H 0.05-0.5 ng/mL Current Medications Medications (Trade) Dose Ordered Sig/Tom Route PRN Reason Start Time Stop Time Status Last Admin Dose Admin Acetaminophen (TYLenol 325MG TAB) 650 mg Q6H PRN PO FEVER/MILD PAIN LEVEL 1-3 10/16/24 21:00 11/15/24 20:59 10/20/24 16:23 650 MG Acetaminophen (TYLenol 650MG SUPPOSITORY) 650 mg Q6H PRN RC FEVER / MILD PAIN 1-3 IF NPO 10/16/24 21:00 11/15/24 20:59 Albuterol (DUOneb) 1 udvial [id number] IH 10/17/24 00:00 11/16/24 00:00 10/25/24 06:30 1 UDVIAL Ceftriaxone Sodium (Rocephin 2gm Inj) 2 gm Q24H IVPB 10/17/24 09:00 10/20/24 12:28 DC 10/20/24 08:44 2 GM Dextrose (D50w) 50 ml AD PRN IV HYPOGLYCEMIA PROTOCOL 10/17/24 04:00 11/16/24 03:59 Docusate Sodium (COLace 100MG CAP) 100 mg BID PRN PO c 10/16/24 21:00 11/15/24 20:59 Doxycycline Hyclate 250 ml @ 125 mls/hr Q12H IV 10/16/24 20:30 10/20/24 12:28 DC 10/20/24 08:44 125 MLS/HR Enoxaparin Sodium (Lovenox) 40 mg DAILY SQ 10/17/24 09:00 10/24/24 09:38 DC 10/23/24 09:33 40 MG Famotidine (Pepcid 20mg Vial) 20 mg DAILY IV 10/17/24 09:00 11/16/24 08:59 10/25/24 08:21 20 MG Furosemide (LASix 20MG VIAL) 20 mg DAILY IV 10/22/24 09:00 10/21/24 22:13 DC Furosemide (LASix 40MG VIAL) 40 mg DAILY IV 10/17/24 09:00 10/21/24 15:03 DC 10/21/24 09:17 40 MG Glucagon (Glucagon 1mg Kit) 1 mg AD PRN IM HYPOGLYCEMIA PROTOCOL 10/17/24 04:00 11/16/24 03:59 Guaifenesin/ Dextromethorphan (RobiTUSSin DM 200/20MG 10ML) 15 ml Q6H PRN PO COUGH 10/17/24 04:00 11/16/24 03:59 Home Med (Home Medication) DAILY IH 10/17/24 09:00 11/16/24 08:59 10/25/24 08:22 1 EACH Hydralazine HCl (APRESOLine 20MG INJ) 10 mg Q6H PRN IV SBP GREATER THAN 160 10/16/24 21:00 11/15/24 20:59 10/20/24 00:26 10 MG Insulin Human Regular (humuLIN R 100 UNIT/ML 3ML) INSULIN SLIDING SCAL... ACHS SQ 10/16/24 21:00 11/15/24 20:59 10/24/24 22:35 6 UNIT Iron Sucrose (VenoFER) 200 mg ONCE IV 10/18/24 14:00 10/18/24 13:43 DC Isosorbide Mononitrate (Imdur 30mg Sr) 30 mg DAILY PO 10/17/24 09:00 11/16/24 08:59 10/25/24 08:22 30 MG Lactulose (Constulose 20gm/ 30ml Udcup) 20 gm BID PRN PO CONSTIPATION 10/18/24 14:00 11/17/24 13:59 Lactulose (Constulose 20gm/ 30ml Udcup) 20 gm ONCE PO 10/18/24 14:00 10/18/24 13:43 DC Lactulose (Constulose 20gm/ 30ml Udcup) 20 gm Q6H PRN PO CONSTIPATION 10/16/24 21:00 10/18/24 13:44 DC Levothyroxine Sodium (SYNTHroid 25MCG TAB) 25 mcg DAILY@0630 PO 10/24/24 06:30 11/23/24 06:29 10/25/24 06:37 25 MCG Losartan Potassium (CozAAR 25MG TAB) 25 mg DAILY15 PO 10/17/24 15:00 10/21/24 14:02 DC 10/20/24 16:19 25 MG Magnesium Sulfate 50 ml @ 0 mls/hr PROTOCOL PRN IV MAGNESIUM PROTOCOL 10/17/24 04:00 11/16/24 03:59 Methylprednisolone Sodium Succinate (Solu-medROL 40MG) 40 mg BID IVP 10/18/24 09:00 10/19/24 23:00 DC 10/19/24 21:05 40 MG Methylprednisolone Sodium Succinate (Solu-medROL 40MG) 40 mg DAILY IVP 10/23/24 09:00 11/22/24 08:59 10/25/24 08:21 40 MG Methylprednisolone Sodium Succinate (Solu-medROL 125MG) 60 mg Q6H IVP 10/17/24 04:00 10/17/24 23:51 DC 10/17/24 21:03 60 MG Midodrine (PROAMatine 5 MG TABLET) 5 mg TID PO 10/22/24 09:00 11/21/24 08:59 10/24/24 17:07 5 MG Norepinephrine 250 ml @ 0 mls/hr AD PRN IV DIRECTED 10/21/24 00:00 10/25/24 07:18 DC 10/21/24 00:16 30 MLS/HR Ondansetron HCl (zoFRAN 4MG INJ) 4 mg Q6H PRN IVP NAUSEA/VOMITING 10/16/24 21:00 11/15/24 20:59 Piperacillin Sod/ Tazobactam Sod (Zosyn 3.375gm+NS 50ml) 3.375 gm Q12H IV 10/22/24 00:30 10/30/24 12:29 10/25/24 00:26 3.375 GM Piperacillin Sod/ Tazobactam Sod (Zosyn 3.375gm+NS 50ml) 3.375 gm Q8H IV 10/20/24 12:30 10/21/24 14:02 DC 10/21/24 04:56 3.375 GM Potassium Chloride 100 ml @ 100 mls/hr AD PRN IV POTASSIUM PROTOCOL 10/17/24 04:00 11/16/24 03:59 Potassium Chloride (K-Dur 10meq Sr Tab) 10 meq AD PRN PO POTASSIUM PROTOCOL 10/18/24 08:30 11/16/24 03:59 10/18/24 11:13 10 MEQ Potassium Chloride (K-Dur/Klor-Con 20meq) 10 meq AD PRN PO POTASSIUM PROTOCOL 10/17/24 04:00 10/18/24 08:13 DC Potassium Chloride (KCl 10% Elixir 20meq/15ml) 10 meq AD PRN PO POTASSIUM PROTOCOL 10/17/24 04:00 11/16/24 03:59 10/23/24 17:06 10 MEQ Prednisone (deltaSONE/ oraSONE 20MG TAB) 40 mg DAILY PO 10/20/24 09:00 10/22/24 16:04 DC 10/22/24 09:20 40 MG Spironolactone (Aldactone 25mg) 25 mg DAILY PO 10/22/24 10:00 11/21/24 09:59 10/25/24 08:21 25 MG Spironolactone (Aldactone 25mg) 25 mg DAILY15 PO 10/17/24 15:00 10/21/24 14:02 DC 10/20/24 16:19 25 MG Temazepam (restORIL 15 MG CAP) 15 mg HS PRN PO INSOMNIA/SLEEP 10/16/24 21:00 11/15/24 20:59 Vitamin B Complex/ Vit C/Folic Acid (Nephrovite Tablet) 1 cap DAILY PO 10/22/24 09:00 11/21/24 08:59 10/25/24 08:21 1 [facility] / RADIOLOGY: [address] [address] [place] [address] IMAGING REPORT Signed PATIENT: MORRIS PALAFOX MR#: [id number] : 1945 SEX: F AGE: 79 LOCATION: 3DH ORDER [id number] STATUS: ADM IN REPORT#: [id number] SERVICE 1007 REASON: EDEMA ORDERING PHYSICIAN: EDDI HSIEH MD PROCEDURE: VENOUS UNI - US VENOUS DOPPLER UNILATERAL US VENOUS DOPPLER UNILATERAL INDICATION: Swelling. EDEMA TECHNIQUE: US VENOUS DOPPLER UNILATERAL Real-time venous Doppler ultrasound was performed using B mode, color flow and spectral analysis. FINDINGS: PICC line is seen in the left basilic vein. Thrombosis in the left cephalic vein. The visualized subclavian, axillary, brachial and basilic veins showed normal flow and color Doppler. IMPRESSION: PICC line is seen in the left basilic vein. Thrombosis in the left cephalic vein. DICTATED BY: LUIS F PASCAL MD DATE: 10/24/241842 ELECTRONICALLY SIGNED BY: LUIS F PASCAL MD DATE: 10/24/241845 [address] [address] IMAGING REPORT Signed PATIENT: MORRIS PALAFOX MR#: [id number] : 1945 SEX: F AGE: 79 LOCATION: 2BH ORDER 2300 STATUS: ADM IN REPORT#: [id number] SERVICE 0600 REASON: to r/o aspiration pneumonia ORDERING PHYSICIAN: IMANI ALDRIDGE MD PROCEDURE: CXR1VW - CHEST 1VW Exam Type: CHEST 1VW Clinical Information: to r/o aspiration pneumonia Comparison: None Findings: Pulmonary pattern is as before. No worrisome interval changes have taken place. Impression: Stable exam. DICTATED BY: CARLA GONZALEZ MD DATE: 10/22/24939 ELECTRONICALLY SIGNED BY: CARLA GONZALEZ MD DATE: 10/22/24941 ASSESSMENT: Acute GI loss anemia Sepsis secondary to pneumonia Septic shock requiring Levophed resolved Acute respiratory failure POA, requiring oxygen supplementation Pneumonia due to ESBL producing organism POA Mild interstitial fibrosis, per CT on 10/16/2024 COPD exacerbation, POA Fluid overload, POA Bilateral renal cysts with the largest on the right measuring 9.8 cm. Lactic acidosis Anemia of chronic disease Thrombocytosis Acute on chronic renal failure, GFR 42 Diabetes mellitus with hyperglycemia Hypoalbuminemia Morbid obesity, BMI 42 Hypotension Chronic problem list: Asthma, COPD, hypertension, hypothyroidism, renal insufficiency, ovarian surgery PLAN: Continue to monitor the patient on Medical floor with continuous telemetry monitoring Acute GI loss anemia Patient received 1 unit of PRBCs yesterday Hemoglobin went up to 8.9 from 7.3 Stool occult blood is positive We will order nuclear bleeding scan. Consultation with GI is requested and we will follow their recommendations. Hold Lovenox Sepsis secondary to pneumonia Acute respiratory failure POA, requiring oxygen supplementation Mild interstitial fibrosis, per CT on 10/16/2024 COPD exacerbation, POA Pneumonia due to ESBL producing organism POA Continue Monitor respiratory status closely. Continue oxygen therapy as needed. Titrate oxygen prn to keep Spo2>/+=92%. Continue Albuterol and Atrovent scheduled. Sputum g stain showed 2+ g negative rods. Respiratory culture showed 3+ Gram- negative rods, ESBL sensitive to IV Zosyn and meropenem ID consult appreciated and recommended IV Zosyn for 10 days at [facility]. Continue Robitussin DM as needed cough. Continue iv Solu-Medrol 40 mg IV once a day Pulmonology consult appreciated and recommended outpatient follow up after 1 week of discharge Patient will get home oxygen on discharge Fluid overload, POA Continue Lasix to 20 mg IV daily 2D echo showed EF 60-65% and indeterminate diastolic dysfunction Acute on chronic renal failure, GFR 42 BUN went down from 41 to 36 and creatinine went down from 1.2 To 1.1 Strict I&Os. Nephrology on board Anemia of chronic disease POA With iron-deficiency anemia POA Possible acute blood loss anemia follow stool Hemoccult Her hemoglobin went up to 8.9 Recent Iron studies showed iron 331, TIBC 311, saturation 106.4 %. Stool occult blood is positive and GI consult requested for further workup Diabetes mellitus with hyperglycemia Glucometer checks AC & HS needed with insulin regular sliding scale coverage as needed. Hypothyroidism TSH level is 0.25 And free T3 1.15, free T4 1.21 Continue levothyroxine with 25 mcg. Severe Debility: Physical therapy is working with the patient patient refused rehab we will continue to monitor high-risk for readmission due to decreased functional capacity and respiratory status. -GI and DVT prophylaxis: Pepcid and SCDs -PRN medications for: Pain management, fever, hypertension, N/V, constipation. ATTESTATION BY PHYSICIAN I have seen and examined the patient. I reviewed the documentation, medical decision making, and treatment plan as noted by the resident provider above. I a gree with the findings and plan of care. Eddi Hsieh MD, KRUPALI P MD Oct 25, 2024 11:08
--- NOTE | 2024-10-25 16:17 | PN ---
NEPHROLOGY PROGRESS NOTE Date/Time Patient Seen: Oct 25, 2024 SUBJECTIVE: This 79-year-old female with a history of known chronic renal insufficiency. The patient was initially admitted to the ICU. The patient with underlying pneumonia and volume overload. The patient was started on the diuretics and pulmonary symptoms have somewhat improved. She was noted to have elevated BUN/creatinine. We has been consulted for renal failure. Renal function continues to improve Electrolytes are stable. Hemoglobin has remained stable, iron panel was noted. UA was negative for proteinuria FOBT was positive, pending further GI recommendations She continues on antibiotics and diuretics. She was seen in the medical floor, she continues to complain of lower extremity edema Family at the bedside Prognosis remains guarded REVIEW OF SYSTEMS: GENERAL: Positive for lower extremity edema NEUROLOGIC: Negative for any blurry vision, blind spots, double vision, facial asymmetry, dysphagia, dysarthria, hemiparesis, hemisensory deficits, vertigo, ataxia. HEENT: Negative for any head trauma, neck trauma, neck stiffness, photophobia, phonophobia, sinusitis, rhinitis. CARDIAC: Negative for any chest pain, dyspnea on exertion, paroxysmal nocturnal dyspnea, peripheral edema. PULMONARY: Negative for any shortness of breath, wheezing, COPD, or TB exposure. GASTROINTESTINAL: Negative for any abdominal pain, nausea, vomiting, bright red blood per rectum, melena. GENITOURINARY: Negative for any dysuria, hematuria, incontinence. INTEGUMENTARY: Negative for any rashes, cuts, insect bites. RHEUMATOLOGIC: Negative for any joint pains, photosensitive rashes, history of vasculitis or kidney problems. HEMATOLOGIC: Negative for any abnormal bruising, frequent infections or bleeding. Vital Signs (last 8hr) Date Time Temp Pulse Resp B/P (MAP) Pulse Ox O2 Delivery O2 Flow Rate FiO2 10/25/24 12:00 98.4 74 20 119/48 98 Room Air 21 10/25/24 11:12 62 18 N/Cannula Low lpm 3.0 32 10/25/24 11:12 62 18 PHYSICAL EXAM: GENERAL: Alert and oriented x 3. No acute distress. Well-nourished. EYES: EOMI. Anicteric. HENT: Moist mucous membranes. No scleral icterus. No cervical lymphadenopathy. LUNGS: Clear to auscultation bilaterally. No accessory muscle use. CARDIOVASCULAR: Regular rate and rhythm. No murmur. No JVD. ABDOMEN: Soft, non-tender and non-distended. No palpable masses. EXTREMITIES: No edema. Non-tender. Skin: No rashes or lesions. Warm. NEUROLOGIC: No focal neurological deficits. CN II-XII grossly intact, but not in dividually tested. PSYCHIATRIC: Cooperative. Appropriate mood and affect. Current Medications Medications (Trade) Dose Ordered Sig/Tom Route PRN Reason Start Time Stop Time Status Last Admin Dose Admin Acetaminophen (TYLenol 325MG TAB) 650 mg Q6H PRN PO FEVER/MILD PAIN LEVEL 1-3 10/16/24 21:00 11/15/24 20:59 10/20/24 16:23 650 MG Acetaminophen (TYLenol 650MG SUPPOSITORY) 650 mg Q6H PRN RC FEVER / MILD PAIN 1-3 IF NPO 10/16/24 21:00 11/15/24 20:59 Albuterol (DUOneb) 1 udvial [id number] IH 10/17/24 00:00 11/16/24 00:00 10/25/24 11:11 1 UDVIAL Ceftriaxone Sodium (Rocephin 2gm Inj) 2 gm Q24H IVPB 10/17/24 09:00 10/20/24 12:28 DC 10/20/24 08:44 2 GM Dextrose (D50w) 50 ml AD PRN IV HYPOGLYCEMIA PROTOCOL 10/17/24 04:00 11/16/24 03:59 Docusate Sodium (COLace 100MG CAP) 100 mg BID PRN PO c 10/16/24 21:00 11/15/24 20:59 Doxycycline Hyclate 250 ml @ 125 mls/hr Q12H IV 10/16/24 20:30 10/20/24 12:28 DC 10/20/24 08:44 125 MLS/HR Enoxaparin Sodium (Lovenox) 40 mg DAILY SQ 10/17/24 09:00 10/24/24 09:38 DC 10/23/24 09:33 40 MG Famotidine (Pepcid 20mg Vial) 20 mg DAILY IV 10/17/24 09:00 11/16/24 08:59 10/25/24 08:21 20 MG Furosemide (LASix 20MG VIAL) 20 mg DAILY IV 10/22/24 09:00 10/21/24 22:13 DC Furosemide (LASix 40MG VIAL) 40 mg DAILY IV 10/17/24 09:00 10/21/24 15:03 DC 10/21/24 09:17 40 MG Glucagon (Glucagon 1mg Kit) 1 mg AD PRN IM HYPOGLYCEMIA PROTOCOL 10/17/24 04:00 11/16/24 03:59 Guaifenesin/ Dextromethorphan (RobiTUSSin DM 200/20MG 10ML) 15 ml Q6H PRN PO COUGH 10/17/24 04:00 11/16/24 03:59 Home Med (Home Medication) DAILY IH 10/17/24 09:00 11/16/24 08:59 10/25/24 08:22 1 EACH Hydralazine HCl (APRESOLine 20MG INJ) 10 mg Q6H PRN IV SBP GREATER THAN 160 10/16/24 21:00 11/15/24 20:59 10/20/24 00:26 10 MG Insulin Human Regular (humuLIN R 100 UNIT/ML 3ML) INSULIN SLIDING SCAL... ACHS SQ 10/16/24 21:00 11/15/24 20:59 10/24/24 22:35 6 UNIT Iron Sucrose (VenoFER) 200 mg ONCE IV 10/18/24 14:00 10/18/24 13:43 DC Isosorbide Mononitrate (Imdur 30mg Sr) 30 mg DAILY PO 10/17/24 09:00 11/16/24 08:59 10/25/24 08:22 30 MG Lactulose (Constulose 20gm/ 30ml Udcup) 20 gm BID PRN PO CONSTIPATION 10/18/24 14:00 11/17/24 13:59 Lactulose (Constulose 20gm/ 30ml Udcup) 20 gm ONCE PO 10/18/24 14:00 10/18/24 13:43 DC Lactulose (Constulose 20gm/ 30ml Udcup) 20 gm Q6H PRN PO CONSTIPATION 10/16/24 21:00 10/18/24 13:44 DC Levothyroxine Sodium (SYNTHroid 25MCG TAB) 25 mcg DAILY@0630 PO 10/24/24 06:30 11/23/24 06:29 10/25/24 06:37 25 MCG Losartan Potassium (CozAAR 25MG TAB) 25 mg DAILY15 PO 10/17/24 15:00 10/21/24 14:02 DC 10/20/24 16:19 25 MG Magnesium Sulfate 50 ml @ 0 mls/hr PROTOCOL PRN IV MAGNESIUM PROTOCOL 10/17/24 04:00 11/16/24 03:59 Methylprednisolone Sodium Succinate (Solu-medROL 40MG) 40 mg BID IVP 10/18/24 09:00 10/19/24 23:00 DC 10/19/24 21:05 40 MG Methylprednisolone Sodium Succinate (Solu-medROL 40MG) 40 mg DAILY IVP 10/23/24 09:00 11/22/24 08:59 10/25/24 08:21 40 MG Methylprednisolone Sodium Succinate (Solu-medROL 125MG) 60 mg Q6H IVP 10/17/24 04:00 10/17/24 23:51 DC 10/17/24 21:03 60 MG Midodrine (PROAMatine 5 MG TABLET) 5 mg TID PO 10/22/24 09:00 11/21/24 08:59 10/24/24 17:07 5 MG Norepinephrine 250 ml @ 0 mls/hr AD PRN IV DIRECTED 10/21/24 00:00 10/25/24 07:18 DC 10/21/24 00:16 30 MLS/HR Ondansetron HCl (zoFRAN 4MG INJ) 4 mg Q6H PRN IVP NAUSEA/VOMITING 10/16/24 21:00 11/15/24 20:59 Piperacillin Sod/ Tazobactam Sod (Zosyn 3.375gm+NS 50ml) 3.375 gm Q12H IV 10/22/24 00:30 10/30/24 12:29 10/25/24 12:40 3.375 GM Piperacillin Sod/ Tazobactam Sod (Zosyn 3.375gm+NS 50ml) 3.375 gm Q8H IV 10/20/24 12:30 10/21/24 14:02 DC 10/21/24 04:56 3.375 GM Potassium Chloride 100 ml @ 100 mls/hr AD PRN IV POTASSIUM PROTOCOL 10/17/24 04:00 11/16/24 03:59 Potassium Chloride (K-Dur 10meq Sr Tab) 10 meq AD PRN PO POTASSIUM PROTOCOL 10/18/24 08:30 11/16/24 03:59 10/18/24 11:13 10 MEQ Potassium Chloride (K-Dur/Klor-Con 20meq) 10 meq AD PRN PO POTASSIUM PROTOCOL 10/17/24 04:00 10/18/24 08:13 DC Potassium Chloride (KCl 10% Elixir 20meq/15ml) 10 meq AD PRN PO POTASSIUM PROTOCOL 10/17/24 04:00 11/16/24 03:59 10/23/24 17:06 10 MEQ Prednisone (deltaSONE/ oraSONE 20MG TAB) 40 mg DAILY PO 10/20/24 09:00 10/22/24 16:04 DC 10/22/24 09:20 40 MG Spironolactone (Aldactone 25mg) 25 mg DAILY PO 10/22/24 10:00 11/21/24 09:59 10/25/24 08:21 25 MG Spironolactone (Aldactone 25mg) 25 mg DAILY15 PO 10/17/24 15:00 10/21/24 14:02 DC 10/20/24 16:19 25 MG Temazepam (restORIL 15 MG CAP) 15 mg HS PRN PO INSOMNIA/SLEEP 10/16/24 21:00 11/15/24 20:59 Vitamin B Complex/ Vit C/Folic Acid (Nephrovite Tablet) 1 cap DAILY PO 10/22/24 09:00 11/21/24 08:59 10/25/24 08:21 1 CAP LABORATORY: [ ] Hematology Labs: Test 10/25/24 03:52 10/24/24 03:57 Range/Units White Blood Count 8.2 4.8-10.8 K/uL Red Blood Count 3.69 L 4.00-5.50 MIL/uL Hemoglobin 8.9 #L 12.0-16.0 g/dL Hematocrit 30.4 L 36-48 % Mean Corpuscular Volume 82.4 79-99 fL Mean Corpuscular Hemoglobin 24.1 L 27.0-33.0 pg Mean Corpuscular Hemoglobin Concent 29.3 L 32.0-36.0 g/dL Red Cell Distribution Width 21.7 H 11.0-15.5 % Platelet Count 183 130-400 K/uL Mean Platelet Volume 9.4 7.5-10.5 fL Immature Granulocyte % (Auto) 9.8 H 0-1 % Neutrophils (%) (Auto) 78.9 H 40.0-77.0 % Lymphocytes (%) (Auto) 5.1 L 21.0-51.0 % Monocytes (%) (Auto) 5.6 3.0-13.0 % Eosinophils (%) (Auto) 0.1 0.0-8.0 % Basophils (%) (Auto) 0.5 0.0-5.0 % Neutrophils # (Auto) 6.4 1.8-7.7 K/uL Lymphocytes # (Auto) 0.4 L 1.0-4.8 K/uL Monocytes # (Auto) 0.5 0.1-1.0 K/uL Eosinophils # (Auto) 0.01 0.00-0.70 K/uL Basophils # (Auto) 0.04 0.00-0.20 K/uL Absolute Immature Granulocyte (auto 0.80 0-1 K/uL Nucleated Red Blood Cells 0.0 0.0-0.19 % White Cell Morphology Comment See comments Red Blood Cell Morphology See comments Chemistry Labs: Test 10/25/24 15:56 10/25/24 03:52 10/24/24 03:57 Range/Units Whole Blood Glucose 230 #H 70-110 MG/DL Sodium Level 140 136-145 mmol/L Potassium Level 4.5 3.5-5.1 mmol/L Chloride Level 106 101-111 mmol/L Carbon Dioxide Level 30 21-32 mmol/L Blood Urea Nitrogen 36 H 7-18 mg/dL Creatinine 1.1 H 0.5-1.0 mg/dL Glomerular Filtration Rate Calc 52 >90 mL/min Random Glucose 112 H 70-105 mg/dL Total Calcium 8.8 8.5-10.1 mg/dL Iron Level 331 #H 50-170 mcg/dL Total Iron Binding Capacity 311 250-450 mcg/dL Percent Iron Saturation 106.4 H 22-44 % B-Type Natriuretic Peptide 85 0-100 pg/mL Procalcitonin 6.61 H 0.05-0.5 ng/mL DIAGNOSTICS / RADIOLOGY: REASON: EDEMA ORDERING PHYSICIAN: FARIDA CULVER MD PROCEDURE: VENOUS UNI - US VENOUS DOPPLER UNILATERAL US VENOUS DOPPLER UNILATERAL INDICATION: Swelling. EDEMA TECHNIQUE: US VENOUS DOPPLER UNILATERAL Real-time venous Doppler ultrasound was performed using B mode, color flow and spectral analysis. FINDINGS: PICC line is seen in the left basilic vein. Thrombosis in the left cephalic vein. The visualized subclavian, axillary, brachial and basilic veins showed normal flow and color Doppler. IMPRESSION: PICC line is seen in the left basilic vein. Thrombosis in the left cephalic vein. DICTATED BY: LUIS F PASCAL MD DATE: 10/24/24 184 REASON: to r/o aspiration pneumonia ORDERING PHYSICIAN: IMANI ALDRIDGE MD PROCEDURE: CXR1VW - CHEST 1VW Exam Type: CHEST 1VW Clinical Information: to r/o aspiration pneumonia Comparison: None Findings: Pulmonary pattern is as before. No worrisome interval changes have taken place. Impression: Stable exam. DICTATED BY: CARLA GONZALEZ MD DATE: 10/22/24 0940 REASON: shortness of breath ORDERING PHYSICIAN: LESA JAIN [employer] WORKER PROCEDURE: CXR1VW - CHEST 1VW CHEST 1VW HISTORY: Shortness of breath COMPARISON: 10/16/2024 FINDINGS: A frontal projection of the chest was obtained. Mild bilateral pulmonary infiltrates are seen may be related to mild pulmonary vascular congestion with possible superimposed pneumonitis. The heart is borderline enlarged. Degenerative changes are seen. No evidence of aortic calcification is seen. IMPRESSION: 1. Mild bilateral pulmonary infiltrates are seen may be related to mild pulmonary vascular congestion with possible superimposed pneumonitis. DICTATED BY: YONI HERNANDEZ MD DATE: 10/20/242025 REASON: fluid overload, sob ORDERING PHYSICIAN: JARRED PATTERSON [employer] WORKER PROCEDURE: ECHO CMP - ECHO 2-D COMPLETE APPROVED REPORT EXAM: Two-dimensional and M-mode echocardiogram with Doppler and color Doppler. INDICATION ICD: Fluid overload, SOB 2D Dimensions RVDd 3.0 cm LVEF(%) 63.0 (>50%) LVED Vol(simp.) 126.0 mL IVSd 0.9 (0.7-1.1cm) FS(%) 34 % LVES Vol(simp.) 39.0 mL LVDd 4.3 (3.8-5.6cm) Ao Root(2D) 3.0 (2.0-3.7cm) LVEF(%, simp.) 69 % PWd 0.9 (0.7-1.1cm) LVOT diam 2.0 (1.8-2.4cm) LA ESV INDEX (BP) 37.44 mL/m2 LVDs 2.9 (2.5-4.0cm) IVC diam 1.8 cm Deformation Strain Apical 4 -17.9 % Apical 2 -21.4 % Apical 3 -17.8 % Global Strain -19.0 % M-Mode Dimensions EPSS 0.8 cm LA (MM) 3.8 (1.6-4.0cm) Ao Root(MM) 3.4 (2.0-3.7cm) Aortic Valve AoV Vmax 1.7 m/s Ao Peak GR 12.2 mmHg LVOT Vmax 1.7 m/s AoV VTI 0.4 m Ao Mean GR 6.0 mmHg LVOT VTI 0.32 m JAHAIRA (VMAX) 2.75 cm2 JAHAIRA (VTI) 2.7 cm2 Mitral Valve MV E Vmax 77.8 cm/s DECEL Time 320 ms MV A Vmax 91.8 cm/s P 1/2 T 62 ms E/A ratio 0.8 MVA (PHT) 3.5 cm2 TDI E/E' Medial 13.3 E/E' Lateral 10.1 Medial E' Peak V 5.87 cm/s Lateral E' Peak V 7.70 cm/s Left Ventricle The left ventricle is normal size. There is normal LV segmental wall motion. There is normal left ventricular wall thickness. LVEF is 60-65%. Indeterminate diastolic dysfunction. Right Ventricle The right ventricle is normal size. The right ventricular systolic function is normal. Atria The left atrium is mildly dilated. The right atrium size is normal. Aortic Valve Aortic valve is not well visualized but no significant valvular abnormalities noted. No aortic regurgitation is present. There is no aortic valvular stenosis. Mitral Valve The mitral valve is normal in structure. There is trace mitral regurgitation. Th ere is no mitral valve stenosis. Tricuspid Valve The tricuspid valve is normal in structure. There is trivial tricuspid valve r egurgitation noted. Pulmonic Valve Pulmonic valve is not well visualized. There is no pulmonic valvular regurgitation. Great Vessels The aortic root is normal in size. The IVC is normal in size and collapses >50% with inspiration. Pericardium There is no pericardial effusion. Other Information Quality : Fair Technically limited study due to body habitus. Conclusion The left ventricle is normal size. LVEF is 60-65% with normal LV segmental wall motion. Indeterminate diastolic dysfunction. The right ventricular systolic function is normal. The left atrium is mildly dilated. No hemodynamically significant valvular abnormalities. There is no pericardial effusion. DICTATED BY: CATHERINE RIOS MD DATE: 10/17/24 0931 REASON: ELEVATED D-DIMER ORDERING PHYSICIAN: JARRED PATTERSON PROCEDURE: VENOUS BRITTNI - US VENOUS DOPPLER BILATERAL US VENOUS DOPPLER BILATERAL INDICATION: Swelling. ELEVATED D-DIMER TECHNIQUE: US VENOUS DOPPLER BILATERAL Real-time venous Doppler ultrasound was performed using B mode, color flow and spectral analysis. FINDINGS: The visualized greater saphenous junction, common femoral, deep femoral, superficial femoral, popliteal and posterior tibial veins demonstrate normal compressibility and flow. No DVT is identified. IMPRESSION: No evidence of DVT in the visualized bilateral extremities. DICTATED BY: LUIS F PASCAL MD DATE: 10/17/24 0908 REASON: acute respiratory distress ORDERING PHYSICIAN: JARRED PATTERSON PROCEDURE: CHEST WO - CT CHEST W/O CONTRAST CT CHEST W/O CONTRAST HISTORY: Acute respiratory distress COMPARISON: None TECHNIQUE: Multiple sequential axial images of the chest were obtained from the thoracic inlet through upper abdomen. Patient was not given contrast through intravenous route. FINDINGS: There are mild interstitial fibrosis. There is no evidence of pulmonary nodule or parenchymal disease. No pleural effusion or pericardial effusion is seen. There is no evidence of pneumothorax. There are normal size mediastinal and hilar lymph nodes. The heart is not enlarged. Degenerative changes of the thoracolumbar spine are present. There is no evidence of adrenal nodule. There are bilateral renal cysts with the largest on the right measuring 9.8 cm. IMPRESSION: 1. No evidence of pulmonary nodule or effusion is seen. CT was performed with one or more following dose reduction techniques: automated exposure control, adjustment of the mA and kv according to patient's size, or use of a iterative reconstruction technique. DICTATED BY: YONI HERNANDEZ MD DATE: 10/16/242211 REASON: sob ORDERING PHYSICIAN: KARLO LESLIE MD PROCEDURE: CXR1VW - CHEST 1VW INDICATION: sob TECHNIQUE: CHEST 1VW COMPARISON: 11/10/2012 FINDINGS AND IMPRESSION: Mild bilateral airspace consolidation suggesting vascular congestion/edema versus pneumonia. Mild cardiomegaly Degenerative changes of the spine. The visualized upper abdomen appears unremarkable. DICTATED BY: LUIS F PASCAL MD DATE: 10/16/241902 ASSESSMENT: Acute GI loss anemia Sepsis secondary to pneumonia Septic shock requiring Levophed resolved Acute respiratory failure POA, requiring oxygen supplementation Pneumonia due to ESBL producing organism POA Mild interstitial fibrosis, per CT on 10/16/2024 COPD exacerbation, POA Fluid overload, POA Bilateral renal cysts with the largest on the right measuring 9.8 cm. Lactic acidosis Anemia of chronic disease Thrombocytosis Acute on chronic renal failure Diabetes mellitus with hyperglycemia Hypoalbuminemia Morbid obesity PLAN: Labs, diagnostic, radiologic exams reviewed and interpreted by myself and supervising physician. We have reviewed external records in detail Order complete ultrasound Require close monitoring of renal function and electrolytes Order CBC, CMP,and electrolytes in am Continue with antibiotics BiPAP as necessary, for respiratory distress Monitor blood pressure adjust medication doses as needed Avoid hypotensive episodes May use Dilaudid 0.5 mg IV every 6 hours as needed for severe pain Monitor blood sugars Strict intake, output, and daily weight should be monitored Please renally adjust medications Avoid nephrotoxic and nonsteroidal drugs Avoid contrast if possible Will continue to monitor renal function, anemia, electrolytes Treatment plan discussed with patient Questions were answered We have discussed with the other team physicians in detail about the care plan We will continue to monitor the patient closely ATTESTATION BY PHYSICIAN I have seen and examined the patient. I reviewed the documentation, medical decision making, and treatment plan as noted by the mid-level provider above. I agree with the findings and plan of care. ABIMBOLA WHEELER MD, [facility] Oct 25, 2024 16:17
--- NOTE | 2024-10-25 19:18 | HMCIMG ---
US ABDOMINAL COMPLETE HISTORY: Anasarca COMPARISON: None TECHNIQUE: Multiple transverse and longitudinal ultrasound images of the abdomen were obtained. FINDINGS: Distal portion of the abdominal aorta is not well seen. Otherwise there is a portion of the abdominal aorta and inferior vena cava are unremarkable. Liver measures 12.7 cm. The visualized portion of the pancreas is within normal limits. Liver is echogenic consistent with liver parenchymal disease. Gallbladder has been removed. Common duct measures 4 mm. There are right renal cysts with the largest measuring 8.9 x 9.3 x 9.2 cm. There are left renal cysts with the largest measuring 7.1 x 8.1 cm. Both kidneys are seen. Right kidney measures 8.9 x 4.7 x 5 cm. Left kidney measures 11.6 x 4.9 x 5 cm. No hydronephrosis is seen of the both kidneys. The spleen is grossly unremarkable. IMPRESSION: 1. Postcholecystectomy. No ductal dilatation is seen. 2. No hydronephrosis is seen. Bilateral renal cysts.
--- NOTE | 2024-10-25 22:41 | PN ---
INFECTIOUS DISEASE PROGRESS NOTE Date of Service: Oct 25, 2024 SUBJECTIVE: Patient who was seen and examined at bedside in room 326. Patient is awake, alert and oriented x3. Patient is sitting up on the bedside chair with the oxygen on. Son visiting at bedside reported that the home oxygen is already set up and the portable oxygen is available in the room for when ready to discharge. Patient was transfused 1 unit of PRBC yesterday for a hemoglobin level of 7.3, current hemoglobin this morning is stable at 8.9. During rounding today patient was pending a bleeding scan. Patient has been approved to [facility] [place] for [place] IV [place]. We will continue on Zosyn IV. PHYSICAL EXAM EYES: Anicteric. Pupils equal and reactive. HENT: No oral thrush seen, moist Oral mucosa. NECK: Supple, no JVD or thyromegaly. LUNGS: Good air entry. Shortness of breaths. Diminished breath sounds. Oxygen support. CARDIOVASCULAR: S1, S2 regular. No murmur heard. ABDOMEN: Soft, non tender, bowel sounds present, no organomegaly. CENTRAL NERVOUS SYSTEM: Awake, alert, oriented x 3. SKIN: No rashes, no swelling. LYMPHATICS: No peripheral lymphadenopathy. MUSCULOSKELETAL: No joint swelling, erythema or tenderness. EXTREMITIES: No cyanosis or clubbing. BACK: No deformity, no pressure ulcer. GENITOURINARY: No dysuria or hematuria. Vital Sign (Last 12 Hours) 10/25/24 10/25/24 10/25/24 10/25/24 11:12 11:12 12:00 16:00 Temp 98.4 98.2 Pulse 62 62 74 71 Resp 18 18 20 20 B/P (MAP) 119/48 104/48 Pulse Ox 98 100 O2 Delivery N/Cannula Low lpm Room Air Room Air O2 Flow Rate 3.0 FiO2 32 21 21 10/25/24 10/25/24 18:28 18:28 Pulse 61 61 Resp 18 17 O2 Delivery N/Cannula Low lpm O2 Flow Rate 3.0 FiO2 32 Intake & Output (last 24hrs) 10/24/24 10/24/24 10/25/24 15:00 23:00 07:00 Intake Total 120 ml Balance 120 ml LABS: Laboratory: Test 10/25/24 21:51 10/25/24 03:52 10/24/24 07:30 10/24/24 03:57 Range/Units Whole Blood Glucose 112 #H 70-110 MG/DL White Blood Count 8.2 4.8-10.8 K/uL Red Blood Count 3.69 L 4.00-5.50 MIL/uL Hemoglobin 8.9 #L 12.0-16.0 g/dL Hematocrit 30.4 L 36-48 % Mean Corpuscular Volume 82.4 79-99 fL Mean Corpuscular Hemoglobin 24.1 L 27.0-33.0 pg Mean Corpuscular Hemoglobin Concent 29.3 L 32.0-36.0 g/dL Red Cell Distribution Width 21.7 H 11.0-15.5 % Platelet Count 183 130-400 K/uL Mean Platelet Volume 9.4 7.5-10.5 fL Immature Granulocyte % (Auto) 9.8 H 0-1 % Neutrophils (%) (Auto) 78.9 H 40.0-77.0 % Lymphocytes (%) (Auto) 5.1 L 21.0-51.0 % Monocytes (%) (Auto) 5.6 3.0-13.0 % Eosinophils (%) (Auto) 0.1 0.0-8.0 % Basophils (%) (Auto) 0.5 0.0-5.0 % Neutrophils # (Auto) 6.4 1.8-7.7 K/uL Lymphocytes # (Auto) 0.4 L 1.0-4.8 K/uL Monocytes # (Auto) 0.5 0.1-1.0 K/uL Eosinophils # (Auto) 0.01 0.00-0.70 K/uL Basophils # (Auto) 0.04 0.00-0.20 K/uL Absolute Immature Granulocyte (auto 0.80 0-1 K/uL Nucleated Red Blood Cells 0.0 0.0-0.19 % Sodium Level 140 136-145 mmol/L Potassium Level 4.5 3.5-5.1 mmol/L Chloride Level 106 101-111 mmol/L Carbon Dioxide Level 30 21-32 mmol/L Blood Urea Nitrogen 36 H 7-18 mg/dL Creatinine 1.1 H 0.5-1.0 mg/dL Glomerular Filtration Rate Calc 52 >90 mL/min Random Glucose 112 H 70-105 mg/dL Total Calcium 8.8 8.5-10.1 mg/dL Stool Occult Blood POSITIVE H NEGATIVE White Cell Morphology Comment See comments Red Blood Cell Morphology See comments Iron Level 331 #H 50-170 mcg/dL Total Iron Binding Capacity 311 250-450 mcg/dL Percent Iron Saturation 106.4 H 22-44 % B-Type Natriuretic Peptide 85 0-100 pg/mL Procalcitonin 6.61 H 0.05-0.5 ng/mL ASSESSMENT: Acute hypoxic respiratory failure requiring oxygen support. Pneumonia with E coli infection. Infection with multidrug resistant organism. Leukocytosis. COPD exacerbation. Chronic tobacco use. Anemia requiring blood transfusion. PLAN: Continue Zosyn. Continue oxygen support. Continue GI prophylaxis. Continue bronchodilators. Patient has been approved approved to [facility] [place] for outpatient IV antibiotics. Patient is pending a bleeding scan. This case was reviewed and discussed with my supervising physician and the above assessment and plan was formulated and agreed upon.. ATTESTATION BY PHYSICIAN I have seen and examined the patient. I reviewed the documentation, medical decision making, and treatment plan as noted by the mid-level provider above. I agree with the findings and plan of care. ATA CARSON MD, [facility] Oct 25, 2024 22:41
--- NOTE | 2024-10-25 22:43 | HMCIMG ---
NM GI BLOOD LOSS IMAG REASON: LOW HGB. COMPARISON: None TECHNIQUE: Nuclear GI bleeding scan was performed with 25 mCi of technetium tagged RBCs through intravenous route. FINDINGS: No scintigraphic evidence of active GI bleed is seen. IMPRESSION: No scintigraphic evidence of active GI bleed is seen.
[2024-10-26] VITALS (22 sets, daily range): BP systolic 111–167; BP diastolic 47–87; PULSE 60–74; RESP 15–20; TEMP 97.3–98.2; O2SAT 98–100
[2024-10-26 06:21] LABS: BASOPHILS # (AUTO) 0.07 K/uL (0.00-0.20); BASOPHILS % (AUTO) 0.8 % (0.0-5.0); EOSINOPHILS # (AUTO) 0.04 K/uL (0.00-0.70); EOSINOPHILS % (AUTO) 0.4 % (0.0-8.0); HEMATOCRIT 33.4 % (36-48); IMMATURE GRANULOCYTE ABSOLUTE 1.25 K/uL (0-1); LYMPHOCYTES # (AUTO) 0.8 K/uL (1.0-4.8); LYMPHOCYTES % (AUTO) 8.8 % (21.0-51.0); MEAN CORPUSCULAR HGB CONC 29.3 g/dL (32.0-36.0); MEAN CORPUSCULAR VOLUME 81.9 fL (79-99); MONOCYTES # (AUTO) 0.5 K/uL (0.1-1.0); MONOCYTES % (AUTO) 5.2 % (3.0-13.0); NEUTROPHILS # (AUTO) 6.6 K/uL (1.8-7.7); NEUTROPHILS % (AUTO) 71.2 % (40.0-77.0); NUCLEATED RED BLOOD CELLS 0.2 % (0.0-0.19); PLATELET COUNT (AUTO) 184 K/uL (130-400); RED BLOOD CELL COUNT(AUTO) 4.08 MIL/uL (4.00-5.50); RED CELL DISTRIBUTION WIDTH 22.5 % (11.0-15.5); WHITE BLOOD COUNT (AUTO) 9.2 K/uL (4.8-10.8)
[2024-10-26 06:40] LABS: ALBUMIN 2.7 g/dL (3.5-5.0); BILIRUBIN,TOTAL 0.5 mg/dL (0.2-1.0); CREATININE 1.1 mg/dL (0.5-1.0); POTASSIUM 4.1 mmol/L (3.5-5.1); TOTAL PROTEIN, SERUM 5.9 g/dL (6.0-8.3)
[2024-10-26 07:28] LABS: B-TYPE NATRIURETIC PEPTIDE 121 pg/mL (0-100)
--- NOTE | 2024-10-26 09:06 | HMCIMG ---
CHEST 1VW HISTORY: Shortness of breath COMPARISON: 10/22/2024 FINDINGS: A frontal projection of the chest was obtained. No acute pulmonary infiltrates is seen. The heart is enlarged. Prominent interstitial markings are seen. Degenerative changes are seen. Aortic calcifications are seen. IMPRESSION: 1. No acute pulmonary infiltrate is seen.
--- NOTE | 2024-10-26 11:33 | PN ---
NEPHROLOGY PROGRESS NOTE Date/Time Patient Seen: Oct 26, 2024 SUBJECTIVE: This 79-year-old female with a history of known chronic renal insufficiency. The patient was initially admitted to the ICU. The patient with underlying pneumonia and volume overload. The patient was started on the diuretics and pulmonary symptoms have somewhat improved. She was noted to have elevated BUN/creatinine. We has been consulted for renal failure. Renal function continues to improve Electrolytes are stable. Hemoglobin has remained stable, iron panel was noted. UA was negative for proteinuria FOBT was positive, pending EGD Abdominal ultrasound noted. She continues on antibiotics and diuretics. She was seen in the medical floor, she continues to complain of lower extremity edema Family at the bedside Prognosis remains guarded REVIEW OF SYSTEMS: GENERAL: Positive for lower extremity edema NEUROLOGIC: Negative for any blurry vision, blind spots, double vision, facial asymmetry, dysphagia, dysarthria, hemiparesis, hemisensory deficits, vertigo, ataxia. HEENT: Negative for any head trauma, neck trauma, neck stiffness, photophobia, phonophobia, sinusitis, rhinitis. CARDIAC: Negative for any chest pain, dyspnea on exertion, paroxysmal nocturnal dyspnea, peripheral edema. PULMONARY: Negative for any shortness of breath, wheezing, COPD, or TB exposure. GASTROINTESTINAL: Negative for any abdominal pain, nausea, vomiting, bright red blood per rectum, melena. GENITOURINARY: Negative for any dysuria, hematuria, incontinence. INTEGUMENTARY: Negative for any rashes, cuts, insect bites. RHEUMATOLOGIC: Negative for any joint pains, photosensitive rashes, history of vasculitis or kidney problems. HEMATOLOGIC: Negative for any abnormal bruising, frequent infections or bleeding. Vital Signs (last 8hr) Date Time Temp Pulse Resp B/P (MAP) Pulse Ox O2 Delivery O2 Flow Rate FiO2 10/25/24 12:00 98.4 74 20 119/48 98 Room Air 21 10/25/24 11:12 62 18 N/Cannula Low lpm 3.0 32 10/25/24 11:12 62 18 PHYSICAL EXAM: GENERAL: Alert and oriented x 3. No acute distress. Well-nourished. EYES: EOMI. Anicteric. HENT: Moist mucous membranes. No scleral icterus. No cervical lymphadenopathy. LUNGS: Clear to auscultation bilaterally. No accessory muscle use. CARDIOVASCULAR: Regular rate and rhythm. No murmur. No JVD. ABDOMEN: Soft, non-tender and non-distended. No palpable masses. EXTREMITIES: No edema. Non-tender. Skin: No rashes or lesions. Warm. NEUROLOGIC: No focal neurological deficits. CN II-XII grossly intact, but not individually tested. PSYCHIATRIC: Cooperative. Appropriate mood and affect. Current Medications Medications (Trade) Dose Ordered Sig/Tom Route PRN Reason Start Time Stop Time Status Last Admin Dose Admin Acetaminophen (TYLenol 325MG TAB) 650 mg Q6H PRN PO FEVER/MILD PAIN LEVEL 1-3 10/16/24 21:00 11/15/24 20:59 10/20/24 16:23 650 MG Acetaminophen (TYLenol 650MG SUPPOSITORY) 650 mg Q6H PRN RC FEVER / MILD PAIN 1-3 IF NPO 10/16/24 21:00 11/15/24 20:59 Albuterol (DUOneb) 1 udvial [id number] IH 10/17/24 00:00 11/16/24 00:00 10/25/24 11:11 1 UDVIAL Ceftriaxone Sodium (Rocephin 2gm Inj) 2 gm Q24H IVPB 10/17/24 09:00 10/20/24 12:28 DC 10/20/24 08:44 2 GM Dextrose (D50w) 50 ml AD PRN IV HYPOGLYCEMIA PROTOCOL 10/17/24 04:00 11/16/24 03:59 Docusate Sodium (COLace 100MG CAP) 100 mg BID PRN PO c 10/16/24 21:00 11/15/24 20:59 Doxycycline Hyclate 250 ml @ 125 mls/hr Q12H IV 10/16/24 20:30 10/20/24 12:28 DC 10/20/24 08:44 125 MLS/HR Enoxaparin Sodium (Lovenox) 40 mg DAILY SQ 10/17/24 09:00 10/24/24 09:38 DC 10/23/24 09:33 40 MG Famotidine (Pepcid 20mg Vial) 20 mg DAILY IV 10/17/24 09:00 11/16/24 08:59 10/25/24 08:21 20 MG Furosemide (LASix 20MG VIAL) 20 mg DAILY IV 10/22/24 09:00 10/21/24 22:13 DC Furosemide (LASix 40MG VIAL) 40 mg DAILY IV 10/17/24 09:00 10/21/24 15:03 DC 10/21/24 09:17 40 MG Glucagon (Glucagon 1mg Kit) 1 mg AD PRN IM HYPOGLYCEMIA PROTOCOL 10/17/24 04:00 11/16/24 03:59 Guaifenesin/ Dextromethorphan (RobiTUSSin DM 200/20MG 10ML) 15 ml Q6H PRN PO COUGH 10/17/24 04:00 11/16/24 03:59 Home Med (Home Medication) DAILY IH 10/17/24 09:00 11/16/24 08:59 10/25/24 08:22 1 EACH Hydralazine HCl (APRESOLine 20MG INJ) 10 mg Q6H PRN IV SBP GREATER THAN 160 10/16/24 21:00 11/15/24 20:59 10/20/24 00:26 10 MG Insulin Human Regular (humuLIN R 100 UNIT/ML 3ML) INSULIN SLIDING SCAL... ACHS SQ 10/16/24 21:00 11/15/24 20:59 10/24/24 22:35 6 UNIT Iron Sucrose (VenoFER) 200 mg ONCE IV 10/18/24 14:00 10/18/24 13:43 DC Isosorbide Mononitrate (Imdur 30mg Sr) 30 mg DAILY PO 10/17/24 09:00 11/16/24 08:59 10/25/24 08:22 30 MG Lactulose (Constulose 20gm/ 30ml Udcup) 20 gm BID PRN PO CONSTIPATION 10/18/24 14:00 11/17/24 13:59 Lactulose (Constulose 20gm/ 30ml Udcup) 20 gm ONCE PO 10/18/24 14:00 10/18/24 13:43 DC Lactulose (Constulose 20gm/ 30ml Udcup) 20 gm Q6H PRN PO CONSTIPATION 10/16/24 21:00 10/18/24 13:44 DC Levothyroxine Sodium (SYNTHroid 25MCG TAB) 25 mcg DAILY@0630 PO 10/24/24 06:30 11/23/24 06:29 10/25/24 06:37 25 MCG Losartan Potassium (CozAAR 25MG TAB) 25 mg DAILY15 PO 10/17/24 15:00 10/21/24 14:02 DC 10/20/24 16:19 25 MG Magnesium Sulfate 50 ml @ 0 mls/hr PROTOCOL PRN IV MAGNESIUM PROTOCOL 10/17/24 04:00 11/16/24 03:59 Methylprednisolone Sodium Succinate (Solu-medROL 40MG) 40 mg BID IVP 10/18/24 09:00 10/19/24 23:00 DC 10/19/24 21:05 40 MG Methylprednisolone Sodium Succinate (Solu-medROL 40MG) 40 mg DAILY IVP 10/23/24 09:00 11/22/24 08:59 10/25/24 08:21 40 MG Methylprednisolone Sodium Succinate (Solu-medROL 125MG) 60 mg Q6H IVP 10/17/24 04:00 10/17/24 23:51 DC 10/17/24 21:03 60 MG Midodrine (PROAMatine 5 MG TABLET) 5 mg TID PO 10/22/24 09:00 11/21/24 08:59 10/24/24 17:07 5 MG Norepinephrine 250 ml @ 0 mls/hr AD PRN IV DIRECTED 10/21/24 00:00 10/25/24 07:18 DC 10/21/24 00:16 30 MLS/HR Ondansetron HCl (zoFRAN 4MG INJ) 4 mg Q6H PRN IVP NAUSEA/VOMITING 10/16/24 21:00 11/15/24 20:59 Piperacillin Sod/ Tazobactam Sod (Zosyn 3.375gm+NS 50ml) 3.375 gm Q12H IV 10/22/24 00:30 10/30/24 12:29 10/25/24 12:40 3.375 GM Piperacillin Sod/ Tazobactam Sod (Zosyn 3.375gm+NS 50ml) 3.375 gm Q8H IV 10/20/24 12:30 10/21/24 14:02 DC 10/21/24 04:56 3.375 GM Potassium Chloride 100 ml @ 100 mls/hr AD PRN IV POTASSIUM PROTOCOL 10/17/24 04:00 11/16/24 03:59 Potassium Chloride (K-Dur 10meq Sr Tab) 10 meq AD PRN PO POTASSIUM PROTOCOL 10/18/24 08:30 11/16/24 03:59 10/18/24 11:13 10 MEQ Potassium Chloride (K-Dur/Klor-Con 20meq) 10 meq AD PRN PO POTASSIUM PROTOCOL 10/17/24 04:00 10/18/24 08:13 DC Potassium Chloride (KCl 10% Elixir 20meq/15ml) 10 meq AD PRN PO POTASSIUM PROTOCOL 10/17/24 04:00 11/16/24 03:59 10/23/24 17:06 10 MEQ Prednisone (deltaSONE/ oraSONE 20MG TAB) 40 mg DAILY PO 10/20/24 09:00 10/22/24 16:04 DC 10/22/24 09:20 40 MG Spironolactone (Aldactone 25mg) 25 mg DAILY PO 10/22/24 10:00 11/21/24 09:59 10/25/24 08:21 25 MG Spironolactone (Aldactone 25mg) 25 mg DAILY15 PO 10/17/24 15:00 10/21/24 14:02 DC 10/20/24 16:19 25 MG Temazepam (restORIL 15 MG CAP) 15 mg HS PRN PO INSOMNIA/SLEEP 10/16/24 21:00 11/15/24 20:59 Vitamin B Complex/ Vit C/Folic Acid (Nephrovite Tablet) 1 cap DAILY PO 10/22/24 09:00 11/21/24 08:59 10/25/24 08:21 1 CAP LABORATORY: [ ] Hematology Labs: Test 10/26/24 05:47 Range/Units White Blood Count 9.2 4.8-10.8 K/uL Red Blood Count 4.08 4.00-5.50 MIL/uL Hemoglobin 9.8 L 12.0-16.0 g/dL Hematocrit 33.4 L 36-48 % Mean Corpuscular Volume 81.9 79-99 fL Mean Corpuscular Hemoglobin 24.0 L 27.0-33.0 pg Mean Corpuscular Hemoglobin Concent 29.3 L 32.0-36.0 g/dL Red Cell Distribution Width 22.5 H 11.0-15.5 % Platelet Count 184 130-400 K/uL Mean Platelet Volume 9.6 7.5-10.5 fL Immature Granulocyte % (Auto) 13.6 H 0-1 % Neutrophils (%) (Auto) 71.2 40.0-77.0 % Lymphocytes (%) (Auto) 8.8 L 21.0-51.0 % Monocytes (%) (Auto) 5.2 3.0-13.0 % Eosinophils (%) (Auto) 0.4 0.0-8.0 % Basophils (%) (Auto) 0.8 0.0-5.0 % Neutrophils # (Auto) 6.6 1.8-7.7 K/uL Lymphocytes # (Auto) 0.8 L 1.0-4.8 K/uL Monocytes # (Auto) 0.5 0.1-1.0 K/uL Eosinophils # (Auto) 0.04 0.00-0.70 K/uL Basophils # (Auto) 0.07 0.00-0.20 K/uL Absolute Immature Granulocyte (auto 1.25 H 0-1 K/uL Nucleated Red Blood Cells 0.2 H 0.0-0.19 % Chemistry Labs: Test 10/26/24 10:54 10/26/24 05:47 Range/Units Whole Blood Glucose 88 70-110 MG/DL Sodium Level 141 136-145 mmol/L Potassium Level 4.1 3.5-5.1 mmol/L Chloride Level 106 101-111 mmol/L Carbon Dioxide Level 30 21-32 mmol/L Blood Urea Nitrogen 28 H 7-18 mg/dL Creatinine 1.1 H 0.5-1.0 mg/dL Glomerular Filtration Rate Calc 52 >90 mL/min Random Glucose 68 L 70-105 mg/dL Total Calcium 9.2 8.5-10.1 mg/dL Phosphorus Level 4.0 2.5-4.9 mg/dL Total Bilirubin 0.5 0.2-1.0 mg/dL Aspartate Amino Transf (AST/SGOT) 20 10-37 U/L Alanine Aminotransferase (ALT/SGPT) 29 12-78 U/L Alkaline Phosphatase 62 50-136 U/L B-Type Natriuretic Peptide 121 H 0-100 pg/mL Total Protein 5.9 L 6.0-8.3 g/dL Albumin 2.7 L 3.5-5.0 g/dL DIAGNOSTICS / RADIOLOGY: REASON: EDEMA ORDERING PHYSICIAN: FARIDA CULVER MD PROCEDURE: VENOUS UNI - US VENOUS DOPPLER UNILATERAL US VENOUS DOPPLER UNILATERAL INDICATION: Swelling. EDEMA TECHNIQUE: US VENOUS DOPPLER UNILATERAL Real-time venous Doppler ultrasound was performed using B mode, color flow and spectral analysis. FINDINGS: PICC line is seen in the left basilic vein. Thrombosis in the left cephalic vein. The visualized subclavian, axillary, brachial and basilic veins showed normal flow and color Doppler. IMPRESSION: PICC line is seen in the left basilic vein. Thrombosis in the left cephalic vein. DICTATED BY: LUIS F PASCAL MD DATE: 10/24/24 1843 REASON: to r/o aspiration pneumonia ORDERING PHYSICIAN: IMANI ALDRIDGE MD PROCEDURE: CXR1VW - CHEST 1VW Exam Type: CHEST 1VW Clinical Information: to r/o aspiration pneumonia Comparison: None Findings: Pulmonary pattern is as before. No worrisome interval changes have taken place. Impression: Stable exam. DICTATED BY: CARLA GONZALEZ MD DATE: 10/22/24 0940 REASON: shortness of breath ORDERING PHYSICIAN: LESA JAIN [employer] SYSTEMS ADMINISTRATOR PROCEDURE: CXR1VW - CHEST 1VW CHEST 1VW HISTORY: Shortness of breath COMPARISON: 10/16/2024 FINDINGS: A frontal projection of the chest was obtained. Mild bilateral pulmonary infiltrates are seen may be related to mild pulmonary vascular congestion with possible superimposed pneumonitis. The heart is borderline enlarged. Degenerative changes are seen. No evidence of aortic calcification is seen. IMPRESSION: 1. Mild bilateral pulmonary infiltrates are seen may be related to mild pulmonary vascular congestion with possible superimposed pneumonitis. DICTATED BY: YONI HERNANDEZ MD DATE: 10/20/242025 REASON: fluid overload, sob ORDERING PHYSICIAN: JARRED PATTERSON EN[employer] SYSTEMS ADMINISTRATOR PROCEDURE: ECHO CMP - ECHO 2-D COMPLETE APPROVED REPORT EXAM: Two-dimensional and M-mode echocardiogram with Doppler and color Doppler. INDICATION ICD: Fluid overload, SOB 2D Dimensions RVDd 3.0 cm LVEF(%) 63.0 (>50%) LVED Vol(simp.) 126.0 mL IVSd 0.9 (0.7-1.1cm) FS(%) 34 % LVES Vol(simp.) 39.0 mL LVDd 4.3 (3.8-5.6cm) Ao Root(2D) 3.0 (2.0-3.7cm) LVEF(%, simp.) 69 % PWd 0.9 (0.7-1.1cm) LVOT diam 2.0 (1.8-2.4cm) LA ESV INDEX (BP) 37.44 mL/m2 LVDs 2.9 (2.5-4.0cm) IVC diam 1.8 cm Deformation Strain Apical 4 -17.9 % Apical 2 -21.4 % Apical 3 -17.8 % Global Strain -19.0 % M-Mode Dimensions EPSS 0.8 cm LA (MM) 3.8 (1.6-4.0cm) Ao Root(MM) 3.4 (2.0-3.7cm) Aortic Valve AoV Vmax 1.7 m/s Ao Peak GR 12.2 mmHg LVOT Vmax 1.7 m/s AoV VTI 0.4 m Ao Mean GR 6.0 mmHg LVOT VTI 0.32 m JAHAIRA (VMAX) 2.75 cm2 JAHAIRA (VTI) 2.7 cm2 Mitral Valve MV E Vmax 77.8 cm/s DECEL Time 320 ms MV A Vmax 91.8 cm/s P 1/2 T 62 ms E/A ratio 0.8 MVA (PHT) 3.5 cm2 TDI E/E' Medial 13.3 E/E' Lateral 10.1 Medial E' Peak V 5.87 cm/s Lateral E' Peak V 7.70 cm/s Left Ventricle The left ventricle is normal size. There is normal LV segmental wall motion. There is normal left ventricular wall thickness. LVEF is 60-65%. Indeterminate diastolic dysfunction. Right Ventricle The right ventricle is normal size. The right ventricular systolic function is normal. Atria The left atrium is mildly dilated. The right atrium size is normal. Aortic Valve Aortic valve is not well visualized but no significant valvular abnormalities noted. No aortic regurgitation is present. There is no aortic valvular stenosis. Mitral Valve The mitral valve is normal in structure. There is trace mitral regurgitation. There is no mitral valve stenosis. Tricuspid Valve The tricuspid valve is normal in structure. There is trivial tricuspid valve regurgitation noted. Pulmonic Valve Pulmonic valve is not well visualized. There is no pulmonic valvular regurgitation. Great Vessels The aortic root is normal in size. The IVC is normal in size and collapses >50% with inspiration. Pericardium There is no pericardial effusion. Other Information Quality : Fair Technically limited study due to body habitus. Conclusion The left ventricle is normal size. LVEF is 60-65% with normal LV segmental wall motion. Indeterminate diastolic dysfunction. The right ventricular systolic function is normal. The left atrium is mildly dilated. No hemodynamically significant valvular abnormalities. There is no pericardial effusion. DICTATED BY: CATHERINE RIOS MD DATE: 10/17/24 0931 REASON: ELEVATED D-DIMER ORDERING PHYSICIAN: JARRED PATTERSON PROCEDURE: VENOUS BRITTNI - US VENOUS DOPPLER BILATERAL US VENOUS DOPPLER BILATERAL INDICATION: Swelling. ELEVATED D-DIMER TECHNIQUE: US VENOUS DOPPLER BILATERAL Real-time venous Doppler ultrasound was performed using B mode, color flow and spectral analysis. FINDINGS: The visualized greater saphenous junction, common femoral, deep femoral, superficial femoral, popliteal and posterior tibial veins demonstrate normal compressibility and flow. No DVT is identified. IMPRESSION: No evidence of DVT in the visualized bilateral extremities. DICTATED BY: LUIS F PASCAL MD DATE: 10/17/24 0908 REASON: acute respiratory distress ORDERING PHYSICIAN: JARRED PATTERSON PROCEDURE: CHEST WO - CT CHEST W/O CONTRAST CT CHEST W/O CONTRAST HISTORY: Acute respiratory distress COMPARISON: None TECHNIQUE: Multiple sequential axial images of the chest were obtained from the thoracic inlet through upper abdomen. Patient was not given contrast through intravenous route. FINDINGS: There are mild interstitial fibrosis. There is no evidence of pulmonary nodule or parenchymal disease. No pleural effusion or pericardial effusion is seen. There is no evidence of pneumothorax. There are normal size mediastinal and hilar lymph nodes. The heart is not enlarged. Degenerative changes of the thoracolumbar spine are present. There is no evidence of adrenal nodule. There are bilateral renal cysts with the largest on the right measuring 9.8 cm. IMPRESSION: 1. No evidence of pulmonary nodule or effusion is seen. CT was performed with one or more following dose reduction techniques: automated exposure control, adjustment of the mA and kv according to patient's size, or use of a iterative reconstruction technique. DICTATED BY: YONI HERNANDEZ MD DATE: 10/16/24 2212 REASON: sob ORDERING PHYSICIAN: KARLO LESLIE MD PROCEDURE: CXR1VW - CHEST 1VW INDICATION: sob TECHNIQUE: CHEST 1VW COMPARISON: 11/10/2012 FINDINGS AND IMPRESSION: Mild bilateral airspace consolidation suggesting vascular congestion/edema versus pneumonia. Mild cardiomegaly Degenerative changes of the spine. The visualized upper abdomen appears unremarkable. DICTATED BY: LUIS F PASCAL MD DATE: 10/16/241902 ASSESSMENT: Acute GI loss anemia Sepsis secondary to pneumonia Septic shock requiring Levophed resolved Acute respiratory failure POA, requiring oxygen supplementation Pneumonia due to ESBL producing organism POA Mild interstitial fibrosis, per CT on 10/16/2024 COPD exacerbation, POA Fluid overload, POA Bilateral renal cysts with the largest on the right measuring 9.8 cm. Lactic acidosis Anemia of chronic disease Thrombocytosis Acute on chronic renal failure Diabetes mellitus with hyperglycemia Hypoalbuminemia Morbid obesity PLAN: Labs, diagnostic, radiologic exams reviewed and interpreted by myself and supervising physician. We have reviewed external records in detail Pending EGD Require close monitoring of renal function and electrolytes Order CBC, CMP,and electrolytes in am Continue with antibiotics BiPAP as necessary, for respiratory distress Monitor blood pressure adjust medication doses as needed Avoid hypotensive episodes May use Dilaudid 0.5 mg IV every 6 hours as needed for severe pain Monitor blood sugars Strict intake, output, and daily weight should be monitored Please renally adjust medications Avoid nephrotoxic and nonsteroidal drugs Avoid contrast if possible Will continue to monitor renal function, anemia, electrolytes Treatment plan discussed with patient Questions were answered We have discussed with the other team physicians in detail about the care plan We will continue to monitor the patient closely ATTESTATION BY PHYSICIAN I have seen and examined the patient. I reviewed the documentation, medical decision making, and treatment plan as noted by the mid-level provider above. I agree with the findings and plan of care. ABIMBOLA WHEELER MD, [facility] Oct 26, 2024 11:33
--- NOTE | 2024-10-26 12:27 | PN ---
[facility] PROGRESS NOTE Date Patient Seen: Oct 26, 2024 Time of Visit: 12:27 Supervising Physician: [Dr. Miranda] Supervising Physician: Dr. Stan Bravo Primary Care Physician: Sy Castillo MD Outpatient Specialists: Inpatient Consults:EARL, DR Lopez, DR Cevallos. Attending Dr Sauer PROBLEM LIST: Acute hypoxic respiratory failure POA, resolving Health care associated pneumonia with ESBL Ecoli Mild interstitial fibrosis, per CT on 10/16/2024 COPD exacerbation, POA Fluid overload, POA Bilateral renal cysts with the largest on the right measuring 9.8 cm. Lactic acidosis Anemia of chronic disease Thrombocytosis Acute on chronic renal failure, GFR 42 Diabetes mellitus with hyperglycemia Hypoalbuminemia Morbid obesity, BMI 42 Chronic problem list: Asthma, COPD, hypertension, hypothyroidism, renal insufficiency, ovarian surgery INTERVAL HISTORY: Patient was seen at bedside with multiple family members present, she is currently eating her lunch and tolerating her food well. Patient received 1 unit PRBCs last night, hemoglobin is 8.2 this morning. She remains on 2 L nasal cannula at this time, and patient has home O2 that has already been delivered to however she is now pending GI workup. Hopefully able to receive nuclear medicine bleed scan later this afternoon. We will continue following the patient was long as she is on the med floor. 10/26 patient is evaluated at bedside. She continues on supplemental oxygen with 3LNC which is her baseline home O2 use. Continues on IV solumedrol. She is s/p EGD today with findings of esophagitis and gastritis. Patient is declining colonoscopy. No signs of acute bleed. Her hemoglobin is stable at 9.8, status post one PRBC. Rest of labs unremarkable. Continues on Zosyn for ESBL on sputum culture. REVIEW OF SYSTEMS: General: No malaise or fever. Neurological: No fainting episodes or seizures. HEENT: No nasal congestion or nasal secretion. Respiratory: No cough, shortness of breath, or wheezing Cardiac: No chest pain or palpitations. Gastrointestinal: No vomiting or diarrhea. Genitourinary: No dysuria hematuria. Skin: No rashes or lesions. Hematological: No bruises or bleeding. Musculoskeletal: No joint pains or arthralgias. Psychiatric: No depression or panic attacks. PHYSICAL EXAM: GENERAL: alert, weak, awake oriented x 3 HEENT: EOMI, Sclera non icteric, moist mucosa NECK: Supple, no JVD, trachea midline LUNGS: Decreased breath sounds bilaterally. No wheezes HEART: Regular rate and rhythm. Normal S1 and S2, without murmurs ABD: Abdomen soft, nontender. Bowel sounds present EXT: No clubbing cyanosis or edema NEURO: Alert and oriented to person, follows commands Vital Signs (last 8hr) Date Time Temp Pulse Resp B/P (MAP) Pulse Ox O2 Delivery O2 Flow Rate FiO2 10/26/24 11:46 98.1 65 18 133/55 98 Room Air 10/26/24 11:11 65 18 10/26/24 11:10 65 17 N/Cannula Low lpm 3.0 32 10/26/24 08:00 97.7 74 20 145/52 98 Nasal Cannula 3.0 10/26/24 06:50 65 17 N/Cannula Low lpm 3.0 32 10/26/24 06:50 65 18 LABS: Hematology Labs: Test 10/26/24 05:47 Range/Units White Blood Count 9.2 4.8-10.8 K/uL Red Blood Count 4.08 4.00-5.50 MIL/uL Hemoglobin 9.8 L 12.0-16.0 g/dL Hematocrit 33.4 L 36-48 % Mean Corpuscular Volume 81.9 79-99 fL Mean Corpuscular Hemoglobin 24.0 L 27.0-33.0 pg Mean Corpuscular Hemoglobin Concent 29.3 L 32.0-36.0 g/dL Red Cell Distribution Width 22.5 H 11.0-15.5 % Platelet Count 184 130-400 K/uL Mean Platelet Volume 9.6 7.5-10.5 fL Immature Granulocyte % (Auto) 13.6 H 0-1 % Neutrophils (%) (Auto) 71.2 40.0-77.0 % Lymphocytes (%) (Auto) 8.8 L 21.0-51.0 % Monocytes (%) (Auto) 5.2 3.0-13.0 % Eosinophils (%) (Auto) 0.4 0.0-8.0 % Basophils (%) (Auto) 0.8 0.0-5.0 % Neutrophils # (Auto) 6.6 1.8-7.7 K/uL Lymphocytes # (Auto) 0.8 L 1.0-4.8 K/uL Monocytes # (Auto) 0.5 0.1-1.0 K/uL Eosinophils # (Auto) 0.04 0.00-0.70 K/uL Basophils # (Auto) 0.07 0.00-0.20 K/uL Absolute Immature Granulocyte (auto 1.25 H 0-1 K/uL Nucleated Red Blood Cells 0.2 H 0.0-0.19 % Chemistry Labs: Test 10/26/24 10:54 10/26/24 05:47 Range/Units Whole Blood Glucose 88 70-110 MG/DL Sodium Level 141 136-145 mmol/L Potassium Level 4.1 3.5-5.1 mmol/L Chloride Level 106 101-111 mmol/L Carbon Dioxide Level 30 21-32 mmol/L Blood Urea Nitrogen 28 H 7-18 mg/dL Creatinine 1.1 H 0.5-1.0 mg/dL Glomerular Filtration Rate Calc 52 >90 mL/min Random Glucose 68 L 70-105 mg/dL Total Calcium 9.2 8.5-10.1 mg/dL Phosphorus Level 4.0 2.5-4.9 mg/dL Total Bilirubin 0.5 0.2-1.0 mg/dL Aspartate Amino Transf (AST/SGOT) 20 10-37 U/L Alanine Aminotransferase (ALT/SGPT) 29 12-78 U/L Alkaline Phosphatase 62 50-136 U/L B-Type Natriuretic Peptide 121 H 0-100 pg/mL Total Protein 5.9 L 6.0-8.3 g/dL Albumin 2.7 L 3.5-5.0 g/dL DIAGNOSTICS / RADIOLOGY RESULTS: [ ] PLAN S/P EGD, unremarkable IV antibiotics per ID Patient has home O2 Stop IV solumedrol Start prednisone 30mg BID X 5 days Follow up with pulmonology outpatient for [facility] eval NEURO: Minimize central acting medications as possible. Maintain fall precautions, adequate lighting during the day PULMONARY: Supplemental 02 as needed. Maintain aspiration precautions at all times CARDIOVASCULAR: Follow hemodynamics. Vital signs per facility protocol GI & NUTRITION: Continue with nutritional support. Continue stool softeners and laxatives as needed. KIDNEYS & ELECTROLYTES: Strict monitoring of intake, output and overall fluid balance. Avoid nephrotoxic medications to the extent possible. Medications to be dosed according to renal function. Monitor electrolytes and replace as needed ENDOCRINE: Maintain blood glucose between 100-180 at all times. Hypoglycemia protocol in place INFECTIOUS DISEASE: Trend temperature, WBC and procalcitonin level Follow cultures, deescalate antibiotics as soon as possible. Panculture if new onset fever ONCOLOGY/HEMATOLOGY/COAGULATION: Monitor for s/s of bleeding Monitor hemoglobin, coagulation studies as needed SKIN: Pressure ulcer prevention per facility protocol Specialty mattress ORTHO/REHAB: Continue PT/OT Prophylaxis: Continue GI and DVT prophylaxis Code Status: Full Resuscitation Disposition: TBD Other: Total patient care time exceeds 35 minutes excluding all procedures. DENEEN HERNANDEZ Oct 26, 2024 12:27
--- NOTE | 2024-10-26 14:56 | PN ---
[facility] PROGRESS NOTE Date of Service: Oct 26, 2024 Time of Service: 14:51 SUBJECTIVE: Ms. Palafox is a 79-year-old female with a history of tobacco dependent, COPD, asthma, hypertension, hypothyroidism, and renal disease who presented [place] [facility] [place] evaluation of shortness of breath over the past few weeks worsening today. The patient reported that she has been seen multiple times in the clinic setting for subjective fever last week. The patient was placed on steroids and nebulized treatments with no improvement which prompted the ED visit. In ED the patient was administered Solu-Medrol 80 mg IV, DuoNeb treatments, and Rocephin2 g. ED provider requested patient be admitted to the [facility] hospitalist team with the diagnosis of acute respiratory distress and acute exacerbation of COPD with asthma. Labs reviewed. Troponin negative. ABGs WNL, PO2 107, on 3 L. influenza and COVID are negative. BNP 115. D-dimer a 1403. CT chest without contrast: There are mild interstitial fibrosis. Bilateral renal cysts with the largest on the right measuring 9.8 cm. No evidence of pulmonary nodules or effusions. 10/17/24 the patient is seen and examined today morning, with her family at the bedside. She stated that her breathing is better today she and she saturating 98% on1 L of oxygen via nasal cannula. We will try to wean her off. Vitals are stable. She is complaining of productive cough and we will get the sputum culture. Pulmonology consult pending. V/Q scan pending. 2D echo results pending. Her WBC went down. Her hemoglobin dropped down to 8.5 from 9.7, MCV 77.2. We will order iron panel studies. TSH 0.25 And we will hold her antithyroid medications at the moment. We will get T3 and T4 levels. Chest x- ray showed vascular congestion, edema versus pneumonia, mild cardiomegaly. Venous Doppler negative for DVT. 10/18/24 patient seen and examined today. Her vitals are stable. She is saturating well with 96% on room air. She denies shortness of breath at the moment. Sputum Gram stain showed 2+ Gram-negative rods and pending culture results. Continue Rocephin and Solu-Medrol 40. Potassium is 3.4 And replaced with p.o. potassium chloride. BUN went up 26 to 33and creatinine went up from 1.1 to 1.3 today. Iron panel studies show iron 14, TIBC 362 and % saturation 3.8% she has suggestive of iron deficiency anemia. Check stool occult blood and we will order IV iron sucrose. Free T3 1.15. 2D echo showed EF 60-65% and indeterminate diastolic dysfunction. Consult PT OT for ambulation 10/19/24 patient is seen and evaluated today. She is seen sitting comfortably in chair with ongoing nebulizer treatment. Patient had a failed 6 minute walk today, her oxygen saturation dropped down to 85% and her heart rate went up to 150s. She will require home oxygen on discharge. We will consult case management for arranging home O2 requirement. Continue Rocephin and doxycycline IV. On examination bilateral wheezing are present. Respiratory culture showed 3+ Gram-negative rods and identification and sensitivity to follow. Hemoglobin 8.4 and we will continue with IV Venofer. BUN went up 33 to 42and creatinine stable at 1.3. 10/20/24 the patient is seen and examined today with her son at the bedside. She states her breathing is better, bilateral lower extremity edema has improved today. However her respiratory culture is positive for ESBL which is sensitive to IV Zosyn and meropenem. Infectious Disease consulted and [facility]. We will let the case management know regarding the plan. Her WBC went up from 9.8 to 11.6 today 10/21/24 patient is seen and examined today morning. She was transferred to ICU last night because of respiratory failure with hypotension blood pressure of 77/41, tachycardia heart rate in 130s and tachypnea in 30s. She was put on BiPAP last night and today morning she is saturating 96% on15 L non-rebreather mask. Her blood pressure is 121/58. Her WBC went up from 18.7 to 28.1. BUN went up 50 to 52. Creatinine went up from 1.9 to 2.1. I will decrease the dose of Lasix to 20 mg daily. Bedside swallow study ordered. We will consult Nephrology for WICHO. We will continue to monitor the patient closely 10/22/24 patient seen and examined today morning. She says her breathing is better and she is saturating 99% on2 L O2 via nasal cannula. Blood pressure 106/57. WBC came down to 19.8 from 28.1. FENA is 3.2%. Nephrology is already on the board and we will follow their recommendations. We will switch her p.o. steroids to IV steroids. We will repeat blood culture. 10/23/2024. Patient was seen and examined along with RN. Patient family at bedside. She would like to go home still short of breath walked few feet with physical therapy. Patient and patient's family does not want to go to rehab they would like to return home. Home oxygen has been arranged. IV antibiotics on outpatient basis has been arranged by Infectious Disease doctors. Patient will follow-up pulmonology outpatient for sleep study for CPAP. Hemoglobin dropped from 8.8 to 7.7. No source of bleeding has been identified yet stool occult was ordered previously not reported yet we will order again today. Patient has iron-deficiency anemia and received one dose of IV iron on 10/22/2024 we will order one more dose today. 10/24/24 was seen and evaluated today morning with her family at the bedside. Her breathing is better and she is saturating 97% on 3 L O2 via nasal cannula. She denies chest pain, fever or chills. No acute events overnight. Today she is complaining of clear fluid oozing from her left arm and also mild edema. We will obtain left upper extremity Doppler ultrasound. Stool occult blood is positive. Hemoglobin is down from 7.7-7.3. We will consult Gastroenterology for acute GI loss. Hold Lovenox. She also has bilateral pitting pedal edema. 10/25/24 patient was seen and examined today morning with her son at the bedside. No acute events overnight. Her breathing is better and saturating 98% on3 L oxygen via nasal cannula. Cough is getting better. Denies chest pain, fever or chills. She has bilateral pitting pedal edema more on left side than the right. She received 1 unit of PRBCs yesterday. Her hemoglobin went up to 8.9 from 7.3 yesterday. The we will do the nuclear bleeding scan today. 10/26/24 patient was seen and examined today. Patient stated that she is doing much better today. He saturating 99% on 3 L O2 via nasal cannula. BNP is 121. Kidney functions are stable. Hemoglobin went up from 8.9 to 9.7. She had EGD today which showed LA grade a esophagitis with no bleeding, gastritis and normal duodenal bulb and 2nd portion of duodenum. Plan for colonoscopy tomorrow for further evaluation. REVIEW OF SYSTEMS CONSTITUTIONAL: Denies fevers, chills, or night sweats. No unintentional weight loss reported. NEUROLOGICAL: Denies headache, amaurosis fugax, motor weakness, sensory deficit, vertigo/spinning sensation, gait abnormalities, or tremors. ENT: No hearing loss, otalgia, otorrhea, rhinitis, rhinorrhea, hoarseness, or sore throat. PULMONARY: Improving shortness of breath, cough, phlegm/sputum. Denies hemoptysis, pleuritic chest pain. SLEEP: Denies morning headaches, daytime somnolence or napping. Denies difficulty falling asleep, staying asleep, waking from sleep. Denies knowledge of snoring. GASTROINTESTINAL: Denies any type of dysphagia to either liquids or solids. Denies nausea, vomiting, pyrosis, early satiety, abdominal pain, diarrhea, constipation, or changes in stool consistency or caliber. Denies coffee-ground emesis, hematemesis, hematochezia, or melanotic stools. GENITOURINARY: Denies frequency, urgency, nocturia, hematuria or incontinence (Storage/Irritative symptoms.) Low urinary stream, straining to void, urinary intermittency or hesitancy, splitting of the voiding stream, terminal dribbling. ENDOCRINOLOGIC: Denies polyuria, polydipsia, polyphagia or heat/cold intolerances. HEMATOLOGIC: Denies thrombophilia/previous clots, or coagulopathy/bleeding disorders. ONCOLOGIC: Denies personal history of malignancy. PHYSICAL EXAM GENERAL APPEARANCE: The patient is awake, alert, and oriented, in no acute cardiopulmonary distress. HEENT: Face is symmetric. Pupils are equal and reactive. Extraocular movements are intact. NECK: Supple. No JVD. No thyromegaly. No submental, submandibular, pre- /postauricular, occipital or supraclavicular lymphadenopathy. CHEST: Normal chest expansion. No Telemetry. LUNGS: Bilateral crackles are present. More on Right side CARDIOVASCULAR: Regular. S1 and S2 normal. No appreciable rubs, murmurs or gallops. Crackles. ABDOMEN: Obese. Obese. Soft, nontender, and nondistended. There is no rebound, voluntary guarding, or rigidity. EXTREMITIES: Positive bilateral pitting pedal edema Lt > Rt. not cyanotic. No clubbing. Good capillary refill. SKIN: No skin breakdown. Vital Signs (last 8hr) Date Time Temp Pulse Resp B/P (MAP) Pulse Ox O2 Delivery O2 Flow Rate FiO2 10/26/24 14:20 97.3 62 16 140/61 97 Nasal Cannula 3.0 28 10/26/24 14:15 97.3 60 16 144/63 97 Nasal Cannula 3.0 10/26/24 14:10 97.3 60 16 146/56 97 Nasal Cannula 3.0 10/26/24 14:05 97.3 63 16 142/68 95 Nasal Cannula 3.0 28 10/26/24 14:00 97.3 62 16 140/63 95 Nasal Cannula 3.0 28 10/26/24 13:55 97.3 60 15 146/60 96 Nasal Cannula 3.0 10/26/24 13:54 Mask 10/26/24 13:54 Mask 10.0 10/26/24 13:50 97.3 60 15 149/66 96 Nasal Cannula 3.0 10/26/24 13:45 97.3 60 15 111/54 96 Nasal Cannula 3.0 10/26/24 11:46 98.1 65 18 133/55 98 Room Air 10/26/24 11:11 65 18 10/26/24 11:10 65 17 N/Cannula Low lpm 3.0 32 10/26/24 08:00 97.7 74 20 145/52 98 Nasal Cannula 3.0 10/26/24 08:00 98 Nasal Cannula* 3 32 LABS: Laboratory: Test 10/26/24 10:54 10/26/24 05:47 Range/Units Whole Blood Glucose 88 70-110 MG/DL White Blood Count 9.2 4.8-10.8 K/uL Red Blood Count 4.08 4.00-5.50 MIL/uL Hemoglobin 9.8 L 12.0-16.0 g/dL Hematocrit 33.4 L 36-48 % Mean Corpuscular Volume 81.9 79-99 fL Mean Corpuscular Hemoglobin 24.0 L 27.0-33.0 pg Mean Corpuscular Hemoglobin Concent 29.3 L 32.0-36.0 g/dL Red Cell Distribution Width 22.5 H 11.0-15.5 % Platelet Count 184 130-400 K/uL Mean Platelet Volume 9.6 7.5-10.5 fL Immature Granulocyte % (Auto) 13.6 H 0-1 % Neutrophils (%) (Auto) 71.2 40.0-77.0 % Lymphocytes (%) (Auto) 8.8 L 21.0-51.0 % Monocytes (%) (Auto) 5.2 3.0-13.0 % Eosinophils (%) (Auto) 0.4 0.0-8.0 % Basophils (%) (Auto) 0.8 0.0-5.0 % Neutrophils # (Auto) 6.6 1.8-7.7 K/uL Lymphocytes # (Auto) 0.8 L 1.0-4.8 K/uL Monocytes # (Auto) 0.5 0.1-1.0 K/uL Eosinophils # (Auto) 0.04 0.00-0.70 K/uL Basophils # (Auto) 0.07 0.00-0.20 K/uL Absolute Immature Granulocyte (auto 1.25 H 0-1 K/uL Nucleated Red Blood Cells 0.2 H 0.0-0.19 % Sodium Level 141 136-145 mmol/L Potassium Level 4.1 3.5-5.1 mmol/L Chloride Level 106 101-111 mmol/L Carbon Dioxide Level 30 21-32 mmol/L Blood Urea Nitrogen 28 H 7-18 mg/dL Creatinine 1.1 H 0.5-1.0 mg/dL Glomerular Filtration Rate Calc 52 >90 mL/min Random Glucose 68 L 70-105 mg/dL Total Calcium 9.2 8.5-10.1 mg/dL Phosphorus Level 4.0 2.5-4.9 mg/dL Total Bilirubin 0.5 0.2-1.0 mg/dL Aspartate Amino Transf (AST/SGOT) 20 10-37 U/L Alanine Aminotransferase (ALT/SGPT) 29 12-78 U/L Alkaline Phosphatase 62 50-136 U/L B-Type Natriuretic Peptide 121 H 0-100 pg/mL Total Protein 5.9 L 6.0-8.3 g/dL Albumin 2.7 L 3.5-5.0 g/dL Current Medications Medications (Trade) Dose Ordered Sig/Tom Route PRN Reason Start Time Stop Time Status Last Admin Dose Admin Acetaminophen (TYLenol 325MG TAB) 650 mg Q6H PRN PO FEVER/MILD PAIN LEVEL 1-3 10/16/24 21:00 11/15/24 20:59 10/20/24 16:23 650 MG Acetaminophen (TYLenol 650MG SUPPOSITORY) 650 mg Q6H PRN RC FEVER / MILD PAIN 1-3 IF NPO 10/16/24 21:00 11/15/24 20:59 Albuterol (DUOneb) 1 udvial [id number] IH 10/17/24 00:00 11/16/24 00:00 10/26/24 11:10 1 UDVIAL Ceftriaxone Sodium (Rocephin 2gm Inj) 2 gm Q24H IVPB 10/17/24 09:00 10/20/24 12:28 DC 10/20/24 08:44 2 GM Dextrose (D50w) 50 ml AD PRN IV HYPOGLYCEMIA PROTOCOL 10/17/24 04:00 11/16/24 03:59 Docusate Sodium (COLace 100MG CAP) 100 mg BID PRN PO c 10/16/24 21:00 11/15/24 20:59 Doxycycline Hyclate 250 ml @ 125 mls/hr Q12H IV 10/16/24 20:30 10/20/24 12:28 DC 10/20/24 08:44 125 MLS/HR Enoxaparin Sodium (Lovenox) 40 mg DAILY SQ 10/17/24 09:00 10/24/24 09:38 DC 10/23/24 09:33 40 MG Famotidine (Pepcid 20mg Vial) 20 mg DAILY IV 10/17/24 09:00 11/16/24 08:59 10/26/24 09:00 20 MG Furosemide (LASix 20MG VIAL) 20 mg DAILY IV 10/22/24 09:00 10/21/24 22:13 DC Furosemide (LASix 40MG VIAL) 40 mg DAILY IV 10/17/24 09:00 10/21/24 15:03 DC 10/21/24 09:17 40 MG Glucagon (Glucagon 1mg Kit) 1 mg AD PRN IM HYPOGLYCEMIA PROTOCOL 10/17/24 04:00 11/16/24 03:59 Guaifenesin/ Dextromethorphan (RobiTUSSin DM 200/20MG 10ML) 15 ml Q6H PRN PO COUGH 10/17/24 04:00 11/16/24 03:59 Home Med (Home Medication) DAILY IH 10/17/24 09:00 11/16/24 08:59 10/26/24 09:07 1 EACH Hydralazine HCl (APRESOLine 20MG INJ) 10 mg Q6H PRN IV SBP GREATER THAN 160 10/16/24 21:00 11/15/24 20:59 10/20/24 00:26 10 MG Insulin Human Regular (humuLIN R 100 UNIT/ML 3ML) INSULIN SLIDING SCAL... ACHS SQ 10/16/24 21:00 11/15/24 20:59 10/24/24 22:35 6 UNIT Iron Sucrose (VenoFER) 200 mg ONCE IV 10/18/24 14:00 10/18/24 13:43 DC Isosorbide Mononitrate (Imdur 30mg Sr) 30 mg DAILY PO 10/17/24 09:00 11/16/24 08:59 10/25/24 08:22 30 MG Lactulose (Constulose 20gm/ 30ml Udcup) 20 gm BID PRN PO CONSTIPATION 10/18/24 14:00 11/17/24 13:59 Lactulose (Constulose 20gm/ 30ml Udcup) 20 gm ONCE PO 10/18/24 14:00 10/18/24 13:43 DC Lactulose (Constulose 20gm/ 30ml Udcup) 20 gm Q6H PRN PO CONSTIPATION 10/16/24 21:00 10/18/24 13:44 DC Levothyroxine Sodium (SYNTHroid 25MCG TAB) 25 mcg DAILY@0630 PO 10/24/24 06:30 11/23/24 06:29 10/25/24 06:37 25 MCG Losartan Potassium (CozAAR 25MG TAB) 25 mg DAILY15 PO 10/17/24 15:00 10/21/24 14:02 DC 10/20/24 16:19 25 MG Magnesium Sulfate 50 ml @ 0 mls/hr PROTOCOL PRN IV MAGNESIUM PROTOCOL 10/17/24 04:00 11/16/24 03:59 Methylprednisolone Sodium Succinate (Solu-medROL 40MG) 40 mg BID IVP 10/18/24 09:00 10/19/24 23:00 DC 10/19/24 21:05 40 MG Methylprednisolone Sodium Succinate (Solu-medROL 40MG) 40 mg DAILY IVP 10/23/24 09:00 11/22/24 08:59 10/26/24 09:00 40 MG Methylprednisolone Sodium Succinate (Solu-medROL 125MG) 60 mg Q6H IVP 10/17/24 04:00 10/17/24 23:51 DC 10/17/24 21:03 60 MG Midodrine (PROAMatine 5 MG TABLET) 5 mg TID PO 10/22/24 09:00 11/21/24 08:59 10/25/24 23:57 5 MG Norepinephrine 250 ml @ 0 mls/hr AD PRN IV DIRECTED 10/21/24 00:00 10/25/24 07:18 DC 10/21/24 00:16 30 MLS/HR Ondansetron HCl (zoFRAN 4MG INJ) 4 mg Q6H PRN IVP NAUSEA/VOMITING 10/16/24 21:00 11/15/24 20:59 Piperacillin Sod/ Tazobactam Sod (Zosyn 3.375gm+NS 50ml) 3.375 gm Q12H IV 10/22/24 00:30 10/30/24 12:29 10/26/24 00:22 3.375 GM Piperacillin Sod/ Tazobactam Sod (Zosyn 3.375gm+NS 50ml) 3.375 gm Q8H IV 10/20/24 12:30 10/21/24 14:02 DC 10/21/24 04:56 3.375 GM Potassium Chloride 100 ml @ 100 mls/hr AD PRN IV POTASSIUM PROTOCOL 10/17/24 04:00 11/16/24 03:59 Potassium Chloride (K-Dur 10meq Sr Tab) 10 meq AD PRN PO POTASSIUM PROTOCOL 10/18/24 08:30 11/16/24 03:59 10/18/24 11:13 10 MEQ Potassium Chloride (K-Dur/Klor-Con 20meq) 10 meq AD PRN PO POTASSIUM PROTOCOL 10/17/24 04:00 10/18/24 08:13 DC Potassium Chloride (KCl 10% Elixir 20meq/15ml) 10 meq AD PRN PO POTASSIUM PROTOCOL 10/17/24 04:00 11/16/24 03:59 10/23/24 17:06 10 MEQ Prednisone (deltaSONE/ oraSONE 20MG TAB) 40 mg DAILY PO 10/20/24 09:00 10/22/24 16:04 DC 10/22/24 09:20 40 MG Spironolactone (Aldactone 25mg) 25 mg DAILY PO 10/22/24 10:00 11/21/24 09:59 10/25/24 08:21 25 MG Spironolactone (Aldactone 25mg) 25 mg DAILY15 PO 10/17/24 15:00 10/21/24 14:02 DC 10/20/24 16:19 25 MG Temazepam (restORIL 15 MG CAP) 15 mg HS PRN PO INSOMNIA/SLEEP 10/16/24 21:00 11/15/24 20:59 Vitamin B Complex/ Vit C/Folic Acid (Nephrovite Tablet) 1 cap DAILY PO 10/22/24 09:00 11/21/24 08:59 10/25/24 08:21 1 [facility]IOLOGY: [place] [address] IMAGING REPORT Signed PATIENT: MORRIS PALAFOX MR#: [id number] : 1945 SEX: F AGE: 79 LOCATION: [facility] ORDER 230 STATUS: ADM IN REPORT#: [id number] SERVICE 0600 REASON: SOB ORDERING PHYSICIAN: IMANI ALDRIDGE MD PROCEDURE: CXR1VW - CHEST 1VW CHEST 1VW HISTORY: Shortness of breath COMPARISON: 10/22/2024 FINDINGS: A frontal projection of the chest was obtained. No acute pulmonary infiltrates is seen. The heart is enlarged. Prominent interstitial markings are seen. Degenerative changes are seen. Aortic calcifications are seen. IMPRESSION: 1. No acute pulmonary infiltrate is seen. DICTATED BY: YONI HERNANDEZ MD DATE: 10/26/24902 ELECTRONICALLY SIGNED BY: YONI HERNANDEZ MD DATE: 10/26/24905 ASSESSMENT: Acute GI loss anemia Sepsis secondary to pneumonia Septic shock requiring Levophed resolved Acute respiratory failure POA, requiring oxygen supplementation Pneumonia due to ESBL producing organism POA Mild interstitial fibrosis, per CT on 10/16/2024 COPD exacerbation, POA Fluid overload, POA Bilateral renal cysts with the largest on the right measuring 9.8 cm. Lactic acidosis Anemia of chronic disease Thrombocytosis Acute on chronic renal failure, GFR 42 Diabetes mellitus with hyperglycemia Hypoalbuminemia Morbid obesity, BMI 42 Hypotension Chronic problem list: Asthma, COPD, hypertension, hypothyroidism, renal insufficiency, ovarian surgery PLAN: Continue to monitor the patient on Medical floor with continuous telemetry monitoring Acute GI loss anemia Hemoglobin went up to 9.8 from 8.9 GI consult appreciated, had EGD which showed LA grade a esophagitis with no bleeding, gastritis and normal duodenal bulb and 2nd portion of the duodenum. Plan for colonoscopy tomorrow for further evaluation. Stool occult blood is positive We will order nuclear bleeding scan. Consultation with GI is requested and we will follow their recommendations. Hold Lovenox Sepsis secondary to pneumonia Acute respiratory failure POA, requiring oxygen supplementation Mild interstitial fibrosis, per CT on 10/16/2024 COPD exacerbation, POA Pneumonia due to ESBL producing organism POA Continue Monitor respiratory status closely. Continue oxygen therapy as needed. Titrate oxygen prn to keep Spo2>/+=92%. Continue Albuterol and Atrovent scheduled. Sputum g stain showed 2+ g negative rods. Respiratory culture showed 3+ Gram- negative rods, ESBL sensitive to IV Zosyn and meropenem ID consult appreciated and recommended IV Zosyn for [facility]. Continue Robitussin DM as needed cough. Continue iv Solu-Medrol 40 mg IV once a day Pulmonology consult appreciated and recommended outpatient follow up after 1 week of discharge Patient will get home oxygen on discharge Fluid overload, POA Continue Lasix to 20 mg IV daily 2D echo showed EF 60-65% and indeterminate diastolic dysfunction Acute on chronic renal failure, GFR 42 BUN went down from 36 to 98 and creatinine stable at 1.1 Strict I&Os. Nephrology on board Anemia of chronic disease POA With iron-deficiency anemia POA Possible acute blood loss anemia follow stool Hemoccult Her hemoglobin went up to 9.8 Recent Iron studies showed iron 331, TIBC 311, saturation 106.4 %. Stool occult blood is positive and GI consult requested for further workup Diabetes mellitus with hyperglycemia Glucometer checks AC & HS needed with insulin regular sliding scale coverage as needed. Hypothyroidism TSH level is 0.25 And free T3 1.15, free T4 1.21 Continue levothyroxine with 25 mcg. Severe Debility: Physical therapy is working with the patient patient refused rehab we will continue to monitor high-risk for readmission due to decreased functional capacity and respiratory status. -GI and DVT prophylaxis: Pepcid and SCDs -PRN medications for: Pain management, fever, hypertension, N/V, constipation. ATTESTATION BY PHYSICIAN I have seen and examined the patient. I reviewed the documentation, medical decision making, and treatment plan as noted by the resident provider above. I agree with the findings and plan of care. Eddi Hsieh MD, KRUPALI P MD Oct 26, 2024 14:56
[2024-10-26] MEDS ORDERED: PEG 3350/NA SULF,BICARB,CL/KCL 4000 ML SOLN PO ONE (16:00)
--- NOTE | 2024-10-26 16:34 | DS ---
Discharge Summary Hospital Course Summary: Ms. Palafox is a 79-year-old female with a history of tobacco dependent, COPD, asthma, hypertension, hypothyroidism, and renal disease who presented to [facility] ED on 10/16/24 for evaluation of shortness of breath over the past few weeks worsening today. In ED the patient was administered Solu-Medrol 80 mg IV, DuoNeb treatments, and Rocephin2 g. Patient was admitted with the diagnosis of acute respiratory distress, pneumonia and acute exacerbation of COPD with asthma. On presentation Labs reviewed. Troponin negative. ABGs WNL, PO2 107, on 3 L. influenza and COVID are negative. BNP 115. D-dimer a 1403. CT chest without contrast: There are mild interstitial fibrosis. Bilateral renal cysts with the largest on the right measuring 9.8 cm. No evidence of pulmonary nodules or effusions. On 10/17/24 the patient was complaining of productive cough and the sputum culture was collected. Pulmonology consult was placed. Her hemoglobin dropped down to 8.5 from 9.7, MCV 77.2. TSH 0.25. Chest x-ray showed vascular congestion, edema versus pneumonia, mild cardiomegaly. Venous Doppler negative for DVT. On 10/18/24 Sputum Gram stain showed 2+ Gram-negative rods and pending culture results. Continued on Rocephin and Solu-Medrol 40. BUN went up 26 to 33and creatinine went up from 1.1 to 1.3 today. Iron panel studies show iron 14, TIBC 362 and % saturation 3.8%. 2D echo showed EF 60-65% and indeterminate diastolic dysfunction. On 10/19/24 Patient had a failed 6 minute walk today, her oxygen saturation dropped down to 85% and her heart rate went up to 150s. We consulted case management for arrangement of home O2. Respiratory culture showed 3+ Gram-negative rods and pending identification and sensitivity. Hemoglobin 8.4 and started her on IV Venofer. On 10/20/24 her respiratory culture is positive for ESBL which is sensitive to IV Zosyn and meropenem. Infe ctious Disease consulted and recommended IV Zosyn for 10 days at [facility]. On 10/21/24 She was transferred to ICU last night because of respiratory failure with hypotension blood pressure of 77/41, tachycardia heart rate in 130s and tachypnea in 30s. She was put on BiPAP. Her WBC went up from 18.7 to 28.1. BUN went up 50 to 52. Creatinine went up from 1.9 to 2.1. FENA 3.2%. On 10/23/2024 her Hemoglobin dropped from 8.8 to 7.7. Stool occult blood positive. On 10/24/24 Hemoglobin is down from 7.7-7.3. We consulted Gastroenterology for acute GI loss. She received 1 unit of PRBCs, Nuclear bleeding scan was done which showed no evidence of acute GI bleed and underwent EGD on 10/25/24 after her hemoglobin stabilized. EGD showed LA grade a esophagitis with no bleeding, gastritis and normal duodenal bulb and 2nd portion of duodenum. They recommended Colonoscopy tomorrow but the patient's son denied and will get it as an outpatient. Patient to follow up with PCP within 3-5 days, at [facility], with pulmo and GI in 1-2 after discharge. Budget Coordinator(s): Pulmonology : Dr. Esets Infectious disease : Dr. Lopez Nephrology : Dr. Cevallos Gastroenterology : Dr. Kauffman Procedure(s): [place] [address] [place] [address] IMAGING REPORT Signed PATIENT: MORRIS PALAFOX MR#: [id number] : 1945 SEX: F AGE: 79 LOCATION: ED ORDER 03 STATUS: [facility] REPORT#: [id number] SERVICE 02 REASON: sob ORDERING PHYSICIAN: KARLO LESLIE MD PROCEDURE: CXR1VW - CHEST 1VW INDICATION: sob TECHNIQUE: CHEST 1VW COMPARISON: 11/10/2012 FINDINGS AND IMPRESSION: Mild bilateral airspace consolidation suggesting vascular congestion/edema versus pneumonia. Mild cardiomegaly Degenerative changes of the spine. The visualized upper abdomen appears unremarkable. DICTATED BY: LUIS F PASCAL MD DATE: 10/16/241902 ELECTRONICALLY SIGNED BY: LUIS F PASCAL MD DATE: 10/16/241905 [place] [address] [place] [address] [phone] IMAGING REPORT Signed PATIENT: MORRIS PALAFOX MR#: [id number] : 1945 SEX: F AGE: 79 LOCATION: EDHIP ORDER 35 STATUS: ADM IN REPORT#: [id number] SERVICE 25 REASON: acute respiratory distress ORDERING PHYSICIAN: JARRED PATTERSON FIELD SUPPORT TECHNICIAN PROCEDURE: CHEST WO - CT CHEST W/O CONTRAST CT CHEST W/O CONTRAST HISTORY: Acute respiratory distress COMPARISON: None TECHNIQUE: Multiple sequential axial images of the chest were obtained from the thoracic inlet through upper abdomen. Patient was not given contrast through intravenous route. FINDINGS: There are mild interstitial fibrosis. There is no evidence of pulmonary nodule or parenchymal disease. No pleural effusion or pericardial effusion is seen. There is no evidence of pneumothorax. There are normal size mediastinal and hilar lymph nodes. The heart is not enlarged. Degenerative changes of the thoracolumbar spine are present. There is no evidence of adrenal nodule. There are bilateral renal cysts with the largest on the right measuring 9.8 cm. IMPRESSION: 1. No evidence of pulmonary nodule or effusion is seen. CT was performed with one or more following dose reduction techniques: automated exposure control, adjustment of the mA and kv according to patient's size, or use of a iterative reconstruction technique. DICTATED BY: YONI HERNANDEZ MD DATE: 10/16/242211 ELECTRONICALLY SIGNED BY: YONI HERNANDEZ MD DATE: 10/16/242217 [facility] [address] [place] [address] [phone] IMAGING REPORT Signed PATIENT: MORRIS PALAFOX MR#: [id number] : 1945 SEX: F AGE: 79 LOCATION: [facility] ORDER 31 [facility]: [facility] REPORT#: [id number] SERVICE 29 REASON: ELEVATED D-DIMER ORDERING PHYSICIAN: JARRED PATTERSON FIELD SUPPORT TECHNICIAN PROCEDURE: VENOUS BRITTNI - US VENOUS DOPPLER BILATERAL US VENOUS DOPPLER BILATERAL INDICATION: Swelling. ELEVATED D-DIMER TECHNIQUE: US VENOUS DOPPLER BILATERAL Real-time venous Doppler ultrasound was performed using B mode, color flow and spectral analysis. FINDINGS: The visualized greater saphenous junction, common femoral, deep femoral, superficial femoral, popliteal and posterior tibial veins demonstrate normal compressibility and flow. No DVT is identified. IMPRESSION: No evidence of DVT in the visualized bilateral extremities. DICTATED BY: LUIS F PASCAL MD DATE: 10/17/24907 ELECTRONICALLY SIGNED BY: LUIS F PASCAL MD DATE: 10/17/24910 [place] [address] [address] IMAGING REPORT Signed PATIENT: MORRIS PALAFOX MR#: [id number] : 1945 SEX: F AGE: 79 LOCATION: [facility] ORDER 0 STATUS: ADM IN REPORT#: [id number] SERVICE 0356 REASON: fluid overload, sob ORDERING PHYSICIAN: JARRED PATTERSON PROCEDURE: ECHO CMP - ECHO 2-D COMPLETE APPROVED REPORT EXAM: Two-dimensional and M-mode echocardiogram with Doppler and color Doppler. INDICATION ICD: Fluid overload, SOB 2D Dimensions RVDd 3.0 cm LVEF(%) 63.0 (>50%) LVED Vol(simp.) 126.0 mL IVSd 0.9 (0.7-1.1cm) FS(%) 34 % LVES Vol(simp.) 39.0 mL LVDd 4.3 (3.8-5.6cm) Ao Root(2D) 3.0 (2.0-3.7cm) LVEF(%, simp.) 69 % PWd 0.9 (0.7-1.1cm) LVOT diam 2.0 (1.8-2.4cm) LA ESV INDEX (BP) 37.44 mL/m2 LVDs 2.9 (2.5-4.0cm) IVC diam 1.8 cm Deformation Strain Apical 4 -17.9 % Apical 2 -21.4 % Apical 3 -17.8 % Global Strain -19.0 % M-Mode Dimensions EPSS 0.8 cm LA (MM) 3.8 (1.6-4.0cm) Ao Root(MM) 3.4 (2.0-3.7cm) Aortic Valve AoV Vmax 1.7 m/s Ao Peak GR 12.2 mmHg LVOT Vmax 1.7 m/s AoV VTI 0.4 m Ao Mean GR 6.0 mmHg LVOT VTI 0.32 m JAHAIRA (VMAX) 2.75 cm2 JAHAIRA (VTI) 2.7 cm2 Mitral Valve MV E Vmax 77.8 cm/s DECEL Time 320 ms MV A Vmax 91.8 cm/s P 1/2 T 62 ms E/A ratio 0.8 MVA (PHT) 3.5 cm2 TDI E/E' Medial 13.3 E/E' Lateral 10.1 Medial E' Peak V 5.87 cm/s Lateral E' Peak V 7.70 cm/s Left Ventricle The left ventricle is normal size. There is normal LV segmental wall motion. There is normal left ventricular wall thickness. LVEF is 60-65%. Indeterminate diastolic dysfunction. Right Ventricle The right ventricle is normal size. The right ventricular systolic function is normal. Atria The left atrium is mildly dilated. The right atrium size is normal. Aortic Valve Aortic valve is not well visualized but no significant valvular abnormalities noted. No aortic regurgitation is present. There is no aortic valvular stenosis. Mitral Valve The mitral valve is normal in structure. There is trace mitral regurgitation. There is no mitral valve stenosis. Tricuspid Valve The tricuspid valve is normal in structure. There is trivial tricuspid valve regurgitation noted. Pulmonic Valve Pulmonic valve is not well visualized. There is no pulmonic valvular regurgitation. Great Vessels The aortic root is normal in size. The IVC is normal in size and collapses >50% with inspiration. Pericardium There is no pericardial effusion. Other Information Quality : Fair Technically limited study due to body habitus. Conclusion The left ventricle is normal size. LVEF is 60-65% with normal LV segmental wall motion. Indeterminate diastolic dysfunction. The right ventricular systolic function is normal. The left atrium is mildly dilated. No hemodynamically significant valvular abnormalities. There is no pericardial effusion. DICTATED BY: CATHERINE SELF MD DATE: 10/17/2431 ELECTRONICALLY SIGNED BY: CATHERINE SELF MD DATE: 10/17/24 1302 [place] [address] [place] [address] [phone] IMAGING REPORT Signed PATIENT: MORRIS PALAFOX MR#: [id number] : 1945 SEX: F AGE: 79 LOCATION: 4DH ORDER 03 STATUS: ADM IN REPORT#: [id number] SERVICE 01 REASON: shortness of breath ORDERING PHYSICIAN: LESA JAIN PROCEDURE: CXR1VW - CHEST 1VW CHEST 1VW HISTORY: Shortness of breath COMPARISON: 10/16/2024 FINDINGS: A frontal projection of the chest was obtained. Mild bilateral pulmonary infiltrates are seen may be related to mild pulmonary vascular congestion with possible superimposed pneumonitis. The heart is borderline enlarged. Degenerative changes are seen. No evidence of aortic calcification is seen. IMPRESSION: 1. Mild bilateral pulmonary infiltrates are seen may be related to mild pulmonary vascular congestion with possible superimposed pneumonitis. DICTATED BY: YONI HERNANDEZ MD DATE: 10/20/242025 ELECTRONICALLY SIGNED BY: YONI HERNANDEZ MD DATE: 10/20/242029 [place] [address] [address] IMAGING REPORT Signed PATIENT: MORRIS PALAFOX MR#: [id number] : 1945 SEX: F AGE: 79 LOCATION: 2BH ORDER 2300 STATUS: ADM IN REPORT#: [id number] SERVICE 06 REASON: to r/o aspiration pneumonia ORDERING PHYSICIAN: IMANI ALDRIDGE MD PROCEDURE: CXR1VW - CHEST 1VW Exam Type: CHEST 1VW Clinical Information: to r/o aspiration pneumonia Comparison: None Findings: Pulmonary pattern is as before. No worrisome interval changes have taken place. Impression: Stable exam. DICTATED BY: CARLA GONZALEZ MD DATE: 04/25/25 0940 ELECTRONICALLY SIGNED BY: CARLA GONZALEZ MD DATE: 10/22/[address] [facility] [address] [place] [address] IMAGING REPORT Signed PATIENT: MORRIS PALAFOX MR#: [id number] : 1945 SEX: F AGE: 79 LOCATION: 3DH ORDER 1009 STATUS: ADM IN REPORT#: [id number] SERVICE 1007 REASON: EDEMA ORDERING PHYSICIAN: EDDI HSIEH MD PROCEDURE: VENOUS UNI - US VENOUS DOPPLER UNILATERAL US VENOUS DOPPLER UNILATERAL INDICATION: Swelling. EDEMA TECHNIQUE: US VENOUS DOPPLER UNILATERAL Real-time venous Doppler ultrasound was performed using B mode, color flow and spectral analysis. FINDINGS: PICC line is seen in the left basilic vein. Thrombosis in the left cephalic vein. The visualized subclavian, axillary, brachial and basilic veins showed normal flow and color Doppler. IMPRESSION: PICC line is seen in the left basilic vein. Thrombosis in the left cephalic vein. DICTATED BY: LUIS F PASCAL MD DATE: 10/24/24 184 ELECTRONICALLY SIGNED BY: LUIS F PASCAL MD DATE: 10/24/[address] [facility] [address] [place] [address] IMAGING REPORT Signed PATIENT: MORRIS PALAFOX MR#: [id number] : 1945 SEX: F AGE: 79 LOCATION: 3DH ORDER 1426 STATUS: ADM IN REPORT#: [id number] SERVICE 1426 REASON: ANASARCA ORDERING PHYSICIAN: ABIMBOLA CEVALLOS MD PROCEDURE: ABDOMEN - US ABDOMINAL COMPLETE US ABDOMINAL COMPLETE HISTORY: Anasarca COMPARISON: None TECHNIQUE: Multiple transverse and longitudinal ultrasound images of the abdomen were obtained. FINDINGS: Distal portion of the abdominal aorta is not well seen. Otherwise there is a portion of the abdominal aorta and inferior vena cava are unremarkable. Liver measures 12.7 cm. The visualized portion of the pancreas is within normal limits. Liver is echogenic consistent with liver parenchymal disease. Gallbladder has been removed. Common duct measures 4 mm. There are right renal cysts with the largest measuring 8.9 x 9.3 x 9.2 cm. There are left renal cysts with the largest measuring 7.1 x 8.1 cm. Both kidneys are seen. Right kidney measures 8.9 x 4.7 x 5 cm. Left kidney measures 11.6 x 4.9 x 5 cm. No hydronephrosis is seen of the both kidneys. The spleen is grossly unremarkable. IMPRESSION: 1. Postcholecystectomy. No ductal dilatation is seen. 2. No hydronephrosis is seen. Bilateral renal cysts. DICTATED BY: YONI HERNANDEZ MD DATE: 10/25/241909 ELECTRONICALLY SIGNED BY: YONI HERNANDEZ MD DATE: 10/25/241917 [place] [address] [address] IMAGING REPORT Signed PATIENT: MORRIS PALAFOX MR#: [id number] : 1945 SEX: F AGE: 79 LOCATION: [facility] ORDER 1006 STATUS: ADM IN REPORT#: [id number] SERVICE 1634 REASON: LOW HGB ORDERING PHYSICIAN: EDDI HSIEH MD PROCEDURE: GIBLEED - NM GI BLOOD LOSS IMAG NM GI BLOOD LOSS IMAG REASON: LOW HGB. COMPARISON: None TECHNIQUE: Nuclear GI bleeding scan was performed with 25 mCi of technetium tagged RBCs through intravenous route. FINDINGS: No scintigraphic evidence of active GI bleed is seen. IMPRESSION: No scintigraphic evidence of active GI bleed is seen. DICTATED BY: YONI HERNANDEZ MD DATE: 10/25/242237 ELECTRONICALLY SIGNED BY: YONI HERNANDEZ MD DATE: 10/25/242242 [place] [address] [place] [address] [phone] IMAGING REPORT Signed PATIENT: MORRIS PALAFOX MR#: [id number] : 1945 SEX: F AGE: 79 LOCATION: 3DH ORDER 2300 STATUS: ADM IN REPORT#: [id number] SERVICE 0600 REASON: SOB ORDERING PHYSICIAN: IMANI ALDRIDGE MD PROCEDURE: CXR1VW - CHEST 1VW CHEST 1VW HISTORY: Shortness of breath COMPARISON: 10/22/2024 FINDINGS: A frontal projection of the chest was obtained. No acute pulmonary infiltrates is seen. The heart is enlarged. Prominent interstitial markings are seen. Degenerative changes are seen. Aortic calcifications are seen. IMPRESSION: 1. No acute pulmonary infiltrate is seen. 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: 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 : 1945 Requested By: KARLO LESLIE Order Number: [id number] Chepe MD: Catherine Self Measurements Intervals [place] Rate: 97 P: 55 SD: 130 QRS: 14 QRSD: 95 T: 59 QT: 335 QTc: 421 Interpretive Statements Sinus rhythm Atrial premature complexes Probable left atrial enlargement Compared to ECG 01/04/2016 06:05:59 Atrial premature complex(es) now present Electronically Signed On 10-17-2024 13:10:07 CDT by [facility] [address] [phone] ELECTRO CARDIOGRAM Signed PATIENT: MORRIS PALAFOX OMR#: [id number] : 1945 SEX: F AGE: 79 LOCATION: [facility] ROOM/BED: [facility] ORDER 1503 [facility] [id number] REPORT#: [id number] REASON: ORDERING PHYSICIAN: IMANI ALDRIDGE MD PROCEDURE: EKG - 12 LEAD EKG TRACING- TECHNICAL [facility] Test Date: 2024-10-21 Test Time: 15:24:14 Pat Name: MORRIS PALAFOX Department: [facility] Room: [facility] Gender: F 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 Please click the below link to view image of tracing. RUN DATE: 10/22/24 [facility] PAGE 1 RUN TIME: [address] [address] Department of Laboratories CLIA # [id number] [employer] Testing Maintainer: Harjit Garces DO Specimen Report PATIENT: MORRIS PALAFOX ACCT: [id number] LOC: 2B U: [id number] AGE/SX: 79/F ROOM: 208 RE10/16/[address]: ERICKSON HUITRON MD : 1945 BED: 1 DIS: STATUS: ADM IN TLOC: SPEC: [id number] WALLY: 10/17/24-1729 STATUS: COMP REQ: [id number] RECD: 10/17/[address]: JARRED PATTERSON FIELD SUPPORT TECHNICIAN SOURCE: SPUTUM ENTR: 10/17/24-[address]: ERICKSON HUITRON MD SPDESC: SUSAN PRESSLEY MD, JAMIL M MD ORDERED: RESP CULTURE Procedure Result Freddy Date-Time GRAM STAIN Final 10/18/24-1141 MRL GRAM STAIN RESULT: MODERATELY FAIR SPECIMEN [ >10SEC's/LPF AND >25 PMN's/LPF ] 2+ GRAM NEGATIVE RODS RESPIRATORY CULTURE Final 10/22/24-703 [facility] EXTENDED SPECTRUM BETA-LACTAMASE ORGANISM IDENTIFIED. CRITICAL RESULT WAS CALLED BY MEERA ROSE ON 10/20/24 AT 0652. CRITICAL VALUES WERE READ BACK AND ACKNOWLEDGED BY DONALD DE LA ROSA ([facility]) COLONY DESCRIPTION: REPORT 1: 3+ GRAM NEGATIVE RODS IDENTIFICATION AND SENSITIVITY TO FOLLOW REPORT 2: STUDIES TO CONTINUE REPORT 3: NO FURTHER WORK-UP DONE COMMENTS(R): ESBL ESCHERICHIA COLI E COLI M.I.C. RX --------- ---- AMPICILLIN >16 R* AZTREONAM >16 ESBL CEFAZOLIN >16 R* CEFTAZIDIME 16 ESBL CEFTAZIDIME/AVIBACTAM <=8 S CEFTRIAXONE >2 ESBL CIPROFLOXACIN >2 R GENTAMICIN >8 R LEVOFLOXACIN >4 R TOBRAMYCIN 8 R AMPICILLIN/SULBACTAM 16/8 I MEROPENEM <=1 S PIPERACILLIN/TAZOBACTAM <=8 S TRIMETHOPRIM/SUFLAMETHOXAZOLE >2/38 R RUN DATE: 10/22/24 [facility] PAGE 2 RUN TIME: 07 [address] [place] [address], [place] [address] Department of Laboratories [facility] # [id number] Signal System Testing Maintainer: Harjit Garces DO Specimen Report SPEC: [id number] PATIENT: IVISMORRIS Gianni [id number] (Continued) Procedure Result Freddy Date-Time CONTINUED ON NEXT PAGE RUN DATE: 10/22/24 [facility] PAGE 3 RUN TIME: [address] [address] Department of Laboratories [facility] # [id number] [employer] System Testing Maintainer: Harjit Garces DO Specimen Report SPEC: [id number] PATIENT: MORRIS PALAFOX [id number] (Continued) Procedure Result Freddy Date-Time RESPIRATORY CULTURE Final (continued) ESCHERICHIA COLI: NEGATIVE/URINE COMBO 62 Lab Alert - ESBL (Extended-Spectrum Beta-Lactamase game producer) @ [facility] Test Performed at: [facility] [address], [place], [place] [facility] Manager: Maciej Lombardi D.O. RUN DATE: 10/21/24 [facility] PAGE 1 RUN TIME: [address] [address] Department of Laboratories [place] # [id number] [employer] Testing Maintainer: Harjit Garces DO Specimen Report PATIENT: MORRIS PALAFOX ACCT: [id number] LOC: 2B U: [id number] AGE/SX: 79/F ROOM: 208 RE10/16/[address]: ERICKSON HUITRON MD : 1945 BED: 1 DIS: STATUS: ADM IN TLOC: SPEC: [id number] WALLY: 10/16/24 STATUS: COMP REQ: [id number] RECD: 10/16/[address]: KARLO LESLIE MD SOURCE: BLOOD ENTR: 10/16/[address] [facility] [address]: SUSAN LORENZO [facility] ORDERED: BLOOD CULTURE COMMENTS: What is the Source? BLOOD Procedure Result Freddy Date-Time BLOOD CULT Final 10/21/24-1855 NO GROWTH AFTER 5 DAYS RUN DATE: 10/25/24 [facility] PAGE 1 RUN TIME: 2030 [address] [place] [address], [place] [address] Department of Laboratories CLIA # [id number] [employer] Testing Maintainer: Harjit Garces DO Specimen Report PATIENT: MORRIS PALAFOX ACCT: [id number] LOC: [facility] U: [id number] AGE/SX: 79/F ROOM: [facility] RE10/16/[address]: ERICKSON HUITRON MD : 1945 BED: 1 DIS: STATUS: ADM IN TLOC: SPEC: [id number] WALLY: 10/22/24 STATUS: RES REQ: [id number] RECD: 10/22/24-[address]: IMANI ALDRIDGE MD SOURCE: BLOOD ENTR: 10/22/24-[address]: ATA LOPEZ MD SPDC: ABIMBOLA CEVALLOS MD, ZACHARY A MD LOPEZ, RAFAEL MD MADI,PATI Haas MD ORDERED: BLOOD CULTURE COMMENTS: What is the Source? BLOOD Procedure Result Freddy Date-Time BLOOD CULT Preliminary 10/25/24-1630 NO GROWTH AFTER 3 DAYS Assessment/Plan: ASSESSMENT: Acute GI loss anemia Sepsis secondary to pneumonia Septic shock requiring Levophed resolved Acute respiratory failure POA, requiring oxygen supplementation Pneumonia due to ESBL producing organism POA Mild interstitial fibrosis, per CT on 10/16/2024 COPD exacerbation, POA Fluid overload, POA Bilateral renal cysts with the largest on the right measuring 9.8 cm. Lactic acidosis Anemia of chronic disease Thrombocytosis Acute on chronic renal failure, GFR 42 Diabetes mellitus with hyperglycemia Hypoalbuminemia Morbid obesity, BMI 42 Hypotension Chronic problem list: Asthma, COPD, hypertension, hypothyroidism, renal insufficiency, ovarian surgery Discharge Instructions: ADMISSION DATE : 10/16/24 DISCHARGE DATE : 10/26/24 DISPOSITION : Home CONDITION : Stable Budget Coordinator(s) : Pulmonology : Dr. Estes, Infectious disease : Dr. Lopez, Nephrology : Dr. Cevallos, Gastroenterology : Dr. Kauffman FOLLOW UP APPOINTMENTS : Patient to follow-up with the PCP within 3-5 days upon discharge, also follow up with [facility] for IV antibiotic zosyn, with Pulmonology and with GI in 1-2 weeks after discharge. PROCEDURES : EGD IMAGING (s) : Report attached to summary : Chest x-ray, CT chest, 2D echo, venous doppler LE, venous doppler left upper arm, Nuclear GI bleed scan and EKG MICROBIOLOGY : Report attached to summary. Blood culture negative; Respiratory culture is positive for ESBL ACTIVITY : ab judith HOME MEDICATIONS : Continue NEW MEDICATIONS : IV zosyn at the [facility] Take Prednisone 40 mg daily for the first 2 days when she goes home followed by Prednisone 30 mg daily for the next 2 days Prednisone 20 mg daily for the next 2 days Prednisone 10 mg daily for the last 2 days TEACHING : We reinforced the importance of medication compliance and with follow up appointments. Advised patient to follow-up with the PCP within 3-5 days upon discharge, also follow up with [facility] for IV antibiotic zosyn, with Pulmonology and with GI in 1-2 weeks after discharge. Emergency instructions : The patient was instructed to present to the nearest Emergency Department or call 911 should their symptoms return or worsen. Home Medications: Reported Medications Prednisone (Prednisone) 20 Mg Tablet, 1 TAB PO DAILY for 5 Days, #5 TAB 0 Refills 10/17/24 Alendronate Sodium (Alendronate Sodium) 70 Mg Tablet, 1 TAB PO QWEEK for 28 Days, #4 TAB 0 Refills in the morning, at least 30 minutes before the first food, beverage, or medication of the day 10/16/24 Albuterol Sulfate (Ventolin Hfa) 90 Mcg Hfa.aer.ad, 2 PUFF IH Q4HPRN PRN for wheezing for 30 Days, #18 GM 0 Refills 10/16/24 Fluticasone/Umeclidin/Vilanter (Trelegy Ellipta 100-62.5-25) 100-62.5 Blst.w.dev, 1 PUFF IH DAILY for 30 Days, #1 EACH 0 Refills 10/16/24 Isosorbide Mononitrate (Isosorbide Mononitrate ER) 30 Mg Tab.er.24h, 1 TAB PO DAILY for 30 Days, #30 TAB 0 Refills 10/16/24 Losartan Potassium (Losartan Potassium) 25 Mg Tablet, 1 TAB PO DAILY for 30 Days, #30 TAB 0 Refills 10/16/24 Spironolactone (Spironolactone) 25 Mg Tablet, 1 TAB PO DAILY for 30 Days, #30 TAB 0 Refills 10/16/24 Levothyroxine Sodium (Levothyroxine Sodium) 25 Mcg Tablet, 25 MCG PO DAILY, TAB 01/04/16 Discontinued Reported Medications Fluticasone/Salmeterol (ADVAIR 500-50 DISKUS) 14 Inh/Disk Inh, 1 INH IH BID, INHALER 01/04/16 Albuterol Sulfate (Albuterol Sulfate) 2.5 Mg/0.5 Ml Vial.neb, 2.5 MG IH every 6 hours, INH 01/04/16 Hydrochlorothiazide (Hydrochlorothiazide) 12.5 Mg Capsule, 12.5 MG PO DAILY, CAP 01/04/16 Spironolactone (Spironolactone) 25 Mg Tablet, 12.5 MG PO DAILY, TAB 01/04/16 Tramadol Hcl (Tramadol HCl) 50 Mg Tablet, 50 MG PO every 8 hours, TAB 01/04/16 [methylp] No Conflict Check 01/04/16 Ferrous Gluconate (Ferrous Gluconate) 325 Mg Tablet, 325 MG PO TID, TAB 01/04/16 Esomeprazole Sodium (Esomeprazole Sodium) 40 Mg Vial, 40 MG IV DAILY, VIAL 01/04/16 Ropinirole HCl (Ropinirole HCl) 1 Mg Tablet, 1 MG PO as needed PRN for as instructed 01/04/16 Alendronate Sodium (Alendronate Sodium) 70 Mg Tablet, 70 MG PO weekly, TAB 01/04/16 Albuterol Sulfate (Proair Hfa) 8.5 Gm Hfa.aer.ad, 8.5 GM IH every 6 hours 01/04/16 New Medications: Prednisone (Prednisone) 10 Mg Tablet 10 MG PO DAILY for 2 Days, #2 TAB Prednisone (Prednisone) 20 Mg Tablet 20 MG PO DAILY for 2 Days, #2 TAB Prednisone (Prednisone) 20 Mg Tablet 40 MG PO DAILY for 2 Days, #2 TAB Prednisone (Prednisone) 20 Mg Tablet 30 MG PO DAILY for 2 Days, #2 TAB Continued Medications: Albuterol Sulfate (Ventolin Hfa) 90 Mcg Hfa.aer.ad 2 PUFF IH Q4HPRN PRN for wheezing for 30 Days, #18 GM 0 Refills Alendronate Sodium (Alendronate Sodium) 70 Mg Tablet 1 TAB PO QWEEK for 28 Days, #4 TAB 0 Refills in the morning, at least 30 minutes before the first food, beverage, or medication of the day Fluticasone/Umeclidin/Vilanter (Trelegy Ellipta 100-62.5-25) 100-62.5 Blst.w.dev 1 PUFF IH DAILY for 30 Days, #1 EACH 0 Refills Isosorbide Mononitrate (Isosorbide Mononitrate ER) 30 Mg Tab.er.24h 1 TAB PO DAILY for 30 Days, #30 TAB 0 Refills Levothyroxine Sodium (Levothyroxine Sodium) 25 Mcg Tablet 25 MCG PO DAILY, TAB Losartan Potassium (Losartan Potassium) 25 Mg Tablet 1 TAB PO DAILY for 30 Days, #30 TAB 0 Refills Spironolactone (Spironolactone) 25 Mg Tablet 1 TAB PO DAILY for 30 Days, #30 TAB 0 Refills Discontinued Medications: Prednisone (Prednisone) 20 Mg Tablet 1 TAB PO DAILY for 5 Days, #5 TAB 0 Refills Time spent arranging discharge: 1-30 minutes ATTESTATION BY PHYSICIAN I have seen and examined the patient. I reviewed the documentation, medical decision making, and treatment plan as noted by the resident provider above. I agree with the findings and plan of care. Eddi Hsieh MD, KRUPALI P MD Oct 26, 2024 16:34
[2024-10-26] MEDS ORDERED: PRED20TA3 PO (17:01)
[2024-10-26] MEDS ORDERED: PRED10TA3 PO (17:01)
--- NOTE | 2024-10-26 18:01 | NUR ---
PATIENT DISCHARGED HOME ID BAND REMOVED. DISCHARGE INSTRUCTIONS GIVEN TO PATIENT, MEDICINE SCRIPT WAS GIVEN TO PATIENT. PATIENT VERBALIZED UNDERSTANDING. BELONGINGS PACKED AND GIVEN TO PATIENT. WHEELED DOWN TO PRIVATE CAR.
[2024-10-26] MEDS ORDERED: predniSONE 10 MG TABLET PO SCH (21:00)
[2024-10-26] MEDS ORDERED: predniSONE 20 MG TABLET PO SCH (21:00)
--- NOTE | 2024-10-26 22:44 | PN ---
INFECTIOUS DISEASE PROGRESS NOTE Date of Service: Oct 26, 2024 SUBJECTIVE: Patient who was seen and examined at bedside in room 326. Patient is awake, alert and oriented x3. The bleeding scan done yesterday was negative and patient is also an EGD today. Patient has been approved to [facility] for outpatient IV antibiotic. We will continue on Zosyn IV. PHYSICAL EXAM EYES: Anicteric. Pupils equal and reactive. HENT: No oral thrush seen, moist Oral mucosa. NECK: Supple, no JVD or thyromegaly. LUNGS: Good air entry. Shortness of breaths. Diminished breath sounds. Oxygen support. CARDIOVASCULAR: S1, S2 regular. No murmur heard. ABDOMEN: Soft, non tender, bowel sounds present, no organomegaly. CENTRAL NERVOUS SYSTEM: Awake, alert, oriented x 3. SKIN: No rashes, no swelling. LYMPHATICS: No peripheral lymphadenopathy. MUSCULOSKELETAL: No joint swelling, erythema or tenderness. EXTREMITIES: No cyanosis or clubbing. BACK: No deformity, no pressure ulcer. GENITOURINARY: No dysuria or hematuria. Vital Sign (Last 12 Hours) 10/26/24 10/26/24 10/26/24 10/26/24 11:10 11:11 11:46 13:45 Temp 98.1 97.3 Pulse 65 65 65 60 Resp 17 18 18 15 B/P (MAP) 133/55 111/54 Pulse Ox 98 96 O2 Delivery N/Cannula Low lpm Room Air Nasal Cannula O2 Flow Rate 3.0 3.0 FiO2 32 28 10/26/24 10/26/24 10/26/24 10/26/24 13:50 13:54 13:54 13:55 Temp 97.3 97.3 Pulse 60 60 Resp 15 15 B/P (MAP) 149/66 146/60 Pulse Ox 96 96 O2 Delivery Nasal Cannula Mask Mask Nasal Cannula O2 Flow Rate 3.0 10.0 3.0 FiO2 28 28 10/26/24 10/26/24 10/26/24 10/26/24 14:00 14:05 14:10 14:15 Temp 97.3 97.3 97.3 97.3 Pulse 62 63 60 60 Resp 16 16 16 16 B/P (MAP) 140/63 142/68 146/56 144/63 Pulse Ox 95 95 97 97 O2 Delivery Nasal Cannula Nasal Cannula Nasal Cannula Nasal Cannula O2 Flow Rate 3.0 3.0 3.0 3.0 FiO2 10/26/24 10/26/24 10/26/24 10/26/24 14:20 14:25 14:40 14:55 Temp 97.3 98.1 98.1 Pulse 62 68 66 69 Resp 16 20 20 20 B/P (MAP) 140/61 139/73 150/78 167/87 Pulse Ox 97 100 100 100 O2 Delivery Nasal Cannula Nasal Cannula Nasal Cannula Nasal Cannula O2 Flow Rate 3.0 3.0 3.0 3.0 FiO2 10/26/24 10/26/24 10/26/24 10/26/24 15:15 15:45 16:15 17:15 Pulse 64 69 70 68 Resp 18 20 20 20 B/P (MAP) 144/47 148/62 132/56 150/57 Pulse Ox 100 98 98 100 O2 Delivery Nasal Cannula Nasal Cannula Nasal Cannula Nasal Cannula O2 Flow Rate 3.0 3.0 3.0 3.0 Intake & Output (last 24hrs) 10/25/24 10/25/24 10/26/24 15:00 23:00 07:00 Intake Total 800 ml Balance 800 ml LABS: Laboratory: Test 10/26/24 15:43 10/26/24 05:47 Range/Units Whole Blood Glucose 123 H 70-110 MG/DL White Blood Count 9.2 4.8-10.8 K/uL Red Blood Count 4.08 4.00-5.50 MIL/uL Hemoglobin 9.8 L 12.0-16.0 g/dL Hematocrit 33.4 L 36-48 % Mean Corpuscular Volume 81.9 79-99 fL Mean Corpuscular Hemoglobin 24.0 L 27.0-33.0 pg Mean Corpuscular Hemoglobin Concent 29.3 L 32.0-36.0 g/dL Red Cell Distribution Width 22.5 H 11.0-15.5 % Platelet Count 184 130-400 K/uL Mean Platelet Volume 9.6 7.5-10.5 fL Immature Granulocyte % (Auto) 13.6 H 0-1 % Neutrophils (%) (Auto) 71.2 40.0-77.0 % Lymphocytes (%) (Auto) 8.8 L 21.0-51.0 % Monocytes (%) (Auto) 5.2 3.0-13.0 % Eosinophils (%) (Auto) 0.4 0.0-8.0 % Basophils (%) (Auto) 0.8 0.0-5.0 % Neutrophils # (Auto) 6.6 1.8-7.7 K/uL Lymphocytes # (Auto) 0.8 L 1.0-4.8 K/uL Monocytes # (Auto) 0.5 0.1-1.0 K/uL Eosinophils # (Auto) 0.04 0.00-0.70 K/uL Basophils # (Auto) 0.07 0.00-0.20 K/uL Absolute Immature Granulocyte (auto 1.25 H 0-1 K/uL Nucleated Red Blood Cells 0.2 H 0.0-0.19 % Sodium Level 141 136-145 mmol/L Potassium Level 4.1 3.5-5.1 mmol/L Chloride Level 106 101-111 mmol/L Carbon Dioxide Level 30 21-32 mmol/L Blood Urea Nitrogen 28 H 7-18 mg/dL Creatinine 1.1 H 0.5-1.0 mg/dL Glomerular Filtration Rate Calc 52 >90 mL/min Random Glucose 68 L 70-105 mg/dL Total Calcium 9.2 8.5-10.1 mg/dL Phosphorus Level 4.0 2.5-4.9 mg/dL Total Bilirubin 0.5 0.2-1.0 mg/dL Aspartate Amino Transf (AST/SGOT) 20 10-37 U/L Alanine Aminotransferase (ALT/SGPT) 29 12-78 U/L Alkaline Phosphatase 62 50-136 U/L B-Type Natriuretic Peptide 121 H 0-100 pg/mL Total Protein 5.9 L 6.0-8.3 g/dL Albumin 2.7 L 3.5-5.0 g/dL ASSESSMENT: Acute hypoxic respiratory failure requiring oxygen support. Pneumonia with E coli infection. Infection with multidrug resistant organism. Leukocytosis. COPD exacerbation. Chronic tobacco use. Anemia requiring blood transfusion. PLAN: Continue Zosyn. Continue oxygen support. Continue GI prophylaxis. Continue bronchodilators. Patient has been approved approved to [facility] for outpatient IV antibiotics. Patient is pending a bleeding scan. This case was reviewed and discussed with my supervising physician and the above assessment and plan was formulated and agreed upon.. ATTESTATION BY PHYSICIAN I have seen and examined the patient. I reviewed the documentation, medical decision making, and treatment plan as noted by the mid-level provider above. I agree with the findings and plan of care. ATA CARSON MD, MIRTA L [facility] Oct 26, 2024 22:44
== END 2024-10-26 18:00 | disposition home or self-care (01) | DRG 871 ==
LOC: EDH 17:05 → EDHIP 20:20 → 4DH 23:08 → 2BH 10-20 21:00 → 3DH 10-22 13:00
PROVIDERS: ADMIT Internal Medicine; ATTEND Internal Medicine
PROC: 05HC33Z Insertion of Infusion Device into Left Basilic Vein, Percutaneous Approach (ICD-10-PCS; 2024-10-20)
PROC: B54NZZA Ultrasonography of Left Upper Extremity Veins, Guidance (ICD-10-PCS; 2024-10-20)
PROC: 5A09357 Assistance with Respiratory Ventilation, Less than 24 Consecutive Hours, Continuous Positive Airway Pressure (ICD-10-PCS; 2024-10-20)
PROC: 5A09357 Assistance with Respiratory Ventilation, Less than 24 Consecutive Hours, Continuous Positive Airway Pressure (ICD-10-PCS; 2024-10-21)
PROC: 30233N1 Transfusion of Nonautologous Red Blood Cells into Peripheral Vein, Percutaneous Approach (ICD-10-PCS; 2024-10-24)
PROC: 0DB98ZX Excision of Duodenum, Via Natural or Artificial Opening Endoscopic, Diagnostic (ICD-10-PCS; principal; 2024-10-26)
PROC: 0DB78ZX Excision of Stomach, Pylorus, Via Natural or Artificial Opening Endoscopic, Diagnostic (ICD-10-PCS; 2024-10-26)
PROC: 0DB68ZX Excision of Stomach, Via Natural or Artificial Opening Endoscopic, Diagnostic (ICD-10-PCS; 2024-10-26)
DX: A41.9 Sepsis, unspecified organism (principal); J15.69 Pneumonia due to other Gram-negative bacteria; J96.01 Acute respiratory failure with hypoxia; R65.21 Severe sepsis with septic shock; J44.1 Chronic obstructive pulmonary disease with (acute) exacerbation; E87.20 Acidosis, unspecified; N17.9 Acute kidney failure, unspecified; J44.0 Chronic obstructive pulmonary disease with (acute) lower respiratory infection; Z16.12 Extended spectrum beta lactamase (ESBL) resistance; Z16.24 Resistance to multiple antibiotics; D62 Acute posthemorrhagic anemia; Z68.41 Body mass index [BMI] 40.0-44.9, adult; E87.70 Fluid overload, unspecified; N18.9 Chronic kidney disease, unspecified; E11.22 Type 2 diabetes mellitus with diabetic chronic kidney disease; D63.1 Anemia in chronic kidney disease; I12.9 Hypertensive chronic kidney disease with stage 1 through stage 4 chronic kidney disease, or unspecified chronic kidney disease; F17.200 Nicotine dependence, unspecified, uncomplicated; D50.9 Iron deficiency anemia, unspecified; E66.01 Morbid (severe) obesity due to excess calories; J84.10 Pulmonary fibrosis, unspecified; B96.20 Unspecified Escherichia coli [E. coli] as the cause of diseases classified elsewhere; Y95 Nosocomial condition; D75.839 Thrombocytosis, unspecified; E11.65 Type 2 diabetes mellitus with hyperglycemia; E88.09 Other disorders of plasma-protein metabolism, not elsewhere classified; E03.9 Hypothyroidism, unspecified; K20.90 Esophagitis, unspecified without bleeding; K29.70 Gastritis, unspecified, without bleeding
CPT/HCPCS: 36415; 36430; 36556; 36600; 43239; 71045; 71250; 76700; 78278; 80048; 80051; 80053; 80076; 81001; 82270; 82435; 82550; 82570; 82728; 82803; 82947; 82948; 83036; 83540; 83550; 83605; 83735; 83880; 84100; 84132; 84145; 84295; 84436; 84439; 84443; 84480; 84481; 84484; 84550; 85018; 85025; 85027; 85378; 85610; 85651; 85730; 86140; 86850; 86900; 86901; 86923; 87040; 87071; 87086; 87186; 87205; 87426; 87804; 92610; 93005; 93306; 93356; 93970; 93971; 94640; 94660; 94664; 94760; 96365; 96366; 96375; 99291; A9512; G0378; J0360; J0696; J1650; J1756; J1815; J1938; J2543; J2919; J3490; J7030; J7050; P9016; A4215; A4221; A4222; A4223; A4620; A4663; A7002